=== PATIENT | female | born 1975 | race Caucasian/White ===

== ENCOUNTER → 2018-03-26 | Outpatient (REF) ==
[~2018-03-26] MED LIST: AMOX-358 PO; AMOX500C2 PO; DIVA-74; FAMO20TA5 PO; HYDR-4226 PO; HYDR-757 PO; KETO10TA PO; LEVO75TA6 PO; MELA1TAB9 PO; NAPR-1071 PO; NFPRILOC40 PO; NITR-65 PO; OMEP-10 PO; OMEP20TA33 PO; QUET200T57 PO; SCR1T PO; TRAM-42 PO
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
== END | disposition home or self-care (01) ==
LOC: OCC 13:52
PROVIDERS: ATTEND Nurse Practitioner Family
CPT/HCPCS: 72100

== ENCOUNTER 2018-09-10 09:36 | Outpatient (CLI) | payer MEDICARE, MEDICAID ==
[~2018-09-10] VITALS: Ht 157.5 cm; Wt 96.8 kg
[2018-09-10] MEDS ORDERED: LEVO100T7 PO (09:46)
[2018-09-10 09:49] VITALS: BP 128/87
[2018-09-10 10:40] LABS: BASOPHILS % (AUTO) 1 % (0-10); EOSINOPHILS # (AUTO) 0.1 10^3/uL (0.0-0.3); EOSINOPHILS % (AUTO) 3 % (0-10); HEMATOCRIT 30 % (35-52); HEMOGLOBIN 8.9 G/DL (11.5-16.0); LYMPHOCYTES # (AUTO) 0.8 X 10^3 (1.0-4.0); LYMPHOCYTES % (AUTO) 16 % (12-44); MEAN CORPUSCULAR HEMOGLOBIN 20 PG (25-34); MEAN CORPUSCULAR HGB CONC 30 G/DL (32-36); MEAN CORPUSCULAR VOLUME 65 FL (80-99); MEAN PLATELET VOLUME 10.1 FL (7.4-10.4); MONOCYTES # (AUTO) 0.4 X 10^3 (0.0-1.0); MONOCYTES % (AUTO) 8 % (0-12); NEUTROPHILS # (AUTO) 3.5 X 10^3 (1.8-7.8); NEUTROPHILS % (AUTO) 72 % (42-75); PLATELET COUNT 373 10^3/uL (130-400); RED CELL DISTRIBUTION WIDTH 19.8 % (10.0-14.5); WHITE BLOOD COUNT 4.8 10^3/uL (4.3-11.0)
== END 2018-09-10 13:26 | disposition home or self-care (01) ==
LOC: PREOP 09:36
PROVIDERS: ATTEND Obstetrics & Gynecology
DX: Z01.812 Encounter for preprocedural laboratory examination (principal); Z11.2 Encounter for screening for other bacterial diseases; R10.2 Pelvic and perineal pain; N92.0 Excessive and frequent menstruation with regular cycle; N94.6 Dysmenorrhea, unspecified; N80.0 Endometriosis of uterus
CPT/HCPCS: 36415; 85025; 86850; 86900; 86901; 87081

== ENCOUNTER 2018-09-13 06:00 | Day surgery (SDC) | payer MEDICARE, MEDICAID ==
[~2018-09-13] VITALS: Ht 157.5 cm; Wt 96.8 kg
[~2018-09-13 06:00] MED LIST changes: +LEVO100T7 PO
--- OUTSIDE RECORDS SUMMARY | 2018-09-13 06:22 | XMS REPORT ---
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 Active 77737455 Problem Dental examination Z01.20 Active 093526510 Problem Adjustment disorder with mixed disturbance of emotions and conduct F43.25 Active 93534886 Problem Dyspareunia in female N94.10 Active 12285877 Problem Depression with anxiety F41.8 Active 908966110 Problem Anxiety disorder, unspecified type F41.9 Active 944119673 Problem Hiatal hernia K44.9 Active 97961073 Problem Bipolar disorder, unspecified F31.9 Active 60551638 Problem Caries K02.9 Active 32560951 Problem Iron deficiency anemia due to chronic blood loss D50.0 Active 88357987 Problem Menorrhagia with regular cycle N92.0 Active 916260769 Problem Dysthymic disorder F34.1 Active 30894251 Problem Restless leg G25.81 Active 33084859 Problem Gastro-esophageal reflux disease with esophagitis K21.0 Active 257664058 Problem Primary insomnia F51.01 Active 634111429 Problem Gastroesophageal reflux disease with esophagitis K21.0 Active 644898296 Problem Hypothyroidism E03.9 Active 14114387 Problem Anger R45.4 Active 13931098 Problem Post traumatic stress disorder (PTSD) F43.10 Active 37389477 Problem 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 Active 370433899 Problem Insomnia, unspecified G47.00 Active 295310105 ALLERGIES No Information ENCOUNTERS Encounter Location Date Diagnosis [facility] [address] [facility] [id number] [address] Jun, [facility] [address], [place] [address] Jun, [facility] [address] [place] [id number] [place] [address]25- [address] May, Menorrhagia with regular cycle N92.0 [facility] [address] [place] [id number] [place] [address] 17129- 7707 May, Iron deficiency anemia due to chronic blood loss D50.0 and Hypothyroidism E03.9 [place] [address] [place] [id number] [place] [address] 28541- 7242 May, Menorrhagia with regular cycle N92.0 [place] [address] [place] [id number] [place] [address] 71932- 3253 May, [place] [address] [place] [id number] [place] [address] 44772- 1425 May, Bipolar disorder, unspecified F31.9 ; Hypothyroidism E03.9 ; Menorrhagia with regular cycle N92.0 and Dyspareunia in female N94.10 [place] [address] [place] [id number] [place] [address]22- 3574 Jan, Hypothyroidism E03.9 ; Restless leg G25.81 ; Depression with anxiety F41.8 and Overweight E66.3 [place] [address], [place] [address] November, [place] [address] [place] [id number] [place] [address] 42403- 3864 Oct, [place] [address] [place] [address] 85728- 8041 Sep, [place] [address] [place] [id number] [place] [address] 47895- 3641 Sep, Aspiration pneumonia, unspecified aspiration pneumonia type , unspecified laterality, unspecified part of lung J69.0 [place] [address], [place] [address] Sep, Pneumonia of left lower lobe due to infectious organism J18.1 [place] [address] [place] [id number] [place] [address] 42625- 4744 Jul, Anxiety disorder, unspecified type F41.9 [facility] [place] [address] [place] [id number] [place] [address]30 -0421 Jul, Body aches R52 and Viral illness B34.9 [facility] WALK IN [place] [address] [address] Jun, Bronchitis J40 [place] [address] [address]- [address] May, Hypothyroidism E03.9 [place] [address] 8[address]23- 8[address] May, Menorrhagia with regular cycle N92.0 ; Hypothyroidism E03.9 ; Iron deficiency anemia due to chronic blood loss D50.0 ; Primary insomnia F51.01 and Restless leg G25.81 [place] [address] [address]- [address] May, [facility] IN [place] [address] [address] May, Acute cystitis with hematuria N30.01 and Dysuria R30.0 [place] [address] 35[address]- [address] Apr, [place] [address] [address]- [address]407 Feb, [facility] [place] [address] [place] [id number] [place] [address] 85223 -8262 Feb, Ganglion cyst of wrist, left M67.432 [place] [address] [place] [id number] [place] [address] 86360- 1679 Jan, Insomnia, unspecified G47.00 [place] [address] 48640- 4188 Jan, Insomnia, unspecified G47.00 [place] [address] [place] [id number] [place] [address] 11036- 4203 05 Jan, 2017 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 ; Bipolar disorder, unspecified F31.9 and Hypothyroidism E03.9 [place] [address] [place] [id number] [place] [address]60- 1961 29 Dec, 2016 Dental examination Z01.20 [place] [address] [address]31- [address] 14 Dec, 2016 Depression with anxiety F41.8 ; Post traumatic stress disorder (PTSD) F43.10 ; 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 and Adjustment disorder with mixed disturbance of emotions and conduct F43.25 [place] [address] [address]- [address] November, 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 ; Adjustment disorder with mixed disturbance of emotions and conduct F43.25 and Depression with anxiety F41.8 [place] [address] 95581- 3285 November, Insomnia, unspecified G47.00 [place] [address] 86540- 71[address] November, 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 ; Adjustment disorder with mixed disturbance of emotions and conduct F43.25 and Depression with anxiety F41.8 [place] [address] [place] [id number] [place] [address] 46140- 4292 Oct, Insomnia, unspecified G47.00 [facility] WALK IN [address] [address] Oct, Visit for TB skin test Z11.1 [facility] [place] [id number] [place] [address] 24451 -5582 Sep, Wheezing R06.2 and Bronchitis J40 [facility] [address] [id number] Sep, Dental examination Z01.20 [place] [address] [address] 10 Sep, 2016 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 [place] [address], [place] [address] 08 Sep, 2016 Bipolar disorder, unspecified F31.9 ; Insomnia, unspecified G47.00 ; 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 ; Hypothyroidism E03.9 and Acquired hypothyroidism E03.9 [place] [address] [place] [id number] [place] [address] 96031- 0158 Jul, Hypothyroidism E03.9 [place] [address] [place] [id number] [place] [address] 91404- 5031 Jul, Hypothyroidism E03.9 [place] [address] [place] [id number] [place] [address] 27952- 0393 May, Generalized anxiety disorder F41.1 ; Depression with anxiety F41.8 and Bipolar disorder, unspecified F31.9 [place] [address] [place] [address] 19716- 1654 Apr, Hypothyroidism E03.9 [place] [address] [place] [address] 16277- 3755 Apr, Depression with anxiety F41.8 ; Bipolar disorder, unspecified F31.9 ; Generalized anxiety disorder F41.1 and Post traumatic stress disorder (PTSD) F43.10 [place] [address], [place] [address] Apr, Encounter to establish care Z76.89 ; Gastroesophageal reflux disease with esophagitis K21.0 ; Hypothyroidism E03.9 ; Bipolar disorder , unspecified F31.9 ; 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 ; Weight gain R63.5 and Insomnia, unspecified type G47.00 [place] [address] [place] [address] 64930- 5222 Apr, Primary insomnia F51.01 ; Depression with anxiety F41.8 and Generalized anxiety disorder F41.[address] [address]- [address] 18 Apr, 2016 [facility] [address] [address] 15 Apr, 2016 Overdose of anticonvulsant, undetermined intent, initial encounter T42.74XA [address] [address]- [address]279 Feb, [address] [address]- [address] Jan, Bipolar disorder, unspecified F31.9 and Anger R45.4 [facility] WALK IN [facility] [address] [place] [address]47 [address]93 15 Oct, 2015 Right forearm pain M79.631 [facility] [address] [id number] 04 Aug, 2015 Encounter for dental examination Z01.20 [facility] WALK IN [address] 229[address] 14 Jul, 2015 Acute vomiting R11.[address] [address]28- 2649 07 Jul, 2015 Screening for tuberculosis Z11.[address] 7[address]13- [address]17 Jun, Gastro-esophageal reflux disease with esophagitis K21.0 and Generalized anxiety disorder F41.[address] 02947- 0553 Jun, Generalized anxiety disorder F41.1 and Insomnia, unspecified G47.[address] 17563- 6791 Jun, [address] 56555- 6150 May, Generalized anxiety disorder F41.1 and Bipolar disorder, unspecified F31.9 [facility] [address] [place] [id number] [place] [address] 48074- 1984 May, Dysthymic disorder F34.1 ; Generalized anxiety disorder F41.1 and Bipolar 1 disorder with moderate felipe F31.12 [facility] [address] [place] [id number] [place] [address] 37794- 5768 May, Bipolar 1 disorder with moderate felipe F31.12 ; Generalized anxiety disorder F41.1 and Insomnia, unspecified G47.00 [facility] [address] [place] [id number] [place] [address] 68081- 8897 May, Bipolar 1 disorder with moderate felipe F31.12 [facility] WALK IN [facility] [address] [place] [id number] [place] [address]31 [address] May, Bronchitis J40 [facility] [address] 35822- 4427 Apr, Dysthymic disorder F34.1 and Generalized anxiety disorder F41.1 [place] [address] 30147- 7003 Apr, Generalized anxiety disorder F41.1 and Dysthymic disorder F34.1 [place] [address] 87961- 3278 Apr, Primary insomnia F51.01 ; Depression with anxiety F41.8 and Restless leg G25.81 [facility] [address] [place] [id number] [place] [address] 28382- 9161 Apr, Generalized anxiety disorder F41.1 ; Dysthymic disorder F34.1 ; Hypothyroidism E03.9 ; Anemia D64.9 and Acid reflux K21.9 [facility] [address] [place] [id number] 16 Mar, 2015 Dental examination V72.2 [facility] [address] 4[address]- 3762 Mar, Routine adult health maintenance V70.0 [facility] [address], [place] [address]- [address] Mar, [facility] [address] [place] [id number] [place] [address] 497513- 5053 Mar, Insomnia 780.52 ; Routine adult health maintenance V70.0 ; GERD (gastroesophageal reflux disease) 530.81 and Depression with anxiety 300.4 [facility] [address] [place] [address] [id number] Feb, Dental examination V72.2 [facility] [address] [place] [id number] [place] [address] 98551- 4795 Sep, [facility] [address] [place] [id number] [place] [address] 52385- 4370 Sep, [facility] [address] [place] [id number] [place] [address] 45420- 5415 Sep, [facility] [address] [place] [id number] [place] [address] 59698- 8525 Sep, [facility] [address] [place] [id number] [place] [address] 08587- 8814 Sep, [facility] [address] [place] [id number] [place] [address] 49634- 6688 Sep, IMMUNIZATIONS No Known Immunizations SOCIAL HISTORY Never Assessed REASON FOR VISIT Ultrasound walk-in. A[facility] [facility] RVT PLAN OF CARE Activity Details Pending Test Ultrasound : PELVIC COMPLETE (IN-HOUSE) VITAL SIGNS MEDICATIONS Unknown Medications RESULTS No Results PROCEDURES Procedure Date Ordered Result Body Site US EXAM, PELVIC, COMPLETE Jun 04, 2018 INSTRUCTIONS MEDICATIONS ADMINISTERED No Known Medications MEDICAL (GENERAL) HISTORY Type Description Date Medical History anemia Medical History Hypothyroidism Medical History esophageal reflux (possible deterioration of esophageal tissue ) Medical History insomnia Medical History restless leg syndrome Medical History hx of drug abuse-meth (last used 08/2014--No IDVU) Medical History hx of PTSD Medical History hx of major depression Surgical History loop electrosurgical excision procedure (LEEP) x3 late in 2009 Surgical History dilatation and curettage s/p miscarriage 2009 Surgical History section x2 1996 & 2004 Surgical History cholecystectomy 1996 Surgical History wisdom teeth extraction 1994 Surgical History EGD some esophagitis 05/2016 Surgical History EGD 09/2017 Hospitalization History rehab x30 days each 4 different times Hospitalization History 18 day stay at psych facility 1992 Hospitalization History was admitted to a penitentiary/psych facility [id number]
--- OUTSIDE RECORDS SUMMARY | 2018-09-13 06:22 | XMS REPORT ---
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 Active 68921372 Problem Dental examination Z01.20 Active 696243801 Problem Adjustment disorder with mixed disturbance of emotions and conduct F43.25 Active 03013273 Problem Dyspareunia in female N94.10 Active 84824165 Problem Depression with anxiety F41.8 Active 329737759 Problem Anxiety disorder, unspecified type F41.9 Active 422627442 Problem Hiatal hernia K44.9 Active 72090912 Problem Bipolar disorder, unspecified F31.9 Active 29034855 Problem Caries K02.9 Active 38663522 Problem Iron deficiency anemia due to chronic blood loss D50.0 Active 97700586 Problem Menorrhagia with regular cycle N92.0 Active 852744531 Problem Dysthymic disorder F34.1 Active 10929161 Problem Restless leg G25.81 Active 55797172 Problem Gastro-esophageal reflux disease with esophagitis K21.0 Active 939372367 Problem Primary insomnia F51.01 Active 374545713 Problem Gastroesophageal reflux disease with esophagitis K21.0 Active 303870716 Problem Hypothyroidism E03.9 Active 44165698 Problem Anger R45.4 Active 13980089 Problem Post traumatic stress disorder (PTSD) F43.10 Active 11916836 Problem 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 Active 949990772 Problem Insomnia, unspecified G47.00 Active 193849939 ALLERGIES No Information ENCOUNTERS Encounter Location Date Diagnosis [facility] [address] [facility] [id number] [place] [address] Jun, [facility] [address] [place] [address] Jun, [facility] [address] [place] [id number] [place] [address] 88924- 8500 May, Menorrhagia with regular cycle N92.0 [facility] [address] [place] [id number] [place] [address] 12424- 5897 May, Iron deficiency anemia due to chronic blood loss D50.0 and Hypothyroidism E03.9 [place] [address] [place] [id number] [place] [address] 11605- 2446 May, Menorrhagia with regular cycle N92.0 [place] [address] [place] [id number] [place] [address] 39771- 9721 May, [place] [address] [place] [id number] [place] [address] 58300- 4841 May, Bipolar disorder, unspecified F31.9 ; Hypothyroidism E03.9 ; Menorrhagia with regular cycle N92.0 and Dyspareunia in female N94.10 [place] [address] [place] [id number] [place] [address] 04892- 2953 Jan, Hypothyroidism E03.9 ; Restless leg G25.81 ; Depression with anxiety F41.8 and Overweight E66.3 [place] [address] [address] November, [place] [address] [place] [id number] [place] [address] 67933- 1548 Oct, [place] [address] [place] [address] 70374- 6187 Sep, [place] [address] [place] [id number] [place] [address] 69022- 1002 Sep, Aspiration pneumonia, unspecified aspiration pneumonia type , unspecified laterality, unspecified part of lung J69.0 [place] [address] [address] Sep, Pneumonia of left lower lobe due to infectious organism J18.1 [place] [address] [place] [id number] [place] [address] 02266- 3748 Jul, Anxiety disorder, unspecified type F41.9 [facility] [place] [address] [place] [id number] [place] [address] 14666 -5056 Jul, Body aches R52 and Viral illness B34.9 [facility] [place] [address] [address] Jun, Bronchitis J40 [place] [address] 10233- 1374 May, Hypothyroidism E03.9 [place] [address] 03384- 8876 May, Menorrhagia with regular cycle N92.0 ; Hypothyroidism E03.9 ; Iron deficiency anemia due to chronic blood loss D50.0 ; Primary insomnia F51.01 and Restless leg G25.81 [place] [address] 8[address]64- 4668 May, [facility] [place] [address] [address] May, Acute cystitis with hematuria N30.01 and Dysuria R30.0 [place] [address] 59960- 2578 Apr, [place] [address] 30143- 69[address] Feb, [facility] [place] [address] [id number] [place] [address] 72812 -0548 Feb, Ganglion cyst of wrist, left M67.432 [place] [address] [place] [id number] [place] [address] 23295- 5846 Jan, Insomnia, unspecified G47.00 [place] [address] 01795- 5128 Jan, Insomnia, unspecified G47.00 [place] [address] [place] [id number] [place] [address] 48636- 6361 05 Jan, 2017 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 ; Bipolar disorder, unspecified F31.9 and Hypothyroidism E03.9 [place] [address] [place] [id number] [place] [address] 72407- 7875 29 Dec, 2016 Dental examination Z01.20 [place] [address] 33[address]- 4846 14 Dec, 2016 Depression with anxiety F41.8 ; Post traumatic stress disorder (PTSD) F43.10 ; 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 and Adjustment disorder with mixed disturbance of emotions and conduct F43.25 [place] [address] [address]- 9592 November, 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 ; Adjustment disorder with mixed disturbance of emotions and conduct F43.25 and Depression with anxiety F41.8 [place] [address] 75717- 3962 November, Insomnia, unspecified G47.00 [place] [address] 81336- 9268 November, 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 ; Adjustment disorder with mixed disturbance of emotions and conduct F43.25 and Depression with anxiety F41.8 [place] [address] [place] [id number] [place] [address] 24528- 3551 Oct, Insomnia, unspecified G47.00 [facility] IN [address] [address] Oct, Visit for TB skin test Z11.1 [facility] [place] [id number] [place] [address] 18405 [address]3886 Sep, Wheezing R06.2 and Bronchitis J40 [facility] [address] [id number] Sep, Dental examination Z01.20 [place] [address] [address] 10 Sep, 2016 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 [place] [address] [address] 08 Sep, 2016 Bipolar disorder, unspecified F31.9 ; Insomnia, unspecified G47.00 ; 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 ; Hypothyroidism E03.9 and Acquired hypothyroidism E03.9 [place] [address] [place] [id number] [place] [address] 79903- 4626 Jul, Hypothyroidism E03.9 [place] [address] [place] [id number] [place] [address] 86818- 2735 Jul, Hypothyroidism E03.9 [place] [address] [place] [id number] [place] [address] 88220- 0158 May, Generalized anxiety disorder F41.1 ; Depression with anxiety F41.8 and Bipolar disorder, unspecified F31.9 [place] [address] [place] [address] 36435- 9759 Apr, Hypothyroidism E03.9 [place] [address] [place] [address] 31536- 7205 Apr, Depression with anxiety F41.8 ; Bipolar disorder, unspecified F31.9 ; Generalized anxiety disorder F41.1 and Post traumatic stress disorder (PTSD) F43.10 [place] [address] [address] Apr, Encounter to establish care Z76.89 ; Gastroesophageal reflux disease with esophagitis K21.0 ; Hypothyroidism E03.9 ; Bipolar disorder , unspecified F31.9 ; 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 ; Weight gain R63.5 and Insomnia, unspecified type G47.00 [place] [address] [place] [address] 17265- 0972 Apr, Primary insomnia F51.01 ; Depression with anxiety F41.8 and Generalized anxiety disorder F41.[address] [address]- [address] 18 Apr, 2016 [facility] [address] [address] 15 Apr, 2016 Overdose of anticonvulsant, undetermined intent, initial encounter T42.74XA [address] [address]- [address]34 Feb, [address] 8[address]32- 4335 Jan, Bipolar disorder, unspecified F31.9 and Anger R45.4 [facility] [address] [place] [address]34 -8314 15 Oct, 2015 Right forearm pain M79.631 [facility] [address] [id number] 04 Aug, 2015 Encounter for dental examination Z01.20 [facility] IN [address] [address] 14 Jul, 2015 Acute vomiting R11.[address] 28999- 8885 07 Jul, 2015 Screening for tuberculosis Z11.[address] 99869- 7649 Jun, Gastro-esophageal reflux disease with esophagitis K21.0 and Generalized anxiety disorder F41.[address] 9[address]40- 4882 Jun, Generalized anxiety disorder F41.1 and Insomnia, unspecified G47.[address] 86782- 4948 Jun, [address] 81161- 7381 May, Generalized anxiety disorder F41.1 and Bipolar disorder, unspecified F31.9 [facility] [address] [id number] [place] [address] 80076- 8614 May, Dysthymic disorder F34.1 ; Generalized anxiety disorder F41.1 and Bipolar 1 disorder with moderate felipe F31.12 [facility] [address] [id number] [place] [address] 73381- 4732 May, Bipolar 1 disorder with moderate felipe F31.12 ; Generalized anxiety disorder F41.1 and Insomnia, unspecified G47.00 [facility] [address] [id number] [place] [address] 22732- 3682 May, Bipolar 1 disorder with moderate felipe F31.12 [facility] [address] [id number] [place] [address] 51109 -2469 May, Bronchitis J40 [facility] [address] [address]- 1481 Apr, Dysthymic disorder F34.1 and Generalized anxiety disorder F41.1 [place] [address] 02083- 8375 Apr, Generalized anxiety disorder F41.1 and Dysthymic disorder F34.1 [place] [address] 90653- 0818 Apr, Primary insomnia F51.01 ; Depression with anxiety F41.8 and Restless leg G25.81 [facility] [address] [place] [id number] [place] [address] 44591- 3288 Apr, Generalized anxiety disorder F41.1 ; Dysthymic disorder F34.1 ; Hypothyroidism E03.9 ; Anemia D64.9 and Acid reflux K21.9 [facility] [address] [place] [address] [id number] 16 Mar, 2015 Dental examination V72.2 [facility] [address] 077[address]- 7701 Mar, Routine adult health maintenance V70.0 [facility] [address] [place] [id number] [place] [address] 22393- 8646 Mar, [facility] [address] [place] [id number] [place] [address] 242416- 9625 Mar, Insomnia 780.52 ; Routine adult health maintenance V70.0 ; GERD (gastroesophageal reflux disease) 530.81 and Depression with anxiety 300.4 [facility] [address] [place] [id number] [place] [address] [id number] Feb, Dental examination V72.2 [facility] [address] 056[address]- 8716 Sep, [facility] [address] 22336- 4788 Sep, [facility] [address] 18842- 9699 Sep, [facility] [address] [place] [id number] [place] [address] 55482- 5829 Sep, [facility] [address] [place] [id number] [place] [address] 63226- 6195 Sep, [facility] [address] [place] [id number] [place] [address] 99105- 9943 Sep, IMMUNIZATIONS No Known Immunizations SOCIAL HISTORY Never Assessed REASON FOR VISIT Ultrasound Order f/u PLAN OF CARE VITAL SIGNS MEDICATIONS Unknown Medications RESULTS No Results PROCEDURES No Known procedures INSTRUCTIONS MEDICATIONS ADMINISTERED No Known Medications MEDICAL [...] Surgical History dilatation and curettage s/p miscarriage 2008 Surgical History section x2 1996 & 2004 Surgical History cholecystectomy 1996 Surgical History wisdom teeth extraction 1994 Surgical History EGD some esophagitis 05/2016 Surgical History EGD 09/2017 Hospitalization History rehab x30 days each 4 different times Hospitalization History 18 day stay at psych facility 1992 Hospitalization History was admitted to a retirement/psych facility [id number]
--- OUTSIDE RECORDS SUMMARY | 2018-09-13 06:22 | XMS REPORT ---
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 Active 52186513 Problem Dental examination Z01.20 Active 650524732 Problem Adjustment disorder with mixed disturbance of emotions and conduct F43.25 Active 40971748 Problem Dyspareunia in female N94.10 Active 93013382 Problem Depression with anxiety F41.8 Active 208744162 Problem Anxiety disorder, unspecified type F41.9 Active 265982404 Problem Hiatal hernia K44.9 Active 10062711 Problem Bipolar disorder, unspecified F31.9 Active 05536286 Problem Caries K02.9 Active 76966907 Problem Iron deficiency anemia due to chronic blood loss D50.0 Active 76574621 Problem Menorrhagia with regular cycle N92.0 Active 563028532 Problem Dysthymic disorder F34.1 Active 75636050 Problem Restless leg G25.81 Active 45750114 Problem Gastro-esophageal reflux disease with esophagitis K21.0 Active 344981202 Problem Primary insomnia F51.01 Active 270303773 Problem Gastroesophageal reflux disease with esophagitis K21.0 Active 487802182 Problem Hypothyroidism E03.9 Active 75661687 Problem Anger R45.4 Active 28503866 Problem Post traumatic stress disorder (PTSD) F43.10 Active 51976152 Problem 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 Active 444174970 Problem Insomnia, unspecified G47.00 Active 421982397 ALLERGIES No Known Allergies ENCOUNTERS Encounter Location Date Diagnosis [facility] [address] [facility] [id number] [address] Jun, [facility] [address] [address] Jun, Hypothyroidism E03.9 ; Bipolar disorder, unspecified F31.9 and Menorrhagia with regular cycle N92.0 [place] [address] [place] [id number] [place] [address]34- 2464 May, Menorrhagia with regular cycle N92.0 [place] [address] [place] [id number] [place] [address] 50069- 0716 May, Iron deficiency anemia due to chronic blood loss D50.0 and Hypothyroidism E03.9 [place] [address] [place] [id number] [place] [address] 12504- 6789 May, Menorrhagia with regular cycle N92.0 [place] [address] [place] [id number] [place] [address] 55098- 5301 May, [place] [address] [place] [id number] [place] [address] 14054- 3132 May, Bipolar disorder, unspecified F31.9 ; Hypothyroidism E03.9 ; Menorrhagia with regular cycle N92.0 and Dyspareunia in female N94.10 [place] [address] [place] [id number] [place] [address]- [address] Jan, Hypothyroidism E03.9 ; Restless leg G25.81 ; Depression with anxiety F41.8 and Overweight E66.3 [place] [address] [place] [id number] [place] [address] 08725- 6030 November, [place] [address] [place] [id number] [place] [address] 75128- 8476 Oct, [place] [address] [place] [id number] [place] [address] 82674- 8166 Sep, [place] [address] [place] [id number] [place] [address] 68207- 9618 Sep, Aspiration pneumonia, unspecified aspiration pneumonia type , unspecified laterality, unspecified part of lung J69.0 [place] [address] [address]- 59[address] Sep, Pneumonia of left lower lobe due to infectious organism J18.1 [place] [address] [address]- [address]13 Jul, Anxiety disorder, unspecified type F41.9 [facility] [place] [address] [address] Jul, Body aches R52 and Viral illness B34.9 [facility] [place] [address] [address]65 [address] Jun, Bronchitis J40 [place] [address] 55299- 1199 May, Hypothyroidism E03.9 [place] [address] [address]- 2778 May, Menorrhagia with regular cycle N92.0 ; Hypothyroidism E03.9 ; Iron deficiency anemia due to chronic blood loss D50.0 ; Primary insomnia F51.01 and Restless leg G25.81 [place] [address] 62[address]- [address]761 May, [facility] [place] [address] [place] [id number] [place] [address] 82441 -1098 May, Acute cystitis with hematuria N30.01 and Dysuria R30.0 [place] [address] 59116- 8895 Apr, [place] [address] 57[address]- 9685 Feb, [facility] [place] [address] [address]87 Feb, Ganglion cyst of wrist, left M67.432 [place] [address] 51696- 5[address] Jan, Insomnia, unspecified G47.00 [place] [address] [place] [id number] [place] [address] 70319- 9817 Jan, Insomnia, unspecified G47.00 [place] [address] 12699- 5995 05 Jan, 2017 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 ; Bipolar disorder, unspecified F31.9 and Hypothyroidism E03.9 [place] [address] 09616- 8708 29 Dec, 2016 Dental examination Z01.20 [place] [address] 92075- 2962 14 Dec, 2016 Depression with anxiety F41.8 ; Post traumatic stress disorder (PTSD) F43.10 ; 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 and Adjustment disorder with mixed disturbance of emotions and conduct F43.25 [place] [address] 61413- [address]69 November, 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 ; Adjustment disorder with mixed disturbance of emotions and conduct F43.25 and Depression with anxiety F41.8 [place] [address] 74242- 5365 November, Insomnia, unspecified G47.00 [place] [address] [place] [id number] [place] [address] 37958- 3783 November, 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 ; Adjustment disorder with mixed disturbance of emotions and conduct F43.25 and Depression with anxiety F41.8 [place] [address] [place] [id number] [place] [address] 42506- 6259 Oct, Insomnia, unspecified G47.00 [facility] [address] [address] Oct, Visit for TB skin test Z11.1 [facility] [place] [id number] [place] [address] 45863 -0222 28 Mar, 2017 Wheezing R06.2 and Bronchitis J40 [facility] [address] [place] [address] [id number] [id number] Sep, Dental examination Z01.20 [place] [address] [place] [id number] [place] [address] 92225- 7069 10 Sep, 2016 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 [place] [address] [place] [id number] [place] [address] 96206- 9782 08 Sep, 2016 Bipolar disorder, unspecified F31.9 ; Insomnia, unspecified G47.00 ; 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 ; Hypothyroidism E03.9 and Acquired hypothyroidism E03.9 [place] [address] [place] [id number] [place] [address] 48617- 9328 Jul, Hypothyroidism E03.9 [place] [address] [place] [id number] [place] [address] 64851- 9318 Jul, Hypothyroidism E03.9 [place] [address] [place] [id number] [place] [address] 06674- 1366 May, Generalized anxiety disorder F41.1 ; Depression with anxiety F41.8 and Bipolar disorder, unspecified F31.9 [place] [id number] [place] [address] 89495- 9306 Apr, Hypothyroidism E03.9 [place] [address] [place] [id number] [place] [address] 22613- 5884 Apr, Depression with anxiety F41.8 ; Bipolar disorder, unspecified F31.9 ; Generalized anxiety disorder F41.1 and Post traumatic stress disorder (PTSD) F43.10 [place] [address] [place] [id number] [place] [address] 94466- 6269 Apr, Encounter to [facility] care Z76.89 ; Gastroesophageal reflux disease with esophagitis K21.0 ; Hypothyroidism E03.9 ; Bipolar disorder , unspecified F31.9 ; 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 ; Weight gain R63.5 and Insomnia, unspecified type G47.00 [place] [address] [place] [id number] [place] [address] 64314- 7017 Apr, Primary insomnia F51.01 ; Depression with anxiety F41.8 and Generalized anxiety disorder F41.1 [place] [address] 05912- 7856 18 Apr, 2016 [facility] IN [address] [address] Apr, Overdose of anticonvulsant, undetermined intent, initial encounter T42.74XA [address] [address]21- [address]957 Feb, [address] [address]14- 8[address] Jan, Bipolar disorder, unspecified F31.9 and Anger R45.4 [facility] [place] [address] [address] Oct, Right forearm pain M79.631 [facility] [address] [id number] Aug, 2015 Encounter for dental examination Z01.20 [facility] [place] [address] [address] Jul, Acute vomiting R11.[address] [address]63- 7980 Jul, Screening for tuberculosis Z11.[address] 28343- 8557 Jun, Gastro-esophageal reflux disease with esophagitis K21.0 and Generalized anxiety disorder F41.[address] 47[address]- 6396 Jun, Generalized anxiety disorder F41.1 and Insomnia, unspecified G47.[address] 61011- 9343 Jun, [facility] [address] [place] [id number] [place] [address] 31044- 4698 May, Generalized anxiety disorder F41.1 and Bipolar disorder, unspecified F31.9 [facility] [address] 31796- 3590 May, Dysthymic disorder F34.1 ; Generalized anxiety disorder F41.1 and Bipolar 1 disorder with moderate felipe F31.12 [facility] [address] [address]- 0485 May, Bipolar 1 disorder with moderate felipe F31.12 ; Generalized anxiety disorder F41.1 and Insomnia, unspecified G47.00 [place] [address] 84981- 9979 May, Bipolar 1 disorder with moderate felipe F31.12 [facility] IN [facility] [address] 377[address] May, Bronchitis J40 [facility] [address] 77631- 5114 Apr, Dysthymic disorder F34.1 and Generalized anxiety disorder F41.1 [facility] [address] 71024- 4118 Apr, Generalized anxiety disorder F41.1 and Dysthymic disorder F34.1 [place] [address] 44912- 7415 Apr, Primary insomnia F51.01 ; Depression with anxiety F41.8 and Restless leg G25.81 [place] [address] 20657- 3233 Apr, Generalized anxiety disorder F41.1 ; Dysthymic disorder F34.1 ; Hypothyroidism E03.9 ; Anemia D64.9 and Acid reflux K21.9 [facility] [id number] [place] [id number] 16 Mar, 2015 Dental examination V72.2 [facility] [address] [address] 04 Mar, 2015 Routine adult health maintenance V70.0 [facility] [address] [place] [id number] [place] [address] 16595- 5336 Mar, [facility] [address] [place] [address] [id number] [place] [address] 58037- 4019 Mar, Insomnia 780.52 ; Routine adult health maintenance V70.0 ; GERD (gastroesophageal reflux disease) 530.81 and Depression with anxiety 300.4 [facility] [id number] [place] [id number] Feb, Dental examination V72.2 [facility] [address] [place] [id number] [place] [address] 51385- 6591 Sep, [facility] [address] [place] [id number] [place] [address] 64482- 0756 Sep, [facility] [address] [place] [address] [id number] [place] [address] 17223- 5255 Sep, [facility] [address] [place] [id number] [place] [address] 71309- 5116 Sep, [facility] [address] [place] [id number] [place] [address] 96436- 6735 Sep, [facility] [id number] [place] [address] 31131- 3086 Sep, IMMUNIZATIONS No Known Immunizations SOCIAL HISTORY Never Assessed REASON FOR VISIT hypothyroid f/u Pt in for follow up on hypothyroidism --CELE Deng PLAN OF CARE Activity Details Follow Up 3 Months Reason:hypothyroid VITAL SIGNS Height 62 in 2018-06-20 Weight 213.6 lbs 2018-06-20 Temperature 98.2 degrees Fahrenheit 2018-06-20 Heart Rate 76 bpm 2018-06-20 Respiratory Rate 18 2018-06-20 BMI 39.06 kg/m2 2018-06-20 Blood pressure systolic 136 mmHg 2018-06-20 Blood pressure diastolic 82 mmHg 2018-06-20 MEDICATIONS Medication Instructions Dosage Frequency Start Date End Date Duration Status Levothyroxine Sodium 100 MCG Orally Once a day 1 tablet 24h 90 days Active Ferrous Sulfate 325 (65 Fe) MG Orally Once a day 1 tablet 24h May, 30 days Active Gabapentin 300 MG Orally Once a day 1 capsule before bedtime 24h 15 May, 2017 90 Active Omeprazole 40 mg Orally Once a day 1 capsule 24h Sep, Active Seroquel 100 MG by oral route at bedtime 1 tablet 90 days Active RESULTS No Results PROCEDURES Procedure Date Ordered Result Body Site [facility] VISIT ESTABLISHED PATIENT Jun 20, 2018 INSTRUCTIONS MEDICATIONS ADMINISTERED No Known Medications [...] 1992 Hospitalization History was admitted to a correction/psych facility [id number]
--- OUTSIDE RECORDS SUMMARY | 2018-09-13 06:23 | XMS REPORT ---
Author Author NADYA IVY 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 Active 87391192 Problem Anxiety disorder, unspecified type F41.9 Active 316309958 Problem Hiatal hernia K44.9 Active 86269520 Problem Iron deficiency anemia due to chronic blood loss D50.0 Active 82492487 Problem Caries K02.9 Active 86264545 Problem Dental examination Z01.20 Active 765792380 Problem Menorrhagia with regular cycle N92.0 Active 568228146 Problem Bipolar disorder, unspecified F31.9 Active 04506348 Problem Primary insomnia F51.01 Active 343868786 Problem Dysthymic disorder F34.1 Active 63051672 Problem Depression with anxiety F41.8 Active 767804602 Problem Gastro-esophageal reflux disease with esophagitis K21.0 Active 427043946 Problem 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 Active 946923792 Problem Gastroesophageal reflux disease with esophagitis K21.0 Active 580182107 Problem Restless leg G25.81 Active 28665321 Problem Hypothyroidism E03.9 Active 36239900 Problem Anger R45.4 Active 38874279 Problem Post traumatic stress disorder (PTSD) F43.10 Active 58858080 ALLERGIES No Information ENCOUNTERS Encounter Location Date Diagnosis [facility] [address] [facility] [id number] [address] Jan, Hypothyroidism E03.9 ; Restless leg G25.81 ; Depression with anxiety F41.8 and Overweight E66.3 [place] [address] [place] [id number] [place] [address]10[address] November, [place] [address] [address] Oct, [place] [address] [place] [id number] [place] [address] 08155- 8510 Sep, [place] [address] [address]- [address]84 Sep, Aspiration pneumonia, unspecified aspiration pneumonia type , unspecified laterality, unspecified part of lung J69.0 [place] [address] [address] Sep, Pneumonia of left lower lobe due to infectious organism J18.1 [place] [address] 54[address]- [address] Jul, Anxiety disorder, unspecified type F41.9 [facility] [place] [address] [address] Jul, Body aches R52 and Viral illness B34.9 [facility] [address] [address] Jun, Bronchitis J40 [place] [address] 040[address]- 9259 May, Hypothyroidism E03.9 [place] [address] 15231- 3518 15 May, 2017 Menorrhagia with regular cycle N92.0 ; Hypothyroidism E03.9 ; Iron deficiency anemia due to chronic blood loss D50.0 ; Primary insomnia F51.01 and Restless leg G25.81 [place] [address] [place] [id number] [place] [address] 35815- 8767 06 May, 2017 [facility] [place] [address] [address] 06 Nov, 2017 Acute cystitis with hematuria N30.01 and Dysuria R30.0 [place] [address] [place] [id number] [place] [address] 27202- 4684 Apr, [place] [address] [place] [id number] [place] [address] 11989- 4289 Feb, [facility] [address] [place] [id number] [place] [address]43 [address]2942 Feb, Ganglion cyst of wrist, left M67.432 [place] [address] [place] [id number] [place] [address] 62876- 2608 Jan, Insomnia, unspecified G47.00 [place] [address] [place] [id number] [place] [address] 74011- 9067 Jan, Insomnia, unspecified G47.00 [place] [address] [place] [id number] [place] [address] 41333- 6913 Jan, 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 ; Bipolar disorder, unspecified F31.9 and Hypothyroidism E03.9 [place] [address] [place] [id number] [place] [address] 13552- 8662 29 Dec, 2016 Dental examination Z01.20 [place] [address] [place] [id number] [place] [address] 46085- 4473 14 Dec, 2016 Depression with anxiety F41.8 ; Post traumatic stress disorder (PTSD) F43.10 ; 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 and Adjustment disorder with mixed disturbance of emotions and conduct F43.25 [place] [id number] [place] [address] 77095- 9833 November, 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 ; Adjustment disorder with mixed disturbance of emotions and conduct F43.25 and Depression with anxiety F41.8 [place] [address] [place] [id number] [place] [address] 43780- 1157 November, Insomnia, unspecified G47.00 [place] [address] [place] [id number] [place] [address] 68881- 4269 November, 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 ; Adjustment disorder with mixed disturbance of emotions and conduct F43.25 and Depression with anxiety F41.8 [place] [id number] [place] [address] 34048- 2104 Oct, Insomnia, unspecified G47.00 [facility] [place] [id number] [place] [address]272 [address]6697 Oct, Visit for TB skin test Z11.1 [facility] [place] [address] [place] [id number] [place] [address] 06848 -4927 Sep, Wheezing R06.2 and Bronchitis J40 [facility] [address] [id number] Sep, Dental examination Z01.20 [place] [id number] [place] [address] 16469- 7487 10 Sep, 2016 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 [place] [address] [place] [id number] [place] [address] 34906- 8502 08 Sep, 2016 Bipolar disorder, unspecified F31.9 ; Insomnia, unspecified G47.00 ; 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 ; Hypothyroidism E03.9 and Acquired hypothyroidism E03.9 [place] [address] [place] [id number] [place] [address] 63880- 5309 Jul, Hypothyroidism E03.9 [place] [address] [place] [id number] [place] [address] 00819- 8379 Jul, Hypothyroidism E03.9 [place] [id number] [place] [address] 92453- 5427 May, Generalized anxiety disorder F41.1 ; Depression with anxiety F41.8 and Bipolar disorder, unspecified F31.9 [place] [address] [place] [id number] [place] [address] 26087- 2215 Apr, Hypothyroidism E03.9 [place] [address] [place] [id number] [place] [address] 44967- 0964 Apr, Depression with anxiety F41.8 ; Bipolar disorder, unspecified F31.9 ; Generalized anxiety disorder F41.1 and Post traumatic stress disorder (PTSD) F43.[address] 6[address]- [address] Apr, Encounter to establish care Z76.89 ; Gastroesophageal reflux disease with esophagitis K21.0 ; Hypothyroidism E03.9 ; Bipolar disorder , unspecified F31.9 ; 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 ; Weight gain R63.5 and Insomnia, unspecified type G47.[address] 32695- 1557 Apr, Primary insomnia F51.01 ; Depression with anxiety F41.8 and Generalized anxiety disorder F41.[address] 31[address]- 5379 Apr, [facility] [address] [place] [address] 09458 [address]3687 Apr, Overdose of anticonvulsant, undetermined intent, initial encounter T42.74XA [address] 8[address]- 9258 Feb, [address] 68037- [address] Jan, Bipolar disorder, unspecified F31.9 and Anger R45.4 [facility] [address] [place] [address] 70909 -3324 15 Oct, 2015 Right forearm pain M79.631 [facility] [address] [id number] Aug, 2015 Encounter for dental examination Z01.20 [facility] [address] [place] [address] 80230 -5970 14 Jul, 2015 Acute vomiting R11.10 [place] [address] [address] Jul, Screening for tuberculosis Z11.1 [facility] [address] 86006- 2862 Jun, Gastro-esophageal reflux disease with esophagitis K21.0 and Generalized anxiety disorder F41.1 [facility] [address] 37251- 4955 Jun, Generalized anxiety disorder F41.1 and Insomnia, unspecified G47.00 [place] [address] 35926- 8219 Jun, [place] [address] 84676- 7270 May, Generalized anxiety disorder F41.1 and Bipolar disorder, unspecified F31.9 [place] [address] 85309- 1581 May, Dysthymic disorder F34.1 ; Generalized anxiety disorder F41.1 and Bipolar 1 disorder with moderate felipe F31.12 [place] [address] 38699- 1374 May, Bipolar 1 disorder with moderate felipe F31.12 ; Generalized anxiety disorder F41.1 and Insomnia, unspecified G47.00 [place] [address] [place] [id number] [place] [address] 74276- 7325 May, Bipolar 1 disorder with moderate felipe F31.12 [facility] [address] [place] [id number] [place] [address] 21559 -8869 May, Bronchitis J40 [facility] [address] 19164- 2966 Apr, Dysthymic disorder F34.1 and Generalized anxiety disorder F41.1 [facility] [address] [place] [id number] [place] [address] 69165- 7784 Apr, Generalized anxiety disorder F41.1 and Dysthymic disorder F34.1 [facility] [address] [place] [address] 74720- 6344 Apr, Primary insomnia F51.01 ; Depression with anxiety F41.8 and Restless leg G25.81 [facility] [address] [place] [id number] [place] [address] 68280- 7174 Apr, Generalized anxiety disorder F41.1 ; Dysthymic disorder F34.1 ; Hypothyroidism E03.9 ; Anemia D64.9 and Acid reflux K21.9 [facility] [address] [place] [id number] [place] [id number] Mar, Dental examination V72.2 [facility] [address] 47797- 6236 Mar, Routine adult health maintenance V70.0 [facility] [address] 06907- 2859 Mar, [facility] [address] 09715- 6339 Mar, Insomnia 780.52 ; Routine adult health maintenance V70.0 ; GERD (gastroesophageal reflux disease) 530.81 and Depression with anxiety 300.4 [facility] [address] [place] [id number] [place] [address] [id number] Feb, Dental examination V72.2 [facility] [address] [place] [id number] [place] [address] 23001- 1938 Sep, [facility] [address] [place] [id number] [place] [address] 22570- 2673 Sep, [facility] [address] [place] [id number] [place] [address] 44485- 6323 Sep, [facility] [address] 76360- 1894 Sep, [facility] [address] [place] [id number] [place] [address] 16466- 9509 Sep, [facility] [address] [place] [address] Sep, IMMUNIZATIONS No Known Immunizations SOCIAL HISTORY Never Assessed REASON FOR VISIT Refill request PLAN OF CARE VITAL SIGNS MEDICATIONS Medication Instructions Dosage Frequency Start Date End Date Duration Status Levothyroxine Sodium 125 MCG Orally Once a day 1 tablet 24h 30 days Active RESULTS No Results PROCEDURES No Known procedures [...] 1992 Hospitalization History was admitted to a long-term/psych facility [id number]
--- OUTSIDE RECORDS SUMMARY | 2018-09-13 06:23 | XMS REPORT ---
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 Active 80344920 Problem Dental examination Z01.20 Active 199030889 Problem Adjustment disorder with mixed disturbance of emotions and conduct F43.25 Active 22124677 Problem Dyspareunia in female N94.10 Active 24934569 Problem Depression with anxiety F41.8 Active 960746672 Problem Anxiety disorder, unspecified type F41.9 Active 799759748 Problem Hiatal hernia K44.9 Active 95062993 Problem Bipolar disorder, unspecified F31.9 Active 96216925 Problem Caries K02.9 Active 95880407 Problem Iron deficiency anemia due to chronic blood loss D50.0 Active 07571880 Problem Menorrhagia with regular cycle N92.0 Active 747281507 Problem Dysthymic disorder F34.1 Active 10696493 Problem Restless leg G25.81 Active 87435103 Problem Gastro-esophageal reflux disease with esophagitis K21.0 Active 205737884 Problem Primary insomnia F51.01 Active 467343759 Problem Gastroesophageal reflux disease with esophagitis K21.0 Active 211447397 Problem Hypothyroidism E03.9 Active 03196647 Problem Anger R45.4 Active 97254530 Problem Post traumatic stress disorder (PTSD) F43.10 Active 06007338 Problem 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 Active 176063610 Problem Insomnia, unspecified G47.00 Active [id number] ALLERGIES No Information ENCOUNTERS Encounter Location Date Diagnosis [facility] [address] [facility] [id number] [address] Jun, [facility] [address], [place] [address] Jun, [facility] [address] [place] [id number] [place] [address]- 77[address] May, Menorrhagia with regular cycle N92.0 [facility] [address] [place] [id number] [place] [address]2002- 1812 May, Iron deficiency anemia due to chronic blood loss D50.0 and Hypothyroidism E03.9 [place] [address] [place] [id number] [place] [address] 06833- 5175 May, Menorrhagia with regular cycle N92.0 [place] [address] [place] [id number] [place] [address] 90314- 5087 May, [place] [address] [place] [id number] [place] [address] 35233- 5697 May, Bipolar disorder, unspecified F31.9 ; Hypothyroidism E03.9 ; Menorrhagia with regular cycle N92.0 and Dyspareunia in female N94.10 [place] [address] [place] [id number] [place] [address] 69455- 0238 Jan, Hypothyroidism E03.9 ; Restless leg G25.81 ; Depression with anxiety F41.8 and Overweight E66.3 [place] [address], [place] [address] November, [place] [address] [place] [id number] [place] [address] 71473- 3284 Oct, [place] [address] [place] [address] 30109- 6278 Sep, [place] [address] [place] [id number] [place] [address] 09813- 7897 Sep, Aspiration pneumonia, unspecified aspiration pneumonia type , unspecified laterality, unspecified part of lung J69.0 [place] [address], [place] [address] Sep, Pneumonia of left lower lobe due to infectious organism J18.1 [place] [address] [place] [id number] [place] [address] 71746- 5255 Jul, Anxiety disorder, unspecified type F41.9 [facility] [place] [address] [place] [id number] [place] [address] 36886 -9645 Jul, Body aches R52 and Viral illness B34.9 [facility] [place] [address] [address] Jun, Bronchitis J40 [place] [address] 88028- 7925 May, Hypothyroidism E03.9 [place] [address] 30415- 1386 May, Menorrhagia with regular cycle N92.0 ; Hypothyroidism E03.9 ; Iron deficiency anemia due to chronic blood loss D50.0 ; Primary insomnia F51.01 and Restless leg G25.81 [place] [address] 02407- 8841 May, [facility] [place] [address] [address] May, Acute cystitis with hematuria N30.01 and Dysuria R30.0 [place] [address] 61585- 9989 Apr, [place] [address] 23184- 3418 Feb, [facility] [place] [address] [place] [id number] [place] [address] 43632 -7592 Feb, Ganglion cyst of wrist, left M67.432 [place] [address] [place] [id number] [place] [address] 78350- 7089 Jan, Insomnia, unspecified G47.00 [place] [address] 73666- 1678 Jan, Insomnia, unspecified G47.00 [place] [address] [place] [id number] [place] [address] 46634- 1326 05 Jan, 2017 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 ; Bipolar disorder, unspecified F31.9 and Hypothyroidism E03.9 [place] [address] [place] [id number] [place] [address] 20830- 4172 29 Dec, 2016 Dental examination Z01.20 [place] [address] 04216- 2986 14 Dec, 2016 Depression with anxiety F41.8 ; Post traumatic stress disorder (PTSD) F43.10 ; 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 and Adjustment disorder with mixed disturbance of emotions and conduct F43.25 [place] [address] 22692- 0880 November, 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 ; Adjustment disorder with mixed disturbance of emotions and conduct F43.25 and Depression with anxiety F41.8 [place] [address] 82707- 6201 November, Insomnia, unspecified G47.00 [place] [address] 65532- 3118 November, 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 ; Adjustment disorder with mixed disturbance of emotions and conduct F43.25 and Depression with anxiety F41.8 [place] [address] [place] [id number] [place] [address] 22140- 7039 Oct, Insomnia, unspecified G47.00 [facility] [address] [address] Oct, Visit for TB skin test Z11.1 [facility] [place] [id number] [place] [address] 23592 -9772 Sep, Wheezing R06.2 and Bronchitis J40 [facility] [address] [id number] Sep, Dental examination Z01.20 [place] [address], [place] [address] 10 Sep, 2016 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 [place] [address], [place] [address] 08 Sep, 2016 Bipolar disorder, unspecified F31.9 ; Insomnia, unspecified G47.00 ; 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 ; Hypothyroidism E03.9 and Acquired hypothyroidism E03.9 [place] [address] [place] [id number] [place] [address] 09775- 6747 Jul, Hypothyroidism E03.9 [place] [address] [place] [id number] [place] [address] 45173- 7410 Jul, Hypothyroidism E03.9 [place] [address] [place] [id number] [place] [address] 09121- 8171 May, Generalized anxiety disorder F41.1 ; Depression with anxiety F41.8 and Bipolar disorder, unspecified F31.9 [place] [address] [place] [address] 61787- 6372 Apr, Hypothyroidism E03.9 [place] [address] [place] [address] 61371- 5654 Apr, Depression with anxiety F41.8 ; Bipolar disorder, unspecified F31.9 ; Generalized anxiety disorder F41.1 and Post traumatic stress disorder (PTSD) F43.10 [place] [address], [place] [address] Apr, Encounter to establish care Z76.89 ; Gastroesophageal reflux disease with esophagitis K21.0 ; Hypothyroidism E03.9 ; Bipolar disorder , unspecified F31.9 ; 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 ; Weight gain R63.5 and Insomnia, unspecified type G47.00 [place] [address] [place] [address] 25863- 5336 Apr, Primary insomnia F51.01 ; Depression with anxiety F41.8 and Generalized anxiety disorder F41.[address] [address]- [address]47 18 Apr, 2016 [facility] [address] [address] 15 Apr, 2016 Overdose of anticonvulsant, undetermined intent, initial encounter T42.74XA [address] [address]- 1745 Feb, [address] [address]- 2635 Jan, Bipolar disorder, unspecified F31.9 and Anger R45.4 [facility] [address] [place] [address] 82093 -8198 15 Oct, 2015 Right forearm pain M79.631 [facility] [address] [id number] 04 Aug, 2015 Encounter for dental examination Z01.20 [facility] [address] 313[address] -4023 14 Jul, 2015 Acute vomiting R11.[address] 80155- 1264 07 Jul, 2015 Screening for tuberculosis Z11.[address] 03963- 1819 Jun, Gastro-esophageal reflux disease with esophagitis K21.0 and Generalized anxiety disorder F41.[address] 31606- 9757 Jun, Generalized anxiety disorder F41.1 and Insomnia, unspecified G47.[address] 28618- 6593 Jun, [address] 66357- 2972 May, Generalized anxiety disorder F41.1 and Bipolar disorder, unspecified F31.9 [facility] [address] [place] [id number] [place] [address] 26558- 9178 May, Dysthymic disorder F34.1 ; Generalized anxiety disorder F41.1 and Bipolar 1 disorder with moderate felipe F31.12 [facility] [address] [place] [id number] [place] [address] 01391- 4465 May, Bipolar 1 disorder with moderate felipe F31.12 ; Generalized anxiety disorder F41.1 and Insomnia, unspecified G47.00 [facility] [address] [place] [id number] [place] [address] 70151- 3024 May, Bipolar 1 disorder with moderate felipe F31.12 [facility] [address] [address] [id number] [place] [address] 28282 -9555 May, Bronchitis J40 [facility] [address] 27212- 2794 Apr, Dysthymic disorder F34.1 and Generalized anxiety disorder F41.1 [place] [address] 73010- 2066 Apr, Generalized anxiety disorder F41.1 and Dysthymic disorder F34.1 [place] [address] 74223- 4045 Apr, Primary insomnia F51.01 ; Depression with anxiety F41.8 and Restless leg G25.81 [facility] [address] [place] [id number] [place] [address] 23155- 8126 Apr, Generalized anxiety disorder F41.1 ; Dysthymic disorder F34.1 ; Hypothyroidism E03.9 ; Anemia D64.9 and Acid reflux K21.9 [facility] [address] [place] [id number] 16 Mar, 2015 Dental examination V72.2 [facility] [address] 46090- 3081 Mar, Routine adult health maintenance V70.0 [facility] [address] [place] [id number] [place] [address] 34912- 4241 Mar, [facility] [address] [place] [id number] [place] [address] 891889- 9672 Mar, Insomnia 780.52 ; Routine adult health maintenance V70.0 ; GERD (gastroesophageal reflux disease) 530.81 and Depression with anxiety 300.4 [facility] [address] [place] [id number] [place] [address] [id number] Feb, Dental examination V72.2 [facility] [address] 77646- 7945 Sep, [facility] [address] 19092- 6700 Sep, [facility] [address] 95971- 9216 Sep, [facility] [address] [place] [id number] [place] [address] 89215- 8077 Sep, [facility] [address] [place] [id number] [place] [address] 00063- 9782 Sep, [facility] [address] [place] [id number] [place] [address] 66797- 5405 Sep, IMMUNIZATIONS No Known Immunizations SOCIAL HISTORY Never Assessed REASON FOR VISIT PLAN OF CARE VITAL SIGNS MEDICATIONS Unknown [...] 1992 Hospitalization History was admitted to a shelter/psych facility [id number]
--- OUTSIDE RECORDS SUMMARY | 2018-09-13 06:23 | XMS REPORT ---
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 Active 67608118 Problem Anxiety disorder, unspecified type F41.9 Active 275613529 Problem Hiatal hernia K44.9 Active 13830380 Problem Iron deficiency anemia due to chronic blood loss D50.0 Active 82035760 Problem Caries K02.9 Active 15844749 Problem Dental examination Z01.20 Active 443418516 Problem Menorrhagia with regular cycle N92.0 Active 732807114 Problem Bipolar disorder, unspecified F31.9 Active 15536620 Problem Primary insomnia F51.01 Active 068327875 Problem Dysthymic disorder F34.1 Active 59988700 Problem Depression with anxiety F41.8 Active 028699667 Problem Gastro-esophageal reflux disease with esophagitis K21.0 Active 236937838 Problem 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 Active 121980182 Problem Gastroesophageal reflux disease with esophagitis K21.0 Active 061354443 Problem Restless leg G25.81 Active 39111938 Problem Hypothyroidism E03.9 Active 23517109 Problem Anger R45.4 Active 23745136 Problem Post traumatic stress disorder (PTSD) F43.10 Active 15470273 ALLERGIES No Known Allergies ENCOUNTERS Encounter Location Date Diagnosis [facility] [address] [facility] [id number] [place] [address] Jan, Hypothyroidism E03.9 ; Restless leg G25.81 ; Depression with anxiety F41.8 and Overweight E66.3 [place] [address] [place] [id number] [place] [address] November, [place] [address] [address] Oct, [place] [address] [place] [id number] [place] [address]80[address] 9027 Sep, [place] [address] [address] Sep, Aspiration pneumonia, unspecified aspiration pneumonia type , unspecified laterality, unspecified part of lung J69.0 [place] [address] [address] Sep, Pneumonia of left lower lobe due to infectious organism J18.1 [place] [address] [address] Jul, Anxiety disorder, unspecified type F41.9 [facility] [place] [address] [place] [id number] [place] [address] Jul, Body aches R52 and Viral illness B34.9 [facility] [address] [address] Jun, Bronchitis J40 [place] [address] [address] May, Hypothyroidism E03.9 [place] [address] [place] [id number] [place] [address] 87561- 1186 15 May, 2017 Menorrhagia with regular cycle N92.0 ; Hypothyroidism E03.9 ; Iron deficiency anemia due to chronic blood loss D50.0 ; Primary insomnia F51.01 and Restless leg G25.81 [place] [address] [place] [id number] [place] [address] 69359- 4606 06 May, 2017 [facility] [place] [address] [place] [id number] [place] [address]5554 06 May, 2017 Acute cystitis with hematuria N30.01 and Dysuria R30.0 [place] [address] [place] [id number] [place] [address] 48307- 5051 Apr, [place] [address] [place] [id number] [place] [address] 01548- 3375 Feb, [facility] [address] [place] [id number] [place] [address]878 [address]8060 Feb, Ganglion cyst of wrist, left M67.432 [place] [address] [place] [id number] [place] [address]3690- 3900 Jan, Insomnia, unspecified G47.00 [place] [address] [place] [id number] [place] [address] 61543- 5480 Jan, Insomnia, unspecified G47.00 [place] [address] [place] [id number] [place] [address] 10613- 7284 Jan, 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 ; Bipolar disorder, unspecified F31.9 and Hypothyroidism E03.9 [place] [address] [place] [id number] [place] [address] 45712- 8431 29 Dec, 2016 Dental examination Z01.20 [place] [address] [place] [id number] [place] [address] 19408- 1556 14 Dec, 2016 Depression with anxiety F41.8 ; Post traumatic stress disorder (PTSD) F43.10 ; 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 and Adjustment disorder with mixed disturbance of emotions and conduct F43.25 [place] [id number] [place] [address] 28935- 6194 November, 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 ; Adjustment disorder with mixed disturbance of emotions and conduct F43.25 and Depression with anxiety F41.8 [place] [address] [place] [id number] [place] [address] 77679- 0255 November, Insomnia, unspecified G47.00 [place] [address] [place] [id number] [place] [address] 63857- 5877 November, 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 ; Adjustment disorder with mixed disturbance of emotions and conduct F43.25 and Depression with anxiety F41.8 [place] [address] [place] [id number] [place] [address] 86963- 0368 Oct, Insomnia, unspecified G47.00 [facility] [place] [id number] [place] [address] 17258 -4500 Oct, Visit for TB skin test Z11.1 [facility] [place] [address] [place] [id number] [place] [address]15 Sep, Wheezing R06.2 and Bronchitis J40 [facility] [address] [id number] Sep, Dental examination Z01.20 [place] [id number] [place] [address] 47528- 5081 10 Sep, 2016 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 [place] [address] 62474- 4809 08 Sep, 2016 Bipolar disorder, unspecified F31.9 ; Insomnia, unspecified G47.00 ; 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 ; Hypothyroidism E03.9 and Acquired hypothyroidism E03.9 [place] [id number] [place] [address] 76278- 2489 Jul, Hypothyroidism E03.9 [place] [address] [place] [id number] [place] [address] 49842- 3166 Jul, Hypothyroidism E03.9 [place] [id number] [place] [address] 61513- 1891 May, Generalized anxiety disorder F41.1 ; Depression with anxiety F41.8 and Bipolar disorder, unspecified F31.9 [place] [address] [place] [id number] [place] [address] 53137- 6352 Apr, Hypothyroidism E03.9 [facility] [place] [id number] [place] [address] 49913- 0630 Apr, Depression with anxiety F41.8 ; Bipolar disorder, unspecified F31.9 ; Generalized anxiety disorder F41.1 and Post traumatic stress disorder (PTSD) F43.[address] [address] Apr, Encounter to establish care Z76.89 ; Gastroesophageal reflux disease with esophagitis K21.0 ; Hypothyroidism E03.9 ; Bipolar disorder , unspecified F31.9 ; 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 ; Weight gain R63.5 and Insomnia, unspecified type G47.[address] [address]- [address] Apr, Primary insomnia F51.01 ; Depression with anxiety F41.8 and Generalized anxiety disorder F41.[address] [address]- [address] Apr, [facility] [address] [place] [address]229 [address]39 Apr, Overdose of anticonvulsant, undetermined intent, initial encounter T42.74XA [address] [address]- [address]471 Feb, [place] [id number] [place] [address] 83561- 9110 Jan, Bipolar disorder, unspecified F31.9 and Anger R45.4 [facility] [address] [place] [address] 75696 -8265 15 Oct, 2015 Right forearm pain M79.631 [facility] [address] [id number] Aug, 2015 Encounter for dental examination Z01.20 [facility] [address] [place] [address] 05345 [address]9140 14 Jul, 2015 Acute vomiting R11.10 [place] [id number] [place] [address] 65737- 2539 Jul, Screening for tuberculosis Z11.1 [facility] [address] [address] Jun, Gastro-esophageal reflux disease with esophagitis K21.0 and Generalized anxiety disorder F41.1 [facility] [address] 25322- 8992 Jun, Generalized anxiety disorder F41.1 and Insomnia, unspecified G47.00 [place] [address] [address]- 8498 Jun, [place] [address] 46968- 8678 May, Generalized anxiety disorder F41.1 and Bipolar disorder, unspecified F31.9 [place] [address] 16281- 9706 May, Dysthymic disorder F34.1 ; Generalized anxiety disorder F41.1 and Bipolar 1 disorder with moderate felipe F31.12 [place] [address] 8[address]- 2470 May, Bipolar 1 disorder with moderate felipe F31.12 ; Generalized anxiety disorder F41.1 and Insomnia, unspecified G47.00 [place] [address] [place] [id number] [place] [address] 78502- 7989 May, Bipolar 1 disorder with moderate felipe F31.12 [facility] [address] [place] [id number] [place] [address] 18740 [address]6634 May, Bronchitis J40 [place] [address] 79052- 8445 Apr, Dysthymic disorder F34.1 and Generalized anxiety disorder F41.1 [facility] [address] [address]- 0349 Apr, Generalized anxiety disorder F41.1 and Dysthymic disorder F34.1 [facility] [id number] [place] [address] 19241- 9668 Apr, Primary insomnia F51.01 ; Depression with anxiety F41.8 and [address] leg G25.81 [facility] [address] [place] [id number] [place] [address] 07306- 9175 Apr, Generalized anxiety disorder F41.1 ; Dysthymic disorder F34.1 ; Hypothyroidism E03.9 ; Anemia D64.9 and Acid reflux K21.9 [facility] [address] [place] [id number] [place] [address] [id number] Mar, Dental examination V72.2 [facility] [address] [address]- 6913 Mar, Routine adult health maintenance V70.0 [facility] [address] [place] [id number] [place] [address] 50657- 8375 Mar, [facility] [address] [address] Mar, Insomnia 780.52 ; Routine adult health maintenance V70.0 ; GERD (gastroesophageal reflux disease) 530.81 and Depression with anxiety 300.4 [facility] [address] [place] [id number] [place] [address] [id number] Feb, Dental examination V72.2 [facility] [address] [place] [id number] [place] [address] 94654- 1378 Sep, [facility] [address] [id number] [place] [address] 84922- 9514 Sep, [facility] [address] [place] [id number] [place] [address] 66678- 5241 Sep, [facility] [address] [place] [id number] [place] [address] 88691- 9686 Sep, [facility] [address] [place] [id number] [place] [address] 11957- 1783 Sep, [facility] [address] [place] [address] [place] [address] Sep, IMMUNIZATIONS No Known Immunizations SOCIAL HISTORY Never Assessed REASON FOR VISIT Thyroid WB-MA, No major concerns PLAN OF CARE Activity Details Follow Up 3 Months Reason:hypothyroid VITAL SIGNS Height 62 in 2018-01-17 Weight 203 lbs 2018-01-17 Temperature 98 degrees Fahrenheit 2018-01-17 Heart Rate 84 bpm 2018-01-17 Respiratory Rate 20 2018-01-17 BMI 37.13 kg/m2 2018-01-17 Blood pressure systolic 120 mmHg 2018-01-17 Blood pressure diastolic 82 mmHg 2018-01-17 MEDICATIONS Medication Instructions Dosage Frequency Start Date End Date Duration Status Ventolin HFA 108 (90 Base) MCG/ACT Inhalation every 6 hrs 2 puffs as needed 6h Sep, Not-Taking Sprintec 28 0.25-35 MG-MCG Orally Once a day Skp the placebo 1 tablet May, 90 days Not-Taking Levothyroxine Sodium 125 mcg Orally Once a day 1 tablet 24h 90 days Active Seroquel 50 mg TAKE TWO TABLETS BY MOUTH ONCE DAILY AT BEDTIME 30 Active Omeprazole 40 mg Orally Once a day 1 capsule 24h Sep, Active Gabapentin 300 MG Orally Once a day 1 capsule before bedtime 24h May, 90 Active RESULTS No Results PROCEDURES Procedure Date Ordered Result Body Site [facility] VISIT ESTABLISHED PATIENT January 17, 2018 INSTRUCTIONS MEDICATIONS ADMINISTERED No Known Medications [...] 1992 Hospitalization History was admitted to a fdc/psych facility [id number]
--- OUTSIDE RECORDS SUMMARY | 2018-09-13 06:23 | XMS REPORT ---
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 Active 02170054 Problem Dental examination Z01.20 Active 191762504 Problem Adjustment disorder with mixed disturbance of emotions and conduct F43.25 Active 59939195 Problem Dyspareunia in female N94.10 Active 34507955 Problem Depression with anxiety F41.8 Active 447283934 Problem Anxiety disorder, unspecified type F41.9 Active 794328486 Problem Hiatal hernia K44.9 Active 27494540 Problem Bipolar disorder, unspecified F31.9 Active 12745360 Problem Caries K02.9 Active 66480302 Problem Iron deficiency anemia due to chronic blood loss D50.0 Active 07980749 Problem Menorrhagia with regular cycle N92.0 Active 364704156 Problem Dysthymic disorder F34.1 Active 17557302 Problem Restless leg G25.81 Active 24507895 Problem Gastro-esophageal reflux disease with esophagitis K21.0 Active 941527770 Problem Primary insomnia F51.01 Active 504656883 Problem Gastroesophageal reflux disease with esophagitis K21.0 Active 087734990 Problem Hypothyroidism E03.9 Active 84308363 Problem Anger R45.4 Active 33765655 Problem Post traumatic stress disorder (PTSD) F43.10 Active 96658696 Problem 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 Active 888724226 Problem Insomnia, unspecified G47.00 Active 708055255 ALLERGIES No Information ENCOUNTERS Encounter Location Date Diagnosis [facility] [address] [facility] [id number] [place] [address] Jun, [facility] [address] [place] [address] Jun, [facility] [address] [place] [id number] [place] [address]68- [address]697 May, Menorrhagia with regular cycle N92.0 [facility] [address] [place] [id number] [place] [address] 41173- 1596 May, Iron deficiency anemia due to chronic blood loss D50.0 and Hypothyroidism E03.9 [place] [address] [place] [id number] [place] [address]145- 1450 May, Menorrhagia with regular cycle N92.0 [place] [address] [place] [id number] [place] [address]203- 8410 May, [place] [address] [place] [id number] [place] [address] 44410- 2052 May, Bipolar disorder, unspecified F31.9 ; Hypothyroidism E03.9 ; Menorrhagia with regular cycle N92.0 and Dyspareunia in female N94.10 [place] [address] [place] [id number] [place] [address] 76185- 7682 Jan, Hypothyroidism E03.9 ; Restless leg G25.81 ; Depression with anxiety F41.8 and Overweight E66.3 [place] [address] [place] [address] November, [place] [address] [place] [id number] [place] [address] 42542- 7990 Oct, [place] [id number] [place] [address] 96524- 9594 Sep, [place] [address] [place] [id number] [place] [address] 99958- 9293 Sep, Aspiration pneumonia, unspecified aspiration pneumonia type , unspecified laterality, unspecified part of lung J69.0 [place] [address] [place] [address] Sep, Pneumonia of left lower lobe due to infectious organism J18.1 [place] [address] [place] [id number] [place] [address] 82525- 8784 Jul, Anxiety disorder, unspecified type F41.9 [facility] [place] [address] [place] [id number] [place] [address]2219 -4933 Jul, Body aches R52 and Viral illness B34.9 [facility] [place] [address] [address] Jun, Bronchitis J40 [place] [address] 72595- 8166 May, Hypothyroidism E03.9 [place] [address] 84175- 5653 May, Menorrhagia with regular cycle N92.0 ; Hypothyroidism E03.9 ; Iron deficiency anemia due to chronic blood loss D50.0 ; Primary insomnia F51.01 and Restless leg G25.81 [place] [address] [address]- 3602 May, [facility] [place] [address] [address]5 May, Acute cystitis with hematuria N30.01 and Dysuria R30.0 [place] [address] 47076- 3316 Apr, [place] [address] 49384- 8611 Feb, [facility] [place] [address] [place] [id number] [place] [address]494 -5926 Feb, Ganglion cyst of wrist, left M67.432 [place] [address] [place] [id number] [place] [address] 44369- 1852 Jan, Insomnia, unspecified G47.00 [place] [address] 64379- 3658 Jan, Insomnia, unspecified G47.00 [place] [address] [place] [id number] [place] [address] 00157- 6462 05 Jan, 2017 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 ; Bipolar disorder, unspecified F31.9 and Hypothyroidism E03.9 [place] [address] [place] [id number] [place] [address] 37121- 3608 29 Dec, 2016 Dental examination Z01.20 [place] [address] [address]49- 3136 14 Dec, 2016 Depression with anxiety F41.8 ; Post traumatic stress disorder (PTSD) F43.10 ; 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 and Adjustment disorder with mixed disturbance of emotions and conduct F43.25 [place] [address] [address] November, 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 ; Adjustment disorder with mixed disturbance of emotions and conduct F43.25 and Depression with anxiety F41.8 [place] [address] 12265- 8955 November, Insomnia, unspecified G47.00 [place] [address] 96694- 6595 November, 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 ; Adjustment disorder with mixed disturbance of emotions and conduct F43.25 and Depression with anxiety F41.8 [place] [address] [place] [id number] [place] [address] 84183- 9033 Oct, Insomnia, unspecified G47.00 [facility] [address] [address] Oct, Visit for TB skin test Z11.1 [facility] [place] [id number] [place] [address]8021 [address]1804 Sep, Wheezing R06.2 and Bronchitis J40 [facility] [address] [id number] Sep, Dental examination Z01.20 [place] [address] [address] 10 Sep, 2016 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 [place] [address] [address] 08 Sep, 2016 Bipolar disorder, unspecified F31.9 ; Insomnia, unspecified G47.00 ; 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 ; Hypothyroidism E03.9 and Acquired hypothyroidism E03.9 [place] [address] [place] [id number] [place] [address] 24567- 8360 Jul, Hypothyroidism E03.9 [place] [address] [place] [id number] [place] [address] 30743- 7631 Jul, Hypothyroidism E03.9 [place] [address] [place] [id number] [place] [address] 48332- 6154 May, Generalized anxiety disorder F41.1 ; Depression with anxiety F41.8 and Bipolar disorder, unspecified F31.9 [place] [address] [place] [address] 82841- 1333 Apr, Hypothyroidism E03.9 [place] [address] [place] [address] 07795- 9600 Apr, Depression with anxiety F41.8 ; Bipolar disorder, unspecified F31.9 ; Generalized anxiety disorder F41.1 and Post traumatic stress disorder (PTSD) F43.10 [place] [address] [address] Apr, Encounter to establish care Z76.89 ; Gastroesophageal reflux disease with esophagitis K21.0 ; Hypothyroidism E03.9 ; Bipolar disorder , unspecified F31.9 ; 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 ; Weight gain R63.5 and Insomnia, unspecified type G47.00 [place] [address] [place] [address] 44337- 0389 Apr, Primary insomnia F51.01 ; Depression with anxiety F41.8 and Generalized anxiety disorder F41.[address] [address]- [address] 18 Apr, 2016 [facility] [address] [address] 15 Apr, 2016 Overdose of anticonvulsant, undetermined intent, initial encounter T42.74XA [address] [address]- 4187 Feb, [address] [address]- [address]72 Jan, Bipolar disorder, unspecified F31.9 and Anger R45.4 [facility] [address] [place] [address] 24173 -3617 15 Oct, 2015 Right forearm pain M79.631 [facility] [address] [id number] 04 Aug, 2015 Encounter for dental examination Z01.20 [facility] [address] 8[address] 14 Jul, 2015 Acute vomiting R11.[address] [address]2876- [address]80 07 Jul, 2015 Screening for tuberculosis Z11.[address] [address]37- 9918 Jun, Gastro-esophageal reflux disease with esophagitis K21.0 and Generalized anxiety disorder F41.[address] 29531- 5636 Jun, Generalized anxiety disorder F41.1 and Insomnia, unspecified G47.[address] 31079- 0734 Jun, [address] 33937- 5876 May, Generalized anxiety disorder F41.1 and Bipolar disorder, unspecified F31.9 [facility] [address] [place] [id number] [place] [address] 28538- 6677 May, Dysthymic disorder F34.1 ; Generalized anxiety disorder F41.1 and Bipolar 1 disorder with moderate felipe F31.12 [facility] [address] [place] [id number] [place] [address] 14108- 2580 May, Bipolar 1 disorder with moderate felipe F31.12 ; Generalized anxiety disorder F41.1 and Insomnia, unspecified G47.00 [facility] [address] [place] [id number] [place] [address] 55612- 0135 May, Bipolar 1 disorder with moderate felipe F31.12 [facility] [address] [place] [id number] [place] [address] 52104 -[address]23 May, Bron[address]itis J40 [facility] [address] 02704- 3601 Apr, Dysthymic disorder F34.1 and Generalized anxiety disorder F41.1 [place] [address] 19013- 5779 Apr, Generalized anxiety disorder F41.1 and Dysthymic disorder F34.1 [place] [address] 44213- 3354 Apr, Primary insomnia F51.01 ; Depression with anxiety F41.8 and [address] leg G25.81 [facility] [address] [place] [id number] [place] [address] 82060- 5653 Apr, Generalized anxiety disorder F41.1 ; Dysthymic disorder F34.1 ; Hypothyroidism E03.9 ; Anemia D64.9 and Acid reflux K21.9 [facility] [address] [place] [id number] 16 Mar, [address] [facility] [address] 48427- 6374 Mar, Routine adult health maintenance V70.0 [facility] [address] [address] Mar, [facility] [address] [place] [id number] [place] [address]27- 1976 Mar, Insomnia 780.52 ; Routine adult health maintenance V70.0 ; GERD (gastroesophageal reflux disease) 530.81 and Depression with anxiety 300.4 [facility] [address] [place] [id number] Feb, Dental examination V72.2 [facility] [address] [place] [id number] [place] [address] 60049- 5838 Sep, [facility] [address] [place] [id number] [place] [address] 23436- 5362 Sep, [facility] [address] [place] [id number] [place] [address]75- 3223 Sep, [facility] [address] [place] [id number] [place] [address] 81801- 6680 Sep, [facility] [address] [place] [id number] [place] [address] 08512- 5319 Sep, [facility] [address] [place] [id number] [place] [address] 38441- 9521 Sep, IMMUNIZATIONS No Known Immunizations SOCIAL HISTORY Never Assessed REASON FOR VISIT Orders from Results PLAN OF CARE VITAL SIGNS MEDICATIONS Medication Instructions Dosage Frequency Start Date End Date Duration Status Gabapentin 300 MG Orally Once a day 1 capsule before bedtime 24h May, 90 Active Omeprazole 40 mg Orally Once a day 1 capsule 24h 17 Sep, 2017 Active Ferrous Sulfate 325 (65 Fe) MG Orally Once a day 1 tablet 24h May, 30 days Active Sprintec 28 0.25-35 MG-MCG Orally Once a day Skp the placebo 1 tablet May, 90 days Not-Taking Ventolin HFA 108 (90 Base) MCG/ACT Inhalation every 6 hrs 2 puffs as needed 6h Sep, Not-Taking Levothyroxine Sodium 100 MCG Orally Once a day 1 tablet 24h 60 days Active Seroquel 50 mg TAKE TWO TABLETS BY MOUTH ONCE DAILY AT BEDTIME 30 Active RESULTS No Results PROCEDURES No Known [...] 1992 Hospitalization History was admitted to a alf/psych facility [id number]
--- OUTSIDE RECORDS SUMMARY | 2018-09-13 06:24 | XMS REPORT ---
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 Active 21253278 Problem Anxiety disorder, unspecified type F41.9 Active 290258545 Problem Hiatal hernia K44.9 Active 09300436 Problem Iron deficiency anemia due to chronic blood loss D50.0 Active 62556652 Problem Caries K02.9 Active 14057024 Problem Dental examination Z01.20 Active 555132239 Problem Menorrhagia with regular cycle N92.0 Active 073209357 Problem Bipolar disorder, unspecified F31.9 Active 26400906 Problem Primary insomnia F51.01 Active 497214008 Problem Dysthymic disorder F34.1 Active 96630902 Problem Depression with anxiety F41.8 Active 854821506 Problem Gastro-esophageal reflux disease with esophagitis K21.0 Active 340207619 Problem 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 Active 185756290 Problem Gastroesophageal reflux disease with esophagitis K21.0 Active 977143780 Problem Restless leg G25.81 Active 80383187 Problem Hypothyroidism E03.9 Active 34584718 Problem Anger R45.4 Active 55353876 Problem Post traumatic stress disorder (PTSD) F43.10 Active 93081968 ALLERGIES No Known Allergies ENCOUNTERS Encounter Location Date Diagnosis [facility] [address] [facility] [id number] [place] [address] Jan, Hypothyroidism E03.9 ; Restless leg G25.81 ; Depression with anxiety F41.8 and Overweight E66.3 [place] [address] [place] [id number] [place] [address] November, [place] [address] [address] Oct, [place] [address] [place] [id number] [place] [address] Sep, [place] [address] [address] Sep, Aspiration pneumonia, unspecified aspiration pneumonia type , unspecified laterality, unspecified part of lung J69.0 [place] [address] [address] Sep, Pneumonia of left lower lobe due to infectious organism J18.1 [place] [address] [address] Jul, Anxiety disorder, unspecified type F41.9 [facility] [place] [address] [place] [id number] [place] [address] Jul, Body aches R52 and Viral illness B34.9 [facility] [place] [address] [address] Jun, Bronchitis J40 [place] [address] [address] May, Hypothyroidism E03.9 [place] [address] [place] [id number] [place] [address]43[address] 97[address] 15 May, 2017 Menorrhagia with regular cycle N92.0 ; Hypothyroidism E03.9 ; Iron deficiency anemia due to chronic blood loss D50.0 ; Primary insomnia F51.01 and Restless leg G25.81 [place] [address] [place] [id number] [place] [address]39- [address] 06 May, 2017 [facility] [place] [address] [place] [id number] [place] [address] 06 May, 2017 Acute cystitis with hematuria N30.01 and Dysuria R30.0 [place] [address] [place] [id number] [place] [address] 14180- 6521 Apr, [place] [address] [place] [id number] [place] [address] Feb[facility] [address] [place] [id number] [place] [address] Feb, Ganglion cyst of wrist, left M67.432 [place] [address] [place] [id number] [place] [address]33- 5502 Jan, Insomnia, unspecified G47.00 [place] [address] [place] [id number] [place] [address] 6[address]- [address] Jan, Insomnia, unspecified G47.00 [place] [address] [place] [id number] [place] [address]- 4[address] Jan, 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 ; Bipolar disorder, unspecified F31.9 and Hypothyroidism E03.9 [place] [address] [place] [id number] [place] [address] 29 Dec, 2016 Dental examination Z01.20 [place] [address] [place] [id number] [place] [address] 14 Dec, 2016 Depression with anxiety F41.8 ; Post traumatic stress disorder (PTSD) F43.10 ; 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 and Adjustment disorder with mixed disturbance of emotions and conduct F43.25 [place] [address] [place] [address]72- [address]85 November, 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 ; Adjustment disorder with mixed disturbance of emotions and conduct F43.25 and Depression with anxiety F41.8 [place] [address] [place] [id number] [place] [address]67- 9[address] November, Insomnia, unspecified G47.00 [place] [address] [place] [id number] [place] [address] 7[address]37- 24[address] November, 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 ; Adjustment disorder with mixed disturbance of emotions and conduct F43.25 and Depression with anxiety F41.8 [place] [address] [place] [id number] [place] [address]857- 8789 Oct, Insomnia, unspecified G47.00 [facility] [place] [id number] [place] [address]666 [address]46 Oct, Visit for TB skin test Z11.1 [facility] [place] [address] [place] [id number] [place] [address] Sep, Wheezing R06.2 and Bronchitis J40 [facility] [address] [id number] Sep, Dental examination Z01.20 [place] [id number] [place] [address] 66228- 8[address] 10 Sep, 2016 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 [place] [address] 13944- [address] 08 Sep, 2016 Bipolar disorder, unspecified F31.9 ; Insomnia, unspecified G47.00 ; 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 ; Hypothyroidism E03.9 and Acquired hypothyroidism E03.9 [place] [address] [place] [address] 59873- 8331 Jul, Hypothyroidism E03.9 [place] [address] [place] [id number] [place] [address] 74708[address] Jul, Hypothyroidism E03.9 [place] [id number] [place] [address]51- 60[address] May, Generalized anxiety disorder F41.1 ; Depression with anxiety F41.8 and Bipolar disorder, unspecified F31.9 [place] [address] [place] [id number] [place] [address]781[address] 2[address] Apr, Hypothyroidism E03.9 [facility] [place] [id number] [place] [address] 6[address]14- [address] Apr, Depression with anxiety F41.8 ; Bipolar disorder, unspecified F31.9 ; Generalized anxiety disorder F41.1 and Post traumatic stress disorder (PTSD) F43.[address] [address] Apr, Encounter to establish care Z76.89 ; Gastroesophageal reflux disease with esophagitis K21.0 ; Hypothyroidism E03.9 ; Bipolar disorder , unspecified F31.9 ; 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 ; Weight gain R63.5 and Insomnia, unspecified type G47.[address] [address]- [address] Apr, Primary insomnia F51.01 ; Depression with anxiety F41.8 and Generalized anxiety disorder F41.[address] [address]- [address] Apr, [facility] [address] [place] [address]99 [address] Apr, Overdose of anticonvulsant, undetermined intent, initial encounter T42.74XA [address] [address] Feb, [place] [id number] [place] [address] 70980- 5163 Jan, Bipolar disorder, unspecified F31.9 and Anger R45.4 [facility] [address] [place] [address] 57496 [address]70 15 Oct, 2015 Right forearm pain M79.631 [facility] [address] [id number] Aug, 2015 Encounter for dental examination Z01.20 [facility] [address] [place] [address]673 [address] 14 Jul, 2015 Acute vomiting R11.10 [place] [address] [place] [address]22[address] 29[address] Jul, Screening for tuberculosis Z11.1 [facility] [address] 97880- [address] Jun, Gastro-esophageal reflux disease with esophagitis K21.0 and Generalized anxiety disorder F41.1 [facility] [address] [address]- [address] Jun, Generalized anxiety disorder F41.1 and Insomnia, unspecified G47.00 [place] [address] 68056- [address] Jun, [place] [address] [address]206- 20[address] May, Generalized anxiety disorder F41.1 and Bipolar disorder, unspecified F31.9 [place] [address] [address]259[address] May, Dysthymic disorder F34.1 ; Generalized anxiety disorder F41.1 and Bipolar 1 disorder with moderate felipe F31.12 [place] [address] 05893- [address] May, Bipolar 1 disorder with moderate felipe F31.12 ; Generalized anxiety disorder F41.1 and Insomnia, unspecified G47.00 [place] [address] [place] [id number] [place] [address] 56297- 0363 May, Bipolar 1 disorder with moderate felipe F31.12 [facility] [address] [place] [id number] [place] [address]37 [address] May, Bronchitis J40 [place] [address] [address]53- [address] Apr, Dysthymic disorder F34.1 and Generalized anxiety disorder F41.1 [facility] [address] 07446- 4494 Apr, Generalized anxiety disorder F41.1 and Dysthymic disorder F34.1 [facility] [address] [place] [address] 00651- 9614 Apr, Primary insomnia F51.01 ; Depression with anxiety F41.8 and Restless leg G25.81 [facility] [address] [place] [id number] [place] [address] 77075- 7150 Apr, Generalized anxiety disorder F41.1 ; Dysthymic disorder F34.1 ; Hypothyroidism E03.9 ; Anemia D64.9 and Acid reflux K21.9 [facility] [address] [place] [id number] [place] [id number] Mar, Dental examination V72.2 [facility] [address] 53783- [address] Mar, Routine adult health maintenance V70.0 [facility] [address] [place] [id number] [place] [address] 10824- 6728 Mar, [facility] [address] 65258- 7855 Mar, Insomnia 780.52 ; Routine adult health maintenance V70.0 ; GERD (gastroesophageal reflux disease) 530.81 and Depression with anxiety 300.4 [facility] [address] [place] [id number] [place] [id number] Feb, Dental examination V72.2 [facility] [address] [place] [id number] [place] [address] 00770- 2205 Sep, [facility] [address] [place] [id number] [place] [address] 92793- 5490 Sep, [facility] [address] [place] [id number] [place] [address] 56430- 8081 Sep, [facility] [address] [place] [id number] [place] [address] 25876- 1639 Sep, [facility] [address] [place] [id number] [place] [address] 14550- 2118 Sep, [facility] [address] [place] [id number] [place] [address] Sep, IMMUNIZATIONS No Known Immunizations SOCIAL HISTORY Never Assessed REASON FOR VISIT pneumonia f/u- Rayo [facility] PLAN OF CARE Activity Details Follow Up prn Reason: VITAL SIGNS Height 62 in 2017-09-14 Weight 202 lbs 2017-09-14 Temperature 98.9 degrees Fahrenheit 2017-09-14 Heart Rate 75 bpm 2017-09-14 Respiratory Rate 20 2017-09-14 Oximetry on room air:99 % 2017-09-14 BMI 36.94 kg/m2 2017-09-14 Blood pressure systolic 130 mmHg 2017-09-14 Blood pressure diastolic 65 mmHg 2017-09-14 MEDICATIONS Medication Instructions Dosage Frequency Start Date End Date Duration Status Levothyroxine Sodium 125 MCG TAKE ONE TABLET BY MOUTH ONCE DAILY 60 Active Sprintec 28 0.25-35 MG-MCG Orally Once a day Skp the placebo 1 tablet May, 90 days Active Ventolin HFA 108 (90 Base) MCG/ACT Inhalation every 6 hrs 2 puffs as needed 6h Sep, Active Gabapentin 300 MG Orally Once a day 1 capsule before bedtime 24h May, 90 Active Seroquel 50 MG TAKE TWO TABLETS BY MOUTH ONCE DAILY AT BEDTIME 30 Active RESULTS No Results PROCEDURES Procedure Date Ordered Result Body Site [facility] VISIT ESTABLISHED PATIENT September 14, 2017 INSTRUCTIONS MEDICATIONS ADMINISTERED No Known Medications MEDICAL [...] 1992 Hospitalization History was admitted to a longterm/psych facility [id number]
--- OUTSIDE RECORDS SUMMARY | 2018-09-13 06:24 | XMS REPORT ---
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 Active 11090997 Problem Anxiety disorder, unspecified type F41.9 Active 086091687 Problem Hiatal hernia K44.9 Active 47120956 Problem Iron deficiency anemia due to chronic blood loss D50.0 Active 23065122 Problem Caries K02.9 Active 55691788 Problem Dental examination Z01.20 Active 957569788 Problem Menorrhagia with regular cycle N92.0 Active 467177429 Problem Bipolar disorder, unspecified F31.9 Active 89929083 Problem Primary insomnia F51.01 Active 941849807 Problem Dysthymic disorder F34.1 Active 47972804 Problem Depression with anxiety F41.8 Active 494966920 Problem Gastro-esophageal reflux disease with esophagitis K21.0 Active 655265906 Problem 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 Active 628041237 Problem Gastroesophageal reflux disease with esophagitis K21.0 Active 122995356 Problem Restless leg G25.81 Active 39826251 Problem Hypothyroidism E03.9 Active 04085310 Problem Anger R45.4 Active 57510388 Problem Post traumatic stress disorder (PTSD) F43.10 Active 85409633 ALLERGIES No Known Allergies ENCOUNTERS Encounter Location Date Diagnosis [facility] [address] [facility] [id number] [address] Jan, Hypothyroidism E03.9 ; Restless leg G25.81 ; Depression with anxiety F41.8 and Overweight E66.3 [place] [address] [place] [id number] [place] [address] November, [place] [address] [address]9 Oct, [place] [address] [place] [id number] [place] [address] 77835- 3046 Sep, [place] [address] [address] Sep, Aspiration pneumonia, unspecified aspiration pneumonia type , unspecified laterality, unspecified part of lung J69.0 [place] [address] [address] Sep, Pneumonia of left lower lobe due to infectious organism J18.1 [place] [address] [address] Jul, Anxiety disorder, unspecified type F41.9 [facility] [place] [address] [place] [id number] [place] [address]40 [address]157 Jul, Body aches R52 and Viral illness B34.9 [facility] [place] [address] [address] Jun, Bronchitis J40 [place] [address] 36719- 1398 May, Hypothyroidism E03.9 [place] [address] [place] [id number] [place] [address] 57257- 1402 15 May, 2017 Menorrhagia with regular cycle N92.0 ; Hypothyroidism E03.9 ; Iron deficiency anemia due to chronic blood loss D50.0 ; Primary insomnia F51.01 and Restless leg G25.81 [place] [address] [id number] [place] [address] 22329- 7145 06 May, 2017 [facility] [place] [address] [place] [id number] [place] [address] 37130 -8734 06 May, 2017 Acute cystitis with hematuria N30.01 and Dysuria R30.0 [place] [address] [id number] [place] [address] 80896- 5524 Apr, [place] [address] [id number] [place] [address] 39392- 4351 Feb, [facility] [address] [place] [id number] [place] [address]3035 [address]8843 Feb, Ganglion cyst of wrist, left M67.432 [place] [address] [place] [id number] [place] [address] 17745- 5466 Jan, Insomnia, unspecified G47.00 [place] [address] [id number] [place] [address] 45092- 8095 Jan, Insomnia, unspecified G47.00 [place] [address] [id number] [place] [address] 94388- 3520 Jan, 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 ; Bipolar disorder, unspecified F31.9 and Hypothyroidism E03.9 [place] [address] [id number] [place] [address] 60053- 3200 29 Dec, 2016 Dental examination Z01.20 [place] [address] [id number] [place] [address] 22565- 5406 14 Dec, 2016 Depression with anxiety F41.8 ; Post traumatic stress disorder (PTSD) F43.10 ; 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 and Adjustment disorder with mixed disturbance of emotions and conduct F43.25 [place] [address] [place] [address] 21903- 7404 November, 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 ; Adjustment disorder with mixed disturbance of emotions and conduct F43.25 and Depression with anxiety F41.8 [place] [address] [place] [id number] [place] [address] 51249- 1020 November, Insomnia, unspecified G47.00 [place] [address] [id number] [place] [address] 73220- 3227 November, 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 ; Adjustment disorder with mixed disturbance of emotions and conduct F43.25 and Depression with anxiety F41.8 [place] [address] [place] [id number] [place] [address] 06556- 4593 Oct, Insomnia, unspecified G47.00 [facility] [place] [id number] [place] [address] 87655 -9917 Oct, Visit for TB skin test Z11.1 [facility] [place] [address] [id number] [place] [address] 60929 -0557 Sep, Wheezing R06.2 and Bronchitis J40 [facility] [address] [id number] Sep, Dental examination Z01.20 [place] [id number] [place] [address] 91827- 0696 10 Sep, 2016 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 [place] [address] 81285- 4353 08 Sep, 2016 Bipolar disorder, unspecified F31.9 ; Insomnia, unspecified G47.00 ; 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 ; Hypothyroidism E03.9 and Acquired hypothyroidism E03.9 [place] [address] [place] [address] 33026- 0454 Jul, Hypothyroidism E03.9 [place] [address] [place] [id number] [place] [address] 30449- 3107 Jul, Hypothyroidism E03.9 [place] [id number] [place] [address] 54800- 0870 May, Generalized anxiety disorder F41.1 ; Depression with anxiety F41.8 and Bipolar disorder, unspecified F31.9 [place] [address] [id number] [place] [address] 59602- 3959 Apr, Hypothyroidism E03.9 [facility] [place] [id number] [place] [address] 06901- 0674 Apr, Depression with anxiety F41.8 ; Bipolar disorder, unspecified F31.9 ; Generalized anxiety disorder F41.1 and Post traumatic stress disorder (PTSD) F43.[address] 39172- [address]88 Apr, Encounter to establish care Z76.89 ; Gastroesophageal reflux disease with esophagitis K21.0 ; Hypothyroidism E03.9 ; Bipolar disorder , unspecified F31.9 ; 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 ; Weight gain R63.5 and Insomnia, unspecified type G47.[address] 63510- 5583 Apr, Primary insomnia F51.01 ; Depression with anxiety F41.8 and Generalized anxiety disorder F41.[address] 7[address]40- 6957 Apr, [facility] [address] [place] [address] 00837 -6879 Apr, Overdose of anticonvulsant, undetermined intent, initial encounter T42.74XA [address] 32592- [address] Feb, [place] [id number] [place] [address] 43317- 2585 Jan, Bipolar disorder, unspecified F31.9 and Anger R45.4 [facility] [address] [place] [address] 28696 -3957 15 Oct, 2015 Right forearm pain M79.631 [facility] [address] [id number] 04 Aug, 2015 Encounter for dental examination Z01.20 [facility] [address] [place] [address] 54381 -6409 14 Jul, 2015 Acute vomiting R11.10 [place] [address] [place] [address] 30034- 6942 Jul, Screening for tuberculosis Z11.1 [facility] [address] 59039- 7987 Jun, Gastro-esophageal reflux disease with esophagitis K21.0 and Generalized anxiety disorder F41.1 [facility] [address] 83041- 9364 Jun, Generalized anxiety disorder F41.1 and Insomnia, unspecified G47.00 [place] [address] 32672- 3363 Jun, [place] [address] 94645- 2597 May, Generalized anxiety disorder F41.1 and Bipolar disorder, unspecified F31.9 [place] [address] 46876- 7872 May, Dysthymic disorder F34.1 ; Generalized anxiety disorder F41.1 and Bipolar 1 disorder with moderate felipe F31.12 [place] [address] 03913- 8635 May, Bipolar 1 disorder with moderate felipe F31.12 ; Generalized anxiety disorder F41.1 and Insomnia, unspecified G47.00 [place] [address] [place] [id number] [place] [address] 79507- 8952 May, Bipolar 1 disorder with moderate felipe F31.12 [facility] [address] [id number] [place] [address] 95523 -4144 May, Bronchitis J40 [place] [address] 64259- 1180 Apr, Dysthymic disorder F34.1 and Generalized anxiety disorder F41.1 [facility] [address] 83990- 3410 Apr, Generalized anxiety disorder F41.1 and Dysthymic disorder F34.1 [facility] [address] [place] [address] 64036- 2706 Apr, Primary insomnia F51.01 ; Depression with anxiety F41.8 and Restless leg G25.81 [facility] [address] [place] [id number] [place] [address] 30777- 5103 Apr, Generalized anxiety disorder F41.1 ; Dysthymic disorder F34.1 ; Hypothyroidism E03.9 ; Anemia D64.9 and Acid reflux K21.9 [facility] [address] [place] [id number] [place] [id number] Mar, Dental examination V72.2 [facility] [address] 20218- 5740 Mar, Routine adult health maintenance V70.0 [facility] [address] [place] [id number] [place] [address] 83654- 8164 Mar, [facility] [address] 71641- 3063 Mar, Insomnia 780.52 ; Routine adult health maintenance V70.0 ; GERD (gastroesophageal reflux disease) 530.81 and Depression with anxiety 300.4 [facility] [address] [place] [id number] [place] [address] [id number] Feb, Dental examination V72.2 [facility] [address] [place] [id number] [place] [address] 65054- 7607 Sep, [facility] [address] [place] [id number] [place] [address] 18485- 5036 Sep, [facility] [address] [id number] [place] [address] 72366- 8193 Sep, [facility] [address] [place] [id number] [place] [address] 96500- 6999 Sep, [facility] [address] [place] [id number] [place] [address] 85397- 3416 Sep, [facility] [address] [place] [id number] [place] [address] Sep, IMMUNIZATIONS No Known Immunizations SOCIAL HISTORY Never Assessed REASON FOR VISIT ER f/u -Rayo OAKLEY PLAN OF CARE Activity Details Follow Up 2 - 3 Days Reason:pneumonia VITAL SIGNS Height 62 in 2017-09-11 Weight 200 lbs 2017-09-11 Temperature 98.5 degrees Fahrenheit 2017-09-11 Heart Rate 80 bpm 2017-09-11 Respiratory Rate 20 2017-09-11 BMI 36.58 kg/m2 2017-09-11 Blood pressure systolic 130 mmHg 2017-09-11 Blood pressure diastolic 70 mmHg 2017-09-11 MEDICATIONS Medication Instructions Dosage Frequency Start Date End Date Duration Status Seroquel 50 MG TAKE TWO TABLETS BY MOUTH ONCE DAILY AT BEDTIME 30 Active Ventolin HFA 108 (90 Base) MCG/ACT Inhalation every 6 hrs 2 puffs as needed 6h Sep, Active Sprintec 28 0.25-35 MG-MCG Orally Once a day Skp the placebo 1 tablet May, 90 days Active Levothyroxine Sodium 125 MCG TAKE ONE TABLET BY MOUTH ONCE DAILY 60 Active Gabapentin 300 MG Orally Once a day 1 capsule before bedtime 24h May, 90 Active RESULTS Name Result Date Reference Range Xray : Chest 2 View (IN HOUSE) 2017-09-11 PROCEDURES Procedure Date Ordered Result Body Site X-RAY EXAM CHEST 2 VIEWS September 11, 2017 [facility] VISIT ESTABLISHED PATIENT September 11, 2017 INSTRUCTIONS MEDICATIONS ADMINISTERED No Known Medications [...] 1992 Hospitalization History was admitted to a custodial/psych facility [id number]
--- OUTSIDE RECORDS SUMMARY | 2018-09-13 06:24 | XMS REPORT ---
Author Author NADYA IVY 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 Active 42731361 Problem Anxiety disorder, unspecified type F41.9 Active 055675691 Problem Hiatal hernia K44.9 Active 60941940 Problem Iron deficiency anemia due to chronic blood loss D50.0 Active 93863985 Problem Caries K02.9 Active 32403336 Problem Dental examination Z01.20 Active 338183699 Problem Menorrhagia with regular cycle N92.0 Active 538001839 Problem Bipolar disorder, unspecified F31.9 Active 92284342 Problem Primary insomnia F51.01 Active 753837884 Problem Dysthymic disorder F34.1 Active 89759202 Problem Depression with anxiety F41.8 Active 352869657 Problem Gastro-esophageal reflux disease with esophagitis K21.0 Active 007146222 Problem 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 Active 017516609 Problem Gastroesophageal reflux disease with esophagitis K21.0 Active 183563289 Problem Restless leg G25.81 Active 10869872 Problem Hypothyroidism E03.9 Active 48819933 Problem Anger R45.4 Active 67375876 Problem Post traumatic stress disorder (PTSD) F43.10 Active 16624005 ALLERGIES No Information ENCOUNTERS Encounter Location Date Diagnosis [facility] [address] [facility] [id number] [address] Jan, Hypothyroidism E03.9 ; Restless leg G25.81 ; Depression with anxiety F41.8 and Overweight E66.3 [place] [address] [place] [id number] [place] [address] 37741- 3760 November, [place] [address] 97028- 7178 Oct, [place] [address] [place] [id number] [place] [address] 76666- 8815 Sep, [place] [address] 54831- 3061 Sep, Aspiration pneumonia, unspecified aspiration pneumonia type , unspecified laterality, unspecified part of lung J69.0 [place] [address] 81664- 6937 Sep, Pneumonia of left lower lobe due to infectious organism J18.1 [place] [address] 10152- 2895 Jul, Anxiety disorder, unspecified type F41.9 [facility] [place] [address] 11843 -5064 Jul, Body aches R52 and Viral illness B34.9 [facility] [place] [address] [address]273 Jun, Bronchitis J40 [place] [address] 47360- 9611 May, Hypothyroidism E03.9 [place] [address] 14474- 3919 15 May, 2017 Menorrhagia with regular cycle N92.0 ; Hypothyroidism E03.9 ; Iron deficiency anemia due to chronic blood loss D50.0 ; Primary insomnia F51.01 and Restless leg G25.81 [place] [address] [place] [id number] [place] [address] 08548- 4174 06 May, 2017 [facility] [place] [address] 93917 -5832 06 Nov, 2017 Acute cystitis with hematuria N30.01 and Dysuria R30.0 [place] [address] [place] [id number] [place] [address] 68645- 3587 Apr, [place] [address] [place] [id number] [place] [address] 27301- 0379 Feb, [facility] [address] [place] [id number] [place] [address] 74356 -1161 Feb, Ganglion cyst of wrist, left M67.432 [place] [address] [place] [id number] [place] [address] 44933- 7364 Jan, Insomnia, unspecified G47.00 [place] [address] [place] [id number] [place] [address] 74094- 9697 Jan, Insomnia, unspecified G47.00 [place] [address] [place] [id number] [place] [address] 84137- 0964 Jan, 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 ; Bipolar disorder, unspecified F31.9 and Hypothyroidism E03.9 [place] [address] [place] [id number] [place] [address] 57953- 6681 29 Dec, 2016 Dental examination Z01.20 [place] [address] [place] [id number] [place] [address] 21464- 1246 14 Dec, 2016 Depression with anxiety F41.8 ; Post traumatic stress disorder (PTSD) F43.10 ; 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 and Adjustment disorder with mixed disturbance of emotions and conduct F43.25 [place] [address] [place] [address] 04956- 0559 November, 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 ; Adjustment disorder with mixed disturbance of emotions and conduct F43.25 and Depression with anxiety F41.8 [place] [address] [place] [id number] [place] [address] 05849- 7282 November, Insomnia, unspecified G47.00 [place] [address] [place] [id number] [place] [address] 41909- 4043 November, 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 ; Adjustment disorder with mixed disturbance of emotions and conduct F43.25 and Depression with anxiety F41.8 [place] [id number] [place] [address] 13630- 8502 Oct, Insomnia, unspecified G47.00 [facility]ALK IN [place] [id number] [place] [address] 61437 -8629 Oct, Visit for TB skin test Z11.1 [facility] [place] [address] [id number] [place] [address] 10672 -9663 Sep, Wheezing R06.2 and Bronchitis J40 [facility] [address] [id number] Sep, Dental examination Z01.20 [place] [id number] [place] [address] 26737- 3466 10 Sep, 2016 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 [place] [address] [place] [id number] [place] [address] 03653- 7192 08 Sep, 2016 Bipolar disorder, unspecified F31.9 ; Insomnia, unspecified G47.00 ; 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 ; Hypothyroidism E03.9 and Acquired hypothyroidism E03.9 [place] [address] [place] [id number] [place] [address] 39365- 5275 Jul, Hypothyroidism E03.9 [place] [address] [place] [id number] [place] [address] 04777- 2055 Jul, Hypothyroidism E03.9 [place] [id number] [place] [address] 86638- 2055 May, Generalized anxiety disorder F41.1 ; Depression with anxiety F41.8 and Bipolar disorder, unspecified F31.9 [place] [address] [place] [id number] [place] [address] 93649- 3503 Apr, Hypothyroidism E03.9 [place] [address] [place] [id number] [place] [address] 87933- 1595 Apr, Depression with anxiety F41.8 ; Bipolar disorder, unspecified F31.9 ; Generalized anxiety disorder F41.1 and Post traumatic stress disorder (PTSD) F43.[address] 51366- 2793 Apr, Encounter to establish care Z76.89 ; Gastroesophageal reflux disease with esophagitis K21.0 ; Hypothyroidism E03.9 ; Bipolar disorder , unspecified F31.9 ; 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 ; Weight gain R63.5 and Insomnia, unspecified type G47.[address] 8[address]68- 1983 Apr, Primary insomnia F51.01 ; Depression with anxiety F41.8 and Generalized anxiety disorder F41.[address] 12436- 0672 Apr, [facility] [address] [place] [address] 26956 -6937 Apr, Overdose of anticonvulsant, undetermined intent, initial encounter T42.74XA [address] 59844- 8763 Feb, [address] 83309- 8485 Jan, Bipolar disorder, unspecified F31.9 and Anger R45.4 [facility] [address] [place] [address] 35673 -0665 15 Oct, 2015 Right forearm pain M79.631 [facility] [address] [id number] 04 Aug, 2015 Encounter for dental examination Z01.20 [facility] [address] [place] [address] 26340 -5756 14 Jul, 2015 Acute vomiting R11.10 [place] [address] [address] Jul, Screening for tuberculosis Z11.1 [facility] [address] 53355- 0135 Jun, Gastro-esophageal reflux disease with esophagitis K21.0 and Generalized anxiety disorder F41.1 [facility] [address] 90150- 1560 Jun, Generalized anxiety disorder F41.1 and Insomnia, unspecified G47.00 [place] [address] 72867- 2596 Jun, [place] [address] 28959- 8515 May, Generalized anxiety disorder F41.1 and Bipolar disorder, unspecified F31.9 [place] [address] 23889- 9405 May, Dysthymic disorder F34.1 ; Generalized anxiety disorder F41.1 and Bipolar 1 disorder with moderate felipe F31.12 [place] [address] 56665- 2991 May, Bipolar 1 disorder with moderate felipe F31.12 ; Generalized anxiety disorder F41.1 and Insomnia, unspecified G47.00 [place] [address] [place] [id number] [place] [address] 32067- 1475 May, Bipolar 1 disorder with moderate felipe F31.12 [facility] [address] [place] [id number] [place] [address] 88802 -6579 May, Bronchitis J40 [facility] [address] 56899- 8859 Apr, Dysthymic disorder F34.1 and Generalized anxiety disorder F41.1 [facility] [address] [place] [id number] [place] [address] 61509- 9731 Apr, Generalized anxiety disorder F41.1 and Dysthymic disorder F34.1 [facility] [address] [place] [address] 66902- 9781 Apr, Primary insomnia F51.01 ; Depression with anxiety F41.8 and Restless leg G25.81 [facility] [address] [place] [id number] [place] [address] 55469- 8339 Apr, Generalized anxiety disorder F41.1 ; Dysthymic disorder F34.1 ; Hypothyroidism E03.9 ; Anemia D64.9 and Acid reflux K21.9 [facility] [address] [place] [id number] [place] [address] [id number] Mar, Dental examination V72.2 [facility] [address] 93012- 6356 Mar, Routine adult health maintenance V70.0 [facility] [address] 84399- 5148 Mar, [facility] [address] 41283- 4254 Mar, Insomnia 780.52 ; Routine adult health maintenance V70.0 ; GERD (gastroesophageal reflux disease) 530.81 and Depression with anxiety 300.4 [facility] [address] [place] [id number] [place] [address] [id number] Feb, Dental examination V72.2 [facility] [address] [place] [id number] [place] [address] 56565- 6543 Sep, [facility] [address] [place] [id number] [place] [address] 54703- 2220 Sep, [facility] [address] [place] [id number] [place] [address] 22777- 5965 Sep, [facility] [address] 92660- 8697 Sep, [facility] [address] [place] [id number] [place] [address] 18642- 3977 Sep, [facility] [address] [place] [address]- 6875 Sep, IMMUNIZATIONS No Known Immunizations SOCIAL HISTORY Never Assessed REASON FOR VISIT start Omeprazole 40mg PLAN OF CARE VITAL SIGNS MEDICATIONS Medication Instructions Dosage Frequency Start Date End Date Duration Status Omeprazole 40 mg Orally Once a day 1 capsule 24h Sep, Active RESULTS No Results PROCEDURES No Known [...] 1992 Hospitalization History was admitted to a senior living/psych facility [id number]
--- OUTSIDE RECORDS SUMMARY | 2018-09-13 06:24 | XMS REPORT ---
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 Active 25031442 Problem Anxiety disorder, unspecified type F41.9 Active 066468690 Problem Hiatal hernia K44.9 Active 89543320 Problem Iron deficiency anemia due to chronic blood loss D50.0 Active 46923278 Problem Caries K02.9 Active 57426992 Problem Dental examination Z01.20 Active 203563189 Problem Menorrhagia with regular cycle N92.0 Active 390805603 Problem Bipolar disorder, unspecified F31.9 Active 73543796 Problem Primary insomnia F51.01 Active 560309841 Problem Dysthymic disorder F34.1 Active 99703977 Problem Depression with anxiety F41.8 Active 471052194 Problem Gastro-esophageal reflux disease with esophagitis K21.0 Active 480945989 Problem 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 Active 324223151 Problem Gastroesophageal reflux disease with esophagitis K21.0 Active 995326232 Problem Restless leg G25.81 Active 31698876 Problem Hypothyroidism E03.9 Active 57233816 Problem Anger R45.4 Active 71466706 Problem Post traumatic stress disorder (PTSD) F43.10 Active 61143474 ALLERGIES No Information ENCOUNTERS Encounter Location Date Diagnosis [facility] [address] [facility] [id number] [address] Jan, Hypothyroidism E03.9 ; Restless leg G25.81 ; Depression with anxiety F41.8 and Overweight E66.3 [place] [address] [place] [id number] [place] [address] 98811- 5378 November, [place] [address] 37219- 3415 Oct, [place] [address] [place] [id number] [place] [address] 68876- 4360 Sep, [place] [address] 90690- 6377 Sep, Aspiration pneumonia, unspecified aspiration pneumonia type , unspecified laterality, unspecified part of lung J69.0 [place] [address] 27462- 2453 Sep, Pneumonia of left lower lobe due to infectious organism J18.1 [place] [address] 65845- 8053 Jul, Anxiety disorder, unspecified type F41.9 [facility] [place] [address] 68140 -6537 Jul, Body aches R52 and Viral illness B34.9 [facility] IN [address] 86261 -4779 Jun, Bronchitis J40 [place] [address] 94840- 5194 May, Hypothyroidism E03.9 [place] [address] 59012- 7051 15 May, 2017 Menorrhagia with regular cycle N92.0 ; Hypothyroidism E03.9 ; Iron deficiency anemia due to chronic blood loss D50.0 ; Primary insomnia F51.01 and Restless leg G25.81 [place] [address] [place] [id number] [place] [address] 80914- 9049 06 May, 2017 [facility] [place] [address] 59633 -8887 06 Nov, 2017 Acute cystitis with hematuria N30.01 and Dysuria R30.0 [place] [address] [place] [id number] [place] [address] 15678- 8526 Apr, [place] [address] [place] [id number] [place] [address] 64881- 6939 Feb, [facility] [address] [place] [id number] [place] [address] 27299 -6949 Feb, Ganglion cyst of wrist, left M67.432 [place] [address] [place] [id number] [place] [address] 04223- 1917 Jan, Insomnia, unspecified G47.00 [place] [address] [place] [id number] [place] [address] 30063- 7694 Jan, Insomnia, unspecified G47.00 [place] [address] [place] [id number] [place] [address] 42673- 4040 Jan, 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 ; Bipolar disorder, unspecified F31.9 and Hypothyroidism E03.9 [place] [address] [place] [id number] [place] [address] 28702- 6539 29 Dec, 2016 Dental examination Z01.20 [place] [address] [place] [id number] [place] [address] 80675- 1317 14 Dec, 2016 Depression with anxiety F41.8 ; Post traumatic stress disorder (PTSD) F43.10 ; 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 and Adjustment disorder with mixed disturbance of emotions and conduct F43.25 [place] [address] [place] [address] 46193- 4094 November, 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 ; Adjustment disorder with mixed disturbance of emotions and conduct F43.25 and Depression with anxiety F41.8 [place] [address] [place] [id number] [place] [address] 17134- 3570 November, Insomnia, unspecified G47.00 [place] [address] [place] [id number] [place] [address] 25830- 0608 November, 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 ; Adjustment disorder with mixed disturbance of emotions and conduct F43.25 and Depression with anxiety F41.8 [place] [id number] [place] [address] 60450- 9662 Oct, Insomnia, unspecified G47.00 [facility] [place] [id number] [place] [address] 49570 -6277 Oct, Visit for TB skin test Z11.1 [facility] [place] [address] [place] [id number] [place] [address] 51750 -9412 Sep, Wheezing R06.2 and Bronchitis J40 [facility] [address] [id number] Sep, Dental examination Z01.20 [place] [id number] [place] [address] 10412- 1061 10 Sep, 2016 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 [place] [address] [place] [id number] [place] [address] 29741- 5745 08 Sep, 2016 Bipolar disorder, unspecified F31.9 ; Insomnia, unspecified G47.00 ; 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 ; Hypothyroidism E03.9 and Acquired hypothyroidism E03.9 [place] [address] [place] [id number] [place] [address] 50468- 9481 Jul, Hypothyroidism E03.9 [place] [address] [place] [id number] [place] [address] 55088- 3521 Jul, Hypothyroidism E03.9 [place] [id number] [place] [address] 15307- 1529 May, Generalized anxiety disorder F41.1 ; Depression with anxiety F41.8 and Bipolar disorder, unspecified F31.9 [place] [address] [place] [id number] [place] [address] 21262- 2229 Apr, Hypothyroidism E03.9 [place] [address] [place] [id number] [place] [address] 19612- 9269 Apr, Depression with anxiety F41.8 ; Bipolar disorder, unspecified F31.9 ; Generalized anxiety disorder F41.1 and Post traumatic stress disorder (PTSD) F43.[address] 60672- 0614 Apr, Encounter to establish care Z76.89 ; Gastroesophageal reflux disease with esophagitis K21.0 ; Hypothyroidism E03.9 ; Bipolar disorder , unspecified F31.9 ; 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 ; Weight gain R63.5 and Insomnia, unspecified type G47.[address] 56819- 7252 Apr, Primary insomnia F51.01 ; Depression with anxiety F41.8 and Generalized anxiety disorder F41.[address] 39188- 4466 Apr, [facility] [address] [place] [address] 40418 -1950 Apr, Overdose of anticonvulsant, undetermined intent, initial encounter T42.74XA [address] 18411- 5540 Feb, [address] 74478- 3661 Jan, Bipolar disorder, unspecified F31.9 and Anger R45.4 [facility] [address] [place] [address] 40981 -0309 15 Oct, 2015 Right forearm pain M79.631 [facility] [address] [id number] 04 Aug, 2015 Encounter for dental examination Z01.20 [facility] [address] [place] [address] 28033 -7953 14 Jul, 2015 Acute vomiting R11.10 [place] [address] [address]- 6810 Jul, Screening for tuberculosis Z11.1 [facility] [address] 60617- 5805 Jun, Gastro-esophageal reflux disease with esophagitis K21.0 and Generalized anxiety disorder F41.1 [facility] [address] 27580- 2931 Jun, Generalized anxiety disorder F41.1 and Insomnia, unspecified G47.00 [place] [address] 07894- 6219 Jun, [place] [address] 80531- 7261 May, Generalized anxiety disorder F41.1 and Bipolar disorder, unspecified F31.9 [place] [address] 13670- 0668 May, Dysthymic disorder F34.1 ; Generalized anxiety disorder F41.1 and Bipolar 1 disorder with moderate felipe F31.12 [place] [address] 04625- 6807 May, Bipolar 1 disorder with moderate felipe F31.12 ; Generalized anxiety disorder F41.1 and Insomnia, unspecified G47.00 [place] [address] [place] [id number] [place] [address] 34794- 5478 May, Bipolar 1 disorder with moderate felipe F31.12 [facility] [address] [place] [id number] [place] [address] 81559 -8618 May, Bronchitis J40 [facility] [address] 69086- 3705 Apr, Dysthymic disorder F34.1 and Generalized anxiety disorder F41.1 [facility] [address] [place] [id number] [place] [address] 99397- 3176 Apr, Generalized anxiety disorder F41.1 and Dysthymic disorder F34.1 [facility] [address] [place] [address] 74963- 2981 Apr, Primary insomnia F51.01 ; Depression with anxiety F41.8 and Restless leg G25.81 [facility] [address] [place] [id number] [place] [address] 44572- 9467 Apr, Generalized anxiety disorder F41.1 ; Dysthymic disorder F34.1 ; Hypothyroidism E03.9 ; Anemia D64.9 and Acid reflux K21.9 [facility] [address] [place] [id number] [place] [address] [id number] Mar, Dental examination V72.2 [facility] [address] 43769- 0417 Mar, Routine adult health maintenance V70.0 [facility] [address] 37301- 8968 Mar, [facility] [address] 37131- 6282 Mar, Insomnia 780.52 ; Routine adult health maintenance V70.0 ; GERD (gastroesophageal reflux disease) 530.81 and Depression with anxiety 300.4 [facility] [address] [place] [id number] [place] [address] [id number] Feb, Dental examination V72.2 [facility] [address] [place] [id number] [place] [address] 98466- 0991 Sep, [facility] [address] [place] [id number] [place] [address] 31580- 8670 Sep, [facility] [address] [place] [id number] [place] [address] 55457- 2849 Sep, [facility] [address] 96961- 7451 Sep, [facility] [address] [place] [id number] [place] [address] 97744- 7577 Sep, [facility] [address] [place] [address]- 4682 Sep, IMMUNIZATIONS No Known Immunizations SOCIAL HISTORY Never Assessed REASON FOR VISIT Refill request PLAN OF CARE VITAL SIGNS MEDICATIONS Unknown [...] 1992 Hospitalization History was admitted to a prison/psych facility [id number]
--- OUTSIDE RECORDS SUMMARY | 2018-09-13 06:25 | XMS REPORT ---
Author JEANA Yancey [facility] eClinicalWorks Address Unknown Phone Unavailable Care Team Providers Care Slubber Tender Name Role Phone JEANA CULLEN CP Unavailable Allergies, Adverse Reactions, Alerts Substance Reaction Event Type N.K.D.A. Info Not Available Non Drug Allergy Problems Problem Type Condition Code Onset Dates Condition Status Problem Depression with anxiety 300.4 Active Problem GERD (gastroesophageal reflux disease) 530.81 Active Problem Insomnia 780.52 Active Problem Routine adult health maintenance V70.0 Active Assessment Dental examination V72.2 Active Medications Medication Code System Code Instructions Start Date End Date Status Dosage Ferrous Sulfate [facility] [address]-02 325 (65 Fe) MG Orally Once a day Mar 1 tablet [place] [facility] [address]-03 5-325 MG Orally every 6 hrs Mar 25, 2015Mar 1 tablet as needed Pepcid AC [facility] 33655-77583 10 MG Orally Once a day 2 tablet Levothyroxine Sodium [facility] [address]-78 75 MCG Orally Once a day Mar 13, 2015 1 tablet Melatonin [facility] 88340-36866 10 MG Orally Once a day at hs 10-20 tablets Amitriptyline HCl [facility] [address]-03 25 MG Orally Once a day at bedtime Mar 12, 2015 1 tablet Nexium [facility] [address]-96 20 MG Orally Once a day Mar 12, 2015 1 capsule Procedures Procedure Coding System Code Date Billing Notes on claim CPT-4 EC109 Mar 25, 2015 EXTRAC ERUPTED TOOTH/EXPOSED ROOT CPT-4 D7140 Mar 25, 2015 Vital Signs Date/Time: Mar 25, 2015 Blood Pressure Diastolic 74 mmHg Blood Pressure Systolic 118 mmHg Results No Known Results Summary Purpose eClinicalWorks Submission
--- OUTSIDE RECORDS SUMMARY | 2018-09-13 06:25 | XMS REPORT ---
Author FABIAN Taveras Organization eClinicalWorks Address Unknown Phone Unavailable Care Team Providers Care Rn Endoscopy Name Role Phone FABIAN SELF CP Unavailable Allergies, Adverse Reactions, Alerts Substance Reaction Event Type N.K.D.A. Info Not Available Non Drug Allergy Problems Problem Type Condition Code Onset Dates Condition Status Problem Depression with anxiety F41.8 Active Assessment Overdose of anticonvulsant, undetermined intent, initial encounter T42.74XA Active Problem Bipolar disorder, unspecified F31.9 Active Problem Restless leg G25.81 Active Problem Anger R45.4 Active Problem Primary insomnia F51.01 Active Problem Gastro-esophageal reflux disease with esophagitis K21.0 Active Problem Generalized anxiety disorder F41.1 Active Problem Dysthymic disorder F34.1 Active Medications Medication Code System Code Instructions Start Date End Date Status Dosage Depakote [facility] [address]-94 250 MG Orally twice a day January 21, 2016 1 tablet Ferrous Sulfate [facility] [address]-41 325 (65 Fe) MG Orally Once a day Mar 1 tablet Levothyroxine Sodium [facility] 87556643162 75 MCG Orally Once a day 1 tablet Seroquel [facility] [address]-96 200 mg Orally Once a day May 14, 2015 2 tablet at bedtime Procedures Procedure Coding System Code Date Office Visit, Est Pt., Level 3 CPT-4 49644 Apr 23, 2016 ELECTROCARDIOGRAM, TRACING CPT-4 25106 Apr 23, 2016 [facility] VISIT ESTABLISHED PATIENT CPT-4 G0467 Apr 23, 2016 Vital Signs Date/Time: Apr 23, 2016 Cardiac Monitoring Heart Rate 86 bpm Weight 200.4 lbs Height 62 in BMI 36.65 Index Blood Pressure Diastolic 88 mmHg Blood Pressure Systolic 132 mmHg Results Name Result Date Reference Range Unit Abnormality Flag EKG, TRACING (IN-HOUSE) Summary Purpose eClinicalWorks Submission
--- OUTSIDE RECORDS SUMMARY | 2018-09-13 06:25 | XMS REPORT ---
Author Author CRISTY MARAVILLA [facility] eClinicalWorks Address Unknown Phone Unavailable Care Team Providers Care Control Integration Engineer Name Role Phone CRISTY MARAVILLA CP Unavailable Allergies No Known Allergies Problems Problem Type Condition Code Onset Dates Condition Status Problem Dysthymic disorder F34.1 Active Problem Restless leg G25.81 Active Problem Generalized anxiety disorder F41.1 Active Problem Gastroesophageal reflux disease with esophagitis K21.0 Active Problem Hypothyroidism E03.9 Active Problem Post traumatic stress disorder (PTSD) F43.10 Active Problem Anger R45.4 Active Problem Bipolar disorder, unspecified F31.9 Active Problem 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 Active Problem Insomnia, unspecified type G47.00 Active Assessment Post traumatic stress disorder (PTSD) F43.10 Active Assessment Depression with anxiety F41.8 Active Problem Depression with anxiety F41.8 Active Assessment Generalized anxiety disorder F41.1 Active Problem Gastro-esophageal reflux disease with esophagitis K21.0 Active Assessment Bipolar disorder, unspecified F31.9 Active Problem Primary insomnia F51.01 Active Medications No Known Medications Procedures Procedure Coding System Code Date Psych diagnostic evaluation, new patient CPT-4 30576 May 06, 2016 Results No Known Results Summary Purpose eClinicalWorks Submission
--- OUTSIDE RECORDS SUMMARY | 2018-09-13 06:25 | XMS REPORT ---
Author BLAIR Villareal [facility] eClinicalWorks Address Unknown Phone Unavailable Care Team Providers Care Supervisor Picking Crew Name Role Phone BLAIR AGUIRRE Unavailable Allergies, Adverse Reactions, Alerts Substance Reaction Event Type N.K.D.A. Info Not Available Non Drug Allergy Problems Problem Type Condition Code Onset Dates Condition Status Problem Generalized anxiety disorder F41.1 Active Problem Dysthymic disorder F34.1 Active Problem Restless leg G25.81 Active Problem Depression with anxiety F41.8 Active Assessment Bipolar 1 disorder with moderate felipe F31.12 Active Problem Primary insomnia F51.01 Active Problem Gastro-esophageal reflux disease with esophagitis K21.0 Active Medications Medication Code System Code Instructions Start Date End Date Status Dosage Ferrous Sulfate [facility] [address]-73 325 (65 Fe) MG Orally Once a day Mar 1 tablet Nexium [facility] [address]-30 20 MG Orally Once a day Mar 12, 2015 1 capsule ProAir HFA [facility] [address]-67 108 (90 Base) MCG/ACT Inhalation every 4 hrs May 12, 2015 2 puffs as needed Doxycycline Monohydrate [facility] [address]-91 100 MG Orally every 12 hrs MayMay 22, 2015 1 tablet Neurontin [facility] [address]-46 100 MG Orally Once a day at hs Apr 29, 2015 as directed Levothyroxine Sodium [facility] [address]-49 75 MCG Orally Once a day Mar 13, 2015 1 tablet [place] Carbonate [facility] [address]-62 150 MG Orally 2 times a day May 14, 2015 1 capsule Clonidine HCl [facility] [address]-23 0.1 MG Orally 3 times a day May 07, 2015 1 tablet Seroquel [facility] [address]-49 200 MG Orally Once a day May 14, 2015 2 tablet at bedtime Restoril [facility] [address]-45 15 MG Orally daily at hs for sleep Apr 29, 2015 1 capsule at bedtime as needed Lexapro NDC [address]-37 10 MG Orally Once a day Apr 29, 2015 1 tablet Pepcid AC [facility] 63721-91419 10 MG Orally Once a day 2 tablet Procedures Procedure Coding System Code Date MH Office Visit, Est Pt., Level 5 CPT-4 86496 May 14, 2015 Vital Signs Date/Time: May 14, 2015 Cardiac Monitoring Heart Rate 88 bpm Weight 202.1 lbs Height 62 in BMI 36.96 Index Blood Pressure Diastolic 90 mmHg Blood Pressure Systolic 144 mmHg Results No Known Results Summary Purpose eClinicalWorks Submission
--- OUTSIDE RECORDS SUMMARY | 2018-09-13 06:25 | XMS REPORT ---
Author NADYA Gerber [facility] eClinicalWorks Address Unknown Phone Unavailable Care Team Providers Care Life Enrichment Manager Name Role Phone NADYA IVY CP Unavailable Allergies, Adverse Reactions, Alerts Substance Reaction Event Type N.K.D.A. Info Not Available Non Drug Allergy Problems Problem Type Condition Code Onset Dates Condition Status Problem Depression with anxiety F41.8 Active Problem Bipolar disorder, unspecified F31.9 Active Problem Restless leg G25.81 Active Problem Anger R45.4 Active Problem Primary insomnia F51.01 Active Problem Gastro-esophageal reflux disease with esophagitis K21.0 Active Problem Generalized anxiety disorder F41.1 Active Problem Dysthymic disorder F34.1 Active Medications Medication Code System Code Instructions Start Date End Date Status Dosage Levothyroxine Sodium [facility] 79584595645 75 MCG Orally Once a day 1 tablet Ferrous Sulfate [facility] [address]-49 325 (65 Fe) MG Orally Once a day Mar 1 tablet Seroquel [facility] [address]-80 200 mg Orally Once a day May 14, 2015 2 tablet at bedtime Results No Known Results Summary Purpose eClinicalWorks Submission
--- OUTSIDE RECORDS SUMMARY | 2018-09-13 06:25 | XMS REPORT ---
Author BLAIR Villareal Organization eClinicalWorks Address Unknown Phone Unavailable Care Team Providers Care Voice Professor Name Role Phone BLAIR AGUIRRE CP Unavailable Allergies No Known Allergies Problems Problem Type Condition Code Onset Dates Condition Status Assessment Generalized anxiety disorder F41.1 Active Problem Generalized anxiety disorder F41.1 Active Problem Dysthymic disorder F34.1 Active Problem Restless leg G25.81 Active Problem Depression with anxiety F41.8 Active Assessment Dysthymic disorder F34.1 Active Problem Primary insomnia F51.01 Active Problem Gastro-esophageal reflux disease with esophagitis K21.0 Active Medications Medication Code System Code Instructions Start Date End Date Status Dosage Neurontin [facility] [address]-97 100 MG Orally Once a day at hs Apr 29, 2015 as directed Lexapro [facility] [address]-38 10 MG Orally Once a day Apr 29, 2015 1 tablet Levothyroxine Sodium [facility] [address]-29 75 MCG Orally Once a day Mar 13, 2015 1 tablet Nexium [facility] [address]-26 20 MG Orally Once a day Mar 12, 2015 1 capsule Pepcid AC [facility] 18769-38907 10 MG Orally Once a day 2 tablet Clonidine HCl [facility] [address]-26 0.1 MG Orally 3 times a day May 07, 2015 1 tablet Restoril [facility] [address]-61 15 MG Orally daily at hs for sleep Apr 29, 2015 1 capsule at bedtime as needed Ferrous Sulfate [facility] [address]-24 325 (65 Fe) MG Orally Once a day Mar 1 tablet Procedures Procedure Coding System Code Date Psych diagnostic evaluation w/medical services, established patient CPT-4 85410 May 07, 2015 Vital Signs Date/Time: May 07, 2015 Cardiac Monitoring Heart Rate 74 bpm Weight 203.6 lbs Height 62 in BMI 37.23 Index Blood Pressure Diastolic 74 mmHg Blood Pressure Systolic 132 mmHg Results No Known Results Summary Purpose eClinicalWorks Submission
--- OUTSIDE RECORDS SUMMARY | 2018-09-13 06:25 | XMS REPORT ---
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 Active 19018336 Problem Anxiety disorder, unspecified type F41.9 Active 111907132 Problem Hiatal hernia K44.9 Active 05837797 Problem Iron deficiency anemia due to chronic blood loss D50.0 Active 64956016 Problem Caries K02.9 Active 56390497 Problem Dental examination Z01.20 Active 584226647 Problem Menorrhagia with regular cycle N92.0 Active 151505507 Problem Bipolar disorder, unspecified F31.9 Active 61653810 Problem Primary insomnia F51.01 Active 513270944 Problem Dysthymic disorder F34.1 Active 44527416 Problem Depression with anxiety F41.8 Active 790452213 Problem Gastro-esophageal reflux disease with esophagitis K21.0 Active 944837523 Problem 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 Active 219663599 Problem Gastroesophageal reflux disease with esophagitis K21.0 Active 113206268 Problem Restless leg G25.81 Active 91264004 Problem Hypothyroidism E03.9 Active 56476746 Problem Anger R45.4 Active 27104664 Problem Post traumatic stress disorder (PTSD) F43.10 Active 05841822 ALLERGIES No Information ENCOUNTERS Encounter Location Date Diagnosis [facility] [address] [facility] [id number] [address] Sep, [facility] [address] [facility] [id number] [address] Sep, Aspiration pneumonia, unspecified aspiration pneumonia type , unspecified laterality, unspecified part of lung J69.0 [place] [address] [address] Sep, Pneumonia of left lower lobe due to infectious organism J18.1 [place] [address] [address] Jul, Anxiety disorder, unspecified type F41.9 [facility] [place] [address] [address] Jul, Body aches R52 and Viral illness B34.9 [facility] [address] [address] Jun, Bronchitis J40 [place] [address] [address] May, Hypothyroidism E03.9 [place] [address] [address] May, Menorrhagia with regular cycle N92.0 ; Hypothyroidism E03.9 ; Iron deficiency anemia due to chronic blood loss D50.0 ; Primary insomnia F51.01 and Restless leg G25.81 [place] [address] [address] May, [facility] [place] [address] [address] May, Acute cystitis with hematuria N30.01 and Dysuria R30.0 [place] [address] [address] Apr, [place] [address] [address] Feb, [facility] [place] [address] [address] Feb, Ganglion cyst of wrist, left M67.432 [place] [address], [place] [address] Jan, Insomnia, unspecified G47.00 [place] [address] [place] [id number] [place] [address] Jan, Insomnia, unspecified G47.00 [place] [address] [place] [id number] [place] [address] Jan, 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 ; Bipolar disorder, unspecified F31.9 and Hypothyroidism E03.9 [place] [address] [place] [id number] [place] [address] Dec, Dental examination Z01.20 [place] [address] [place] [id number] [place] [address] 14 Dec, 2016 Depression with anxiety F41.8 ; Post traumatic stress disorder (PTSD) F43.10 ; 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 and Adjustment disorder with mixed disturbance of emotions and conduct F43.25 [place] [address] [place] [id number] [place] [address] November, 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 ; Adjustment disorder with mixed disturbance of emotions and conduct F43.25 and Depression with anxiety F41.8 [place] [address] [place] [address] November, Insomnia, unspecified G47.00 [place] [address] [place] [id number] [place] [address] November, 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 ; Adjustment disorder with mixed disturbance of emotions and conduct F43.25 and Depression with anxiety F41.8 [place] [address] [place] [id number] [place] [address] Oct, Insomnia, unspecified G47.00 [facility] [address] [place] [address] Oct, Visit for TB skin test Z11.1 [facility] [address], [place] [address] 28 Sep, 2016 Wheezing R06.2 and Bronchitis J40 [facility] [address] [id number] 20 Sep, 2016 Dental examination Z01.20 [facility] [address] [place] [address] 10 Sep, 2016 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 [facility] [address] [place] [id number] [place] [address] 08 Sep, 2016 Bipolar disorder, unspecified F31.9 ; Insomnia, unspecified G47.00 ; 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 ; Hypothyroidism E03.9 and Acquired hypothyroidism E03.9 [facility] [address] [place] [address] Jul, Hypothyroidism E03.9 [place] [address] [place] [id number] [place] [address] Jul, Hypothyroidism E03.9 [place] [address] [place] [id number] [place] [address] May, Generalized anxiety disorder F41.1 ; Depression with anxiety F41.8 and Bipolar disorder, unspecified F31.9 [facility] [address] [place] [address] Apr, Hypothyroidism E03.9 [facility] [address] [place] [address] Apr, Depression with anxiety F41.8 ; Bipolar disorder, unspecified F31.9 ; Generalized anxiety disorder F41.1 and Post traumatic stress disorder (PTSD) F43.10 [facility] [address], [place] [address] Apr, Encounter to establish care Z76.89 ; Gastroesophageal reflux disease with esophagitis K21.0 ; Hypothyroidism E03.9 ; Bipolar disorder , unspecified F31.9 ; 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 ; Weight gain R63.5 and Insomnia, unspecified type G47.[address] [address] Apr, Primary insomnia F51.01 ; Depression with anxiety F41.8 and Generalized anxiety disorder F41.[address] [address] Apr, [facility] [address] [address] Apr, Overdose of anticonvulsant, undetermined intent, initial encounter T42.74XA [address] [address] Feb, [address] [address] Jan, Bipolar disorder, unspecified F31.9 and Anger R45.4 [facility] [address] [address] Oct, Right forearm pain M79.631 [facility] [address] [id number] 04 Aug, 2015 Encounter for dental examination Z01.20 [facility] [address] [address] Jul, Acute vomiting R11.[address] [address] Jul, Screening for tuberculosis Z11.[address] [address] Jun, Gastro-esophageal reflux disease with esophagitis K21.0 and Generalized anxiety disorder F41.[address] [address] Jun, Generalized anxiety disorder F41.1 and Insomnia, unspecified G47.00 [facility] [address] [place] [id number] [place] [address] Jun, [facility] [address] [address] May, Generalized anxiety disorder F41.1 and Bipolar disorder, unspecified F31.9 [facility] [address] [address] May, Dysthymic disorder F34.1 ; Generalized anxiety disorder F41.1 and Bipolar 1 disorder with moderate felipe F31.12 [place] [address] [address] May, Bipolar 1 disorder with moderate felipe F31.12 ; Generalized anxiety disorder F41.1 and Insomnia, unspecified G47.00 [place] [address] [address] May, Bipolar 1 disorder with moderate felipe F31.12 [facility] [address] [address] May, Bronchitis J40 [facility] [address] [address] Apr, Dysthymic disorder F34.1 and Generalized anxiety disorder F41.1 [place] [address] [place] [id number] [place] [address] Apr, Generalized anxiety disorder F41.1 and Dysthymic disorder F34.1 [place] [address] [place] [id number] [place] [address] Apr, Primary insomnia F51.01 ; Depression with anxiety F41.8 and Restless leg G25.81 [facility] [address] [place] [id number] [place] [address] Apr, Generalized anxiety disorder F41.1 ; Dysthymic disorder F34.1 ; Hypothyroidism E03.9 ; Anemia D64.9 and Acid reflux K21.9 [facility] [address] [place] [id number] [id number] Mar, Dental examination V72.2 [facility] [address] [place] [id number] [place] [address] Mar, Routine adult health maintenance V70.0 [facility] [address] [place] [id number] Mar, [facility] [address] [place] [id number] [place] [address] 8368[address] Mar, Insomnia 780.52 ; Routine adult health maintenance V70.0 ; GERD (gastroesophageal reflux disease) 530.81 and Depression with anxiety 300.4 [facility] [address] [place] [id number] Feb, Dental examination V72.2 [facility] [address] [place] [address] Sep, [facility] [address] [place] [id number] [place] [address] Sep, [facility] [address] [place] [id number] [place] [address] Sep, [facility] [address] [place] [id number] [place] [address] Sep, [facility] [address], [place] [address] Sep, [facility] [address] [place] [id number] [place] [phone] Sep, IMMUNIZATIONS No Known Immunizations SOCIAL HISTORY Never Assessed REASON FOR VISIT Controlled Med Refill PLAN OF CARE VITAL SIGNS MEDICATIONS Medication Instructions Dosage Frequency Start Date End Date Duration Status Ambien 5 mg Orally Once a day 1 tablet at bedtime 24h Jan, 28 days Active RESULTS No Results PROCEDURES No [...] 1992 Hospitalization History was admitted to a halfway/psych facility [id number]
--- OUTSIDE RECORDS SUMMARY | 2018-09-13 06:25 | XMS REPORT ---
Author Author NADYA IVY Organization eClinicalWorks Address Unknown Phone Unavailable Care Team Providers Care Freight Rate Specialist Name Role Phone NADYA IVY CP Unavailable Allergies No Known Allergies Problems [...] Problem Insomnia, unspecified type G47.00 Active Assessment Hypothyroidism E03.9 Active Problem Depression with anxiety F41.8 Active Problem Gastro-esophageal reflux disease with esophagitis K21.0 Active Problem Primary insomnia F51.01 Active Medications Medication Code System Code Instructions Start Date End Date Status Dosage Levothyroxine Sodium [facility] [address]-26 25 MCG Orally Once a day May 06, 2016 1 tablet on an empty stomach in the morning Results No Known Results Summary Purpose eClinicalWorks Submission
--- OUTSIDE RECORDS SUMMARY | 2018-09-13 06:26 | XMS REPORT ---
Author JOANNA Dobson [facility] eClinicalWorks Address Unknown Phone Unavailable Care Team Providers Care Budget Accountant Name Role Phone JOANNA AMAYA CP Unavailable Allergies, Adverse Reactions, Alerts Substance Reaction Event Type N.K.D.A. Info Not Available Non Drug Allergy Problems Problem Type Condition ICD-9 Code Onset Dates Condition Status Assessment Depression with anxiety 300.4 Active Problem Depression with anxiety 300.4 Active Problem GERD (gastroesophageal reflux disease) 530.81 Active Problem Insomnia 780.52 Active Assessment Routine adult health maintenance V70.0 Active Assessment GERD (gastroesophageal reflux disease) 530.81 Active Problem Routine adult health maintenance V70.0 Active Assessment Insomnia 780.52 Active Medications Medication Code System Code Instructions Start Date End Date Status Dosage Nexium [facility] [address]-71 20 MG Orally Once a day Mar 12, 2015 1 capsule Hydrocodone-Acetaminophen [facility] [address]-04 5-325 MG Orally every 6 hrs 1 tablet as needed Melatonin [facility] [address]45 10 MG Orally Once a day at hs 10-20 tablets Amitriptyline HCl [facility] [address]-83 25 MG Orally Once a day at bedtime Mar 12, 2015 1 tablet Pepcid AC [facility] [address]709-[address]00 10 MG Orally Once a day 2 tablet Procedures Procedure Coding System Code Date Office Visit, Est Pt., Level 4 CPT-4 58085 Mar 12, 2015 VENIPUNCT, ROUTINE* CPT-4 31685 Mar 12, 2015 [facility] NOB[facility] Mar 12, 2015 Vital Signs Date/Time: Mar 12, 2015 Temperature 97.0 F Weight 191.4 lbs Height 62 in BMI 35.00 Index Blood Pressure Diastolic 80 mmHg Blood Pressure Systolic 128 mmHg Cardiac Monitoring Heart Rate 84 bpm Results Name Result Date Reference Range Unit Abnormality Flag ROUTINE VENIPUNCTURE Summary Purpose eClinicalWorks Submission
--- OUTSIDE RECORDS SUMMARY | 2018-09-13 06:26 | XMS REPORT ---
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 Active 31288859 Problem Anxiety disorder, unspecified type F41.9 Active 313645148 Problem Hiatal hernia K44.9 Active 35591297 Problem Iron deficiency anemia due to chronic blood loss D50.0 Active 40557620 Problem Caries K02.9 Active 62621086 Problem Dental examination Z01.20 Active 664927085 Problem Menorrhagia with regular cycle N92.0 Active 141967976 Problem Bipolar disorder, unspecified F31.9 Active 65064220 Problem Primary insomnia F51.01 Active 622496795 Problem Dysthymic disorder F34.1 Active 17048233 Problem Depression with anxiety F41.8 Active 511653127 Problem Gastro-esophageal reflux disease with esophagitis K21.0 Active 542009450 Problem 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 Active 497629782 Problem Gastroesophageal reflux disease with esophagitis K21.0 Active 290977419 Problem Restless leg G25.81 Active 53975999 Problem Hypothyroidism E03.9 Active 38731635 Problem Anger R45.4 Active 29587665 Problem Post traumatic stress disorder (PTSD) F43.10 Active 72356150 ALLERGIES No Known Allergies ENCOUNTERS Encounter Location Date Diagnosis [facility] [address] [facility] [id number] [address] Jan, [facility] [address] [id number] [address] November, [facility] [id number] [place] [address] Oct, [facility] [id number] [place] [address] Sep, [facility] [id number] [place] [address] 9800 Sep, Aspiration pneumonia, unspecified aspiration pneumonia type , unspecified laterality, unspecified part of lung J69.0 [place] [id number] [place] [address] Sep, Pneumonia of left lower lobe due to infectious organism J18.1 [place] [id number] [place] [address]06[address] 6981 Jul, Anxiety disorder, unspecified type F41.9 [facility] [place] [address] [address] Jul, Body aches R52 and Viral illness B34.9 [facility] [place] [id number] [place] [address] Jun, Bronchitis J40 [place] [id number] [place] [address]34- 68[address] May, Hypothyroidism E03.9 [place] [id number] [place] [address]805- 3166 15 May, 2017 Menorrhagia with regular cycle N92.0 ; Hypothyroidism E03.9 ; Iron deficiency anemia due to chronic blood loss D50.0 ; Primary insomnia F51.01 and Restless leg G25.81 [place] [address] [address] 06 May, 2017 [facility] [place] [id number] [place] [address] 06 May, 2017 Acute cystitis with hematuria N30.01 and Dysuria R30.0 [place] [address] [place] [address] Apr, [facility] [id number] [place] [address] 2[address] Feb, [facility] [id number] [place] [address]8316 Feb, Ganglion cyst of wrist, left M67.432 [place] [address] [address] Jan, Insomnia, unspecified G47.00 [place] [id number] [place] [address] 60667- 5022 Jan, Insomnia, unspecified G47.00 [place] [id number] [place] [address] 62968- 0389 Jan, 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 ; Bipolar disorder, unspecified F31.9 and Hypothyroidism E03.9 [place] [id number] [place] [address] 29427- 5685 Dec, Dental examination Z01.20 [place] [id number] [place] [address] 94139- 2757 14 Dec, 2016 Depression with anxiety F41.8 ; Post traumatic stress disorder (PTSD) F43.10 ; 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 and Adjustment disorder with mixed disturbance of emotions and conduct F43.25 [place] [id number] [place] [address]18[address] 7[address] November, 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 ; Adjustment disorder with mixed disturbance of emotions and conduct F43.25 and Depression with anxiety F41.8 [place] [id number] [place] [address] 36328- 5995 November, Insomnia, unspecified G47.00 [place] [id number] [place] [address] 47532- 7546 November, 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 ; Adjustment disorder with mixed disturbance of emotions and conduct F43.25 and Depression with anxiety F41.8 [place] [id number] [place] [address] 45163- 0944 Oct, Insomnia, unspecified G47.00 [facility] [id number] [place] [address] 76691 -6780 09 Oct, 2016 Visit for TB skin test Z11.1 [facility] [address] [address] 28 Sep, 2016 Wheezing R06.2 and Bronchitis J40 [facility] [address] [id number] Sep, Dental examination Z01.20 [place] [address] 7[address]16- [address] 10 Sep, 2016 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 [place] [id number] [place] [address] 83871- 0882 08 Sep, 2016 Bipolar disorder, unspecified F31.9 ; Insomnia, unspecified G47.00 ; 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 ; Hypothyroidism E03.9 and Acquired hypothyroidism E03.9 [place] [id number] [place] [address] 18132[address] 5511 Jul, Hypothyroidism E03.9 [place] [id number] [place] [address] 70605[address] 5160 Jul, Hypothyroidism E03.9 [place] [id number] [place] [address]11[address] 3640 May, Generalized anxiety disorder F41.1 ; Depression with anxiety F41.8 and Bipolar disorder, unspecified F31.9 [place] [id number] [place] [address] 11746- 9699 Apr, Hypothyroidism E03.9 [place] [id number] [place] [address] 03911- 8773 Apr, Depression with anxiety F41.8 ; Bipolar disorder, unspecified F31.9 ; Generalized anxiety disorder F41.1 and Post traumatic stress disorder (PTSD) F43.[address] [address] Apr, Encounter to establish care Z76.89 ; Gastroesophageal reflux disease with esophagitis K21.0 ; Hypothyroidism E03.9 ; Bipolar disorder , unspecified F31.9 ; 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 ; Weight gain R63.5 and Insomnia, unspecified type G47.[address] [address] Apr, Primary insomnia F51.01 ; Depression with anxiety F41.8 and Generalized anxiety disorder F41.[address] [address] 18 Apr, 2016 [facility] [address] [address] Apr, Overdose of anticonvulsant, undetermined intent, initial encounter T42.74XA [address] [address] Feb, [address] [address] Jan, Bipolar disorder, unspecified F31.9 and Anger R45.4 [facility] [address] [address] 15 Oct, 2015 Right forearm pain M79.631 [facility] [address] [id number] Aug, 2015 Encounter for dental examination Z01.20 [facility] [address] [place] [address] 14 Jul, 2015 Acute vomiting R11.[address] 92913- [address] 07 Jul, 2015 Screening for tuberculosis Z11.1 [facility] [id number] [place] [address] 33166- 1735 Jun, Gastro-esophageal reflux disease with esophagitis K21.0 and Generalized anxiety disorder F41.1 [facility] [id number] [place] [address] 52754- 8144 Jun, Generalized anxiety disorder F41.1 and Insomnia, unspecified G47.00 [place] [address] 9[address]80- [address]99 Jun, [place] [id number] [place] [address] 39616- 6188 May, Generalized anxiety disorder F41.1 and Bipolar disorder, unspecified F31.9 [place] [id number] [place] [address] 65428- 2703 May, Dysthymic disorder F34.1 ; Generalized anxiety disorder F41.1 and Bipolar 1 disorder with moderate felipe F31.12 [place] [id number] [place] [address] 21517- 1178 May, Bipolar 1 disorder with moderate felipe F31.12 ; Generalized anxiety disorder F41.1 and Insomnia, unspecified G47.00 [place] [id number] [place] [address] 20823- 0762 May, Bipolar 1 disorder with moderate felipe F31.12 [facility] [id number] [place] [address]1076 May, Bronchitis J40 [facility] [id number] [place] [address] 44096- 1644 Apr, Dysthymic disorder F34.1 and Generalized anxiety disorder F41.1 [facility] [id number] [place] [address] 25417- 4454 Apr, Generalized anxiety disorder F41.1 and Dysthymic disorder F34.1 [place] [id number] [place] [address] 71145- 1608 Apr, Primary insomnia F51.01 ; Depression with anxiety F41.8 and Restless leg G25.81 [facility] [address] [address] Apr, Generalized anxiety disorder F41.1 ; Dysthymic disorder F34.1 ; Hypothyroidism E03.9 ; Anemia D64.9 and Acid reflux K21.9 [facility] [address] [id number] Mar, Dental examination V72.2 [facility] [address] 35881- [address] Mar, Routine adult health maintenance V70.0 [facility] [address] 44724- [address] Mar, [facility] [address] [address] Mar, Insomnia 780.52 ; Routine adult health maintenance V70.0 ; GERD (gastroesophageal reflux disease) 530.81 and Depression with anxiety 300.4 [facility] [id number] [place] [id number] Feb, Dental examination V72.2 [facility] [id number] [place] [address] 30300- 0167 Sep, [facility] [id number] [place] [address] 07432- 9120 Sep, [facility] [address] [address]- [address] Sep, [facility] [id number] [place] [address] 19563- 6543 Sep, [facility] [address] 37725- [address] Sep, [facility] [id number] [place] [address] 92022- 0085 Sep, IMMUNIZATIONS No Known Immunizations SOCIAL HISTORY Never Assessed REASON FOR VISIT anemia f/u -, only taking Ambien on weekends but it makes her do ''weird things' ' , doesnt want take any meds for her anemia because she states she doesnt like pills--Melissa Cifuentes RN PLAN OF CARE Activity Details Follow Up 2 Months Reason:menorrhagia VITAL SIGNS Height 62 in 2017-05-24 Weight 202 lbs 2017-05-24 Temperature 98.0 degrees Fahrenheit 2017-05-24 Heart Rate 82 bpm 2017-05-24 Respiratory Rate 18 2017-05-24 BMI 36.94 kg/m2 2017-05-24 Blood pressure systolic 122 mmHg 2017-05-24 Blood pressure diastolic 70 mmHg 2017-05-24 MEDICATIONS Medication Instructions Dosage Frequency Start Date End Date Duration Status Seroquel 50 MG Orally Once a day 2 tablets at bedtime 24h May, 30 days Active Sprintec 28 0.25-35 MG-MCG Orally Once a day Skp the placebo 1 tablet May, 90 days Active Gabapentin 300 MG Orally Once a day 1 capsule before bedtime 24h May, 30 day(s) Active RESULTS No Results PROCEDURES Procedure Date Ordered Result Body Site LAB NOT BILLED BY [facility] May 24, 2017 [facility] VISIT ESTABLISHED PATIENT May 24, 2017 [place], ROUTINE* May 24, 2017 INSTRUCTIONS MEDICATIONS ADMINISTERED No Known Medications [...] 1992 Hospitalization History was admitted to a detention/psych facility [id number]
--- OUTSIDE RECORDS SUMMARY | 2018-09-13 06:26 | XMS REPORT ---
Author Author CRISTY MARAVILLA eClinicalWorks Address Unknown Phone Unavailable Care Team Providers Care [employer] Customs And Border Officer Name Role Phone CRISTY MARAVILLA CP Unavailable [...] Problem Insomnia, unspecified type G47.00 Active Assessment Generalized anxiety disorder F41.1 Active Problem Depression with anxiety F41.8 Active Assessment Bipolar disorder, unspecified F31.9 Active Problem Gastro-esophageal reflux disease with esophagitis K21.0 Active Assessment Depression with anxiety F41.8 Active Problem Primary insomnia F51.01 Active Medications No Known Medications Procedures Procedure Coding System Code Date Psychotherapy, patient &/family, 30 minutes, established patient CPT-4 04447 May 13, 2016 [facility] VISIT MENTAL HEALTH ESTAB PT CPT-4 G0470 May 13, 2016 Results No Known Results Summary Purpose eClinicalWorks Submission
--- OUTSIDE RECORDS SUMMARY | 2018-09-13 06:26 | XMS REPORT ---
Author JOANNA Dobson [facility] eClinicalWorks Address Unknown Phone Unavailable Care Team Providers Care College Coach Name Role Phone JOANNA AMAYA CP Unavailable Allergies No Known Allergies Problems Problem Type Condition ICD-9 Code Onset Dates Condition Status Problem Depression with anxiety 300.4 Active Problem GERD (gastroesophageal reflux disease) 530.81 Active Problem Insomnia 780.52 Active Problem Routine adult health maintenance V70.0 Active Medications Medication Code System Code Instructions Start Date End Date Status Dosage Ferrous Sulfate [facility] [address]-28 325 (65 Fe) MG Orally Once a day Mar 1 tablet Results No Known Results Summary Purpose eClinicalWorks Submission
--- OUTSIDE RECORDS SUMMARY | 2018-09-13 06:26 | XMS REPORT ---
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 Active 65651125 Problem Anxiety disorder, unspecified type F41.9 Active 432500394 Problem Hiatal hernia K44.9 Active 96316251 Problem Iron deficiency anemia due to chronic blood loss D50.0 Active 11945410 Problem Caries K02.9 Active 59673658 Problem Dental examination Z01.20 Active 654149263 Problem Menorrhagia with regular cycle N92.0 Active 362418818 Problem Bipolar disorder, unspecified F31.9 Active 21308563 Problem Primary insomnia F51.01 Active 088571540 Problem Dysthymic disorder F34.1 Active 71827663 Problem Depression with anxiety F41.8 Active 849023733 Problem Gastro-esophageal reflux disease with esophagitis K21.0 Active 904639622 Problem 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 Active 056443421 Problem Gastroesophageal reflux disease with esophagitis K21.0 Active 107131355 Problem Restless leg G25.81 Active 45707920 Problem Hypothyroidism E03.9 Active 00320195 Problem Anger R45.4 Active 49979333 Problem Post traumatic stress disorder (PTSD) F43.10 Active 74229124 ALLERGIES No Known Allergies ENCOUNTERS Encounter Location Date Diagnosis [facility] [address] [facility] [id number] [address] Oct, [facility] [address] [facility] [id number] [address] Sep, [facility] [address] [place] [address] Sep, Aspiration pneumonia, unspecified aspiration pneumonia type , unspecified laterality, unspecified part of lung J69.0 [place] [address] [place] [id number] [place] [address] Sep, Pneumonia of left lower lobe due to infectious organism J18.1 [place] [address] [place] [id number] [place] [address]21[address] Jul, Anxiety disorder, unspecified type F41.9 [facility] [place] [address] [address] Jul, Body aches R52 and Viral illness B34.9 [facility] [place] [address] [place] [id number] [place] [address] Jun, Bronchitis J40 [place] [address] [address] May, Hypothyroidism E03.9 [place] [address] [place] [id number] [place] [address]4065- 8589 15 May, 2017 Menorrhagia with regular cycle N92.0 ; Hypothyroidism E03.9 ; Iron deficiency anemia due to chronic blood loss D50.0 ; Primary insomnia F51.01 and Restless leg G25.81 [place] [address] [place] [id number] [place] [address]454[address]05 May, [facility] [address] [place] [id number] [place] [address] May, Acute cystitis with hematuria N30.01 and Dysuria R30.0 [place] [address] [place] [id number] [place] [address]1872- 8242 Apr, [place] [address] [place] [id number] [place] [address] 93067[address] 1235 Feb, [facility] [place] [address] [place] [address] Feb, Ganglion cyst of wrist, left M67.432 [place] [address] [address] Jan, Insomnia, unspecified G47.00 [place] [address] [place] [id number] [place] [address]21[address] 29[address] Jan, Insomnia, unspecified G47.00 [place] [address] [address] Jan, 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 ; Bipolar disorder, unspecified F31.9 and Hypothyroidism E03.9 [place] [address] [place] [id number] [place] [address]32[address] 86[address] Dec, Dental examination Z01.20 [place] [address] [address] 14 Dec, 2016 Depression with anxiety F41.8 ; Post traumatic stress disorder (PTSD) F43.10 ; 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 and Adjustment disorder with mixed disturbance of emotions and conduct F43.25 [place] [address] [place] [id number] [place] [address]15[address] 7142 November, 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 ; Adjustment disorder with mixed disturbance of emotions and conduct F43.25 and Depression with anxiety F41.8 [place] [address] [place] [id number] [place] [address]25- 7059 November, Insomnia, unspecified G47.00 [place] [address] [place] [id number] [place] [address] 25510- 7498 November, 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 ; Adjustment disorder with mixed disturbance of emotions and conduct F43.25 and Depression with anxiety F41.8 [place] [address] [place] [id number] [place] [address]4688- [address] Oct, Insomnia, unspecified G47.00 [facility] [address] [place] [address] 09 Oct, 2016 Visit for TB skin test Z11.1 [facility] [address] [place] [id number] [place] [address]79 [address] 28 Sep, 2016 Wheezing R06.2 and Bronchitis J40 [facility] [address] [place] [address] [phone] 20 Sep, 2016 Dental examination Z01.20 [facility] [address] [place] [id number] [place] [address] 81445- 0903 10 Sep, 2016 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 [place] [address] [place] [id number] [place] [address] 65432- 1488 08 Sep, 2016 Bipolar disorder, unspecified F31.9 ; Insomnia, unspecified G47.00 ; 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 ; Hypothyroidism E03.9 and Acquired hypothyroidism E03.9 [facility] [address] [place] [id number] [place] [address] 44914[address] 9478 Jul, Hypothyroidism E03.9 [place] [address] [place] [id number] [place] [address] 02583[address] 36[address] Jul, Hypothyroidism E03.9 [place] [address] [place] [id number] [place] [address] 14185- 0645 May, Generalized anxiety disorder F41.1 ; Depression with anxiety F41.8 and Bipolar disorder, unspecified F31.9 [facility] [address] [place] [id number] [place] [address] 85838- 5976 Apr, Hypothyroidism E03.9 [place] [address] [place] [id number] [place] [address] 41256- 9954 Apr, Depression with anxiety F41.8 ; Bipolar disorder, unspecified F31.9 ; Generalized anxiety disorder F41.1 and Post traumatic stress disorder (PTSD) F43.10 [facility] [address] [place] [id number] [place] [address] 66865- 7080 Apr, Encounter to establish care Z76.89 ; Gastroesophageal reflux disease with esophagitis K21.0 ; Hypothyroidism E03.9 ; Bipolar disorder , unspecified F31.9 ; 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 ; Weight gain R63.5 and Insomnia, unspecified type G47.[address] [address] 25 Apr, 2016 Primary insomnia F51.01 ; Depression with anxiety F41.8 and Generalized anxiety disorder F41.[address] [address]- [address] 18 Apr, 2016 [facility] [address] [address] Apr, Overdose of anticonvulsant, undetermined intent, initial encounter T42.74XA [address] [address] Feb, [address] [address] Jan, Bipolar disorder, unspecified F31.9 and Anger R45.4 [facility] [address] [address] 15 Oct, 2015 Right forearm pain M79.631 [facility] [address] [phone] 04 Aug, 2015 Encounter for dental examination Z01.20 [facility] [address] [place] [address] 14 Jul, 2015 Acute vomiting R11.[address] [address]56[address] 07 Jul, 2015 Screening for tuberculosis Z11.[address] 8[address]- [address] 23 Jun, 2015 Gastro-esophageal reflux disease with esophagitis K21.0 and Generalized anxiety disorder F41.[address] [place] [address] Jun, Generalized anxiety disorder F41.1 and Insomnia, unspecified G47.00 [facility] [address] [place] [phone] Jun, [facility] [address] [place] [id number] [place] [address] 95494[address] 8582 May, Generalized anxiety disorder F41.1 and Bipolar disorder, unspecified F31.9 [facility] [address] [place] [id number] [place] [address] 77911- 1281 May, Dysthymic disorder F34.1 ; Generalized anxiety disorder F41.1 and Bipolar 1 disorder with moderate felipe F31.12 [place] [address] [place] [id number] [place] [address] 00111[address] 2902 May, Bipolar 1 disorder with moderate felipe F31.12 ; Generalized anxiety disorder F41.1 and Insomnia, unspecified G47.00 [facility] [address] [place] [id number] [place] [address] 14667- 4486 May, Bipolar 1 disorder with moderate felipe F31.12 [facility] [address] [address] May, Bronchitis J40 [facility] [address] [address] Apr, Dysthymic disorder F34.1 and Generalized anxiety disorder F41.1 [facility] [address] [place] [id number] [place] [address] 39246- 8825 Apr, Generalized anxiety disorder F41.1 and Dysthymic disorder F34.1 [place] [address] [address]45 Apr, Primary insomnia F51.01 ; Depression with anxiety F41.8 and Restless leg G25.81 [facility] [address] [place] [id number] [place] [address] 70424- 4591 Apr, Generalized anxiety disorder F41.1 ; Dysthymic disorder F34.1 ; Hypothyroidism E03.9 ; Anemia D64.9 and Acid reflux K21.9 [facility] [address] [place] [address] [phone] 16 Mar, 2015 Dental examination V72.2 [facility] [address] [place] [address] 00013- 2506 04 Mar, 2015 Routine adult health maintenance V70.0 [facility] [address] [place] [id number] [place] [address] 86580- 9856 Mar, [facility] [address] [place] [id number] [place] [address] 08870- 8209 Mar, Insomnia 780.52 ; Routine adult health maintenance V70.0 ; GERD (gastroesophageal reflux disease) 530.81 and Depression with anxiety 300.4 [facility] [address] [place] [address] [phone] Feb, Dental examination V72.2 [facility] [address] [place] [id number] [place] [address] 29183- 1686 Sep, [facility] [address] [place] [id number] [place] [address] 526829- 9776 Sep, [facility] [address] [place] [id number] [place] [address] [phone]- [phone] Sep, [facility] [address] [address] Sep, [facility] [address] [place] [id number] [place] [address] 523219- 4545 Sep, [facility] [address] [place] [id number] [place] [address] 55494- 4801 Sep, IMMUNIZATIONS No Known Immunizations SOCIAL HISTORY Never Assessed REASON FOR VISIT dysuria, frequency with little results, nausea. been like this for a month. [email or web address] PLAN OF CARE Activity Details Follow Up prn Reason: VITAL SIGNS Height 62 in 2017-05-15 Weight 201.0 lbs 2017-05-15 Temperature 98.8 degrees Fahrenheit 2017-05-15 Heart Rate 84 bpm 2017-05-15 Respiratory Rate 20 2017-05-15 BMI 36.76 kg/m2 2017-05-15 Blood pressure systolic 126 mmHg 2017-05-15 Blood pressure diastolic 78 mmHg 2017-05-15 MEDICATIONS Medication Instructions Dosage Frequency Start Date End Date Duration Status Levothyroxine Sodium 125 MCG Orally Once a day 1 tablet 24h 60 days Active Seroquel 50 MG Orally Once a day 2 tablets at bedtime 24h May, 30 days Active Ambien 5 mg Orally Once a day 1 tablet at bedtime 24h Jan, 28 days Active Macrobid 100 MG Orally every 12 hrs 1 capsule with food 12h May, May, 7 day(s) Active RESULTS No Results PROCEDURES Procedure Date Ordered Result Body Site URINALYSIS, AUTO, W/O SCOPE May 15, 2017 LAB NOT BILLED BY [facility] May 15, 2017 [facility] VISIT ESTABLISHED PATIENT May 15, 2017 INSTRUCTIONS MEDICATIONS ADMINISTERED No Known Medications [...] 1992 Hospitalization History was admitted to a care home/psych facility [phone]
--- OUTSIDE RECORDS SUMMARY | 2018-09-13 06:26 | XMS REPORT ---
Author Author NADYA IVY [facility] Address [address] [place] [address] Care Team Providers Care Project Economist Name Role Phone NADYA IVY Unavailable PROBLEMS Type Condition ICD9-CM Code MTC50-WG Code Onset Dates Condition Status SNOMED Code Problem 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 Active 526025835 Problem Post traumatic stress disorder (PTSD) F43.10 Active 48283494 Problem Hypothyroidism E03.9 Active 90320083 Problem Bipolar disorder, unspecified F31.9 Active 14101276 Problem Dental examination Z01.20 Active 336842346 Problem Adjustment disorder with mixed disturbance of emotions and conduct F43.25 Active 87080950 Problem Insomnia, unspecified G47.00 Active 429377059 Problem Caries K02.9 Active 75340932 Problem 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 Active 83309812 Problem Depression with anxiety F41.8 Active 018120621 Problem Dysthymic disorder F34.1 Active 12218873 Problem Restless leg G25.81 Active 37630683 Problem Gastro-esophageal reflux disease with esophagitis K21.0 Active 670046889 Problem Anger R45.4 Active 54730755 Problem Primary insomnia F51.01 Active 583494874 Problem Gastroesophageal reflux disease with esophagitis K21.0 Active 328977945 ALLERGIES No Known Allergies SOCIAL HISTORY No smoking Hx information available PLAN OF CARE VITAL SIGNS MEDICATIONS Medication Instructions Dosage Frequency Start Date End Date Duration Status Clonidine HCl 0.1 MG Orally 3 times a day 1 tablet 8h Apr, Active Neurontin 100 MG Orally Once a day at bedtime. 1 Jun, Active Nexium 20 MG Orally Once a day 1 capsule 24h Jun, Active Seroquel 200 mg Orally Once a day 2 tablet at bedtime 24h May, Active Depakote 250 MG Orally twice a day 1 tablet 12h Jan, Active Nexium 40 mg Orally Once a day 1 tablet 24h Apr, Active Carafate 1 GM Orally 4 times a day before meals and bedtime 1 tablet on an empty stomach Apr, Active Levothyroxine Sodium 125 MCG Orally Once a day 1 tablet 24h 60 days Active Lexapro 10 MG Orally Once a day 1 tablet 24h Apr, Active Ferrous Sulfate 325 (65 Fe) MG Orally Once a day 1 tablet 24h Mar, Active RESULTS No Results PROCEDURES No Known procedures IMMUNIZATIONS No Known Immunizations
--- OUTSIDE RECORDS SUMMARY | 2018-09-13 06:26 | XMS REPORT ---
Author BLAIR Villareal [facility] eClinicalWorks Address Unknown Phone Unavailable Care Team Providers Care Radio Frequency Technician Name Role Phone BLAIR AGUIRRE Unavailable Allergies, Adverse Reactions, Alerts Substance Reaction Event Type N.K.D.A. Info Not Available Non Drug Allergy Problems Problem Type Condition Code Onset Dates Condition Status Assessment Generalized anxiety disorder F41.1 Active Assessment Insomnia, unspecified G47.00 Active Problem Restless leg G25.81 Active Problem Generalized anxiety disorder F41.1 Active Problem Bipolar disorder, unspecified F31.9 Active Problem Gastro-esophageal reflux disease with esophagitis K21.0 Active Problem Depression with anxiety F41.8 Active Problem Dysthymic disorder F34.1 Active Problem Primary insomnia F51.01 Active Medications Medication Code System Code Instructions Start Date End Date Status Dosage Nexium [facility] [address]-89 20 MG Orally Once a day Mar 12, 2015 1 capsule Seroquel [facility] [address]-99 200 MG Orally Once a day May 14, 2015 2 tablet at bedtime Neurontin [facility] [address]-65 100 MG Orally Once a day at hs Apr 29, 2015 as directed Levothyroxine Sodium [facility] [address]-26 75 MCG Orally Once a day Mar 13, 2015 1 tablet ProAir HFA [facility] [address]-23 108 (90 Base) MCG/ACT Inhalation every 4 hrs May 12, 2015 2 puffs as needed Clonidine HCl [facility] [address]-57 0.1 MG Orally 3 times a day May 07, 2015 1 tablet Pepcid AC [facility] [address]46[address]-73947 10 MG Orally Once a day 2 tablet Restoril [facility] [address]-67 15 MG Orally daily at hs for sleep Apr 29, 2015 1 capsule at bedtime as needed Ferrous Sulfate [facility] [address]-37 325 (65 Fe) MG Orally Once a day Mar 1 tablet Procedures Procedure Coding System Code Date Office Visit, Est Pt., Level 4 CPT-4 08942 Jul 01, 2015 [facility] VISIT ESTABLISHED PATIENT CPT-4 G0467 Jul 01, 2015 Vital Signs Date/Time: Jul 01, 2015 Cardiac Monitoring Heart Rate 88 bpm Weight 196 lbs Height 62 in BMI 35.84 Index Blood Pressure Diastolic 80 mmHg Blood Pressure Systolic 130 mmHg Results No Known Results Summary Purpose eClinicalWorks Submission
--- OUTSIDE RECORDS SUMMARY | 2018-09-13 06:26 | XMS REPORT ---
Author JOANNA Dobson [facility] eClinicalWorks Address Unknown Phone Unavailable Care Team Providers Care Product Safety Test Engineer Name Role Phone JOANNA AMAYA CP Unavailable Allergies, Adverse Reactions, Alerts Substance Reaction Event Type N.K.D.A. Info Not Available Non Drug Allergy Problems Problem Type Condition Code Onset Dates Condition Status Problem Primary insomnia F51.01 Active Problem Gastro-esophageal reflux disease with esophagitis K21.0 Active Problem Restless leg G25.81 Active Assessment Depression with anxiety F41.8 Active Assessment Restless leg G25.81 Active Problem Depression with anxiety F41.8 Active Assessment Primary insomnia F51.01 Active Medications Medication Code System Code Instructions Start Date End Date Status Dosage Neurontin [facility] [address]-44 100 MG Orally Once a day at hs Apr 29, 2015 as directed Ferrous Sulfate [facility] [address]-99 325 (65 Fe) MG Orally Once a day Mar 1 tablet Pepcid AC [facility] [address]17-26713 10 MG Orally Once a day 2 tablet Lexapro [facility] [address]-08 10 MG Orally Once a day Apr 29, 2015 1 tablet Levothyroxine Sodium [facility] [address]-43 75 MCG Orally Once a day Mar 13, 2015 1 tablet Nexium [facility] [address]-64 20 MG Orally Once a day Mar 12, 2015 1 capsule Restoril [facility] [address]-95 15 MG Orally daily at hs for sleep Apr 29, 2015 1 capsule at bedtime as needed Procedures Procedure Coding System Code Date Office Visit, Est Pt., Level 3 CPT-4 71903 Apr 29, 2015 No Charge CPT-4 91208 Apr 29, 2015 Vital Signs Date/Time: Apr 29, 2015 Temperature 97.5 F Weight 198.9 lbs Height 62 in BMI 36.38 Index Blood Pressure Diastolic 78 mmHg Blood Pressure Systolic 122 mmHg Cardiac Monitoring Heart Rate 68 bpm Results No Known Results Summary Purpose eClinicalWorks Submission
--- OUTSIDE RECORDS SUMMARY | 2018-09-13 06:26 | XMS REPORT ---
Author JOANNA Dobson [facility] eClinicalWorks Address Unknown Phone Unavailable Care Team Providers Care Casino Floor Supervisor Name Role Phone JOANNA AMAYA CP Unavailable Allergies No Known Allergies Problems Problem Type Condition Code Onset Dates Condition Status Assessment Gastro-esophageal reflux disease with esophagitis K21.0 Active Assessment Generalized anxiety disorder F41.1 Active Problem Restless leg G25.81 Active Problem Generalized anxiety disorder F41.1 Active Problem Bipolar disorder, unspecified F31.9 Active Problem Gastro-esophageal reflux disease with esophagitis K21.0 Active Problem Depression with anxiety F41.8 Active Problem Dysthymic disorder F34.1 Active Problem Primary insomnia F51.01 Active Medications Medication Code System Code Instructions Start Date End Date Status Dosage Nexium [facility] [address]-86 20 MG Orally Once a day Jul 01, 2015 1 capsule Neurontin [facility] [address]-93 100 MG Orally Once a day at bedtime. Jul 01, 2015 1 Results No Known Results Summary Purpose eClinicalWorks Submission
--- OUTSIDE RECORDS SUMMARY | 2018-09-13 06:27 | XMS REPORT ---
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 Active 26209089 Problem Anxiety disorder, unspecified type F41.9 Active 605995297 Problem Hiatal hernia K44.9 Active 41105418 Problem Iron deficiency anemia due to chronic blood loss D50.0 Active 27423849 Problem Caries K02.9 Active 48477684 Problem Dental examination Z01.20 Active 146344797 Problem Menorrhagia with regular cycle N92.0 Active 115939525 Problem Bipolar disorder, unspecified F31.9 Active 09129527 Problem Primary insomnia F51.01 Active 954177475 Problem Dysthymic disorder F34.1 Active 15152103 Problem Depression with anxiety F41.8 Active 683871033 Problem Gastro-esophageal reflux disease with esophagitis K21.0 Active 866073028 Problem 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 Active 782863453 Problem Gastroesophageal reflux disease with esophagitis K21.0 Active 638003636 Problem Restless leg G25.81 Active 46452775 Problem Hypothyroidism E03.9 Active 70660465 Problem Anger R45.4 Active 01033913 Problem Post traumatic stress disorder (PTSD) F43.10 Active 25589260 ALLERGIES No Information ENCOUNTERS Encounter Location Date Diagnosis [facility] [address] [facility] [id number] [address] Oct, [facility] [address] [facility] [id number], [place] [address] Sep, [facility] [address] [place] [address]69[address]772 Sep, Aspiration pneumonia, unspecified aspiration pneumonia type , unspecified laterality, unspecified part of lung J69.0 [place] [address] [place] [id number] [place] [address] 31930- 0324 Sep, Pneumonia of left lower lobe due to infectious organism J18.1 [place] [address] [place] [id number] [place] [address] 33904- 3059 Jul, Anxiety disorder, unspecified type F41.9 [facility] [place] [address] [address] Jul, Body aches R52 and Viral illness B34.9 [facility] [place] [address] [place] [id number] [place] [address] Jun, Bronchitis J40 [place] [address] [address] May, Hypothyroidism E03.9 [place] [address] [place] [id number] [place] [address] 06308- 8453 15 May, 2017 Menorrhagia with regular cycle N92.0 ; Hypothyroidism E03.9 ; Iron deficiency anemia due to chronic blood loss D50.0 ; Primary insomnia F51.01 and Restless leg G25.81 [place] [address] [place] [id number] [place] [address] 92205- 1662 May, [facility] [address] [place] [id number] [place] [address] May, Acute cystitis with hematuria N30.01 and Dysuria R30.0 [place] [address] [place] [id number] [place] [address] 79891- 4536 Apr, [place] [address] [place] [id number] [place] [address] 57360- 7381 Feb, [facility] [place] [address] [place] [address] Feb, Ganglion cyst of wrist, left M67.432 [place] [address] [place] [id number] [place] [address] 24874- 5902 Jan, Insomnia, unspecified G47.00 [place] [address] [place] [id number] [place] [address] 39779- 0857 Jan, Insomnia, unspecified G47.00 [place] [address] [address]62- [address]85 Jan, 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 ; Bipolar disorder, unspecified F31.9 and Hypothyroidism E03.9 [place] [address] [place] [id number] [place] [address] 83208- 8592 Dec, Dental examination Z01.20 [place] [address] [place] [id number] [place] [address] 91745- 6123 14 Dec, 2016 Depression with anxiety F41.8 ; Post traumatic stress disorder (PTSD) F43.10 ; 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 and Adjustment disorder with mixed disturbance of emotions and conduct F43.25 [place] [address] [place] [id number] [place] [address] 84750- 0917 November, 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 ; Adjustment disorder with mixed disturbance of emotions and conduct F43.25 and Depression with anxiety F41.8 [place] [address] [place] [id number] [place] [address] 72528- 9724 November, Insomnia, unspecified G47.00 [place] [address] [place] [id number] [place] [address] 38271- 9278 November, 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 ; Adjustment disorder with mixed disturbance of emotions and conduct F43.25 and Depression with anxiety F41.8 [place] [address] [place] [id number] [place] [address] 43832- 9922 Oct, Insomnia, unspecified G47.00 [facility] [address] [id number] [address] Oct, Visit for TB skin test Z11.1 [facility] [address] [place] [id number] [place] [address] 83615 -7976 28 Sep, 2016 Wheezing R06.2 and Bronchitis J40 [facility] [address] [place] [id number] [place] [address] [phone] 20 Sep, 2016 Dental examination Z01.20 [facility] [address] [place] [id number] [place] [address] 26756- 7395 10 Sep, 2016 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 [place] [address] [place] [id number] [place] [address] 56434- [address] 08 Sep, 2016 Bipolar disorder, unspecified F31.9 ; Insomnia, unspecified G47.00 ; 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 ; Hypothyroidism E03.9 and Acquired hypothyroidism E03.9 [place] [address] [place] [id number] [place] [address] 87372- 2926 Jul, Hypothyroidism E03.9 [place] [address] [place] [id number] [place] [address] 15861- 7355 Jul, Hypothyroidism E03.9 [place] [address] [place] [id number] [place] [address] 45099- 7595 May, Generalized anxiety disorder F41.1 ; Depression with anxiety F41.8 and Bipolar disorder, unspecified F31.9 [facility] [address] [place] [id number] [place] [address] 94392- 7729 Apr, Hypothyroidism E03.9 [place] [address] [place] [id number] [place] [address] 61052- 7004 Apr, Depression with anxiety F41.8 ; Bipolar disorder, unspecified F31.9 ; Generalized anxiety disorder F41.1 and Post traumatic stress disorder (PTSD) F43.10 [place] [address] [place] [id number] [place] [address] 59484- 8945 Apr, Encounter to establish care Z76.89 ; Gastroesophageal reflux disease with esophagitis K21.0 ; Hypothyroidism E03.9 ; Bipolar disorder , unspecified F31.9 ; 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 ; Weight gain R63.5 and Insomnia, unspecified type G47.[address] [address]- [address] Apr, Primary insomnia F51.01 ; Depression with anxiety F41.8 and Generalized anxiety disorder F41.[address] 81901- [address] Apr, [facility] [address] [address] Apr, Overdose of anticonvulsant, undetermined intent, initial encounter T42.74XA [address] 07[address]- 4649 Feb, [address] 60031- 239[address] Jan, Bipolar disorder, unspecified F31.9 and Anger R45.4 [facility] [address] [address] 15 Oct, 2015 Right forearm pain M79.631 [facility] [address] [id number] Aug, 2015 Encounter for dental examination Z01.20 [facility] [address] [address] 14 Jul, 2015 Acute vomiting R11.[address] 59915- 0725 07 Jul, 2015 Screening for tuberculosis Z11.[address] 62330- [address]36 23 Jun, 2015 Gastro-esophageal reflux disease with esophagitis K21.0 and Generalized anxiety disorder F41.1 [place] [address] [address] Jun, Generalized anxiety disorder F41.1 and Insomnia, unspecified G47.00 [facility] [address] [place] [id number] [place] [address] 00874- 4740 Jun, [facility] [address] [place] [id number] [place] [address] 18749- 5104 May, Generalized anxiety disorder F41.1 and Bipolar disorder, unspecified F31.9 [facility] [address] [place] [id number] [place] [address] 85502- 4319 May, Dysthymic disorder F34.1 ; Generalized anxiety disorder F41.1 and Bipolar 1 disorder with moderate felipe F31.12 [facility] [address] [place] [id number] [place] [address] 65010- 4721 May, Bipolar 1 disorder with moderate felipe F31.12 ; Generalized anxiety disorder F41.1 and Insomnia, unspecified G47.00 [facility] [address] [place] [id number] [place] [address] 05451- 7000 May, Bipolar 1 disorder with moderate felipe F31.12 [facility] [address] [place] [id number] [place] [address]201 -6211 May, Bronchitis J40 [facility] [address] [place] [id number] [place] [address] 73202- 8618 Apr, Dysthymic disorder F34.1 and Generalized anxiety disorder F41.1 [facility] [address] [place] [id number] [place] [address] 42831- 8590 Apr, Generalized anxiety disorder F41.1 and Dysthymic disorder F34.1 [place] [address] [place] [id number] [place] [address] 70204- 4083 Apr, Primary insomnia F51.01 ; Depression with anxiety F41.8 and Restless leg G25.81 [facility] [address] [place] [id number] [place] [address] 74700- 7783 Apr, Generalized anxiety disorder F41.1 ; Dysthymic disorder F34.1 ; Hypothyroidism E03.9 ; Anemia D64.9 and Acid reflux K21.9 [facility] [address] [place] [address] [phone] Mar, Dental examination V72.2 [facility] [address] [place] [address] 117629- 7566 04 Mar, 2015 Routine adult health maintenance V70.0 [facility] [address] [place] [id number] [place] [address] 27934- 0533 Mar, [facility] [address] [place] [id number] [place] [address] [phone]- [phone] Mar, Insomnia 780.52 ; Routine adult health maintenance V70.0 ; GERD (gastroesophageal reflux disease) 530.81 and Depression with anxiety 300.4 [facility] [address] [place] [address] [phone] Feb, Dental examination V72.2 [facility] [address] [place] [id number] [place] [address] [phone]- 3784 Sep, [facility] [address] [place] [id number] [place] [address] 13332- 3025 Sep, [facility] [address] [place] [id number] [place] [address] [phone] Sep, [facility] [address] [place] [address] 82292- 3457 Sep, [facility] [address] [place] [id number] [place] [address] 61402- 2454 Sep, [facility] [address] [place] [id number] [place] [address] [phone]- [phone] Sep, IMMUNIZATIONS No Known Immunizations SOCIAL HISTORY Never Assessed REASON FOR VISIT Controlled Med Refill PRN PLAN OF CARE VITAL SIGNS MEDICATIONS Medication [...] History was admitted to a retirement/psych facility [id number]
--- OUTSIDE RECORDS SUMMARY | 2018-09-13 06:27 | XMS REPORT ---
Author ANNA Mckeon [facility] eClinical[employer] Address Unknown Phone Unavailable Care Team Providers Care Curing Room Worker Name Role Phone ANNA ARIAS CP Unavailable Allergies, Adverse Reactions, Alerts Substance Reaction Event Type N.K.D.A. Info Not Available Non Drug Allergy Problems Problem Type Condition Code Onset Dates Condition Status Assessment Anger R45.4 Active Problem Depression with anxiety F41.8 Active Assessment Bipolar disorder, unspecified F31.9 Active Problem Bipolar disorder, unspecified F31.9 Active Problem Restless leg G25.81 Active Problem Anger R45.4 Active Problem Primary insomnia F51.01 Active Problem Gastro-esophageal reflux disease with esophagitis K21.0 Active Problem Generalized anxiety disorder F41.1 Active Problem Dysthymic disorder F34.1 Active Medications Medication Code System Code Instructions Start Date End Date Status Dosage Seroquel [facility] [address]-08 200 MG Orally Once a day May 14, 2015 2 tablet at bedtime Clonidine HCl [facility] [address]-29 0.1 MG Orally 3 times a day May 07, 2015 1 tablet Levothyroxine Sodium [facility] [address]-31 75 MCG Orally Once a day Mar 13, 2015 1 tablet Neurontin [facility] [address]-82 100 MG Orally Once a day at bedtime. Jul 01, 2015 1 Nexium [facility] [address]-62 20 MG Orally Once a day Jul 01, 2015 1 capsule Depakote [facility] [address]-44 250 MG Orally twice a day January 21, 2016 1 tablet Procedures Procedure Coding System Code Date Office Visit, Est Pt., Level 4 CPT-4 80627 January 21, 2016 [facility] VISIT ESTABLISHED PATIENT CPT-4 G0467 January 21, 2016 Vital Signs Date/Time: January 21, 2016 Cardiac Monitoring Heart Rate 80 bpm Weight 199 lbs Height 62 in Blood Pressure Diastolic 100 mmHg Blood Pressure Systolic 130 mmHg Results No Known Results Summary Purpose eClinicalWorks Submission
--- OUTSIDE RECORDS SUMMARY | 2018-09-13 06:27 | XMS REPORT ---
Author FLAQUITA Smith [facility] eClinicalWorks Address Unknown Phone Unavailable Care Team Providers Care Lifeguard Name Role Phone FLAQUITA PEARCE Unavailable Allergies No Known Allergies Problems Problem Type Condition Code Onset Dates Condition Status Assessment Generalized anxiety disorder F41.1 Active Assessment Bipolar disorder, unspecified F31.9 Active Problem Restless leg G25.81 Active Problem Generalized anxiety disorder F41.1 Active Problem Bipolar disorder, unspecified F31.9 Active Problem Gastro-esophageal reflux disease with esophagitis K21.0 Active Problem Depression with anxiety F41.8 Active Problem Dysthymic disorder F34.1 Active Problem Primary insomnia F51.01 Active Medications No Known Medications Procedures Procedure Coding System Code Date Psychotherapy, patient &/family, 45 minutes, established patient CPT-4 40042 Jun 01, 2015 Results No Known Results Summary Purpose [employer] Submission
--- OUTSIDE RECORDS SUMMARY | 2018-09-13 06:27 | XMS REPORT ---
Author Author NADYA IVY [facility] Address [address] [place] [address] Care Team Providers Care Shipfitter Name Role Phone NADYA IVY Unavailable PROBLEMS Type Condition ICD9-CM Code [id number] Code Onset Dates Condition Status SNOMED Code Problem 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 Active 182177213 Problem Post traumatic stress disorder (PTSD) F43.10 Active 89582439 Problem Hypothyroidism E03.9 Active 23485790 Problem Bipolar disorder, unspecified F31.9 Active 54105227 Problem Dental examination Z01.20 Active 746640666 Problem Adjustment disorder with mixed disturbance of emotions and conduct F43.25 Active 10786251 Problem Insomnia, unspecified G47.00 Active 781305428 Problem Caries K02.9 Active 28297954 Problem 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 Active 57528238 Problem Depression with anxiety F41.8 Active 731685208 Problem Dysthymic disorder F34.1 Active 91141847 Problem Restless leg G25.81 Active 14469574 Problem Gastro-esophageal reflux disease with esophagitis K21.0 Active 055444194 Problem Anger R45.4 Active 04527920 Problem Primary insomnia F51.01 Active 469912984 Problem Gastroesophageal reflux disease with esophagitis K21.0 Active 792373424 ALLERGIES No Information SOCIAL HISTORY Never Assessed PLAN OF CARE VITAL SIGNS MEDICATIONS Unknown Medications RESULTS No Results PROCEDURES No Known procedures IMMUNIZATIONS No Known Immunizations MEDICAL (GENERAL) HISTORY Type Description Date Medical [...] 1994 Surgical History EGD some esophagitis 05/2016 Hospitalization History rehab x30 days each 4 different times Hospitalization History 18 day stay at psych facility 1992 Hospitalization History was admitted to a shelter/psych facility [id number]
--- OUTSIDE RECORDS SUMMARY | 2018-09-13 06:27 | XMS REPORT ---
Author Author CRISTY MARAVILLA [employer] Address Unknown Phone Unavailable Care Team Providers Care Check Grader Name Role Phone CRISTY MARAVILLA CP Unavailable Allergies No Known Allergies Problems Problem Type Condition Code Onset Dates Condition Status Problem Primary insomnia F51.01 Active Problem Generalized anxiety disorder F41.1 Active Problem Dysthymic disorder F34.1 Active Problem Hypothyroidism E03.9 Active Problem 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 Active Problem Gastroesophageal reflux disease with esophagitis K21.0 Active Problem Bipolar disorder, unspecified F31.9 Active Problem Restless leg G25.81 Active Problem Insomnia, unspecified type G47.00 Active Problem Anger R45.4 Active Assessment Depression with anxiety F41.8 Active Assessment Primary insomnia F51.01 Active Problem Depression with anxiety F41.8 Active Assessment Generalized anxiety disorder F41.1 Active Problem Gastro-esophageal reflux disease with esophagitis K21.0 Active Medications No Known Medications Procedures Procedure Coding System Code Date Psych diagnostic evaluation, new patient CPT-4 29859 May 03, 2016 Results No Known Results Summary Purpose eClinicalWorks Submission
--- OUTSIDE RECORDS SUMMARY | 2018-09-13 06:27 | XMS REPORT ---
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 Active 38893469 Problem Anxiety disorder, unspecified type F41.9 Active 714016219 Problem Hiatal hernia K44.9 Active 13035857 Problem Iron deficiency anemia due to chronic blood loss D50.0 Active 05874889 Problem Caries K02.9 Active 56115685 Problem Dental examination Z01.20 Active 255807679 Problem Menorrhagia with regular cycle N92.0 Active 622358264 Problem Bipolar disorder, unspecified F31.9 Active 84152386 Problem Primary insomnia F51.01 Active 849657937 Problem Dysthymic disorder F34.1 Active 15105366 Problem Depression with anxiety F41.8 Active 627471922 Problem Gastro-esophageal reflux disease with esophagitis K21.0 Active 953335095 Problem 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 Active 860761110 Problem Gastroesophageal reflux disease with esophagitis K21.0 Active 057685124 Problem Restless leg G25.81 Active 45969688 Problem Hypothyroidism E03.9 Active 98745466 Problem Anger R45.4 Active 40798285 Problem Post traumatic stress disorder (PTSD) F43.10 Active 75503329 ALLERGIES No Known Allergies ENCOUNTERS Encounter Location Date Diagnosis [facility] [address] [facility] [id number] [address] Jan, [facility] [address] [facility] [id number] [address] November, [place] [id number] [place] [address]22- [address] Oct, [place] [address] [place] [id number] [place] [address] 77606- 1269 Sep, [place] [address] [place] [id number] [place] [address] 86629- 5420 Sep, Aspiration pneumonia, unspecified aspiration pneumonia type , unspecified laterality, unspecified part of lung J69.0 [place] [address] [place] [id number] [place] [address] 94485- 5369 Sep, Pneumonia of left lower lobe due to infectious organism J18.1 [place] [address] [place] [id number] [place] [address] 41640- 0685 Jul, Anxiety disorder, unspecified type F41.9 [facility] [place] [address] [address] Jul, Body aches R52 and Viral illness B34.9 [facility] [place] [address] [place] [id number] [place] [address] Jun, Bronchitis J40 [place] [address] [place] [id number] [place] [address] 71388- 1695 May, Hypothyroidism E03.9 [place] [address] [place] [id number] [place] [address] 11272- 3532 15 May, 2017 Menorrhagia with regular cycle N92.0 ; Hypothyroidism E03.9 ; Iron deficiency anemia due to chronic blood loss D50.0 ; Primary insomnia F51.01 and Restless leg G25.81 [place] [address] [place] [id number] [place] [address] 68803- 5001 May, [facility] [place] [address] [place] [id number] [place] [address] 10610 -6018 06 May, 2017 Acute cystitis with hematuria N30.01 and Dysuria R30.0 [place] [address] [address]797 Apr, [facility] [address] [place] [address] 08642- 4348 Feb, [facility] [address] [place] [id number] [place] [address]5864 -5615 Feb, Ganglion cyst of wrist, left M67.432 [place] [address] [place] [id number] [place] [address] 89192- 8813 Jan, Insomnia, unspecified G47.00 [place] [address] [place] [id number] [place] [address] 20373- 9556 Jan, Insomnia, unspecified G47.00 [place] [address] [place] [id number] [place] [address] 87740- 2078 Jan, 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 ; Bipolar disorder, unspecified F31.9 and Hypothyroidism E03.9 [place] [address] [place] [id number] [place] [address] 85977- 9613 Dec, Dental examination Z01.20 [place] [address] [place] [id number] [place] [address] 03239- 1344 14 Dec, 2016 Depression with anxiety F41.8 ; Post traumatic stress disorder (PTSD) F43.10 ; 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 and Adjustment disorder with mixed disturbance of emotions and conduct F43.25 [place] [address] [place] [id number] [place] [address] 28282- 6863 November, 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 ; Adjustment disorder with mixed disturbance of emotions and conduct F43.25 and Depression with anxiety F41.8 [place] [address] [place] [id number] [place] [address] 60370- 5640 November, Insomnia, unspecified G47.00 [place] [address] [place] [id number] [place] [address] 62551- 4605 November, 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 ; Adjustment disorder with mixed disturbance of emotions and conduct F43.25 and Depression with anxiety F41.8 [place] [address] [place] [id number] [place] [address] 47657- 8961 Oct, Insomnia, unspecified G47.00 [facility] IN [facility] [address] [place] [id number] [place] [address] 19750 -3623 09 Oct, 2016 Visit for TB skin test Z11.1 [facility] IN [facility] [address] [place] [id number] [place] [address] 89189 -5364 28 Sep, 2016 Wheezing R06.2 and Bronchitis J40 [facility] [address] [place] [id number] [place] [address] [id number] 20 Sep, 2016 Dental examination Z01.20 [place] [address] [place] [id number] [place] [address] 52581- 9020 10 Sep, 2016 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 [place] [address] 49820- 379[address] 08 Sep, 2016 Bipolar disorder, unspecified F31.9 ; Insomnia, unspecified G47.00 ; 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 ; Hypothyroidism E03.9 and Acquired hypothyroidism E03.9 [place] [address] [place] [id number] [place] [address] 43572- 6657 Jul, Hypothyroidism E03.9 [place] [address] [place] [id number] [place] [address] 86372- 9606 Jul, Hypothyroidism E03.9 [place] [address] [place] [id number] [place] [address] 58323- 6871 May, Generalized anxiety disorder F41.1 ; Depression with anxiety F41.8 and Bipolar disorder, unspecified F31.9 [place] [address] [place] [id number] [place] [address] 49975- 1806 Apr, Hypothyroidism E03.9 [place] [address] [place] [id number] [place] [address] 83877- 3013 Apr, Depression with anxiety F41.8 ; Bipolar disorder, unspecified F31.9 ; Generalized anxiety disorder F41.1 and Post traumatic stress disorder (PTSD) F43.[address] [address] Apr, Encounter to establish care Z76.89 ; Gastroesophageal reflux disease with esophagitis K21.0 ; Hypothyroidism E03.9 ; Bipolar disorder , unspecified F31.9 ; 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 ; Weight gain R63.5 and Insomnia, unspecified type G47.[address] 08957- 0175 Apr, Primary insomnia F51.01 ; Depression with anxiety F41.8 and Generalized anxiety disorder F41.[address] 29017- [address]47 18 Apr, 2016 [facility] [address] [address] Apr, Overdose of anticonvulsant, undetermined intent, initial encounter T42.74XA [address] 35[address]- [address]10 Feb, [address] 55190- 5133 Jan, Bipolar disorder, unspecified F31.9 and Anger R45.4 [facility] [address] [address]656 15 Oct, 2015 Right forearm pain M79.631 [facility] [address] [id number] 04 Aug, 2015 Encounter for dental examination Z01.20 [facility] [address] [place] [address] 66725 -4784 14 Jul, 2015 Acute vomiting R11.[address] 78928- 7067 07 Jul, 2015 Screening for tuberculosis Z11.[id number] [place] [address] 99973- 5886 Jun, Gastro-esophageal reflux disease with esophagitis K21.0 and Generalized anxiety disorder F41.1 [place] [address] [place] [id number] [place] [address] 80048- 9751 Jun, Generalized anxiety disorder F41.1 and Insomnia, unspecified G47.00 [place] [address] 60355- 1748 Jun, [place] [address] 75675- 2633 May, Generalized anxiety disorder F41.1 and Bipolar disorder, unspecified F31.9 [place] [address] [place] [id number] [place] [address] 02635- 0480 May, Dysthymic disorder F34.1 ; Generalized anxiety disorder F41.1 and Bipolar 1 disorder with moderate felipe F31.12 [place] [address] [place] [id number] [place] [address] 54686- 9793 May, Bipolar 1 disorder with moderate felipe F31.12 ; Generalized anxiety disorder F41.1 and Insomnia, unspecified G47.00 [place] [address] [place] [id number] [place] [address] 79001- 1861 May, Bipolar 1 disorder with moderate felipe F31.12 [facility] IN [facility] [address] [place] [id number] [place] [address] 68045 -1095 May, Bronchitis J40 [place] [address] [place] [id number] [place] [address] 83963- 0534 Apr, Dysthymic disorder F34.1 and Generalized anxiety disorder F41.1 [place] [address] 23964- 5846 Apr, Generalized anxiety disorder F41.1 and Dysthymic disorder F34.1 [place] [address] [place] [id number] [place] [address] 22576- 6819 Apr, Primary insomnia F51.01 ; Depression with anxiety F41.8 and Restless leg G25.81 [facility] [address] [place] [id number] [place] [address] 88048- 7799 Apr, Generalized anxiety disorder F41.1 ; Dysthymic disorder F34.1 ; Hypothyroidism E03.9 ; Anemia D64.9 and Acid reflux K21.9 [facility] [address] [place] [id number] [place] [address] [id number] Mar, Dental examination V72.2 [facility] [address] [place] [id number] [place] [address] 92122- 9939 Mar, Routine adult health maintenance V70.0 [facility] [address] 65413- 4049 Mar, [facility] [address] 82443- 3753 Mar, Insomnia 780.52 ; Routine adult health maintenance V70.0 ; GERD (gastroesophageal reflux disease) 530.81 and Depression with anxiety 300.4 [facility] [address] [place] [id number] [place] [address] [id number] Feb, Dental examination V72.2 [facility] [address] [place] [id number] [place] [address] 48463- 8963 Sep, [facility] [address] [place] [id number] [place] [address] 38065- 6099 Sep, [facility] [address] [place] [id number] [place] [address] 19429- 1206 Sep, [facility] [address] [place] [id number] [place] [address] 86381- 3756 Sep, [facility] [address] 19246- 6872 Sep, [facility] [address] [place] [id number] [place] [address] 67804- 4763 Sep, IMMUNIZATIONS No Known Immunizations SOCIAL HISTORY Never Assessed REASON FOR VISIT congestion, [facility] V[facility] SIGNS Height 62 in 2017-06-21 Weight 205 lbs 2017-06-21 Temperature 98.4 degrees Fahrenheit 2017-06-21 Heart Rate 90 bpm 2017-06-21 Respiratory Rate 22 2017-06-21 BMI 37.49 kg/m2 2017-06-21 Blood pressure systolic 130 mmHg 2017-06-21 Blood pressure diastolic 90 mmHg 2017-06-21 MEDICATIONS Medication Instructions Dosage Frequency Start Date End Date Duration Status Doxycycline Hyclate 100 mg Orally every 12 hrs 1 capsule 12h Jun, Jun, 10 days Active Gabapentin 300 MG Orally Once a day 1 capsule before bedtime 24h May, 30 day(s) Active Sprintec 28 0.25-35 MG-MCG Orally Once a day Skp the placebo 1 tablet May, 90 days Active Seroquel 50 MG Orally Once a day 2 tablets at bedtime 24h May, 30 days Active PredniSONE 20 mg Orally Once a day 2 tablets 24h Jun, Jun, 05 days Active Levothyroxine Sodium 125 MCG TAKE ONE TABLET BY MOUTH ONCE DAILY 60 Active RESULTS No Results PROCEDURES Procedure Date Ordered Result Body Site [facility] VISIT ESTABLISHED PATIENT Jun 21, 2017 INSTRUCTIONS MEDICATIONS ADMINISTERED No Known Medications [...] 1992 Hospitalization History was admitted to a intermediate/psych facility [id number]
--- OUTSIDE RECORDS SUMMARY | 2018-09-13 06:27 | XMS REPORT ---
Author FLAQUITA Smith [facility] eClinicalWorks Address Unknown Phone Unavailable Care Team Providers Care Non Acoustic Operator Name Role Phone FLAQUITA PEARCE Unavailable Allergies No Known Allergies Problems Problem Type Condition Code Onset Dates Condition Status Assessment Acid reflux K21.9 Active Problem Gastro-esophageal reflux disease with esophagitis K21.0 Active Problem Depression with anxiety F41.8 Active Problem Primary insomnia F51.01 Active Assessment Hypothyroidism E03.9 Active Assessment Anemia D64.9 Active Assessment Generalized anxiety disorder F41.1 Active Assessment Dysthymic disorder F34.1 Active Medications Medication Code System Code Instructions Start Date End Date Status Dosage Pepcid AC [facility] 14425-00598 10 MG Orally Once a day 2 tablet Levothyroxine Sodium [facility] [address]-37 75 MCG Orally Once a day Mar 13, 2015 1 tablet Amitriptyline HCl [facility] [address]-51 25 MG Orally Once a day at bedtime Mar 12, 2015 1 tablet Melatonin [facility] 63014-09839 10 MG Orally Once a day at hs 10-20 tablets Ferrous Sulfate [facility] [address]-00 325 (65 Fe) MG Orally Once a day Mar 1 tablet Nexium [facility] [address]-07 20 MG Orally Once a day Mar 12, 2015 1 capsule Procedures Procedure Coding System Code Date Psych diagnostic evaluation, established patient CPT-4 74583 Apr 13, 2015 Results No Known Results Summary Purpose eClinicalWorks Submission
--- OUTSIDE RECORDS SUMMARY | 2018-09-13 06:27 | XMS REPORT ---
Author ANNA Mckeon [facility] eClinicalWorks Address Unknown Phone Unavailable Care Team Providers Care Coffee Maker Servicer Name Role Phone ANNA ARIAS CP Unavailable Allergies No Known Allergies Problems [...] Dosage Seroquel [facility] [address]-94 200 mg Orally Once a day May 14, 2015 2 tablet at bedtime Results No Known Results Summary Purpose eClinicalWorks Submission
--- OUTSIDE RECORDS SUMMARY | 2018-09-13 06:28 | XMS REPORT ---
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 Active 52586550 Problem Anxiety disorder, unspecified type F41.9 Active 163011519 Problem Hiatal hernia K44.9 Active 71750504 Problem Iron deficiency anemia due to chronic blood loss D50.0 Active 37815724 Problem Caries K02.9 Active 71439229 Problem Dental examination Z01.20 Active 814222200 Problem Menorrhagia with regular cycle N92.0 Active 849141903 Problem Bipolar disorder, unspecified F31.9 Active 68666743 Problem Primary insomnia F51.01 Active 149023043 Problem Dysthymic disorder F34.1 Active 49345858 Problem Depression with anxiety F41.8 Active 073223245 Problem Gastro-esophageal reflux disease with esophagitis K21.0 Active 714095703 Problem 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 Active 968759887 Problem Gastroesophageal reflux disease with esophagitis K21.0 Active 559969332 Problem Restless leg G25.81 Active 21626334 Problem Hypothyroidism E03.9 Active 21631539 Problem Anger R45.4 Active 32260098 Problem Post traumatic stress disorder (PTSD) F43.10 Active 08686262 ALLERGIES No Information ENCOUNTERS Encounter Location Date Diagnosis [facility] [address] [facility] [id number] [address] Sep, [facility] [address] [facility] [id number], [place] [address] Sep, Aspiration pneumonia, unspecified aspiration pneumonia type , unspecified laterality, unspecified part of lung J69.0 [place] [address] [address] Sep, Pneumonia of left lower lobe due to infectious organism J18.1 [place] [address] [address] Jul, Anxiety disorder, unspecified type F41.9 [facility] [place] [address] [address] Jul, Body aches R52 and Viral illness B34.9 [facility] [address] [address] Jun, Bronchitis J40 [place] [address] [address] May, Hypothyroidism E03.9 [place] [address] [address] May, Menorrhagia with regular cycle N92.0 ; Hypothyroidism E03.9 ; Iron deficiency anemia due to chronic blood loss D50.0 ; Primary insomnia F51.01 and Restless leg G25.81 [place] [address] [address] May, [facility] [place] [address] [address] May, Acute cystitis with hematuria N30.01 and Dysuria R30.0 [place] [address] [address] Apr, [place] [address] [address] Feb, [facility] IN [place] [address] [address] Feb, Ganglion cyst of wrist, left M67.432 [place] [address] [address] Jan, Insomnia, unspecified G47.00 [place] [address] [place] [id number] [place] [address] Jan, Insomnia, unspecified G47.00 [place] [address] [place] [id number] [place] [address] Jan, 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 ; Bipolar disorder, unspecified F31.9 and Hypothyroidism E03.9 [place] [address] [place] [id number] [place] [address] Dec, Dental examination Z01.20 [place] [address] [address] [place] [id number] [place] [address] 14 Dec, 2016 Depression with anxiety F41.8 ; Post traumatic stress disorder (PTSD) F43.10 ; 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 and Adjustment disorder with mixed disturbance of emotions and conduct F43.25 [place] [address] [place] [id number] [place] [address] November, 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 ; Adjustment disorder with mixed disturbance of emotions and conduct F43.25 and Depression with anxiety F41.8 [place] [address] [place] [address] November, Insomnia, unspecified G47.00 [place] [address] [place] [id number] [place] [address] November, 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 ; Adjustment disorder with mixed disturbance of emotions and conduct F43.25 and Depression with anxiety F41.8 [place] [address] [place] [id number] [place] [address] Oct, Insomnia, unspecified G47.00 [facility] [address] [place] [address] Oct, Visit for TB skin test Z11.1 [facility] [address], [place] [address] 28 Sep, 2016 Wheezing R06.2 and Bronchitis J40 [facility] [address] [id number] 20 Sep, 2016 Dental examination Z01.20 [facility] [address] [place] [address] 10 Sep, 2016 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 [facility] [address] [place] [id number] [place] [address] 08 Sep, 2016 Bipolar disorder, unspecified F31.9 ; Insomnia, unspecified G47.00 ; 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 ; Hypothyroidism E03.9 and Acquired hypothyroidism E03.9 [facility] [address] [place] [address] Jul, Hypothyroidism E03.9 [place] [address] [place] [id number] [place] [address] Jul, Hypothyroidism E03.9 [place] [address] [place] [id number] [place] [address] May, Generalized anxiety disorder F41.1 ; Depression with anxiety F41.8 and Bipolar disorder, unspecified F31.9 [facility] [address] [place] [address] Apr, Hypothyroidism E03.9 [facility] [address] [place] [address] Apr, Depression with anxiety F41.8 ; Bipolar disorder, unspecified F31.9 ; Generalized anxiety disorder F41.1 and Post traumatic stress disorder (PTSD) F43.10 [facility] [address], [place] [address] Apr, Encounter to establish care Z76.89 ; Gastroesophageal reflux disease with esophagitis K21.0 ; Hypothyroidism E03.9 ; Bipolar disorder , unspecified F31.9 ; 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 ; Weight gain R63.5 and Insomnia, unspecified type G47.[address] [address] Apr, Primary insomnia F51.01 ; Depression with anxiety F41.8 and Generalized anxiety disorder F41.[address] [address] Apr, [facility] [address] [address] Apr, Overdose of anticonvulsant, undetermined intent, initial encounter T42.74XA [address] [address] Feb, [address] [address] Jan, Bipolar disorder, unspecified F31.9 and Anger R45.4 [facility] [address] [address] Oct, Right forearm pain M79.631 [facility] [address] [id number] 04 Aug, 2015 Encounter for dental examination Z01.20 [facility] [place] [address] [address] Jul, Acute vomiting R11.[address] [address] Jul, Screening for tuberculosis Z11.[address] [address] Jun, Gastro-esophageal reflux disease with esophagitis K21.0 and Generalized anxiety disorder F41.[address] [address] Jun, Generalized anxiety disorder F41.1 and Insomnia, unspecified G47.00 [facility] [address] [place] [id number] [place] [address] Jun, [facility] [address] [address] May, Generalized anxiety disorder F41.1 and Bipolar disorder, unspecified F31.9 [facility] [address] [address] May, Dysthymic disorder F34.1 ; Generalized anxiety disorder F41.1 and Bipolar 1 disorder with moderate felipe F31.12 [place] [address] [address] May, Bipolar 1 disorder with moderate felipe F31.12 ; Generalized anxiety disorder F41.1 and Insomnia, unspecified G47.00 [place] [address] [address] May, Bipolar 1 disorder with moderate felipe F31.12 [facility] IN [facility] [address] [address] May, Bronchitis J40 [facility] [address] [address] Apr, Dysthymic disorder F34.1 and Generalized anxiety disorder F41.1 [place] [address] [place] [id number] [place] [address] Apr, Generalized anxiety disorder F41.1 and Dysthymic disorder F34.1 [place] [address] [place] [id number] [place] [address] Apr, Primary insomnia F51.01 ; Depression with anxiety F41.8 and Restless leg G25.81 [facility] [address] [place] [id number] [place] [address] Apr, Generalized anxiety disorder F41.1 ; Dysthymic disorder F34.1 ; Hypothyroidism E03.9 ; Anemia D64.9 and Acid reflux K21.9 [facility] [address] [place] [id number] [id number] Mar, Dental examination V72.2 [facility] [address] [place] [id number] [place] [address] 2[address] Mar, Routine adult health maintenance V70.0 [facility] [address] [place] [address]- [address] Mar, [facility] [address] [place] [id number] [place] [address] Mar, Insomnia 780.52 ; Routine adult health maintenance V70.0 ; GERD (gastroesophageal reflux disease) 530.81 and Depression with anxiety 300.4 [facility] [address] [place] [id number] Feb, Dental examination V72.2 [facility] [address] [place] [address] Sep, [facility] [address] [place] [id number] [place] [address] Sep, [facility] [id number] [place] [address]- [address] Sep, [facility] [address] [place] [id number] Sep, [facility] [address], [place] [address] Sep, [facility] [address] [place] [id number] [place] [id number] Sep, IMMUNIZATIONS No Known Immunizations SOCIAL HISTORY Never Assessed REASON FOR VISIT Insomnia PLAN OF CARE VITAL SIGNS MEDICATIONS Medication [...] 1992 Hospitalization History was admitted to a assisted/psych facility [id number]
--- OUTSIDE RECORDS SUMMARY | 2018-09-13 06:28 | XMS REPORT ---
Author Author NADYA IVY [facility] eClinicalWorks Address Unknown Phone Unavailable Care Team Providers Care Solar Installation Helper Name Role Phone NADYA IVY CP Unavailable [...] G47.00 Active Problem Anger R45.4 Active Assessment Weight gain R63.5 Active Assessment 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 Active Assessment Insomnia, unspecified type G47.00 Active Assessment Gastroesophageal reflux disease with esophagitis K21.0 Active Assessment Encounter to establish care Z76.89 Active Assessment Bipolar disorder, unspecified F31.9 Active Problem Depression with anxiety F41.8 Active Assessment Hypothyroidism E03.9 Active Problem Gastro-esophageal reflux disease with esophagitis K21.0 Active Medications Medication Code System Code Instructions Start Date End Date Status Dosage Carafate [facility] [address]-14 1 GM Orally 4 times a day before meals and bedtime May 03, 2016 1 tablet on an empty stomach Levothyroxine Sodium [facility] 34579913025 75 MCG Orally Once a day 1 tablet Ferrous Sulfate [facility] [address]-33 325 (65 Fe) MG Orally Once a day Mar [address] [facility] [address]-53 40 mg Orally Once a day May 03, [address] [facility] [address]-60 200 mg Orally Once a day May 14, 2015 2 tablet at bedtime Procedures Procedure Coding System Code Date [facility] VISIT NEW PATIENT CPT-4 G0466 May 03, 2016 Office Visit, New Pt., Level 3 CPT-4 10182 May 03, 2016 [facility] CPT-4 NOBLL May 03, 2016 VENIPUNCT, ROUTINE* CPT-4 32779 May 03, 2016 Vital Signs Date/Time: May 03, 2016 Cardiac Monitoring Heart Rate 76 bpm Weight 203.5 lbs Height 62 in BMI 37.22 Index Blood Pressure Diastolic 68 mmHg Blood Pressure Systolic 122 mmHg Results Name Result Date Reference Range Unit Abnormality Flag INSULIN LEVEL ----Insulin 27.5 98879795 2.6-24.9 uIU/mL H CBC ----Basos 1 33502246 % ----MCV 68 60751545 79-97 fL L ----Hematocrit 32.6 72951524 34.0-46.6 % L ----Eos 8 77994867 % ----MCHC 30.4 65180573 31.5-35.7 g/dL L ----Monocytes 8 70029619 % ----MCH 20.7 65808515 26.6-33.0 pg L ----Lymphs 31 15294091 % ----Eos (Absolute) 0.5 72754282 0.0-0.4 x10E3/uL H ----WBC 6.8 81578641 3.4-10.8 x10E3/uL ----Monocytes(Absolute) 0.5 86836290 0.1-0.9 x10E3/uL ----Lymphs (Absolute) 2.1 05331722 0.7-3.1 x10E3/uL ----Hemoglobin 9.9 21359333 11.1-15.9 g/dL L ----Neutrophils (Absolute) 3.6 67435565 1.4-7.0 x10E3/uL ----RBC 4.78 02613254 3.77-5.28 x10E6/uL ----Immature Grans (Abs) 0.0 51245043 0.0-0.1 x10E3/uL ----Immature Granulocytes 0 46464786 % ----Neutrophils 52 96729980 % ----Baso (Absolute) 0.1 08157636 0.0-0.2 x10E3/uL ----RDW 19.8 87524319 12.3-15.4 % H ----Platelets 412 [id number] 150-379 x10E3/uL H ROUTINE VENIPUNCTURE TSH ----TSH 8.090 [id number] 0.450-4.500 uIU/mL H Summary Purpose eClinicalWorks Submission
--- OUTSIDE RECORDS SUMMARY | 2018-09-13 06:28 | XMS REPORT ---
Author BLAIR [facility] eClinicalWorks Address Unknown Phone Unavailable Care Team Providers Care Master Chef Name Role Phone BLAIR AGUIRRE Unavailable Allergies No Known Allergies Problems Problem Type Condition Code Onset Dates Condition Status Assessment Generalized anxiety disorder F41.1 Active Assessment Insomnia, unspecified G47.00 Active Problem Generalized anxiety disorder F41.1 Active Problem Dysthymic disorder F34.1 Active Problem Restless leg G25.81 Active Problem Depression with anxiety F41.8 Active Assessment Bipolar 1 disorder with moderate felipe F31.12 Active Problem Primary insomnia F51.01 Active Problem Gastro-esophageal reflux disease with esophagitis K21.0 Active Medications Medication Code System Code Instructions Start Date End Date Status Dosage ProAir HFA [facility] [address]-23 108 (90 Base) MCG/ACT Inhalation every 4 hrs May 12, 2015 2 puffs as needed Seroquel [facility] [address]-60 200 MG Orally Once a day May 14, 2015 2 tablet at bedtime Nexium [facility] [address]-05 20 MG Orally Once a day Mar 12, 2015 1 capsule Lexapro [facility] [address]-12 10 MG Orally Once a day Apr 29, 2015 1 tablet Pepcid AC [facility] [address]-56222 10 MG Orally Once a day 2 tablet Clonidine HCl [facility] [address]-30 0.1 MG Orally 3 times a day May 07, 2015 1 tablet Doxycycline Monohydrate [facility] [address]-09 100 MG Orally every 12 hrs MayMay 22, 2015 1 tablet Ferrous Sulfate [facility] [address]-75 325 (65 Fe) MG Orally Once a day Mar 1 tablet Levothyroxine Sodium [facility] [address]-30 75 MCG Orally Once a day Mar 13, 2015 1 tablet Neurontin [facility] [address]-82 100 MG Orally Once a day at hs Apr 29, 2015 as directed Restoril [facility] [address]-14 15 MG Orally daily at hs for sleep Apr 29, 2015 1 capsule at bedtime as needed Procedures Procedure Coding System Code Date Office Visit, Est Pt., Level 5 CPT-4 07188 May 21, 2015 Vital Signs Date/Time: May 21, 2015 Cardiac Monitoring Heart Rate 80 bpm Weight 197.8 lbs Height 62 in BMI 36.17 Index Blood Pressure Diastolic 72 mmHg Blood Pressure Systolic 128 mmHg Results No Known Results Summary Purpose eClinicalWorks Submission
--- OUTSIDE RECORDS SUMMARY | 2018-09-13 06:28 | XMS REPORT ---
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 Active 60908871 Problem Anxiety disorder, unspecified type F41.9 Active 658374870 Problem Hiatal hernia K44.9 Active 25011460 Problem Iron deficiency anemia due to chronic blood loss D50.0 Active 11924853 Problem Caries K02.9 Active 96825183 Problem Dental examination Z01.20 Active 412923816 Problem Menorrhagia with regular cycle N92.0 Active 390441093 Problem Bipolar disorder, unspecified F31.9 Active 41614867 Problem Primary insomnia F51.01 Active 570596429 Problem Dysthymic disorder F34.1 Active 26412491 Problem Depression with anxiety F41.8 Active 304329140 Problem Gastro-esophageal reflux disease with esophagitis K21.0 Active 908250991 Problem 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 Active 978255802 Problem Gastroesophageal reflux disease with esophagitis K21.0 Active 162000608 Problem Restless leg G25.81 Active 61535218 Problem Hypothyroidism E03.9 Active 84716427 Problem Anger R45.4 Active 61060933 Problem Post traumatic stress disorder (PTSD) F43.10 Active 05069646 ALLERGIES No Known Allergies ENCOUNTERS Encounter Location Date Diagnosis [facility] [address] [facility] [id number] [address] Jan, [facility] [address] [place] [id number], [place] [address] November, [facility] [id number] [place] [address] 8068 Oct, [facility] [id number] [place] [address] 55707[address] 3278 Sep, [facility] [id number] [place] [address] Sep, Aspiration pneumonia, unspecified aspiration pneumonia type , unspecified laterality, unspecified part of lung J69.0 [place] [address] [id number] [place] [address] 46196[address] 9015 Sep, Pneumonia of left lower lobe due to infectious organism J18.1 [place] [address] [address] [id number] [place] [address] 66434- 9121 Jul, Anxiety disorder, unspecified type F41.9 [facility] WALK IN [place] [address] [address] Jul, Body aches R52 and Viral illness B34.9 [facility]ALK [facility] [place] [address] [address] [id number] [place] [address]21 [address] Jun, Bronchitis J40 [place] [address] [address] [id number] [place] [address] 15189- 8165 May, Hypothyroidism E03.9 [place] [address] [address] [id number] [place] [address] 51254- 7285 15 May, 2017 Menorrhagia with regular cycle N92.0 ; Hypothyroidism E03.9 ; Iron deficiency anemia due to chronic blood loss D50.0 ; Primary insomnia F51.01 and Restless leg G25.81 [place] [address] [address] [id number] [place] [address] 69050- 7639 06 May, 2017 [facility] [place] [address] [address] [id number] [place] [address] 32841 -0367 06 May, 2017 Acute cystitis with hematuria N30.01 and Dysuria R30.0 [place] [address] [place] [address] Apr, [facility] [id number] [place] [address]40 Feb, [facility] [id number] [place] [address] 62719 [address]2787 Feb, Ganglion cyst of wrist, left M67.432 [place] [address] [place] [address] [id number] [place] [address] 36170- 6547 Jan, Insomnia, unspecified G47.00 [place] [address] [place] [address] [id number] [place] [address] 74365- 0618 Jan, Insomnia, unspecified G47.00 [place] [address] [address] [id number] [place] [address] 54084- 7980 Jan, 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 ; Bipolar disorder, unspecified F31.9 and Hypothyroidism E03.9 [place] [address] [place] [id number] [place] [address] 77472- 2078 Dec, Dental examination Z01.20 [place] [address] [address] [id number] [place] [address] 89076- 0539 14 Dec, 2016 Depression with anxiety F41.8 ; Post traumatic stress disorder (PTSD) F43.10 ; 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 and Adjustment disorder with mixed disturbance of emotions and conduct F43.25 [place] [address] [address] [id number] [place] [address] 99921- 9408 November, 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 ; Adjustment disorder with mixed disturbance of emotions and conduct F43.25 and Depression with anxiety F41.8 [place] [address] [id number] [place] [address] 52096- 5595 November, Insomnia, unspecified G47.00 [place] [address] [address] [id number] [place] [address] 86020- 3480 November, 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 ; Adjustment disorder with mixed disturbance of emotions and conduct F43.25 and Depression with anxiety F41.8 [place] [address] [address] [id number] [place] [address] 25386- 4400 Oct, Insomnia, unspecified G47.00 [facility] WALK IN [facility] [id number] [place] [address] 23402 -5954 09 Oct, 2016 Visit for TB skin test Z11.1 [facility] WALK IN [facility] [id number] [place] [address] 51188 -1824 28 Sep, 2016 Wheezing R06.2 and Bronchitis J40 [facility] [address] [id number] Sep, Dental examination Z01.20 [place] [address] [place] [id number] [place] [address] 90353- 2704 10 Sep, 2016 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 [place] [address] [place] [address] [id number] [place] [address] 55546- 4012 08 Sep, 2016 Bipolar disorder, unspecified F31.9 ; Insomnia, unspecified G47.00 ; 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 ; Hypothyroidism E03.9 and Acquired hypothyroidism E03.9 [place] [address] [address] [id number] [place] [address] 37934- 8627 Jul, Hypothyroidism E03.9 [place] [address] [address] [id number] [place] [address] 05127- 2842 Jul, Hypothyroidism E03.9 [place] [address] [address] [id number] [place] [address] 85739- 3792 May, Generalized anxiety disorder F41.1 ; Depression with anxiety F41.8 and Bipolar disorder, unspecified F31.9 [place] [address] [address] [id number] [place] [address] 49219- 5747 Apr, Hypothyroidism E03.9 [place] [address] [address] [id number] [place] [address] 34054- 5967 Apr, Depression with anxiety F41.8 ; Bipolar disorder, unspecified F31.9 ; Generalized anxiety disorder F41.1 and Post traumatic stress disorder (PTSD) F43.[address] [address] Apr, Encounter to establish care Z76.89 ; Gastroesophageal reflux disease with esophagitis K21.0 ; Hypothyroidism E03.9 ; Bipolar disorder , unspecified F31.9 ; 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 ; Weight gain R63.5 and Insomnia, unspecified type G47.[address] [address]- [address]51 Apr, Primary insomnia F51.01 ; Depression with anxiety F41.8 and Generalized anxiety disorder F41.[address] 27651- [address]57 18 Apr, 2016 [facility] W[facility] IN [address] [address] Apr, Overdose of anticonvulsant, undetermined intent, initial encounter T42.74XA [address] [address]11- 6773 Feb, [address] [address]- [address] Jan, Bipolar disorder, unspecified F31.9 and Anger R45.4 [facility] WALK IN [address] [address]08 15 Oct, 2015 Right forearm pain M79.631 [facility] [address] [id number] 04 Aug, 2015 Encounter for dental examination Z01.20 [facility] WALK IN [address] [address] 14 Jul, 2015 Acute vomiting R11.[address] 79367- 7748 07 Jul, 2015 Screening for tuberculosis Z11.1 [place] [id number] [place] [address] 27287- 8408 Jun, Gastro-esophageal reflux disease with esophagitis K21.0 and Generalized anxiety disorder F41.1 [facility] [id number] [place] [address] 77839- 3692 Jun, Generalized anxiety disorder F41.1 and Insomnia, unspecified G47.00 [place] [address] [id number] [place] [address] 46734- 1927 Jun, [place] [address] [address] [id number] [place] [address] 77427- 8912 May, Generalized anxiety disorder F41.1 and Bipolar disorder, unspecified F31.9 [place] [address] [address] [id number] [place] [address] 93807- 1181 May, Dysthymic disorder F34.1 ; Generalized anxiety disorder F41.1 and Bipolar 1 disorder with moderate felipe F31.12 [place] [address] [id number] [place] [address] 11385- 8731 May, Bipolar 1 disorder with moderate felipe F31.12 ; Generalized anxiety disorder F41.1 and Insomnia, unspecified G47.00 [place] [id number] [place] [address] 95193- 6957 May, Bipolar 1 disorder with moderate felipe F31.12 [facility] WALK IN [facility] [id number] [place] [address] 18807 -3013 May, Bronchitis J40 [place] [address] [address] [id number] [place] [address] 25978- 6507 Apr, Dysthymic disorder F34.1 and Generalized anxiety disorder F41.1 [place] [address] [place] [address] [id number] [place] [address] 93266- 1107 Apr, Generalized anxiety disorder F41.1 and Dysthymic disorder F34.1 [place] [address] [place] [address] [id number] [place] [address] 52635- 7621 Apr, Primary insomnia F51.01 ; Depression with anxiety F41.8 and Restless leg G25.81 [facility] [id number] [place] [address] 32064- 9548 Apr, Generalized anxiety disorder F41.1 ; Dysthymic disorder F34.1 ; Hypothyroidism E03.9 ; Anemia D64.9 and Acid reflux K21.9 [facility] [address] [id number] Mar, Dental examination V72.2 [facility] [address] [address] Mar, Routine adult health maintenance V70.0 [facility] [address] 26067- 4078 Mar, [facility] [address] [address] 5966 Mar, Insomnia 780.52 ; Routine adult health maintenance V70.0 ; GERD (gastroesophageal reflux disease) 530.81 and Depression with anxiety 300.4 [facility] [id number] [place] [address] [id number] Feb, Dental examination V72.2 [facility] [id number] [place] [address] 32068- 4890 Sep, [facility] [id number] [place] [address] 76583- 8594 Sep, [facility] [address] 48094- 7548 Sep, [facility] [id number] [place] [address] 83041- 2560 Sep, [facility] [id number] [place] [address] 65670- 9525 Sep, [facility] [id number] [place] [address] 82235- 7400 Sep, IMMUNIZATIONS No Known Immunizations SOCIAL HISTORY Never Assessed REASON FOR VISIT bodyaches/headache vasyl lozano PLAN OF CARE Activity Details Follow Up prn Reason: VITAL SIGNS Height 62 in 2017-07-12 Weight 202.2 lbs 2017-07-12 Temperature 99.0 degrees Fahrenheit 2017-07-12 Heart Rate 92 bpm 2017-07-12 Respiratory Rate 18 2017-07-12 BMI 36.98 kg/m2 2017-07-12 Blood pressure systolic 128 mmHg 2017-07-12 Blood pressure diastolic 74 mmHg 2017-07-12 MEDICATIONS Medication Instructions Dosage Frequency Start Date End Date Duration Status Seroquel 50 MG Orally Once a day 2 tablets at bedtime 24h May, 30 days Active Levothyroxine Sodium 125 MCG TAKE ONE TABLET BY MOUTH ONCE DAILY 60 Active Gabapentin 300 MG Orally Once a day 1 capsule before bedtime 24h May, 30 day(s) Active Sprintec 28 0.25-35 MG-MCG Orally Once a day Skp the placebo 1 tablet May, 90 days Active RESULTS No Results PROCEDURES Procedure Date Ordered Result Body Site [facility] VISIT ESTABLISHED PATIENT Jul 12, 2017 INSTRUCTIONS MEDICATIONS ADMINISTERED No Known Medications [...] History was admitted to a longterm/psych facility [id number]
--- OUTSIDE RECORDS SUMMARY | 2018-09-13 06:29 | XMS REPORT ---
Author DEONNA Azul [facility] eClinicalWorks Address Unknown Phone Unavailable Care Team Providers Care Clinical Staff Anesthesiologist Name Role Phone DEONNA PETTY CP Unavailable Allergies, Adverse Reactions, Alerts Substance Reaction Event Type N.K.D.A. Info Not Available Non Drug Allergy Problems Problem Type Condition Code Onset Dates Condition Status Problem Generalized anxiety disorder F41.1 Active Problem Dysthymic disorder F34.1 Active Problem Restless leg G25.81 Active Problem Depression with anxiety F41.8 Active Assessment Bronchitis J40 Active Problem Primary insomnia F51.01 Active Problem Gastro-esophageal reflux disease with esophagitis K21.0 Active Medications Medication Code System Code Instructions Start Date End Date Status Dosage Restoril [facility] [address]-75 15 MG Orally daily at hs for sleep Apr 29, 2015 1 capsule at bedtime as needed Clonidine HCl [facility] [address]-66 0.1 MG Orally 3 times a day May 07, 2015 1 tablet Ferrous Sulfate [facility] [address]-21 325 (65 Fe) MG Orally Once a day Mar 1 tablet Doxycycline Monohydrate [facility] [address]-10 100 MG Orally every 12 hrs MayMay 22, 2015 1 tablet Nexium [facility] [address]-56 20 MG Orally Once a day Mar 12, 2015 1 capsule Lexapro [facility] [address]-13 10 MG Orally Once a day Apr 29, 2015 1 tablet Levothyroxine Sodium [facility] [address]-35 75 MCG Orally Once a day Mar 13, 2015 1 tablet Pepcid AC [facility] 56349-62119 10 MG Orally Once a day 2 tablet ProAir HFA [facility] [address]-22 108 (90 Base) MCG/ACT Inhalation every 4 hrs May 12, 2015 2 puffs as needed Neurontin [facility] [address]-22 100 MG Orally Once a day at hs Apr 29, 2015 as directed Procedures Procedure Coding System Code Date MEASURE BLOOD OXYGEN LEVEL CPT-4 27320 May 12, 2015 SOLUMEDROL (UP TO 125 MG) CPT-4 J2930 May 12, 2015 Office Visit, Est Pt., Level 3 CPT-4 70992 May 12, 2015 THER/PROPH/DIAG INJ, SC/IM CPT-4 70405 May 12, 2015 Vital Signs Date/Time: May 12, 2015 Temperature 98.2 F Weight 198.2 lbs Height 62 in Oximetry 99 % Blood Pressure Diastolic 82 mmHg Blood Pressure Systolic 130 mmHg Cardiac Monitoring Heart Rate 74 bpm BMI 36.25 Index Results No Known Results Summary Purpose eClinicalWorks Submission
--- OUTSIDE RECORDS SUMMARY | 2018-09-13 06:29 | XMS REPORT ---
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 Active 73859884 Problem Anxiety disorder, unspecified type F41.9 Active 370205859 Problem Hiatal hernia K44.9 Active 45379986 Problem Iron deficiency anemia due to chronic blood loss D50.0 Active 57712351 Problem Caries K02.9 Active 63501288 Problem Dental examination Z01.20 Active 366384581 Problem Menorrhagia with regular cycle N92.0 Active 735925315 Problem Bipolar disorder, unspecified F31.9 Active 68927858 Problem Primary insomnia F51.01 Active 613088730 Problem Dysthymic disorder F34.1 Active 14293535 Problem Depression with anxiety F41.8 Active 378501815 Problem Gastro-esophageal reflux disease with esophagitis K21.0 Active 557610429 Problem 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 Active 634928707 Problem Gastroesophageal reflux disease with esophagitis K21.0 Active 099863597 Problem Restless leg G25.81 Active 39674160 Problem Hypothyroidism E03.9 Active 75994675 Problem Anger R45.4 Active 61486336 Problem Post traumatic stress disorder (PTSD) F43.10 Active 81774814 ALLERGIES No Information ENCOUNTERS Encounter Location Date Diagnosis [facility] [address] [facility] [id number] [address] Jan, [facility] [address] [id number], [place] [address] November, [place] [id number] [place] [id number] [place] [address]68[address] Oct, [facility] [id number] [place] [address] 59003- 7830 Sep, [facility] [id number] [place] [address] 62634- 8836 Sep, Aspiration pneumonia, unspecified aspiration pneumonia type , unspecified laterality, unspecified part of lung J69.0 [place] [id number] [place] [address] 06622- 6081 Sep, Pneumonia of left lower lobe due to infectious organism J18.1 [place] [address] [id number] [place] [address] 79397- 8163 Jul, Anxiety disorder, unspecified type F41.9 [facility] WALK IN [place] [address] [address] Jul, Body aches R52 and Viral illness B34.9 [facility] [place] [address] [id number] [place] [address]184 [address] Jun, Bronchitis J40 [place] [address] [id number] [place] [address] 50755- 8353 May, Hypothyroidism E03.9 [place] [address] [place] [id number] [place] [address] 87791- 0121 15 May, 2017 Menorrhagia with regular cycle N92.0 ; Hypothyroidism E03.9 ; Iron deficiency anemia due to chronic blood loss D50.0 ; Primary insomnia F51.01 and Restless leg G25.81 [place] [address] [place] [id number] [place] [address] 75035- 9480 May, [facility] [place] [address] [address] [id number] [place] [address]6731 [address] May, Acute cystitis with hematuria N30.01 and Dysuria R30.0 [place] [address] [address] Apr, [facility] [id number] [place] [address] 38208- 5047 Feb, [facility] [id number] [place] [address] 59725 [address]791 Feb, Ganglion cyst of wrist, left M67.432 [place] [address] [id number] [place] [address] 63445- 0231 Jan, Insomnia, unspecified G47.00 [place] [address] [place] [id number] [place] [address] 40632- 9914 Jan, Insomnia, unspecified G47.00 [place] [address] [place] [id number] [place] [address] 77283- 4699 Jan, 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 ; Bipolar disorder, unspecified F31.9 and Hypothyroidism E03.9 [place] [address] [place] [id number] [place] [address] 48200- 4600 Dec, Dental examination Z01.20 [place] [address] [place] [id number] [place] [address] 27421- 7628 14 Dec, 2016 Depression with anxiety F41.8 ; Post traumatic stress disorder (PTSD) F43.10 ; 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 and Adjustment disorder with mixed disturbance of emotions and conduct F43.25 [place] [address] [id number] [place] [address] 62298- 3033 November, 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 ; Adjustment disorder with mixed disturbance of emotions and conduct F43.25 and Depression with anxiety F41.8 [place] [address] [id number] [place] [address] 35785- 4712 November, Insomnia, unspecified G47.00 [place] [address] [place] [id number] [place] [address] 09751- 7426 November, 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 ; Adjustment disorder with mixed disturbance of emotions and conduct F43.25 and Depression with anxiety F41.8 [place] [address] [place] [id number] [place] [address] 62371- 5026 Oct, Insomnia, unspecified G47.00 [facility] WALK IN [facility] [id number] [place] [address] 74706 -4969 09 Oct, 2016 Visit for TB skin test Z11.1 [facility] WALK IN [facility] [address] [address] 28 Sep, 2016 Wheezing R06.2 and Bronchitis J40 [facility] [address] [id number] Sep, Dental examination Z01.20 [place] [address] [place] [id number] [place] [address] 60182- 3661 10 Sep, 2016 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 [place] [address] [place] [id number] [place] [address] 97182- 1629 08 Sep, 2016 Bipolar disorder, unspecified F31.9 ; Insomnia, unspecified G47.00 ; 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 ; Hypothyroidism E03.9 and Acquired hypothyroidism E03.9 [place] [address] [place] [id number] [place] [address] 69206- 4676 Jul, Hypothyroidism E03.9 [place] [address] [place] [id number] [place] [address] 47906- 2388 Jul, Hypothyroidism E03.9 [place] [address] [place] [id number] [place] [address] 99393- 1485 May, Generalized anxiety disorder F41.1 ; Depression with anxiety F41.8 and Bipolar disorder, unspecified F31.9 [place] [address] [place] [id number] [place] [address] 53921- 4502 Apr, Hypothyroidism E03.9 [place] [address] [place] [id number] [place] [address] 61131- 7879 Apr, Depression with anxiety F41.8 ; Bipolar disorder, unspecified F31.9 ; Generalized anxiety disorder F41.1 and Post traumatic stress disorder (PTSD) F43.[address] [address] Apr, Encounter to establish care Z76.89 ; Gastroesophageal reflux disease with esophagitis K21.0 ; Hypothyroidism E03.9 ; Bipolar disorder , unspecified F31.9 ; 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 ; Weight gain R63.5 and Insomnia, unspecified type G47.[address] 29707- 7889 Apr, Primary insomnia F51.01 ; Depression with anxiety F41.8 and Generalized anxiety disorder F41.[address] [address]59- [address] 18 Apr, 2016 [facility] [address] [address] Apr, Overdose of anticonvulsant, undetermined intent, initial encounter T42.74XA [address] 30419- 2551 Feb, [address] 39265- 7487 Jan, Bipolar disorder, unspecified F31.9 and Anger R45.4 [facility] WALK IN [address] [address] 15 Oct, 2015 Right forearm pain M79.631 [facility] [address] [id number] 04 Aug, 2015 Encounter for dental examination Z01.20 [facility] [address] [place] [address] 28620 [address]9923 14 Jul, 2015 Acute vomiting R11.[address] 56629- 9531 07 Jul, 2015 Screening for tuberculosis Z11.1 [place] [id number] [place] [address] 11634- 7661 Jun, Gastro-esophageal reflux disease with esophagitis K21.0 and Generalized anxiety disorder F41.1 [facility] [address] [place] [id number] [place] [address] 80431- 9287 Jun, Generalized anxiety disorder F41.1 and Insomnia, unspecified G47.00 [place] [address] [place] [id number] [place] [address] 57772- 2074 Jun, [place] [address] [place] [id number] [place] [address] 69026- 2372 May, Generalized anxiety disorder F41.1 and Bipolar disorder, unspecified F31.9 [place] [address] [place] [id number] [place] [address] 37412- 0056 May, Dysthymic disorder F34.1 ; Generalized anxiety disorder F41.1 and Bipolar 1 disorder with moderate felipe F31.12 [place] [address] [place] [id number] [place] [address] 26179- 7453 May, Bipolar 1 disorder with moderate felipe F31.12 ; Generalized anxiety disorder F41.1 and Insomnia, unspecified G47.00 [place] [address] [place] [id number] [place] [address] 79422- 7582 May, Bipolar 1 disorder with moderate felipe F31.12 [facility] [address] [place] [id number] [place] [address] 95835 -1052 May, Bronchitis J40 [place] [address] [place] [id number] [place] [address] 23795- 3268 Apr, Dysthymic disorder F34.1 and Generalized anxiety disorder F41.1 [place] [address] [place] [id number] [place] [address] 05732- 1426 Apr, Generalized anxiety disorder F41.1 and Dysthymic disorder F34.1 [place] [address] [place] [id number] [place] [address] 68132- 2061 Apr, Primary insomnia F51.01 ; Depression with anxiety F41.8 and Restless leg G25.81 [facility] [address] [place] [id number] [place] [address] 52179- 8738 Apr, Generalized anxiety disorder F41.1 ; Dysthymic disorder F34.1 ; Hypothyroidism E03.9 ; Anemia D64.9 and Acid reflux K21.9 [facility] [address] [id number] Mar, Dental examination V72.2 [facility] [address] 48990- [address] Mar, Routine adult health maintenance V70.0 [facility] [address] 10932- [address]1 Mar, [facility] [address] 36368- [address]114 Mar, Insomnia 780.52 ; Routine adult health maintenance V70.0 ; GERD (gastroesophageal reflux disease) 530.81 and Depression with anxiety 300.4 [facility] [address] [place] [id number] [place] [id number] Feb, Dental examination V72.2 [facility] [address] [place] [id number] [place] [address] 99235- 6657 Sep, [facility] [address] [place] [id number] [place] [address] 15819- 0429 Sep, [facility] [address] [place] [place] [id number] [place] [address] 90399- 6906 Sep, [facility] [id number] [place] [address] 37824- 6080 Sep, [facility] [address] [id number] [place] [address] 61477- 0474 Sep, [facility] [id number] [place] [address] 10600- 9688 Sep, IMMUNIZATIONS No Known Immunizations SOCIAL HISTORY Never Assessed REASON FOR VISIT Bariatric Evaluation PLAN OF CARE Activity Details Follow Up prn Reason: VITAL SIGNS MEDICATIONS Medication Instructions Dosage Frequency Start Date End Date Duration Status Sprintec 28 0.25-35 MG-MCG Orally Once a day Skp the placebo 1 tablet May, 90 days Active Levothyroxine Sodium 125 MCG TAKE ONE TABLET BY MOUTH ONCE DAILY 60 Active Gabapentin 300 MG Orally Once a day 1 capsule before bedtime 24h May, 90 Active Seroquel 50 MG Orally Once a day 2 tablets at bedtime 24h May, 30 days Active RESULTS No Results PROCEDURES Procedure Date Ordered Result Body Site [facility] VISIT MENTAL HEALTH ESTAB PT Aug 01, 2017 Psych diagnostic evaluation, established patient Aug 01, 2017 INSTRUCTIONS MEDICATIONS ADMINISTERED No Known Medications [...] History was admitted to a custodial/psych facility [id number]
--- OUTSIDE RECORDS SUMMARY | 2018-09-13 06:29 | XMS REPORT ---
Author Author NADYA IVY [facility] Address [address] [place] [address] Care Team Providers Care Dispensing And Measuring Optician Name Role Phone NADYA IVY Unavailable PROBLEMS Type Condition ICD9-CM Code IVA38-UH Code Onset Dates Condition Status SNOMED Code Problem 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 Active 391379220 Problem Post traumatic stress disorder (PTSD) F43.10 Active 04511598 Problem Hypothyroidism E03.9 Active 55559347 Problem Bipolar disorder, unspecified F31.9 Active 67877011 Problem Dental examination Z01.20 Active 611137749 Problem Adjustment disorder with mixed disturbance of emotions and conduct F43.25 Active 12129491 Problem Insomnia, unspecified G47.00 Active 116829719 Problem Caries K02.9 Active 33812122 Problem 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 Active 88790316 Problem Depression with anxiety F41.8 Active 627661137 Problem Dysthymic disorder F34.1 Active 05337711 Problem Restless leg G25.81 Active 79463606 Problem Gastro-esophageal reflux disease with esophagitis K21.0 Active 669571626 Problem Anger R45.4 Active 48434416 Problem Primary insomnia F51.01 Active 427057722 Problem Gastroesophageal reflux disease with esophagitis K21.0 Active 188115131 ALLERGIES No Known Allergies SOCIAL HISTORY Never Assessed PLAN OF CARE Activity Details Follow Up 3 Months Reason:insomnia VITAL SIGNS Height 62 in 2016-09-14 Weight 205.1 lbs 2016-09-14 Temperature 98.3 degrees Fahrenheit 2016-09-14 Heart Rate 100 bpm 2016-09-14 Respiratory Rate 18 2016-09-14 BMI 37.51 kg/m2 2016-09-14 Blood pressure systolic 122 mmHg 2016-09-14 Blood pressure diastolic 90 mmHg 2016-09-14 MEDICATIONS Medication Instructions Dosage Frequency Start Date End Date Duration Status Levothyroxine Sodium 125 MCG Orally Once a day 1 tablet 24h 60 days Active Seroquel 50 MG Orally Once a day 3 tablet at bedtime 24h May, 30 days Active Neurontin 100 MG Orally Once a day at bedtime. 1 Jun, Active Nexium 40 mg Orally Once a day 1 tablet 24h Apr, Active Ferrous Sulfate 325 (65 Fe) MG Orally Once a day 1 tablet 24h Mar, Active RESULTS Name Result Date Reference Range TSH 2016-09-14 TSH 0.844 0.450-4.500 CBC 2016-09-14 WBC 7.0 3.4-10.8 RBC 4.76 3.77-5.28 Hemoglobin 10.2 11.1-15.9 Hematocrit 33.5 34.0-46.6 MCV 70 79-97 MCH 21.4 26.6-33.0 MCHC 30.4 31.5-35.7 RDW 19.1 12.3-15.4 Platelets 372 150-379 Neutrophils 68 Lymphs 22 Monocytes 5 Eos 4 Basos 1 Neutrophils (Absolute) 4.8 1.4-7.0 Lymphs (Absolute) 1.5 0.7-3.1 Monocytes(Absolute) 0.4 0.1-0.9 Eos (Absolute) 0.3 0.0-0.4 Baso (Absolute) 0.0 0.0-0.2 Immature Granulocytes 0 Immature Grans (Abs) 0.0 0.0-0.1 PROCEDURES Procedure Date Ordered Result Body Site LAB NOT BILLED BY [facility] September 14, 2016 [facility] VISIT ESTABLISHED PATIENT September 14, 2016 VENIPUNCT, ROUTINE* September 14, 2016 IMMUNIZATIONS No Known Immunizations MEDICAL (GENERAL) HISTORY [...] History was admitted to a custodial/psych facility [id number]
--- OUTSIDE RECORDS SUMMARY | 2018-09-13 06:29 | XMS REPORT ---
Author BLAIR [facility] e[employer] Address Unknown Phone Unavailable Care Team Providers Care Religion Department Chair Name Role Phone BLAIR AGUIRRE Unavailable Allergies, Adverse Reactions, Alerts Substance Reaction Event Type N.K.D.A. Info Not Available Non Drug Allergy Problems Problem Type Condition Code Onset Dates Condition Status Assessment Bipolar 1 disorder with moderate felipe F31.12 Active Assessment Dysthymic disorder F34.1 Active Assessment Generalized anxiety disorder F41.1 Active Problem Restless leg G25.81 Active Problem Generalized anxiety disorder F41.1 Active Problem Bipolar disorder, unspecified F31.9 Active Problem Gastro-esophageal reflux disease with esophagitis K21.0 Active Problem Depression with anxiety F41.8 Active Problem Dysthymic disorder F34.1 Active Problem Primary insomnia F51.01 Active Medications Medication Code System Code Instructions Start Date End Date Status Dosage Restoril [facility] [place] [address]-97 15 MG Orally daily at hs for sleep Apr 29, 2015 1 capsule at bedtime as needed Clonidine HCl [facility] [place] [address]-38 0.1 MG Orally 3 times a day May 07, 2015 1 tablet Levothyroxine Sodium [facility] [place] [address]-95 75 MCG Orally Once a day Mar 13, 2015 1 tablet Ferrous Sulfate [facility] [place] [address]-79 325 (65 Fe) MG Orally Once a day Mar 1 tablet ProAir HFA [facility] [place] [address]-02 108 (90 Base) MCG/ACT Inhalation every 4 hrs May 12, 2015 2 puffs as needed Neurontin [facility] [place] [address]-99 100 MG Orally Once a day at hs Apr 29, 2015 as directed Pepcid AC [facility] [place] [address]172 10 MG Orally Once a day 2 tablet Claflin Carbonate [facility] [place] [address]-43 150 MG Orally 2 times a day May 14, 2015 1 capsule Nexium [facility] [place] [address]-32 20 MG Orally Once a day Mar 12, 2015 1 capsule Seroquel [facility] [place] [address]-82 200 MG Orally Once a day May 14, 2015 2 tablet at bedtime Lexapro [facility] [place] [address]-70 10 MG Orally Once a day Apr 29, 2015 1 tablet Procedures Procedure Coding System Code Date MH Office Visit, Est Pt., Level 3 CPT-4 77569 Jun 01, 2015 Vital Signs Date/Time: Jun 01, 2015 Cardiac Monitoring Heart Rate 88 bpm Weight 200.9 lbs Height 62 in BMI 36.74 Index Blood Pressure Diastolic 86 mmHg Blood Pressure Systolic 130 mmHg Results No Known Results Summary Purpose eClinicalWorks Submission
--- OUTSIDE RECORDS SUMMARY | 2018-09-13 06:29 | XMS REPORT ---
Author Author NADYA IVY Organization [facility] Address [address] [place] [address] Care Team Providers Care Kiln Worker Name Role Phone NADYA IVY Unavailable PROBLEMS Type Condition ICD9-CM Code FCY20-UG Code Onset Dates Condition Status SNOMED Code Problem 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 Active 813162281 Problem Post traumatic stress disorder (PTSD) F43.10 Active 47104069 Problem Hypothyroidism E03.9 Active 13530630 Problem Bipolar disorder, unspecified F31.9 Active 71124315 Problem Dental examination Z01.20 Active 424953534 Problem Adjustment disorder with mixed disturbance of emotions and conduct F43.25 Active 76557329 Problem Insomnia, unspecified G47.00 Active 270911520 Problem Caries K02.9 Active 59662962 Problem 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 Active 53794826 Problem Depression with anxiety F41.8 Active 040732935 Problem Dysthymic disorder F34.1 Active 43306518 Problem Restless leg G25.81 Active 29866369 Problem Gastro-esophageal reflux disease with esophagitis K21.0 Active 768546108 Problem Anger R45.4 Active 89261564 Problem Primary insomnia F51.01 Active 113273133 Problem Gastroesophageal reflux disease with esophagitis K21.0 Active 744656009 ALLERGIES No Known Allergies SOCIAL HISTORY No smoking Hx information available PLAN OF CARE VITAL SIGNS MEDICATIONS No Known Medications RESULTS Name Result Date Reference Range TSH 2016-07-12 TSH 7.220 0.450-4.500 PROCEDURES Procedure Date Ordered Related Diagnosis Body Site LAB NOT BILLED BY [facility] Jul 12, 2016 GARFIELD, ROUTINE* Jul 12, 2016 IMMUNIZATIONS No Known Immunizations
--- OUTSIDE RECORDS SUMMARY | 2018-09-13 06:29 | XMS REPORT ---
Author JEANA Yancey Organization [employer] Address Unknown Phone Unavailable Care Team Providers Care Vocational Aide Name Role Phone JEANA CULLEN CP Unavailable Allergies No Known Allergies Problems Problem Type Condition ICD-9 Code Onset Dates Condition Status Assessment Dental examination V72.2 Active Medications No Known Medications Procedures Procedure Coding System Code Date INTRAORL-PERIAPICAL 1 FILM 39223 CPT-4 D0220 Mar 02, 2015 BITEWING - SINGLE FILM CPT-4 D0270 Mar 02, 2015 LTD ORAL EVALUATION - PROBLEM FOCUS CPT-4 D0140 Mar 02, 2015 Results No Known Results Summary Purpose eClinicalWorks Submission
--- OUTSIDE RECORDS SUMMARY | 2018-09-13 06:29 | XMS REPORT ---
Author Author NADYA IVY 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 Active 35668994 Problem Anxiety disorder, unspecified type F41.9 Active 276786806 Problem Hiatal hernia K44.9 Active 05065266 Problem Iron deficiency anemia due to chronic blood loss D50.0 Active 90823576 Problem Caries K02.9 Active 55268295 Problem Dental examination Z01.20 Active 088835564 Problem Menorrhagia with regular cycle N92.0 Active 049949818 Problem Bipolar disorder, unspecified F31.9 Active 85949275 Problem Primary insomnia F51.01 Active 428194595 Problem Dysthymic disorder F34.1 Active 44952023 Problem Depression with anxiety F41.8 Active 866649846 Problem Gastro-esophageal reflux disease with esophagitis K21.0 Active 888185172 Problem 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 Active 064087054 Problem Gastroesophageal reflux disease with esophagitis K21.0 Active 786807387 Problem Restless leg G25.81 Active 76569486 Problem Hypothyroidism E03.9 Active 53864212 Problem Anger R45.4 Active 18746630 Problem Post traumatic stress disorder (PTSD) F43.10 Active [id number] ALLERGIES No Information ENCOUNTERS Encounter Location Date Diagnosis [facility] [address] [facility] [id number] [address] Sep, [facility] [address] [facility] [id number] [address] Sep, Aspiration pneumonia, unspecified aspiration pneumonia type , unspecified laterality, unspecified part of lung J69.0 [place] [address] [address] Sep, Pneumonia of left lower lobe due to infectious organism J18.1 [place] [address] [address] Jul, Anxiety disorder, unspecified type F41.9 [facility] [place] [address] [address] Jul, Body aches R52 and Viral illness B34.9 [facility] [address] [address] Jun, Bronchitis J40 [place] [address] [address] May, Hypothyroidism E03.9 [place] [address] [address] May, Menorrhagia with regular cycle N92.0 ; Hypothyroidism E03.9 ; Iron deficiency anemia due to chronic blood loss D50.0 ; Primary insomnia F51.01 and Restless leg G25.81 [place] [address] [address] May, [facility] [place] [address] [address] May, Acute cystitis with hematuria N30.01 and Dysuria R30.0 [place] [address] [address] Apr, [place] [address] [address] Feb, [facility] [place] [address] [address] Feb, Ganglion cyst of wrist, left M67.432 [place] [address] [address] Jan, Insomnia, unspecified G47.00 [place] [address] [address] [place] [id number] [place] [address] Jan, Insomnia, unspecified G47.00 [place] [address] [address] [place] [id number] [place] [address] Jan, 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 ; Bipolar disorder, unspecified F31.9 and Hypothyroidism E03.9 [place] [address] [address] [place] [id number] [place] [address] Dec, Dental examination Z01.20 [place] [address] [address] [place] [id number] [place] [address] 14 Dec, 2016 Depression with anxiety F41.8 ; Post traumatic stress disorder (PTSD) F43.10 ; 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 and Adjustment disorder with mixed disturbance of emotions and conduct F43.25 [place] [address] [address] [place] [id number] [place] [address] November, 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 ; Adjustment disorder with mixed disturbance of emotions and conduct F43.25 and Depression with anxiety F41.8 [place] [address] [place] [address] November, Insomnia, unspecified G47.00 [place] [address] [address] [place] [id number] [place] [address] November, 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 ; Adjustment disorder with mixed disturbance of emotions and conduct F43.25 and Depression with anxiety F41.8 [place] [address] [address] [place] [id number] [place] [address] Oct, Insomnia, unspecified G47.00 [facility] [id number] [place] [address] Oct, Visit for TB skin test Z11.1 [facility] [address] [address] 28 Sep, 2016 Wheezing R06.2 and Bronchitis J40 [facility] [address] [address] 20 Sep, 2016 Dental examination Z01.20 [facility] [address] [place] [address] 10 Sep, 2016 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 [facility] [address] [place] [id number] [place] [address] 08 Sep, 2016 Bipolar disorder, unspecified F31.9 ; Insomnia, unspecified G47.00 ; 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 ; Hypothyroidism E03.9 and Acquired hypothyroidism E03.9 [facility] [address] [place] [address] Jul, Hypothyroidism E03.9 [place] [address] [place] [id number] [place] [address] Jul, Hypothyroidism E03.9 [place] [address] [address] [place] [id number] [place] [address] May, Generalized anxiety disorder F41.1 ; Depression with anxiety F41.8 and Bipolar disorder, unspecified F31.9 [facility] [address] [place] [address] Apr, Hypothyroidism E03.9 [facility] [address] [place] [address] Apr, Depression with anxiety F41.8 ; Bipolar disorder, unspecified F31.9 ; Generalized anxiety disorder F41.1 and Post traumatic stress disorder (PTSD) F43.10 [facility] [address], [place] [address] Apr, Encounter to establish care Z76.89 ; Gastroesophageal reflux disease with esophagitis K21.0 ; Hypothyroidism E03.9 ; Bipolar disorder , unspecified F31.9 ; 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 ; Weight gain R63.5 and Insomnia, unspecified type G47.[address] [address] Apr, Primary insomnia F51.01 ; Depression with anxiety F41.8 and Generalized anxiety disorder F41.[address] [address] Apr, [facility] [address] [address] Apr, Overdose of anticonvulsant, undetermined intent, initial encounter T42.74XA [address] [address] Feb, [address] [address] Jan, Bipolar disorder, unspecified F31.9 and Anger R45.4 [facility] [address] [address] Oct, Right forearm pain M79.631 [facility] [address] [id number] 04 Aug, 2015 Encounter for dental examination Z01.20 [facility] [address] [address] Jul, Acute vomiting R11.[address] [address] Jul, Screening for tuberculosis Z11.[address] [address] Jun, Gastro-esophageal reflux disease with esophagitis K21.0 and Generalized anxiety disorder F41.[address] [address] Jun, Generalized anxiety disorder F41.1 and Insomnia, unspecified G47.00 [facility] [address] [place] [id number] [place] [address] Jun, [facility] [address] [address] May, Generalized anxiety disorder F41.1 and Bipolar disorder, unspecified F31.9 [facility] [address] [address] May, Dysthymic disorder F34.1 ; Generalized anxiety disorder F41.1 and Bipolar 1 disorder with moderate felipe F31.12 [place] [address] [address] May, Bipolar 1 disorder with moderate felipe F31.12 ; Generalized anxiety disorder F41.1 and Insomnia, unspecified G47.00 [place] [address] [address] May, Bipolar 1 disorder with moderate felipe F31.12 [facility] [address] [address] May, Bronchitis J40 [facility] [address] [address] Apr, Dysthymic disorder F34.1 and Generalized anxiety disorder F41.1 [place] [address] [place] [id number] [place] [address] Apr, Generalized anxiety disorder F41.1 and Dysthymic disorder F34.1 [place] [address] [address] [place] [id number] [place] [address] Apr, Primary insomnia F51.01 ; Depression with anxiety F41.8 and Restless leg G25.81 [facility] [address] [place] [id number] [place] [address] Apr, Generalized anxiety disorder F41.1 ; Dysthymic disorder F34.1 ; Hypothyroidism E03.9 ; Anemia D64.9 and Acid reflux K21.9 [facility] [address] [id number] [address] Mar, Dental examination V72.2 [facility] [address] [place] [id number] [place] [address]110[address] Mar, Routine adult health maintenance V70.0 [facility] [address] [place] [address]- [address] Mar, [facility] [address] [place] [id number] [place] [address] 359263[address] Mar, Insomnia 780.52 ; Routine adult health maintenance V70.0 ; GERD (gastroesophageal reflux disease) 530.81 and Depression with anxiety 300.4 [facility] [address] [place] [id number] Feb, Dental examination V72.2 [facility] [address] [place] [address] Sep, [facility] [address] [place] [id number] [place] [address]- [address] Sep, [facility] [address] [place] [id number] [place] [address]- [address] Sep, [facility] [address] [place] [id number] [place] [address]- [address] Sep, [facility] [address], [place] [address] Sep, [facility] [address] [place] [id number] [place] [id number]- [address] Sep, IMMUNIZATIONS No Known Immunizations SOCIAL HISTORY Never Assessed REASON FOR VISIT Refill request PLAN OF CARE VITAL SIGNS MEDICATIONS Medication Instructions Dosage Frequency Start Date End Date Duration Status Seroquel 50 mg Orally Once a day at bedtime 1 tablet May, 30 days Active RESULTS No Results [...] 1992 Hospitalization History was admitted to a jail/psych facility [id number]
--- OUTSIDE RECORDS SUMMARY | 2018-09-13 06:30 | XMS REPORT ---
Author Author CRISTY MARAVILLA [facility] Address [address] [place] [address] Care Team Providers Care Tank House Operator Helper Name Role Phone CRISTY MARAVILLA Unavailable PROBLEMS Type Condition ICD9-CM Code XLD88-YF Code Onset Dates Condition Status SNOMED Code Problem 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 Active 126087772 Problem Post traumatic stress disorder (PTSD) F43.10 Active 17173058 Problem Hypothyroidism E03.9 Active 88625709 Problem Bipolar disorder, unspecified F31.9 Active 89286000 Problem Dental examination Z01.20 Active 091649071 Problem Adjustment disorder with mixed disturbance of emotions and conduct F43.25 Active 80413957 Problem Insomnia, unspecified G47.00 Active 501501136 Problem Caries K02.9 Active 63757959 Problem 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 Active 21565730 Problem Depression with anxiety F41.8 Active 365703238 Problem Dysthymic disorder F34.1 Active 60011004 Problem Restless leg G25.81 Active 08268662 Problem Gastro-esophageal reflux disease with esophagitis K21.0 Active 461149673 Problem Anger R45.4 Active 48667835 Problem Primary insomnia F51.01 Active 972924299 Problem Gastroesophageal reflux disease with esophagitis K21.0 Active 098774735 ALLERGIES No Information SOCIAL HISTORY Never Assessed PLAN OF CARE Activity Details Follow Up 2 Weeks Reason:Anxiety, depression VITAL SIGNS MEDICATIONS Unknown Medications RESULTS No Results PROCEDURES Procedure Date Ordered Result Body Site Psychotherapy, patient &/family, 30 minutes, established patient November 08, 2016 IMMUNIZATIONS No Known Immunizations MEDICAL (GENERAL) [...] History was admitted to a long-term/psych facility [id number]
--- OUTSIDE RECORDS SUMMARY | 2018-09-13 06:30 | XMS REPORT ---
Author FLAQUITA Smith [facility] eClinicalWorks Address Unknown Phone Unavailable Care Team Providers Care Assistant Auditor Name Role Phone FLAQUITA PEARCE Unavailable Allergies No Known Allergies Problems Problem Type Condition Code Onset Dates Condition Status Assessment Dysthymic disorder F34.1 Active Problem Generalized anxiety disorder F41.1 Active Problem Dysthymic disorder F34.1 Active Problem Restless leg G25.81 Active Problem Depression with anxiety F41.8 Active Assessment Generalized anxiety disorder F41.1 Active Problem Primary insomnia F51.01 Active Problem Gastro-esophageal reflux disease with esophagitis K21.0 Active Medications No Known Medications Procedures Procedure Coding System Code Date Psychotherapy, patient &/family, 45 minutes, established patient CPT-4 99590 May 04, 2015 Results No Known Results Summary Purpose eClinicalWorks Submission
--- OUTSIDE RECORDS SUMMARY | 2018-09-13 06:30 | XMS REPORT ---
Author GUZMAN Bales [facility] eClinicalWorks Address Unknown Phone Unavailable Care Team Providers Care Marketing Manager Health Communications Name Role Phone GUZMAN ALMANZAR CP Unavailable Allergies, Adverse Reactions, Alerts Substance Reaction Event Type N.K.D.A. Info Not Available Non Drug Allergy Problems Problem Type Condition Code Onset Dates Condition Status Assessment Acute vomiting R11.10 Active Problem Restless leg G25.81 Active Problem Generalized anxiety disorder F41.1 Active Problem Bipolar disorder, unspecified F31.9 Active Problem Gastro-esophageal reflux disease with esophagitis K21.0 Active Problem Depression with anxiety F41.8 Active Problem Dysthymic disorder F34.1 Active Problem Primary insomnia F51.01 Active Medications Medication Code System Code Instructions Start Date End Date Status Dosage Restoril [facility] [address]-18 15 MG Orally daily at hs for sleep Apr 29, 2015 1 capsule at bedtime as needed Neurontin [facility] [address]-02 100 MG Orally Once a day at hs Apr 29, 2015 as directed Levothyroxine Sodium [facility] [address]-70 75 MCG Orally Once a day Mar 13, 2015 1 tablet Nexium [facility] [address]-37 20 MG Orally Once a day Mar 12, 2015 1 capsule Nexium [facility] [address]-83 20 MG Orally Once a day Jul 01, 2015 1 capsule Seroquel [facility] [address]-54 200 MG Orally Once a day May 14, 2015 2 tablet at bedtime Clonidine HCl [facility] [address]-85 0.1 MG Orally 3 times a day May 07, 2015 1 tablet Ferrous Sulfate [facility] [address]-24 325 (65 Fe) MG Orally Once a day Mar 1 tablet Neurontin [facility] [address]-32 100 MG Orally Once a day at bedtime. Jul 01, 2015 1 ProAir HFA [facility] [address]-14 108 (90 Base) MCG/ACT Inhalation every 4 hrs May 12, 2015 2 puffs as needed Procedures Procedure Coding System Code Date [facility] VISIT ESTABLISHED PATIENT CPT-4 G0467 Jul 23, 2015 Office Visit, Est Pt., Level 4 CPT-4 71370 Jul 23, 2015 URINALYSIS, AUTO, W/O SCOPE CPT-4 60241 Jul 23, 2015 Vital Signs Date/Time: Jul 23, 2015 Temperature 98.7 F Weight 203 lbs Height 62 in BMI 37.13 Index Blood Pressure Diastolic 92 mmHg Blood Pressure Systolic 134 mmHg Cardiac Monitoring Heart Rate 92 bpm Results Name Result Date Reference Range Unit Abnormality Flag UA LONG DIP (IN HOUSE) ----TRUMAN Negative 20150723 ----NIT Negative 20150723 ----Exp date 20150723 ----Lot # [id number] ----SG 1.025 20150723 ----KET Trace 20150723 ----JOCELYN Negative 20150723 ----GLU Negative 20150723 ----Odor no 20150723 ----pH 5.0 20150723 ----BLO Negative 20150723 ----URO 0.2 20150723 ----Protein Negative 20150723 ----Lot # [id number] ----Exp date 20150723 ----Clarity clear 20150723 ----Color yellow 20150723 Summary Purpose eClinicalWorks Submission
--- OUTSIDE RECORDS SUMMARY | 2018-09-13 06:30 | XMS REPORT ---
Author BLAIR Villareal [facility] eClinicalWorks Address Unknown Phone Unavailable Care Team Providers Care Dairy Management Specialist Name Role Phone BLAIR AGUIRRE CP Unavailable Allergies No Known Allergies Problems Problem Type Condition Code Onset Dates Condition Status Problem Restless leg G25.81 Active Problem Generalized anxiety disorder F41.1 Active Problem Bipolar disorder, unspecified F31.9 Active Problem Gastro-esophageal reflux disease with esophagitis K21.0 Active Problem Depression with anxiety F41.8 Active Problem Dysthymic disorder F34.1 Active Problem Primary insomnia F51.01 Active Medications No Known Medications Results No Known Results Summary Purpose eClinicalWorks Submission
--- OUTSIDE RECORDS SUMMARY | 2018-09-13 06:30 | XMS REPORT ---
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 Active 09356916 Problem Anxiety disorder, unspecified type F41.9 Active 841657577 Problem Hiatal hernia K44.9 Active 12297297 Problem Iron deficiency anemia due to chronic blood loss D50.0 Active 35387551 Problem Caries K02.9 Active 18292503 Problem Dental examination Z01.20 Active 008595948 Problem Menorrhagia with regular cycle N92.0 Active 339914018 Problem Bipolar disorder, unspecified F31.9 Active 64532972 Problem Primary insomnia F51.01 Active 978695771 Problem Dysthymic disorder F34.1 Active 47010536 Problem Depression with anxiety F41.8 Active 943234410 Problem Gastro-esophageal reflux disease with esophagitis K21.0 Active 001605119 Problem 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 Active 054116503 Problem Gastroesophageal reflux disease with esophagitis K21.0 Active 772676603 Problem Restless leg G25.81 Active 58003128 Problem Hypothyroidism E03.9 Active 96663900 Problem Anger R45.4 Active 42933302 Problem Post traumatic stress disorder (PTSD) F43.10 Active 32836718 ALLERGIES No Information ENCOUNTERS Encounter Location Date Diagnosis [facility] [address] [facility] [id number] [address] Sep, [facility] [address] [id number] [address] Sep, Aspiration pneumonia, unspecified aspiration pneumonia type , unspecified laterality, unspecified part of lung J69.0 [place] [address] [address] Sep, Pneumonia of left lower lobe due to infectious organism J18.1 [place] [address] [address] Jul, Anxiety disorder, unspecified type F41.9 [facility] [place] [address] [address] Jul, Body aches R52 and Viral illness B34.9 [facility] [address] [address] Jun, Bronchitis J40 [place] [address] [address] May, Hypothyroidism E03.9 [place] [address] [address] May, Menorrhagia with regular cycle N92.0 ; Hypothyroidism E03.9 ; Iron deficiency anemia due to chronic blood loss D50.0 ; Primary insomnia F51.01 and Restless leg G25.81 [place] [address] [address] May, [facility] [place] [address] [address] May, Acute cystitis with hematuria N30.01 and Dysuria R30.0 [place] [address] [address] Apr, [place] [address] [address] Feb, [facility] [place] [address] [address] Feb, Ganglion cyst of wrist, left M67.432 [place] [address] [place] [id number] [place] [address] Jan, Insomnia, unspecified G47.00 [place] [address] [place] [id number] [place] [address] Jan, Insomnia, unspecified G47.00 [place] [address] [place] [id number] [place] [address] Jan, 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 ; Bipolar disorder, unspecified F31.9 and Hypothyroidism E03.9 [place] [address] [place] [id number] [place] [address] Dec, Dental examination Z01.20 [place] [address] [place] [id number] [place] [address] 14 Dec, 2016 Depression with anxiety F41.8 ; Post traumatic stress disorder (PTSD) F43.10 ; 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 and Adjustment disorder with mixed disturbance of emotions and conduct F43.25 [place] [address] [place] [id number] [place] [address] November, 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 ; Adjustment disorder with mixed disturbance of emotions and conduct F43.25 and Depression with anxiety F41.8 [place] [address] [place] [id number] [place] [address] November, Insomnia, unspecified G47.00 [place] [address] [place] [id number] [place] [address] November, 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 ; Adjustment disorder with mixed disturbance of emotions and conduct F43.25 and Depression with anxiety F41.8 [place] [address] [place] [id number] [place] [address] Oct, Insomnia, unspecified G47.00 [facility] [place] [address] [place] [id number] [place] [address] Oct, Visit for TB skin test Z11.1 [facility] [address], [place] [address] 28 Sep, 2016 Wheezing R06.2 and Bronchitis J40 [facility] [address] [place] [id number] [place] [id number] Sep, Dental examination Z01.20 [facility] [address] [place] [id number] [place] [address] 10 Sep, 2016 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 [facility] [address] [place] [id number] [place] [address] 08 Sep, 2016 Bipolar disorder, unspecified F31.9 ; Insomnia, unspecified G47.00 ; 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 ; Hypothyroidism E03.9 and Acquired hypothyroidism E03.9 [facility] [address] [place] [id number] [place] [address] Jul, Hypothyroidism E03.9 [place] [address] [place] [id number] [place] [address] Jul, Hypothyroidism E03.9 [place] [address] [place] [id number] [place] [address] May, Generalized anxiety disorder F41.1 ; Depression with anxiety F41.8 and Bipolar disorder, unspecified F31.9 [facility] [address] [place] [address] Apr, Hypothyroidism E03.9 [facility] [address] [place] [id number] [place] [address] Apr, Depression with anxiety F41.8 ; Bipolar disorder, unspecified F31.9 ; Generalized anxiety disorder F41.1 and Post traumatic stress disorder (PTSD) F43.10 [facility] [address] [place] [address] Apr, Encounter to establish care Z76.89 ; Gastroesophageal reflux disease with esophagitis K21.0 ; Hypothyroidism E03.9 ; Bipolar disorder , unspecified F31.9 ; 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 ; Weight gain R63.5 and Insomnia, unspecified type G47.[address] [address] Apr, Primary insomnia F51.01 ; Depression with anxiety F41.8 and Generalized anxiety disorder F41.[address] [address] Apr, [facility] [address] [address] Apr, Overdose of anticonvulsant, undetermined intent, initial encounter T42.74XA [address] [address] Feb, [address] [address] Jan, Bipolar disorder, unspecified F31.9 and Anger R45.4 [facility] [address] [address] 15 Oct, 2015 Right forearm pain M79.631 [facility] [address] [id number] 04 Aug, 2015 Encounter for dental examination Z01.20 [facility] [address] [address] Jul, Acute vomiting R11.[address] [address] 07 Jul, 2015 Screening for tuberculosis Z11.[address] [address] Jun, Gastro-esophageal reflux disease with esophagitis K21.0 and Generalized anxiety disorder F41.[address] [address] Jun, Generalized anxiety disorder F41.1 and Insomnia, unspecified G47.00 [facility] [address] [place] [id number] [place] [address] Jun, [facility] [address] [address] May, Generalized anxiety disorder F41.1 and Bipolar disorder, unspecified F31.9 [facility] [address] [address] May, Dysthymic disorder F34.1 ; Generalized anxiety disorder F41.1 and Bipolar 1 disorder with moderate felipe F31.12 [facility] [address] [address] May, Bipolar 1 disorder with moderate felipe F31.12 ; Generalized anxiety disorder F41.1 and Insomnia, unspecified G47.00 [facility] [address] [address] May, Bipolar 1 disorder with moderate felipe F31.12 [facility] [address] [address] May, Bronchitis J40 [facility] [address] [address] Apr, Dysthymic disorder F34.1 and Generalized anxiety disorder F41.1 [facility] [address] [address] Apr, Generalized anxiety disorder F41.1 and Dysthymic disorder F34.1 [place] [address] [place] [id number] [place] [address] Apr, Primary insomnia F51.01 ; Depression with anxiety F41.8 and Restless leg G25.81 [facility] [address] [place] [id number] [place] [address] Apr, Generalized anxiety disorder F41.1 ; Dysthymic disorder F34.1 ; Hypothyroidism E03.9 ; Anemia D64.9 and Acid reflux K21.9 [facility] [address] [place] [address] [id number] [id number] Mar, Dental examination V72.2 [facility] [address] [place] [id number] [place] [address] Mar, Routine adult health maintenance V70.0 [facility] [address] [place] [id number] [place] [address] Mar, [facility] [address] [place] [id number] [place] [address] 8[address] Mar, Insomnia 780.52 ; Routine adult health maintenance V70.0 ; GERD (gastroesophageal reflux disease) 530.81 and Depression with anxiety 300.4 [facility] [address] [place] [id number] Feb, Dental examination V72.2 [facility] [address] [place] [address] [id number]- [address] Sep, [facility] [address] [place] [id number] [place] [address] [id number][address] Sep, [facility] [address] [place] [address] Sep, [facility] [address] [place] [id number] [place] [address] [id number]- [address] Sep, [facility] [address], [place] [address] Sep, [facility] [address] [place] [id number] [place] [id number] Sep, IMMUNIZATIONS No Known Immunizations SOCIAL HISTORY Never Assessed REASON FOR VISIT f/u PLAN OF CARE Activity Details Follow Up 2 Weeks Reason:Anxiety, depression VITAL SIGNS MEDICATIONS Unknown Medications RESULTS No Results PROCEDURES Procedure Date Ordered Result Body Site Psychotherapy, patient &/family, 30 minutes, established patient December 07, 2016 INSTRUCTIONS MEDICATIONS ADMINISTERED No Known Medications MEDICAL [...] History was admitted to a custodial/psych facility [id number]
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
[2018-09-13] MEDS ORDERED: LACTATED RINGERS 1,000 ML IV SCH ×2 (06:47→07:08)
[2018-09-13] MEDS ORDERED: SEVOFLURANE (ULTANE) 15 ML INHAL SOLN ONE ×6 (06:49→09:08)
[2018-09-13] MEDS ORDERED: fentaNYL INJECTION 100 MCG/2 ML AMP ONE ×2 (06:49→08:23)
[2018-09-13] MEDS ORDERED: LIDOCAINE PF 2% 5 ML (XYLOCAINE) VIAL ONE (06:49)
[2018-09-13] MEDS ORDERED: ONDANSETRON 4 MG/2 ML (SDV) Z0FRAN ONE (06:49)
[2018-09-13] MEDS ORDERED: DEXAMETHASONE 10 MG/ML (DECADRON) 1 ML VIAL ONE (06:49)
[2018-09-13] MEDS ORDERED: MIDAZOLAM 2 MG/2 ML (VERSED) VIAL ONE (06:49)
[2018-09-13] MEDS ORDERED: ROCURONIUM 10 MG/ML 5 ML SYRINGE IV ONE (06:49)
[2018-09-13] MEDS ORDERED: proPOfol 200 MG/20 ML (DIPRIVAN) VIAL IV ONE (06:49)
[2018-09-13] MEDS ORDERED: ceFAZolin 2 GM IV Premixed 50 ML IV ONE (07:00)
[2018-09-13] MEDS ORDERED: metroNIDAZOLE 500MG/100ML IVPB 100 ML IV ONE (07:00)
[2018-09-13 07:01] VITALS: BP 127/91
[2018-09-13] MEDS ORDERED: BUP/EPI 0.5% 1:200,000 (SENSORCAINE) 30 ML VIAL ONE (07:01)
--- NOTE | 2018-09-13 07:07 | Progress Note-Pre Operative ---
Pre-Operative Progress Note H&P Reviewed The H&P was reviewed, patient examined and no changes noted. Date Seen by Provider: Sep 13, 2018 Time Seen by Provider: 07:00 Date H&P Reviewed: Sep 13, 2018 Time H&P Reviewed: 07:00 Pre-Operative Diagnosis: CPP, Adenomyosis, Menorrhagia, Dysmenorrhea LISA LUQUE DO Sep 13, 2018 07:07
--- NOTE | 2018-09-13 07:12 | Discharge Inst-Women's Service ---
Discharge Inst-Women's Serv Depart Medication/Instructions New, Converted or Re-Newed RX: RX on Chart Consults/Follow Up Additional Follow Up: Yes Orders/Referrals Dr. Hudson in 7-10 days and in 8 weeks Activity Activity: Activity as Tolerated Driving Instructions: No Driving for 1 Week NO SMOKING: NO SMOKING Nothing Inside Vagina: No Douching, No [place], No Tampons Diet Discharge Diet: No Restrictions Symptoms to Report to : Bleeding Excessive, Pain Increased, Fever Over 101 Degrees F, Vaginal Bleeding Increase, Questions/Concerns For Any Problems or Questions: Contact Your Physician, Go to [facility] Skin/Wound Care Infection Signs and Symptoms: Increased Redness, Foul Odor of Wound, Increased Drainage, Skin Itchy or Has a Rash, Increased Swelling, Temperature Above 101 F Operative Area Clean and Dry: Keep Incision Clean/Dry Stitches/[place]/Dermabond: Dermabond, Care of Stitches Bathing Instructions: LISA Chong DO Sep 13, 2018 07:12
[2018-09-13] MEDS ORDERED: HYDR-34 PO (07:14)
[2018-09-13] MEDS ORDERED: DOCU100C37 PO (07:14)
[2018-09-13] MEDS ORDERED: IBUP-844 PO (07:14)
[2018-09-13] MEDS ORDERED: CHLORASEPTIC LOZENGE MM PRN (07:15)
[2018-09-13] MEDS ORDERED: ANTACID SUSP 30 ML UDC (MYLANTA) PO PRN (07:15)
[2018-09-13] MEDS ORDERED: ZOLPIDEM 5 MG (AMBIEN) TAB PO PRN (07:15)
[2018-09-13] MEDS ORDERED: HYDROcodone/APAP 7.5 MG/325 MG (LORTAB, LORCET PLUS) TABLET PO PRN (07:15)
[2018-09-13] MEDS ORDERED: SIMETHICONE 80 MG (MYLICON) CHEW PO PRN (07:15)
[2018-09-13] MEDS ORDERED: ONDANSETRON 4 MG/2 ML (SDV) Z0FRAN IV PRN (07:15)
[2018-09-13] MEDS ORDERED: DOCUSATE SODIUM 100 MG (COLACE) CAP PO PRN (07:15)
[2018-09-13] MEDS ORDERED: SIME80TA16 PO (07:22)
[2018-09-13] MEDS: LACTATED RINGERS 1,000 ML IV PRN ×2 (07:37→09:57)
[2018-09-13] MEDS ORDERED: GLYCOPYRROLATE 0.2 MG/ML (ROBINUL) 2 ML VIAL ONE (09:07)
[2018-09-13] MEDS ORDERED: NEOSTIGMINE 1 MG/ML 5 ML SYRINGE ONE (09:07)
[2018-09-13] MEDS ORDERED: KETOROLAC 30 MG/ML VIAL ONE (09:52)
[2018-09-13] MEDS ORDERED: morphine INJ 10 MG/ML 1ML (SYR OR VIAL) ONE (09:52)
[2018-09-13] MEDS: KETOROLAC 30 MG/ML VIAL IV PRN ×3 (09:55→22:03)
[2018-09-13] MEDS ORDERED: morphine INJ 10 MG/ML 1ML (SYR OR VIAL) IVP ONE (10:00)
[2018-09-13] MEDS ORDERED: ONDANSETRON 4 MG/2 ML (SDV) Z0FRAN IVP PRN (10:00)
[2018-09-13] MEDS ORDERED: HYDROmorphone 2 MG/ML VIAL (DILAUDID) IV ONE (10:00)
[2018-09-13] MEDS ORDERED: HYDROmorphone 2 MG/ML VIAL (DILAUDID) ONE (10:08)
--- NOTE | 2018-09-13 10:45 | NUR ---
LANIE GREGG presented to unit via BED from RECOVERY, accompanied by Elaina CASTELLANOS RN AND Emilie MERRILL RN FOLLOWING HER SURGERY. LANIE GREGG oriented to bed controls, call light, TV, heat, and A/C controls.
[2018-09-13 10:56] VITALS: BP 133/80
--- NOTE | 2018-09-13 11:05 | NUR ---
VS OBTAINED. PHONE # OF S/O DIALED FOR PT, PT VOICES THAT S/O WILL BE HERE SHORTLY. INITIAL SHIFT ASSESSMENT COMPLETED; SEE INTERVENTION FOR FURTHER. PRAVEEN TO D/D. SCDS ON CALVES BILATERALLY. IV TUBING CONVERTED OVER TO PUMP TUBING. CURRENT LR FROM RECOVERY INFUSING @ 125 ML/HR/PUMP. S/O TO BEDSIDE. CALL LIGHT WITHIN REACH.
[2018-09-13 12:03] VITALS: BP 124/79
--- NOTE | 2018-09-13 12:55 | Anesthesia-General Post-Op ---
General Patient Condition Mental Status/LOC: Same as Preop Cardiovascular: Satisfactory Nausea/Vomiting: Absent Respiratory: Satisfactory Pain: Controlled Complications: Absent Post Op Complications Complications None Follow Up Care/Instructions Patient Instructions None needed. Anesthesia/Patient Condition Patient Condition Patient is doing well, no complaints, stable vital signs, no apparent adverse anesthesia problems. No complications reported per nursing. XIN FRANKEL CRNA Sep 13, 2018 12:55
--- NOTE | 2018-09-13 12:56 | NUR ---
1240- PRAVEEN MCCOLLUM; SEE INTERVENTION FOR FURTHER. PT VOICES THAT IT STILL FEELS LIKE SHE NEEDS TO PEE. PT UP TO BATHROOM WITH STANDBY ASSIST X2. PT UNABLE TO VOID AT THIS TIME. PT BACK TO BED. SCDS RECONNECTED. MENU PROVIDED. TEACHING DONE RE: ROOM SERVICE. PT LOOKING OVER MENU AND VISITING WITH S/O. CALL LIGHT WITHIN REACH.
--- NOTE | 2018-09-13 13:35 | NUR ---
ROOM SERVICE DELIVERED LUNCH TO BEDSIDE.
--- NOTE | 2018-09-13 14:02 | NUR ---
PT TRIED VOIDING AGAIN, NO SUCCESS. PT BACK TO BED. SCDS RECONNECTED. PT PREPPING TO TAKE A NAP, LIGHTS OUT. CALL LIGHT WITHIN REACH.
--- NOTE | 2018-09-13 15:05 | OPERATIVE REPORT ---
DATE OF SERVICE: 09/13/2018 PREOPERATIVE DIAGNOSES: 1. A 43-year-old female with chronic pelvic pain. 2. Abnormal uterine bleeding. 3. Dysmenorrhea: 4. Chronic blood loss anemia secondary to above. POSTOPERATIVE DIAGNOSES: 1. A 43-year-old female with chronic pelvic pain. 2. Abnormal uterine bleeding. 3. Dysmenorrhea: 4. Chronic blood loss anemia secondary to above. 5. Some adhesions of the vesicouterine peritoneum. PROCEDURE PERFORMED: Robotic-assisted total laparoscopic hysterectomy with bilateral salpingectomy. SURGEON: Oscar Luque DO. ANESTHESIA: General endotracheal. ESTIMATED BLOOD LOSS: 50 mL. URINE OUTPUT: 75 mL clear at the end of the procedure. FLUIDS: 1800 mL lactated Ringer solution. FINDINGS: A hyperemic-appearing uterus with multiple filmy adhesions of the vesicouterine peritoneum as well as a few endometriosis implants of the posterior cul-de-sac, grossly normal-appearing bilateral ovaries and fallopian tubes. INDICATIONS FOR PROCEDURE: This 43-year-old female is a patient that was consulted in my office for chronic blood loss anemia secondary to the heavy periods that she has been having. She reports that her periods have been heavy the entire life as well as become more painful recently. Her ultrasound was suspicious for adenomyosis. She had tried more conservative measures in the past to try to deal with the bleeding; however, they were unsuccessful. She wanted to proceed with more aggressive measures as she continues to become anemic and may need iron infusions including blood transfusions as well. We discussed the procedure in detail including risk of bleeding, infection, damage to surrounding structures including, but not limited to bowel, bladder, ureter, kidneys, possible need for reoperation, postoperative recovery timeframe, recovery restrictions, possible need for reoperation, risk from anesthesia and even . After everything was discussed with the patient in detail, consent was obtained in the preoperative area. All questions were answered and the patient was taken to the operating room. DESCRIPTION OF PROCEDURE IN DETAIL: Once in the operating room, general anesthesia was found to be adequate, placed in dorsal lithotomy position, prepped and draped in normal sterile fashion. Woodall catheter was then placed using sterile technique. After a timeout was performed, a weighted speculum was inserted in the patient's vagina. A right angle retractor was utilized. The cervix was grasped at 12 o'clock position using a long Allis clamp and placed an #0 Vicryl suture in the anterior lip of the cervix and removed with Allis clamp. I then used the suture as my retraction point. At this time, the uterine cavity depth was found to be 8 cm. I then placed an 8 cm Lizbeth uterine manipulator tip. On a 3.5 cm colpotomy ring, I placed the manipulator tip. After the Lizbeth was assembled into the endometrial cavity deploying the balloon and advancing a colpotomy around the vaginal fornix and once this was in place, I am able to appreciate excellent bimanual manipulation on bimanual exam. I did remove all the other instruments from the patient's vagina, performed a change of gloves, took my attention to the abdomen where supraumbilically I infiltrated this area using a 0.25% Marcaine to make an incision through a previously existing scar that is 8 mm incision and directed a Veress needle through the incision until the intraperitoneal placement was confirmed using a saline drop test. I then proceeded with insufflation using CO2 gas and opening pressure of 5 mmHg was noted and proceeded to a maximum pressure of 15 mmHg, at which point I removed the Veress needle and introduced an 8 mm blunt da Aaliyah camera trocar. Once this was in place, I am able to confirm intraperitoneal placement using the da Aaliyah laparoscope. I then had the patient placed in steep Trendelenburg. I am able to visualize all the pelvic anatomy as described above. A gross inspection of the upper abdominal anatomy appears to be normal. I then placed two lateral trocars and these were both 8 mm trocars, approximately 10 cm lateral to my supraumbilical trocar site. Once these trocars are in place, which were done under direct visualization of the laparoscope, I bring the da Aaliyah robot and docked in the appropriate fashion. I placed the da Aaliyah vessel sealer in the left hand and monopolar dorothy in the right hand following dissection bilaterally. Starting at the uteroovarian ligament, I bipolar cauterized and transected using the vessel sealer. I then created a window in the mesosalpinx using monopolar dorothy and took this laterally amputating the fallopian tube from the mesosalpinx and its surrounding blood supply. I then grasped the round ligament, bipolar cauterized this and transected using the vessel sealer. I then grasped the entire broad ligament, bipolar cauterized and transected using the vessel sealer down to the level of the lower uterine segment where I encountered some filmy adhesions of the anterior vesicouterine peritoneum. I took these down carefully. Care was used to stay away from the bladder. I then started my dissection in the vesicouterine peritoneum just proximal to the uterus as I can, peeling back to the bladder and the peritoneum including the vesicouterine peritoneum away from the anterior vaginal fornix, which is easily encountered. I am able to create a window and a colpotomy in the anterior vaginal fornix. I did take this dissection laterally connecting the peritoneal dissection plane to the broad ligament. I then took the posterior leaflet of the broad ligament down to the posterior vaginal fornix, which allows me to skeletonize the uterine vessels laterally, which I then bipolar cauterized and transected using the vessel sealer. Once this was done bilaterally, I then approached the colpotomy at 12 o'clock position and again using monopolar dorothy, I took it circumferentially around the vaginal fornix amputating the cervix away from the vagina. The specimen was then removed through the vagina. I then closed the lateral vaginal apices of the vaginal cuff using 2-0 Vicryl suture in a [id number] fashion, colposuspended to the uterosacral ligaments. I then closed the remainder of the vaginal cuff using 2-0 V-Loc in a running fashion. After this was done, no active bleeding was noted from any of my dissection planes. I undocked the da Aaliyah robot and proceeded with the remainder of the case laparoscopically, copiously irrigating the pelvis using normal saline as no active bleeding noted from any of my dissection planes. I then placed Surgiflo hemostatic agent over all my planes of dissection. Once again, there was no active bleeding noted from any of my dissection planes. I had the patient taken out of steep Trendelenburg. I removed the lateral trocars under direct visualization of the laparoscope. The supraumbilical trocar was left in place to release insufflation and to introduce 10 mL of 0.25% Marcaine for postoperative pain management. This trocar was then removed as well. The skin was then reapproximated using 4-0 Monocryl in interrupted subcuticular stitches. Dermabond was applied to the incision and Band-Aids were placed over these. Woodall catheter was left in place. The patient tolerated the procedure well and was taken to recovery area in stable condition. Lap and sponge counts were correct at the end of the procedure. Instrument count was correct as well. Two grams of Ancef, 500 mg of Flagyl were given preoperatively for infection prophylaxis. Job ID: [id number] DocumentID: [id number] Dictated Date: 09/13/2018 10:01:06 Brand Marketing Specialist Date: 09/13/2018 15:04:53 Dictated By: OSCAR LUQUE DO
[2018-09-13 16:27] VITALS: BP 134/86
--- NOTE | 2018-09-13 16:58 | NUR ---
PT ATTEMPTED TO VOID AGAIN WITH NO SUCCESS. PT BACK TO BED, IV FLUIDS COMPLETE AND SALINE LOCKED AT THIS TIME. ROUTINE TORADOL GIVEN; SEE EMAR FOR FURTHER. DR LUQUE TO PT'S BEDSIDE. 5129 PT UP AMBULATING HALLWAYS WITH S/O AT SIDE.
--- NOTE | 2018-09-13 17:26 | NUR ---
DR NOTIFIED OF RECENT VOID OF 200ML, WOULD LIKE BLADDER SCAN PERFORMED.
--- NOTE | 2018-09-13 17:33 | NUR ---
DR NOTIFIED OF BLADDER SCAN REPORTING [address] WOULD LIKE PVR TO BE LESS THAN 150 ML. NEW ORDER RECEIVED.
[2018-09-13] MEDS ORDERED: BETHANECHOL 10 MG (URECHOLINE) TAB PO NR (18:00)
[2018-09-13] MEDS ORDERED: BETHANECHOL 10 MG (URECHOLINE) TAB ONE (18:18)
--- NOTE | 2018-09-13 18:38 | NUR ---
S/O LEAVING WITH RXS TO GET FILLED PER PT'S REQUEST IN CASE OF DISCHARGE TONIGHT.
[2018-09-13 20:05] VITALS: BP 136/87
--- NOTE | 2018-09-13 20:30 | NUR ---
PM assessment completed. VSS. 3 lap sites on abdomen, covered with bandaids, no drainage noted. Pt. still able to void small amounts without difficulty, denies any discomfort. No questions or concerns voiced at this time. will continue to monitor. call light within reach.
--- NOTE | 2018-09-13 21:14 | NUR ---
Dr. Hudson called unit for an update and spoke to this RN. No new orders received.
[2018-09-14 00:25] VITALS: BP 124/72
[2018-09-14] MEDS: IBUPROFEN 600 MG (MOTRIN) TAB PO PRN ×2 (03:26→10:05)
[2018-09-14 03:27] VITALS: BP 129/83
--- NOTE | 2018-09-14 06:40 | NUR ---
Dr. Hudson here to discuss POC with pt.
[2018-09-14 08:00] VITALS: BP 117/74
--- NOTE | 2018-09-14 08:00 | NUR ---
A.M. ASSESSMENT COMPLETED. VSS. UP TO BATHROOM TO VOID. VOIDED 200 CC CLEAR YELLOW URINE. BLADDER SCAN X3 REVEALS, 8ML,11ML,14 ML. DOING WELL. NOT WANTING TO GO HOME FOR AWHILE TODAY.
[2018-09-14] MEDS ORDERED: FLU QUADRIvalent (5+ YOA) 2018-2019 (AFLURIA) 0.5 ML IM ONE (08:30)
--- NOTE | 2018-09-14 10:00 | NUR ---
OUT TO AMBULATE IN THE HALLWAY. MOVES WELL. ENCOURAGED I.S.
--- NOTE | 2018-09-14 11:04 | Anesthesia-General Post-Op ---
General Patient Condition Mental Status/LOC: Same as Preop Cardiovascular: Satisfactory Nausea/Vomiting: Absent Respiratory: Satisfactory Pain: Controlled Complications: Absent Post Op Complications Complications None Follow Up Care/Instructions Patient Instructions None needed. Anesthesia/Patient Condition Patient Condition Patient is doing well, no complaints, stable vital signs, no apparent adverse anesthesia problems. No complications reported per nursing. JOSSELYN RUDOLPH CRNA Sep 14, 2018 11:04
--- NOTE | 2018-09-14 11:20 | NUR ---
SLEEPING SOUNDLY. RIDE MAY COME AROUND 1200. NO APPARENT DISTRESS.
--- NOTE | 2018-09-14 12:25 | NUR ---
DISCHARGE INSTRUCTIONS REVIEWED WITH COPY TO PT. STATES UNDERSTANDING OF ALL INSTRUCTIONS AND NEED TO F/U SCHEDULED AND NEEDED.
[2018-09-14 12:35] VITALS: BP 117/74
--- NOTE | 2018-09-14 12:35 | NUR ---
DISMISSED VIA W/C FROM [facility] TO FAMILY CAR IN STABLE CONDITION ACC BY LELA AMBROCIO.
== END 2018-09-14 12:35 | disposition home or self-care (01) ==
LOC: SDC 06:00 → WS 10:45 → SDC 09-14 12:35
PROVIDERS: ATTEND Obstetrics & Gynecology
DX: N80.3 Endometriosis of pelvic peritoneum (principal); N83.8 Other noninflammatory disorders of ovary, fallopian tube and broad ligament; N94.6 Dysmenorrhea, unspecified; N92.1 Excessive and frequent menstruation with irregular cycle; D50.0 Iron deficiency anemia secondary to blood loss (chronic); G47.30 Sleep apnea, unspecified; K21.9 Gastro-esophageal reflux disease without esophagitis; Z87.410 Personal history of cervical dysplasia; E66.9 Obesity, unspecified; Z68.39 Body mass index [BMI] 39.0-39.9, adult; Z79.899 Other long term (current) drug therapy
CPT/HCPCS: 36415; 84703; 86850; 86900; 86901; 88307; 94664

== ENCOUNTER 2018-10-08 19:33 | Outpatient (CLI) | payer MEDICARE, MEDICAID ==
[~2018-10-08 19:33] MED LIST changes: +DOCU100C37 PO; +HYDR-34 PO; +IBUP-844 PO; +SIME80TA16 PO
== END 2018-10-09 05:30 | disposition home or self-care (01) ==
LOC: SLEEP 19:33
PROVIDERS: ATTEND Surgery
DX: G47.33 Obstructive sleep apnea (adult) (pediatric) (principal); I10 Essential (primary) hypertension; G47.00 Insomnia, unspecified; F39 Unspecified mood [affective] disorder; E66.9 Obesity, unspecified; R06.83 Snoring; Z91.19 Patient's noncompliance with other medical treatment and regimen
CPT/HCPCS: 95810

== ENCOUNTER 2019-04-13 19:35 | Emergency (ER) | payer MEDICARE, MEDICAID ==
[~2019-04-13] VITALS: Ht 157.5 cm; Wt 81.8 kg
[2019-04-13 19:57] VITALS: BP 143/85
--- NOTE | 2019-04-13 20:17 | ED Upper Extremity ---
General Chief Complaint: Skin/Wound Problems Stated Complaint: LEFT HAND SORE Source: patient History of Present Illness Date Seen by Provider: Apr 13, 2019 Time Seen by Provider: 20:05 Initial Comments PT ARRIVES VIA POV FROM HOME OTHER FAMILY MEMBER BEING SEEN IN ER FOR UNRELATED PROBLEM , SO PT DECIDED TO CHECK IN ALSO C/O "KNOT" ON ANTERIOR ASPECT OF LEFT WRIST--PRESENT FOR MANY MONTHS, IS NO DIFFERENT TODAY STATES SHE "KEEPS HITTING IT ON THINGS"--SUCH ON THE STEERING WHEEL, AND HIT IT ON A CABINET-- AND IT CAUSES PAIN AND TINGLING IN HER FINGERS WHEN SHE DOES THAT. NO PRIOR INJURY TO THIS AREA SYMPTOMS ARE NO DIFFERENT TODAY IN ANY WAY HAS NOT TAKEN ANYTHING FOR SYMPTOMS HAS NOT SOUGHT CARE AT ANY TIME FOR IT. STATES "I JUST WAS CURIOUS TO SEE WHAT IT MIGHT BE" SO SHE CHECKED INTO ER. PT IS RIGHT HANDED PCP: TONYA. JACINTO IVY Allergies and Home Medications Allergies Coded Allergies: No Known Drug Allergies (Unverified , 09/10/18) Home Medications Docusate Sodium 100 Mg Capsule, 100 MG PO BID PRN for CONSTIPATION-1ST LINE Prescribed by: LISA LUQUE on 09/13/18713 Hydrocodone Bit/Acetaminophen 1 Ea Tablet, 2 EA PO Q6H PRN for Pain-See Instructions Prescribed by: LISA LUQUE on 09/13/18713 Ibuprofen 600 Mg Tablet, 600 MG PO Q6H PRN for PAIN-MODERATE Prescribed by: LISA LUQUE on 09/13/18713 Levothyroxine Sodium 100 Mcg Tablet, 100 MCG PO DAILY, (Reported) Omeprazole Magnesium 20 Mg Tablet.dr, 20 MG PO DAILY Prescribed by: AIDAN LEE on 05/23/16 1137 Quetiapine Fumarate 200 Mg Tablet, 200 MG PO HS, (Reported) Simethicone 80 Mg Tab.chew, 40 MG PO TID PRN for INDIGESTION 2ND LINE Prescribed by: LISA LUQUE on 09/13/18721 Patient Home Medication List Home Medication List Reviewed: Yes Review of Systems Constitutional: no symptoms reported : No Control/STD Prophylaxis: Other (HYSTERECTOMY) Musculoskeletal: see HPI Skin: no symptoms reported Psychiatric/Neurological: See HPI Past Nhtmzhj-Kstykw-Lospgp Hx Patient Social History Alcohol Use: Occasionally Uses Recreational Drug Use: Yes (OVERDOSED IN 2016; HX OF METH USE) Drug of Choice: HX OF METH USE; HX OF OVERDOSE 2016 Smoking Status: Current Everyday Smoker Type Used: Cigarettes 2nd Hand Smoke Exposure: Yes Recent Foreign Travel: No Contact w/Someone Who Travel: No Recent Hopitalizations: No Immunizations Up To Date Tetanus Booster (TDap): Unknown Seasonal Allergies Seasonal Allergies: No Past Medical History Surgeries: Yes ( X 2, LEEPS X2, EGD; HYST/OVARIES INTACT; GASTRIC SLEEVE) Abdominal, Section, Gallbladder, Hysterectomy Respiratory: Yes Sleep Apnea Currently Using CPAP: Yes Cardiac: No Neurological: No Reproductive Disorders: Yes (CERVICAL DYSPLASIA--S/P LEEP SURGERY X 2; CHRONIC PELVIC PAIN--S/P HYSTERECTOMY--OVARIES INTACT. 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 Sexually Transmitted Disease: No HIV/AIDS: No Genitourinary: No Gastrointestinal: Yes (S/P GASTRIC SLEEVE SURGERY) Gastroesophageal Reflux, Esophagitis Musculoskeletal: No Endocrine: Yes Hypothyroidsim HEENT: Yes (GLASSES; DENTAL CARIES) Loss of Vision: Bilateral Hearing Impairment: Denies Cancer: No (CERVICAL DYSPLASIA--S/P LEEP X 2; THEN HYST FOR CHRONIC PELVIC PAIN) Psychosocial: Yes (OVERDOSED 2015) Sleep Difficulties, Anxiety, Suicide Attempts Integumentary: No Blood Disorders: No Adverse Reaction/Blood Tranf: No Family Medical History No Pertinent Family Hx Physical Exam Vital Signs Vital Signs - First Documented 04/13/19 19:57 Temp 37.2 Pulse 70 Resp 16 B/P (MAP) 143/85 (104) Pulse Ox 98 O2 Delivery Room Air Capillary Refill : Height, Weight, BMI Height: 5'2.00" Weight: 213lbs. 7.0oz. 96.536321gh; 39.0 BMI Method:Stated General Appearance: WD/WN, no apparent distress Wrist: Yes mass (ANTERIOR ASPECT OF LEFT WRIST, RADIAL SIDE WITH 2 CM CYSTIC- TYPE MASS. NO SKIN DISCOLORATION. NO WOUNDS OR EXTERNAL EVIDENCE OF TRAUMA. DISTAL MOTOR/SENSORY/VASCULAR INTACT. ), Yes soft tissue tenderness, Yes swelling Progress/Results/Core Measures Results/Orders My Orders Orders - PANFILO HERR DO Wrist, Left, 3 Views Or More (04/13/19 20:09) Vital Signs/I&O 04/13/19 19:57 Temp 37.2 Pulse 70 Resp 16 B/P (MAP) 143/85 (104) Pulse Ox 98 O2 Delivery Room Air Diagnostic Imaging Comments XRAYS LEFT WRIST--SOFT TISSUE MASS, NO BONY ABNORMALITY, PENDING RADIOLOGIST REVIEW Reviewed: Reviewed by Me Departure Impression Primary Impression: Ganglion cyst of volar aspect of left wrist Disposition: HOME, SELF-CARE Condition: Stable Departure-Patient Inst. Referrals: [facility] (PCP/Family) Primary Care Physician DAYA LOWE DO Patient Instructions: Ganglion Cyst (DC) Add. Discharge Instructions: TYLENOL AND MOTRIN NEEDED FOR PAIN FOLLOW UP WITH DR. LOWE, OR ORTHOPEDIC SURGEON OF CHOICE FOR FURTHER CARE All discharge instructions reviewed with patient and/or family. Voiced understanding. PANFILO HERR DO Apr 13, 2019 20:17
--- NOTE | 2019-04-13 21:08 | Diagnostic Imaging Report ---
INDICATION: Left wrist nodule. AP, oblique, and lateral views of the left wrist are obtained. No fracture or acute bony abnormality is seen. Joint spaces appear unremarkable. IMPRESSION: Negative left wrist. Dictated by: Dictated on workstation # [id number]
== END 2019-04-13 21:25 | disposition home or self-care (01) ==
LOC: EDUNIT# 19:35 → ER 19:36
DX: M67.432 Ganglion, left wrist (principal); G47.30 Sleep apnea, unspecified; K21.0 Gastro-esophageal reflux disease with esophagitis; E03.9 Hypothyroidism, unspecified; F41.9 Anxiety disorder, unspecified; F17.210 Nicotine dependence, cigarettes, uncomplicated; Z91.5 Personal history of self-harm; Z99.89 Dependence on other enabling machines and devices; Z90.710 Acquired absence of both cervix and uterus
CPT/HCPCS: 73110; 99282

== ENCOUNTER 2019-05-12 13:47 | Emergency (ER) | payer MEDICARE, MEDICAID ==
[~2019-05-12] VITALS: Ht 157 cm; Wt 77.0 kg
--- NOTE | 2019-05-12 14:27 | ED Abdominal Pain ---
General Chief Complaint: Abdominal/GI Problems Stated Complaint: PAIN FROM RT SIDE DOWN TO HER LEG Nursing Triage Note: PT HAS SUDDEN ON SET ABD AND FLANK PAIN [id number] Sepsis Screen: No Definite Risk Source of Information: Patient, Family Exam Limitations: No Limitations History of Present Illness Date Seen by Provider: May 12, 2019 Time Seen by Provider: 14:24 Initial Comments This 43-year-old white female presents with sudden right flank pain that radiated into her groin that began approximately an hour prior to presentation return to department. The patient has had no similar episodes in the past. There is no family history of kidney stones. The patient has had no associated chest discomfort, coughing, fever or chill, palpitations, abdominal trauma, hematemesis or black or tarry stools, or medication change. Allergies and Home Medications Allergies Coded Allergies: No Known Drug Allergies (Unverified , 09/10/18) Home Medications Hydrocodone Bit/Acetaminophen 1 Ea Tablet, 2 EA PO Q6H PRN for Pain-See Instructions Prescribed by: LISA LUQUE on 09/13/18 0714 Levothyroxine Sodium 100 Mcg Tablet, 100 MCG PO DAILY, (Reported) Omeprazole Magnesium 20 Mg Tablet.dr, 20 MG PO DAILY Prescribed by: AIDAN LEE on 05/23/16 1137 Quetiapine Fumarate 200 Mg Tablet, 200 MG PO HS, (Reported) Simethicone 80 Mg Tab.chew, 40 MG PO TID PRN for INDIGESTION 2ND LINE Prescribed by: LISA LUQUE on 09/13/18 0722 Patient Home Medication List Home Medication List Reviewed: Yes Review of Systems Review of Systems Constitutional: No chills, No fever EENTM: No Symptoms Reported Respiratory: No Symptoms Reported; Denies Cough Cardiovascular: No Symptoms Reported; Denies Chest Pain Gastrointestinal: See HPI, Abdominal Pain, Nausea Genitourinary: See HPI, Flank Pain (on the right) Musculoskeletal: no symptoms reported Skin: no symptoms reported; No rash Psychiatric/Neurological: No Symptoms Reported Endocrine: No Symptoms Reported Hematologic/Lymphatic: No Symptoms Reported Past Nzpavbn-Ueptrp-Zwfmuy Hx Past Med/Social Hx: Reviewed Nursing Past Med/Soc Hx Patient Social History Alcohol Use: Denies Use Recreational Drug Use: No Drug of Choice: HX OF METH USE; HX OF OVERDOSE 2015 Smoking Status: Never a Smoker Type Used: Cigarettes 2nd Hand Smoke Exposure: Yes Recent Foreign Travel: No Contact w/Someone Who Travel: No Recent Infectious Disease Expo: No Recent Hopitalizations: No Immunizations Up To Date Tetanus Booster (TDap): Unknown Seasonal Allergies Seasonal Allergies: No Past Medical History Surgeries: Yes ( X 2, LEEPS X2, EGD; HYST/OVARIES INTACT; GASTRIC SLEEVE) Abdominal, Section, Gallbladder, Hysterectomy Respiratory: Yes Sleep Apnea Currently Using CPAP: Yes Cardiac: No Neurological: No Reproductive Disorders: Yes Female Reproductive Disorders: Endometriosis 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 Sexually Transmitted Disease: No HIV/AIDS: No Genitourinary: No Gastrointestinal: Yes (S/P GASTRIC SLEEVE SURGERY) Gastroesophageal Reflux, Esophagitis Musculoskeletal: No Endocrine: Yes Hypothyroidsim HEENT: Yes (GLASSES; DENTAL CARIES) Loss of Vision: Bilateral Hearing Impairment: Denies Cancer: No (CERVICAL DYSPLASIA--S/P LEEP X 2; THEN HYST FOR CHRONIC PELVIC PAIN) Cervical Psychosocial: Yes (OVERDOSED 2015) Sleep Difficulties, Anxiety, Suicide Attempts Integumentary: No Blood Disorders: No Adverse Reaction/Blood Tranf: No Family Medical History No Pertinent Family Hx Physical Exam Vital Signs Vital Signs - First Documented 05/12/19 13:59 Temp 36.8 Pulse 83 Resp 18 B/P (MAP) 142/91 (108) Pulse Ox 98 Capillary Refill : Less Than 3 Seconds Height/Weight/BMI Height: 5'2.00" Weight: 213lbs. 7.0oz. 96.614220us; 31.00 BMI Method:Stated General Appearance: WD/WN, mild distress Neck: full range of motion, normal inspection Respiratory: lungs clear, normal breath sounds Cardiovascular: regular rate, rhythm, no murmur Gastrointestinal: normal bowel sounds, non tender, soft Extremities: normal range of motion, non-tender, normal inspection Back: normal inspection, CVA tenderness (R) Neurologic/Psychiatric: no motor/sensory deficits, alert, normal mood/affect, oriented x 3 Skin: normal color, warm/dry Progress/Results/Core Measures Results/Orders Lab Results Laboratory Tests Test 05/12/19 14:10 Range/Units White Blood Count 8.0 4.3-11.0 10^3/uL Red Blood Count 4.74 4.35-5.85 10^6/uL Hemoglobin 14.4 11.5-16.0 G/DL Hematocrit 41 35-52 % Mean Corpuscular Volume 87 80-99 FL Mean Corpuscular Hemoglobin 30 25-34 PG Mean Corpuscular Hemoglobin Concent 35 32-36 G/DL Red Cell Distribution Width 13.3 10.0-14.5 % Platelet Count 238 130-400 10^3/uL Mean Platelet Volume 10.2 7.4-10.4 FL Neutrophils (%) (Auto) 63 42-75 % Lymphocytes (%) (Auto) 29 12-44 % Monocytes (%) (Auto) 6 0-12 % Eosinophils (%) (Auto) 2 0-10 % Basophils (%) (Auto) 0 0-10 % Neutrophils # (Auto) 4.6 1.8-7.8 X 10^3 Lymphocytes # (Auto) 2.1 1.0-4.0 X 10^3 Monocytes # (Auto) 0.4 0.0-1.0 X 10^3 Eosinophils # (Auto) 0.2 0.0-0.3 10^3/uL Basophils # (Auto) 0.0 0.0-0.1 10^3/uL Urine Color YELLOW Urine Clarity CLEAR Urine pH 5 5-9 Urine Specific [place] 1.030 H 1.016-1.022 Urine Protein 1+ H NEGATIVE Urine Glucose (UA) NEGATIVE NEGATIVE Urine Ketones NEGATIVE NEGATIVE Urine Nitrite NEGATIVE NEGATIVE Urine Bilirubin NEGATIVE NEGATIVE Urine Urobilinogen NORMAL NORMAL MG/DL Urine Leukocyte Esterase NEGATIVE NEGATIVE Urine RBC (Auto) NEGATIVE NEGATIVE Urine RBC NONE /HPF Urine WBC NONE /HPF Urine Squamous Epithelial Cells 10-25 H /HPF Urine Crystals NONE /LPF Urine Bacteria TRACE /HPF Urine Casts NONE /LPF Urine Mucus NEGATIVE /LPF Urine Culture Indicated NO Sodium Level 136 135-145 MMOL/L Potassium Level 4.0 3.6-5.0 MMOL/L Chloride Level 107 98-107 MMOL/L Carbon Dioxide Level 18 L 21-32 MMOL/L Anion Gap 11 5-14 MMOL/L Blood Urea Nitrogen 15 7-18 MG/DL Creatinine 0.84 0.60-1.30 MG/DL Estimat Glomerular Filtration Rate > 60 BUN/Creatinine Ratio 18 Glucose Level 101 70-105 MG/DL Calcium Level 9.0 8.5-10.1 MG/DL Corrected Calcium 8.9 8.5-10.1 MG/DL Total Bilirubin 0.3 0.1-1.0 MG/DL Aspartate Amino Transf (AST/SGOT) 25 5-34 U/L Alanine Aminotransferase (ALT/SGPT) 19 0-55 U/L Alkaline Phosphatase 64 40-136 U/L Total Protein 7.1 6.4-8.2 GM/DL Albumin 4.1 3.2-4.5 GM/DL Lipase 20 8-78 U/L My Orders Orders - ASHLEY DURAND MD Cbc With Automated Diff (05/12/19 14:21) Comprehensive Metabolic Panel (05/12/19 14:21) Ua Culture If Indicated (05/12/19 14:21) Lipase (05/12/19 14:21) Ct Abd/Pelvis Wo(Kidney Stone) (05/12/19 14:21) Ondansetron Injection (Zofran Injectio (05/12/19 14:30) Fentanyl Injection (Sublimaze Injection (05/12/19 14:30) Ns Iv 1000 Ml (Sodium Chloride 0.9%) (05/12/19 14:30) Medications Given in ED Current Medications Medications Dose Ordered Sig/Janusz Route Start Time Stop Time Status Last Admin Dose Admin Fentanyl Citrate 50 mcg ONCE ONCE IVP 05/12/19 14:30 05/12/19 14:31 DC 05/12/19 14:38 50 MCG Ondansetron HCl 4 mg ONCE ONCE IVP 05/12/19 14:30 05/12/19 14:31 DC 05/12/19 14:38 4 MG Vital Signs/I&O 05/12/19 13:59 Temp 36.8 Pulse 83 Resp 18 B/P (MAP) 142/91 (108) Pulse Ox 98 Blood Pressure Mean: 108 POS Progress Progress Note : Time: 15:36 Progress Note Patient's laboratory and CT evaluation was unremarkable. There was no evidence of a kidney stone or hydroureter. The patient's pain was relieved as she was taken down for her CAT scan. Departure Impression Primary Impression: Kidney stone on right side Disposition: 01 HOME, SELF-CARE Condition: Improved Departure-Patient Inst. Decision time for Depature: 15:47 Referrals: [facility] (PCP/Family) Primary Care Physician Patient Instructions: Kidney Stones (DC) Add. Discharge Instructions: Vicodin for pain and Zofran for nausea. Come back for any problems or questions. Follow up with [facility] this week. All discharge instructions reviewed with patient and/or family. Voiced understanding. Scripts Ondansetron (Ondansetron Odt) 4 Mg Tab.rapdis 4 MG PO Q4H PRN for NAUSEA/VOMITING-1ST LINE, #10 TAB Prov: ASHLEY DURAND MD 05/12/19 Hydrocodone/Acetaminophen (Vicodin 5-300 mg Tablet) 1 Each Tablet 1-2 EACH PO Q6H PRN for PAIN-MODERATE MDD 10 for 7 Days, #10 TAB Prov: ASHLEY DURAND MD 05/12/19 ASHLEY DURAND MD May 12, 2019 14:27 POS
[2019-05-12] MEDS ORDERED: fentaNYL INJECTION 100 MCG/2 ML AMP IVP ONE (14:30)
[2019-05-12] MEDS ORDERED: NS IV 1000 ML 1,000 ML IV SCH (14:30)
[2019-05-12] MEDS ORDERED: ONDANSETRON 4 MG/2 ML (SDV) Z0FRAN IVP ONE (14:30)
[2019-05-12 14:35] LABS: BASOPHILS % (AUTO) 0 % (0-10); EOSINOPHILS # (AUTO) 0.2 10^3/uL (0.0-0.3); EOSINOPHILS % (AUTO) 2 % (0-10); LYMPHOCYTES # (AUTO) 2.1 X 10^3 (1.0-4.0); LYMPHOCYTES % (AUTO) 29 % (12-44); MEAN CORPUSCULAR HGB CONC 35 G/DL (32-36); MEAN CORPUSCULAR VOLUME 87 FL (80-99); MEAN PLATELET VOLUME 10.2 FL (7.4-10.4); MONOCYTES # (AUTO) 0.4 X 10^3 (0.0-1.0); MONOCYTES % (AUTO) 6 % (0-12); NEUTROPHILS # (AUTO) 4.6 X 10^3 (1.8-7.8); NEUTROPHILS % (AUTO) 63 % (42-75); RED CELL DISTRIBUTION WIDTH 13.3 % (10.0-14.5)
[2019-05-12 14:36] LABS: HEMATOCRIT 41 % (35-52); HEMOGLOBIN 14.4 G/DL (11.5-16.0); MEAN CORPUSCULAR HEMOGLOBIN 30 PG (25-34); PLATELET COUNT 238 10^3/uL (130-400)
[2019-05-12 14:38] LABS: BILIRUBIN,URINE NEGATIVE (NEGATIVE); CLARITY,URINE CLEAR; COLOR,URINE YELLOW; GLUCOSE, URINE (UA) NEGATIVE (NEGATIVE); KETONES,URINE NEGATIVE (NEGATIVE); LEUKOCYTE ESTERASE ,URINE NEGATIVE (NEGATIVE); NITRITE,URINE NEGATIVE (NEGATIVE); PH,URINE 5 (5-9); PROTEIN,URINE 1+ (NEGATIVE)
[2019-05-12 14:45] LABS: BACTERIA,URINE TRACE /HPF
[2019-05-12 14:48] LABS: ALANINE AMINOTRANSFERASE 19 U/L (0-55); ALBUMIN 4.1 GM/DL (3.2-4.5); ALKALINE PHOSPHATASE 64 U/L (40-136); BILIRUBIN,TOTAL 0.3 MG/DL (0.1-1.0); BUN/CREATININE RATIO 18; CARBON DIOXIDE 18 MMOL/L (21-32); CHLORIDE 107 MMOL/L (98-107); CREATININE SERUM 0.84 MG/DL (0.60-1.30); GFR ESTIMATED > 60; GLUCOSE 101 MG/DL (70-105); LIPASE 20 U/L (8-78); SODIUM 136 MMOL/L (135-145); TOTAL PROTEIN 7.1 GM/DL (6.4-8.2)
--- NOTE | 2019-05-12 15:16 | Diagnostic Imaging Report ---
PROCEDURE: CT urinary tract, rule out kidney stone. TECHNIQUE: Multiple contiguous axial images were obtained through the abdomen and pelvis without the use of intravenous contrast. Auto Exposure Controls were utilized during the CT exam to meet ALARA standards for radiation dose reduction. INDICATION: Right flank pain. COMPARISON: 07/23/2015. FINDINGS: The lung bases are clear. The gallbladder is surgically absent. There is a low-density lesion in the lateral segment of the left lobe of the liver compatible with a known hemangioma. The spleen, adrenal glands, right kidney, and pancreas are grossly normal. There has been an interval increase in size of the left renal cyst, now measuring approximately 6 cm. Previously, this measured 5 cm. No renal calculi are seen. The course and caliber of the ureters are normal. The urinary bladder is decompressed. The uterus is surgically absent. There are a few diverticula of the sigmoid colon without diverticulitis. A cyst is seen in the right adnexa, presumably ovarian. There is no lymphadenopathy. Osseous structures are age appropriate. IMPRESSION: 1. Diverticulosis of the sigmoid colon without diverticulitis. 2. No renal calculi or hydronephrosis. 3. Interval increase in size of the benign left renal cyst. 4. Surgically absent uterus and gallbladder. Dictated by: Dictated on workstation # [id number]
[2019-05-12] MEDS ORDERED: ONDA4TAB11 PO (15:49)
[2019-05-12] MEDS ORDERED: HYDR-3455 PO (15:49)
[2019-05-12 16:18] VITALS: BP 119/73
== END 2019-05-12 16:18 | disposition home or self-care (01) ==
LOC: EDUNIT# 13:47 → ER 13:48
DX: N20.0 Calculus of kidney (principal); K21.9 Gastro-esophageal reflux disease without esophagitis; G47.30 Sleep apnea, unspecified; E03.9 Hypothyroidism, unspecified; F41.9 Anxiety disorder, unspecified; Z91.5 Personal history of self-harm; Z85.41 Personal history of malignant neoplasm of cervix uteri; Z99.89 Dependence on other enabling machines and devices; Z77.22 Contact with and (suspected) exposure to environmental tobacco smoke (acute) (chronic); Z90.710 Acquired absence of both cervix and uterus
CPT/HCPCS: 36415; 74176; 80053; 81000; 83690; 85025

== ENCOUNTER → 2019-05-16 | Outpatient (CLI) | payer MEDICARE, MEDICAID ==
[~2019-05-16] MED LIST changes: +HYDR-3455 PO; +ONDA4TAB11 PO
--- NOTE | 2019-05-17 17:50 | Diagnostic Imaging Report ---
EXAMINATION: Digital mammogram bilateral screening. INDICATION: Screening. This is the patient's baseline study. At this time, there are no current complaints. The current study was also evaluated with a Computer Aided Detection (CAD) system. 3-D tomosynthesis was also performed and reviewed. FINDINGS: The fibroglandular tissue in both breasts is dense. This does limit the sensitivity of this exam. There is a group of benign-appearing calcifications in the 12 o'clock position of the right breast at posterior depth. There is no primary or secondary sign of malignancy noted otherwise. However, there are numerous minute radiopaque densities overlying each axilla on the MLO view. Most likely, these are related to deodorant artifact. Even so, I would recommend that a follow-up MLO view of each breast be repeated to confirm this. IMPRESSION: 1. There is no evidence for malignancy. 2. The MLO views of each breast should be repeated. ACR BI-RADS Category 0: Incomplete. (Needs additional imaging evaluation). Result letter will be mailed to the patient. Note: At least 10% of breast cancer is not imaged by mammography. Dictated by: Dictated on workstation # [id number]
== END ==
LOC: RAD 10:21
PROVIDERS: ATTEND Nurse Practitioner Community Health
DX: Z12.31 Encounter for screening mammogram for malignant neoplasm of breast (principal)
CPT/HCPCS: 77067

== ENCOUNTER → 2019-06-03 | Outpatient (CLI) | payer MEDICARE, MEDICAID ==
--- NOTE | 2019-06-04 09:22 | Diagnostic Imaging Report ---
INDICATION: Bilateral diagnostic mammogram The current study was also evaluated with a Computer Aided Detection (CAD) system. 3-D tomosynthesis was also performed and reviewed. The baseline screening mammogram performed on 05/16/2019 noted minute radiopaque densities overlying each axilla on the MLO view of each breast. These findings were felt to be related to deodorant artifact. The patient was asked to return for additional MLO views. The repeat MLO views performed today are of better quality. There is no evidence for artifact. IMPRESSION: 1. There is no evidence of malignancy. The patient should have her annual screening mammogram on schedule in May 2020. 2. The radiopaque densities overlying the axilla seen on the prior study were related to deodorant artifact. ACR BI-RADS Category 1: Negative. Result letter will be mailed to the patient. Note: At least 10% of breast cancer is not imaged by mammography. Dictated by: Dictated on workstation # [id number]
== END ==
LOC: RAD 12:49
PROVIDERS: ATTEND Nurse Practitioner Community Health
DX: R92.8 Other abnormal and inconclusive findings on diagnostic imaging of breast (principal); R92.2 Inconclusive mammogram
CPT/HCPCS: 77067

== ENCOUNTER 2019-09-08 19:23 | Emergency (ER) | payer BC, MEDICARE ==
[~2019-09-08] VITALS: Ht 157.5 cm; Wt 77.1 kg
[~2019-09-08 19:23] MED LIST changes: +QUET200T29 PO; -QUET200T57 PO
[2019-09-08 19:55] LABS: BILIRUBIN,URINE NEGATIVE (NEGATIVE); CLARITY,URINE SL CLOUDY; COLOR,URINE YELLOW; GLUCOSE, URINE (UA) NEGATIVE (NEGATIVE); KETONES,URINE NEGATIVE (NEGATIVE); LEUKOCYTE ESTERASE ,URINE NEGATIVE (NEGATIVE); NITRITE,URINE NEGATIVE (NEGATIVE); PROTEIN,URINE NEGATIVE (NEGATIVE)
[2019-09-08] MEDS ORDERED: KETOROLAC 30 MG/ML VIAL IVP STA (20:08)
[2019-09-08] MEDS ORDERED: NS IV 1000 ML 1,000 ML IV SCH (20:08)
[2019-09-08 20:09] LABS: AMORPHOUS SEDIMENT,UR FEW AMOR URATES /LPF; BACTERIA,URINE MODERATE /HPF
[2019-09-08] MEDS ORDERED: RX-OSELTAMIVIR 75 MG (TAMIFLU) BOX OF 10 PO STA (20:16)
[2019-09-08] MEDS ORDERED: ONDANSETRON 4 MG/2 ML (SDV) Z0FRAN IVP STA (20:28)
--- NOTE | 2019-09-08 20:41 | ED Back Pain ---
General Chief Complaint: Back Problems Stated Complaint: LOWER BACK PAIN, NAUSEA Nursing Triage Note: PT AMBULATE TO TRIAGE WITH C/O RIGHT FLANK PAIN STARTING TODAY. PT STATES SHE MAY HAVE HAD A KIDNEY STONE BEFORE. Nursing Sepsis Screen: No Definite Risk History of Present Illness Date Seen by Provider: Sep 08, 2019 Time Seen by Provider: 20:00 Initial Comments 44 Year old female presents for right flank pain 7/10 and nausea. Symptoms began at 1330 today. No history of previous kidney stones. Location: Other (right flank) Associated Symptoms: No loss of bladder control, No loss of bowel control Allergies and Home Medications Allergies Coded Allergies: No Known Drug Allergies (Unverified , 09/10/18) Home Medications Hydrocodone Bit/Acetaminophen 1 Ea Tablet, 2 EA PO Q6H PRN for Pain-See Instructions Prescribed by: LISA LUQUE on 09/13/18 0714 Hydrocodone/Acetaminophen 1 Each Tablet, 1-2 EACH PO Q6H PRN for PAIN-MODERATE Prescribed by: ASHLEY DURAND MD on 05/12/19 1549 Levothyroxine Sodium 100 Mcg Tablet, 100 MCG PO DAILY, (Reported) Omeprazole Magnesium 20 Mg Tablet.dr, 20 MG PO DAILY Prescribed by: AIDAN LEE on 05/23/16 1137 Ondansetron 4 Mg Tab.rapdis, 4 MG PO Q4H PRN for NAUSEA/VOMITING-1ST LINE Prescribed by: ASHLEY DURAND MD on 05/12/19 1549 Quetiapine Fumarate 200 Mg Tablet, 200 MG PO HS, (Reported) Simethicone 80 Mg Tab.chew, 40 MG PO TID PRN for INDIGESTION 2ND LINE Prescribed by: LISA LUQUE on 09/13/18 0722 Patient Home Medication List Home Medication List Reviewed: Yes Review of Systems Constitutional: no symptoms reported, see HPI Genitourinary: see HPI All Other Systems Reviewed Negative Unless Noted: Yes Past Mgjjhgx-Oqlmdw-Coevqn Hx Past Med/Social Hx: Reviewed Nursing Past Med/Soc Hx Patient Social History Alcohol Use: Occasionally Uses Alcohol Beverage of Choice: Other Recreational Drug Use: No Drug of Choice: HX OF METH USE; HX OF OVERDOSE 2015 Smoking Status: Former Smoker Type Used: Cigarettes Former Smoker, Quit: Jan 08, 2018 2nd Hand Smoke Exposure: Yes Recent Foreign Travel: No Contact w/Someone Who Travel: No Recent Infectious Disease Expo: No Recent Hopitalizations: No Physical Abuse: No Sexual Abuse: No Mistreated: No Fear: No Immunizations Up To Date Tetanus Booster (TDap): Unknown Seasonal Allergies Seasonal Allergies: No Past Medical History Surgeries: Yes (C SECTION X2, GASTRIC SLEEVE) Gallbladder, Hysterectomy, Orthopedic Respiratory: No Sleep Apnea Currently Using CPAP: Yes Cardiac: No Neurological: No Reproductive Disorders: Yes Female Reproductive Disorders: Endometriosis [employer]WORKING [employer] IN[employer]CTOR History: Hysterectomy Sexually Transmitted Disease: No HIV/AIDS: No Genitourinary: No Gastrointestinal: Yes (S/P GASTRIC SLEEVE SURGERY) Gastroesophageal Reflux, Gall Bladder Disease Musculoskeletal: No Endocrine: Yes Hypothyroidsim HEENT: No Loss of Vision: Bilateral Hearing Impairment: Denies Cancer: Yes Cervical What Type of Treatment Did You: Surgical Intervention Psychosocial: Yes Anxiety, Bipolar, Depression Integumentary: No Blood Disorders: No Adverse Reaction/Blood Tranf: No Family Medical History No Pertinent Family Hx Physical Exam Vital Signs Vital Signs - First Documented 09/08/19 19:54 Temp 36.7 Pulse 119 Resp 18 B/P (MAP) 135/88 (104) O2 Delivery Room Air Capillary Refill : Less Than 3 Seconds Height, Weight, BMI Height: 5'2.00" Weight: 213lbs. 7.0oz. 96.885418yd; 31.00 BMI Method:Stated General Appearance: No Apparent Distress, WD/WN Cardiovascular: Regular Rate, Rhythm, No Edema, No Murmur, Normal Peripheral Pulses Respiratory: Chest Non Tender, Lungs Clear, Normal Breath Sounds Gastrointestinal: Normal Bowel Sounds, Non Tender, Soft; No Distended, No Rebound, No Tenderness Back: Normal Inspection, No Vertebral Tenderness, CVA Tenderness (R) Extremity: Normal Capillary Refill, Normal Inspection Neurologic/Psychiatric: Alert, Oriented x3, No Motor/Sensory Deficits, Normal Mood/Affect Skin: Normal Color, Warm/Dry Progress/Results/Core Measures Results/Orders Lab Results Laboratory Tests Test 09/08/19 19:48 Range/Units Urine Color YELLOW Urine Clarity SL CLOUDY Urine pH 6.0 5-9 Urine Specific [place] >=1.030 1.016-1.022 Urine Protein NEGATIVE NEGATIVE Urine Glucose (UA) NEGATIVE NEGATIVE Urine Ketones NEGATIVE NEGATIVE Urine Nitrite NEGATIVE NEGATIVE Urine Bilirubin NEGATIVE NEGATIVE Urine Urobilinogen 1.0 < = 1.0 MG/DL Urine Leukocyte Esterase NEGATIVE NEGATIVE Urine RBC (Auto) NEGATIVE NEGATIVE Urine RBC NONE /HPF Urine WBC NONE /HPF Urine Squamous Epithelial Cells 2-5 /HPF Urine Crystals PRESENT H /LPF Urine Amorphous Sediment FEW ROGER URATES H /LPF Urine Bacteria MODERATE H /HPF Urine Casts NONE /LPF Urine Mucus SMALL H /LPF Urine Culture Indicated YES My Orders Orders - ADINA ALLAN Ua Culture If Indicated (09/08/19 19:25) Urine Culture (09/08/19 19:48) Ed Iv/Invasive Line Start (09/08/19 20:08) Ns Iv 1000 Ml (Sodium Chloride 0.9%) (09/08/19 20:08) Ketorolac Injection (Toradol Injection) (09/08/19 20:08) Ct Abd/Pelvis Wo(Kidney Stone) (09/08/19 20:28) Ondansetron Injection (Zofran Injectio (09/08/19 20:28) Vital Signs/I&O 09/08/19 19:54 Temp 36.7 Pulse 119 Resp 18 B/P (MAP) 135/88 (104) O2 Delivery Room Air Blood Pressure Mean: 104 Progress Progress Note : Time: 20:00 Progress Note Patient seen and evaluated, will obtain CT of abdomen and pelvis for kidney stone, normal saline 1 L per IV, Zofran 8 mg IV for nausea and Toradol 30 mg IV for pain. 2054 patient reports trace improvement in her symptoms. CT results reviewed with her. Discharge instructions and return precautions reviewed. Patient seen by Dr. Ochoa, agreed with plan of care. Diagnostic Imaging Diagonstic Imaging: CT Plain Films/CT/US/NM/MRI: abdomen, pelvis Comments [facility], [place] NAME: LANIE GREGG [facility] REC#: [id number] PT STATUS: REG ER : 1975 PHYSICIAN: ADINA ALLAN ADMIT DATE: 09/08/19/ER Draft Date of Exam:09/08/19 CT ABD/PELVIS WO(KIDNEY STONE) PROCEDURE: CT abd/pelvis w/o contrast (kidney stone). TECHNIQUE: Unenhanced CT imaging of the abdomen and pelvis was performed. 2D reformats are created and submitted for interpretation. Automatic exposure controls were utilized to optimize patient dose. INDICATION: Right-sided back pain. COMPARISON: 05/22/2019. FINDINGS: Evaluation of the abdominal viscera is mildly limited without contrast. Lower chest: The lung bases are clear. No pericardial or pleural effusion. Peritoneum: No free intraperitoneal air or fluid. Liver and biliary system: Stable hemangioma in the anterior aspect of the left hepatic lobe, measuring 3.0 x 2.0 cm. No new hepatic lesion. Cholecystectomy. No pathologic biliary duct dilatation. Spleen and Pancreas: Spleen is normal. Unenhanced pancreas is grossly normal. Adrenals: Normal. tract: No renal or ureteral calculi. No obstructive uropathy. Large exophytic cyst in the upper pole of the left kidney measures 6.7 x 5.7 cm. Urinary bladder is decompressed, limiting assessment. Hysterectomy has been performed. No concerning adnexal mass. GI tract: Gastric sleeve has been performed. Moderate size hiatal hernia is unchanged. No bowel obstruction. No pericolonic inflammatory changes. Normal appendix. Sigmoid and descending colon diverticulosis. Vasculature and Lymph nodes: Normal caliber aorta. No abdominal or pelvic lymphadenopathy. Musculoskeletal: Chronic sacroiliitis on the right is unchanged. IMPRESSION: 1. No urinary tract calculi or obstructive uropathy. 2. Chronic unilateral right-sided sacroiliitis is unchanged since 05/12/2019. This is most frequently seen with psoriatic or reactive arthritis. 3. Diverticulosis without diverticulitis. Dictated on workstation # [id number] Dict: 09/08/192047 Trans: 09/08/192057 [facility] [id number] Interpreted by: JAY DUBOIS MD Electronically signed by: Reviewed: Reviewed by Me Departure Impression Primary Impression: Sacro ilial pain Additional Impression: UTI (urinary tract infection) Qualified Codes: N30.00 - Acute cystitis without hematuria Disposition: HOME, SELF-CARE Condition: Improved (ERASED) Departure-Patient Inst. Decision time for Depature: 20:55 Referrals: [facility] (PCP/Family) Primary Care Physician Patient Instructions: Sacroiliac Joint Pain, Urinary Tract Infection, Adult (DC) Add. Discharge Instructions: Increase fluid intake, 16 ounces every 2 hours. Alternate between Tylenol 650 mg and ibuprofen 600 mg every 4 hours for pain. Use Zofran every 6-8 hours for nausea and vomiting. Use tramadol for more severe pain every 8 hours. Take antibiotics as prescribed. Follow-up with your primary care provider in 2-3 days if symptoms are not better or worsen. Return to the emergency department for fever greater than 101 not relieved by Tylenol and ibuprofen, increasing pain, persistent vomiting or new health problem All discharge instructions reviewed with patient and/or family. Voiced understanding. ADINA ALLAN Sep 08, 2019 20:41
--- NOTE | 2019-09-08 20:59 | Diagnostic Imaging Report ---
PROCEDURE: CT abd/pelvis w/o contrast (kidney stone). TECHNIQUE: Unenhanced CT imaging of the abdomen and pelvis was performed. 2D reformats are created and submitted for interpretation. Automatic exposure controls were utilized to optimize patient dose. INDICATION: Right-sided back pain. COMPARISON: 05/22/2019. FINDINGS: Evaluation of the abdominal viscera is mildly limited without contrast. Lower chest: The lung bases are clear. No pericardial or pleural effusion. Peritoneum: No free intraperitoneal air or fluid. Liver and biliary system: Stable hemangioma in the anterior aspect of the left hepatic lobe, measuring 3.0 x 2.0 cm. No new hepatic lesion. Cholecystectomy. No pathologic biliary duct dilatation. Spleen and Pancreas: Spleen is normal. Unenhanced pancreas is grossly normal. Adrenals: Normal. tract: No renal or ureteral calculi. No obstructive uropathy. Large exophytic cyst in the upper pole of the left kidney measures 6.7 x 5.7 cm. Urinary bladder is decompressed, limiting assessment. Hysterectomy has been performed. No concerning adnexal mass. GI tract: Gastric sleeve has been performed. Moderate size hiatal hernia is unchanged. No bowel obstruction. No pericolonic inflammatory changes. Normal appendix. Sigmoid and descending colon diverticulosis. Vasculature and Lymph nodes: Normal caliber aorta. No abdominal or pelvic lymphadenopathy. Musculoskeletal: Chronic sacroiliitis on the right is unchanged. IMPRESSION: 1. No urinary tract calculi or obstructive uropathy. 2. Chronic unilateral right-sided sacroiliitis is unchanged since 05/12/2019. This is most frequently seen with psoriatic or reactive arthritis. 3. Diverticulosis without diverticulitis. Dictated by: Dictated on workstation # [id number]
[2019-09-08] MEDS ORDERED: RX-NITROFURANTOIN 100 MG (MACROBID) CAP PPK#2 PO STA (21:18)
[2019-09-08] MEDS ORDERED: RX-TRAMADOL 50 MG (ULTRAM) TAB PPK#4 PO STA (21:18)
[2019-09-08] MEDS ORDERED: NITR100C PO (21:26)
[2019-09-08 21:36] VITALS: BP 130/82
== END 2019-09-08 21:37 | disposition home or self-care (01) ==
LOC: EDUNIT# 19:23 → ER 19:25
DX: M46.1 Sacroiliitis, not elsewhere classified (principal); N39.0 Urinary tract infection, site not specified; F31.9 Bipolar disorder, unspecified; F41.9 Anxiety disorder, unspecified; E03.9 Hypothyroidism, unspecified; K21.9 Gastro-esophageal reflux disease without esophagitis; Z85.41 Personal history of malignant neoplasm of cervix uteri
CPT/HCPCS: 74176; 81000; 87088; 96361; 96374; 96375

== ENCOUNTER 2020-01-01 18:07 | Inpatient (IN) | payer BC, MEDICARE ==
[~2020-01-01] VITALS: Ht 157.5 cm; Wt 91.0 kg
[~2020-01-01 18:07] MED LIST changes: +NITR100C PO
[2020-01-01] MEDS ORDERED: NS IV 1000 ML 1,000 ML IV SCH ×2 (18:24)
[2020-01-01] MEDS ORDERED: AZITHROMYCIN 250 MG TAB (ZITHROMAX) PO ONE (18:30)
[2020-01-01] MEDS ORDERED: cefTRIAXone FOR IV USE 1,000 MG in WATER (STERILE) FOR INJECTION 10 ML IV ONE (18:30)
--- NOTE | 2020-01-01 18:36 | Diagnostic Imaging Report ---
EXAMINATION: Chest radiograph, portable AP view. DATE: 01/01/2020 6:25 PM INDICATION: 44-year-old female, chest pain. COMPARISON: None. FINDINGS: Heart size and mediastinal contours are unremarkable. There is no identified pneumothorax. There is no large pleural effusion. There is no identified focal airspace consolidation. IMPRESSION: No identified acute cardiopulmonary abnormality. Dictated by: Dictated on workstation # [id number]
--- NOTE | 2020-01-01 18:39 | ED Chest Pain ---
General Chief Complaint: Chest Pain Stated Complaint: COUGH,CHEST TIGHTNESS,FEVER Source: patient Exam Limitations: no limitations History of Present Illness Date Seen by Provider: Jan 01, 2020 Time Seen by Provider: 18:08 Initial Comments Patient presents ER by private conveyance with one day of chest pain on deep inspiration cough fever and shortness of breath. She had negative COVID-19 testing on , 6 days ago prior to doing an EGD today with Dr. Álvarez. She says last time she had an EGD she ended up with an aspiration pneumonia. She has a known hiatal hernia with surgery. She had testing today and was told she had some inflammatory changes and biopsies may be taken. She has general malaise weakness tiredness shortness of breath and occasionally productive cough. She has not taken any Tylenol or Motrin but she did have 103 fever on her thermometer at home. She denies nausea dysuria. She has no history of coronary disease, significant family early onset coronary disease, hyperlipidemia, hypertension, smoking, diabetes but she does have hypothyroidism. Allergies and Home Medications Allergies Coded Allergies: No Known Drug Allergies (Unverified , 09/10/18) Home Medications Hydrocodone Bit/Acetaminophen 1 Ea Tablet, 2 EA PO Q6H PRN for Pain-See In structions Prescribed by: LISA LUQUE on 09/13/18 0714 Hydrocodone/Acetaminophen 1 Each Tablet, 1-2 EACH PO Q6H PRN for PAIN-MODERATE Prescribed by: ASHLEY DURAND MD on 05/12/19 1549 Levothyroxine Sodium 100 Mcg Tablet, 100 MCG PO DAILY, (Reported) Nitrofurantoin Macrocrystal 100 Mg Capsule, 100 MG PO BID Prescribed by: ADINA ALLAN on 09/08/196 Omeprazole Magnesium 20 Mg Tablet.dr, 20 MG PO DAILY Prescribed by: AIDAN LEE on 05/23/16 1137 Ondansetron 4 Mg Tab.rapdis, 4 MG PO Q4H PRN for NAUSEA/VOMITING-1ST LINE Prescribed by: ASHLEY DURAND MD on 05/12/19 1549 Quetiapine Fumarate 200 Mg Tablet, 200 MG PO HS, (Reported) Simethicone 80 Mg Tab.chew, 40 MG PO TID PRN for INDIGESTION 2ND LINE Prescribed by: LISA LUQUE on 09/13/18 0722 Patient Home Medication List Home Medication List Reviewed: Yes Review of Systems Review of Systems Constitutional: chills; No diaphoresis; fever, malaise, weakness EENTM: No Blurred Vision, No Double Vision Respiratory: Cough, Shortness of Air; Denies Wheezing Cardiovascular: Denies Chest Pain, Denies Edema Gastrointestinal: Denies Constipated, Denies Diarrhea, Denies Nausea Genitourinary: Denies Burning, Denies Discharge Musculoskeletal: No back pain, No joint pain Skin: No pruritus, No rash All Other Systems Reviewed Negative Unless Noted: Yes Past [id number]-Llyyjl Hx Patient Social History Alcohol Use: Denies Use Alcohol Beverage of Choice: Other Recreational Drug Use: No Drug of Choice: HX OF METH USE; HX OF OVERDOSE 2015 Smoking Status: Former Smoker Type Used: Cigarettes Former Smoker, Quit: Jan 08, 2018 2nd Hand Smoke Exposure: Yes Recent Hopitalizations: No Immunizations Up To Date Tetanus Booster (TDap): Unknown Seasonal Allergies Seasonal Allergies: No Past Medical History Surgeries: Yes (C SECTION X2, GASTRIC SLEEVE) Gallbladder, Hysterectomy, Orthopedic Respiratory: No Sleep Apnea Currently Using CPAP: Yes Cardiac: No Neurological: No Reproductive Disorders: Yes Female Reproductive Disorders: Endometriosis [employer] History: Hysterectomy Sexually Transmitted Disease: No HIV/AIDS: No Genitourinary: No Gastrointestinal: Yes (S/P GASTRIC SLEEVE SURGERY) Gastroesophageal Reflux, Gall Bladder Disease Musculoskeletal: No Endocrine: Yes Hypothyroidsim HEENT: No Loss of Vision: Bilateral Hearing Impairment: Denies Cancer: Yes Cervical What Type of Treatment Did You: Surgical Intervention Psychosocial: Yes Anxiety, Bipolar, Depression Integumentary: No Blood Disorders: No Adverse Reaction/Blood Tranf: No Family Medical History No Pertinent Family Hx Physical Exam Vital Signs Vital Signs - First Documented Capillary Refill : Height, Weight, BMI Height: 5'2.00" Weight: 213lbs. 7.0oz. 96.707287pd; 31.00 BMI Method:Stated General Appearance: WD/WN, Moderate Distress HEENT: PERRL/EOMI, Pharynx Normal, Moist Mucous Membranes Neck: Full Range of Motion, Normal Inspection Respiratory: Lungs Clear, Normal Breath Sounds, No Accessory Muscle Use, Respiratory Distress (Mild to moderate) Cardiovascular: Regular Rate, Rhythm, No Edema, Normal Peripheral Pulses, Tachycardia Gastrointestinal: Normal Bowel Sounds, No Organomegaly, Non Tender, Soft Extremity: Normal Capillary Refill, Normal Inspection, Normal Range of Motion, Non Tender, No Pedal Edema Neurologic/Psychiatric: Alert, Oriented x3, No Motor/Sensory Deficits Skin: Normal Color, Warm/Dry Focused Exam Lactate Level 01/01/20 18:28: Lactic Acid Level 1.84 Lactic Acid Level Laboratory Tests Test 01/01/20 18:28 Lactic Acid Level 1.84 MMOL/L (0.50-2.00) Progress/Results/Core Measures Results/Orders Lab Results Laboratory Tests Test 01/01/20 18:28 01/01/20 18:45 Range/Units White Blood Count 15.8 H 4.3-11.0 10^3/uL Red Blood Count 4.40 4.35-5.85 10^6/uL Hemoglobin 13.6 11.5-16.0 G/DL Hematocrit 39 35-52 % Mean Corpuscular Volume 90 80-99 FL Mean Corpuscular Hemoglobin 31 25-34 PG Mean Corpuscular Hemoglobin Concent 35 32-36 G/DL Red Cell Distribution Width 13.2 10.0-14.5 % Platelet Count 238 130-400 10^3/uL Mean Platelet Volume 10.0 7.4-10.4 FL Neutrophils (%) (Auto) 89 H 42-75 % Lymphocytes (%) (Auto) 6 L 12-44 % Monocytes (%) (Auto) 5 0-12 % Eosinophils (%) (Auto) 0 0-10 % Basophils (%) (Auto) 0 0-10 % Neutrophils # (Auto) 14.0 H 1.8-7.8 X 10^3 Lymphocytes # (Auto) 0.9 L 1.0-4.0 X 10^3 Monocytes # (Auto) 0.8 0.0-1.0 X 10^3 Eosinophils # (Auto) 0.1 0.0-0.3 10^3/uL Basophils # (Auto) 0.0 0.0-0.1 10^3/uL Sodium Level 136 135-145 MMOL/L Potassium Level 3.9 3.6-5.0 MMOL/L Chloride Level 105 98-107 MMOL/L Carbon Dioxide Level 20 L 21-32 MMOL/L Anion Gap 11 5-14 MMOL/L Blood Urea Nitrogen 12 7-18 MG/DL Creatinine 0.90 0.60-1.30 MG/DL Estimat Glomerular Filtration Rate > 60 BUN/Creatinine Ratio 13 Glucose Level 121 H 70-105 MG/DL Lactic Acid Level 1.84 0.50-2.00 MMOL/L Calcium Level 8.9 8.5-10.1 MG/DL Corrected Calcium 8.7 8.5-10.1 MG/DL Total Bilirubin 0.3 0.1-1.0 MG/DL Aspartate Amino Transf (AST/SGOT) 28 5-34 U/L Alanine Aminotransferase (ALT/SGPT) 25 0-55 U/L Alkaline Phosphatase 57 40-136 U/L Total Protein 7.1 6.4-8.2 GM/DL Albumin 4.2 3.2-4.5 GM/DL My Orders Orders - COOPER,KLEBER J Chest 1 View, Ap/Pa Only (01/01/20 ) Cbc With Automated Diff (01/01/20 18:24) Comprehensive Metabolic Panel (01/01/20 18:24) Blood Culture (01/01/20 18:24) Sputum Culture (01/01/20 18:24) Urinalysis (01/01/20 18:24) Urine Culture (01/01/20 18:24) Protime With Inr (01/01/20 18:24) Partial Thromboplastin Time (01/01/20 18:24) Ed Iv/Invasive Line Start (01/01/20 18:24) Ed Iv/Invasive Line Start (01/01/20 18:24) Ekg Tracing (01/01/20 18:24) Vital Signs Adult Sepsis Patie Q15M (01/01/20 18:24) O2 (01/01/20 18:24) Remove Rings In Anticipation O (01/01/20 18:24) Lactic Acid Analyzer (01/01/20 18:24) Ns Iv 1000 Ml (Sodium Chloride 0.9%) (01/01/20 18:24) Ceftriaxone For Iv Use (Rocephin For I (01/01/20 18:30) Ed Iv/Invasive Line Start (01/01/20 18:24) Ns Iv 1000 Ml (Sodium Chloride 0.9%) (01/01/20 18:24) Azithromycin Tablet (Zithromax Tablet) (01/01/20 18:30) Manual Differential (01/01/20 18:28) Arterial Blood Gas (01/01/20 18:46) Acetaminophen Tablet (Tylenol Tablet) (01/01/20 19:00) Vital Signs/I&O 01/01/20 01/01/20 18:14 18:14 Temp 37.8 Pulse 116 Resp 22 B/P (MAP) 135/91 (106) Pulse Ox 94 O2 Delivery Room Air Room Air Progress Progress Note : Time: 18:32 Progress Note Septic workup. For possible aspiration pneumonia Rocephin should have good coverage. Give her half a gram of azithromycin for atypicals. Her recent negative COVID-19 and her symptoms did not startle after the EGD was performed. She does have a history of EGD related aspiration pneumonia last time she had one. Patient's tachycardic, tach. EKG unremarkable. We'll get a troponin but she doesn't have a significant amount of risk factors and her chest pain is completely related to inspiration and coughing. Her chest pain seems to be pleuritic. 2 L of fluid would be greater than 20 mL/kg. Her blood pressure is acceptable. Oxygen sats of been in the mid 90s. Plan to get ABG. Initial ECG Impression Date: Jan 01, 2020 Initial ECG Impression Time: 18:13 Initial ECG Rate: 116 Initial ECG Rhythm: S.Tach Initial ECG Intervals: Normal Initial ECG Impression: Normal Initial ECG Comparisson: No Previous ECG Available Comment No clinically relevant ST elevation or depression. Sinus tachycardia. Diagnostic Imaging Diagonstic Imaging: Xray Plain Films/CT/US/NM/MRI: chest Reviewed: Reviewed by Me Departure Communication (Admissions) Time/Spoke to Admitting Phy: 19:00 Discussed the case with Dr. Morales and we discussed imaging and labs and she would feel her set up an plan the patient had COVID-19 and that the patient was with family with testing again soon recommended we contact another sample. Patient did acquiesce to repeat testing today. She agrees with Rocephin for now. She will except the patient to the floor. Impression Primary Impression: Pneumonia, aspiration Qualified Codes: J69.0 - Pneumonitis due to inhalation of food and vomit Additional Impression: covid 9 pui Disposition: ADMITTED INPATIENT Condition: Stable Admissions Decision to Admit Reason: Admit from ER (General) Decision to Admit/Date: Jan 01, 2020 Time/Decision to Admit Time: 18:45 Departure-Patient Inst. Referrals: [facility] (PCP/Family) Primary Care Physician KLEBER GAMBOA Jan 01, 2020 18:39
[2020-01-01 18:45] LABS: BASOPHILS % (AUTO) 0 % (0-10); EOSINOPHILS # (AUTO) 0.1 10^3/uL (0.0-0.3); EOSINOPHILS % (AUTO) 0 % (0-10); HEMATOCRIT 39 % (35-52); HEMOGLOBIN 13.6 G/DL (11.5-16.0); LYMPHOCYTES # (AUTO) 0.9 X 10^3 (1.0-4.0); LYMPHOCYTES % (AUTO) 6 % (12-44); MEAN CORPUSCULAR HEMOGLOBIN 31 PG (25-34); MEAN CORPUSCULAR HGB CONC 35 G/DL (32-36); MEAN CORPUSCULAR VOLUME 90 FL (80-99); MONOCYTES # (AUTO) 0.8 X 10^3 (0.0-1.0); MONOCYTES % (AUTO) 5 % (0-12); NEUTROPHILS % (AUTO) 89 % (42-75); PLATELET COUNT 238 10^3/uL (130-400); RED CELL DISTRIBUTION WIDTH 13.2 % (10.0-14.5); WHITE BLOOD COUNT 15.8 10^3/uL (4.3-11.0)
[2020-01-01 18:48] LABS: ALBUMIN 4.2 GM/DL (3.2-4.5)
[2020-01-01 18:49] LABS: CHLORIDE 105 MMOL/L (98-107); POTASSIUM 3.9 MMOL/L (3.6-5.0); SODIUM 136 MMOL/L (135-145)
[2020-01-01 18:50] LABS: CALCIUM 8.9 MG/DL (8.5-10.1)
--- NOTE | 2020-01-01 18:50 | NUR ---
BLOOD CULTURE #2 OBTAINED FROM Liset CRAWFORD ET SENT TO LAB.
[2020-01-01 18:51] LABS: GLUCOSE 121 MG/DL (70-105); TOTAL PROTEIN 7.1 GM/DL (6.4-8.2)
[2020-01-01 18:52] LABS: CARBON DIOXIDE 20 MMOL/L (21-32)
[2020-01-01 18:53] LABS: BILIRUBIN,TOTAL 0.3 MG/DL (0.1-1.0)
[2020-01-01 18:54] LABS: ALKALINE PHOSPHATASE 57 U/L (40-136)
[2020-01-01 18:55] LABS: GFR ESTIMATED > 60
[2020-01-01 18:56] LABS: BUN/CREATININE RATIO 13
[2020-01-01] MEDS ORDERED: ACETAMINOPHEN 500 MG TAB (TYLENOL) ONE (18:57)
[2020-01-01 18:58] LABS: ALANINE AMINOTRANSFERASE 25 U/L (0-55); PROTHROMBIN TIME PATIENT 13.2 SEC (12.2-14.7)
[2020-01-01] MEDS ORDERED: ACETAMINOPHEN 500 MG TAB (TYLENOL) PO ONE (19:00)
[2020-01-01 19:01] LABS: ABG BASE EXCESS -2.6 MMOL/L (-2.5-2.5); ABG OXYGEN SATURATION 96 % (94-100); ABG PCO2 39 MMHG (35-45); ABG PH 7.37 (7.37-7.43); ABG PO2 89 MMHG (79-93); ABG TCO2 22.9 MMOL/L (21.0-31.0)
[2020-01-01 19:07] LABS: ALLENS TEST POS; INSPIRED O2 ROOM AIR; VENTILATOR NO
[2020-01-01 19:08] LABS: PATIENT TEMP 37.8
--- NOTE | 2020-01-01 19:10 | NUR ---
COVID-19 SWAB OBTAINED ET SENT TO LAB.
[2020-01-01 19:25] LABS: BAND NEUTROPHILS 3 %; LYMPHOCYTES % (MANUAL) 5 %; MONOCYTES % (MANUAL) 2 %; NEUTROPHILS % (MANUAL) 90 %; RBC MORPH NORMAL
--- OUTSIDE RECORDS SUMMARY | 2020-01-01 19:53 | XMS REPORT ---
Author Author Zarpo bilingual legal assistant [employer] [facility] [place] [facility] K[employer] Address [address] [place] [address] Care Team Providers Care Tool And Die Engineer Name Role Phone ANNA ARIAS Unavailable Unavailable [facility] Unavailable [phone] CRISTY MARAVILLA Unavailable Unavailable BIJU, NADYA Unavailable Unavailable FABIAN SELF Unavailable Unavailable FLAQUITA PEARCE Unavailable Unavailable DEONNA PETTY Unavailable Unavailable BLAIR AGUIRRE Unavailable Unavailable GUZMAN ALMANZAR Unavailable Unavailable JOANNA AMAYA Unavailable Unavailable MELISSA QUEVEDO Unavailable Unavailable NO, LOCAL PHYSICIAN Unavailable Unavailable JEANA CULLEN Unavailable Unavailable NO, LOCAL PHYSICIAN Unavailable Unavailable BIJU, NADYA Unavailable BIJU, NADYA Unavailable BIJU, NADYA Unavailable BIJU, NADYA Unavailable BIJU, NADYA Unavailable BIJU, NADAY Unavailable BIJU, NADYA Unavailable ESTER RIVAS Unavailable BRISA FRAUSTO Unavailable ESTER RIVAS Unavailable FLAQUITA PEARCE Unavailable BIJU, NADYA Unavailable BIJU, NADYA Unavailable BIJU, NADYA Unavailable BIJU, NADYA Unavailable BIJU, NADYA Unavailable BIJU, NADYA Unavailable BIJU, NADYA Unavailable BIJU, NADYA Unavailable BIJU, NADYA Unavailable BIJU, NADYA Unavailable BIJU, NADYA Unavailable [facility] PCP DEUCE, CHANDROUTIE Unavailable Unavailable DEUCE, CHANDROUTIE Unavailable Unavailable DEUCE, CHANDROUTIE Unavailable Unavailable DEUCE DO, CHANDROUTIE Unavailable Unavailable ABAD Villalpando Unavailable BIJU, NADYA Unavailable [facility] PCP BIJU, NADYA 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 PROFESSOR Unavailable Unavailable BIJU, NADYA S Unavailable Unavailable KIZZY HARDIN, ASHLEY Vazquez Unavailable Unavailable ANITA HOSKINS APRN Unavailable Unavailable DAYANA HARDIN, DAVID Waller Unavailable Unavailable NEMESIO DO, GIOVANNA K Unavailable Unavailable ENE DO, LISA S Unavailable Unavailable ARTI HARDIN, NERIS Stokes Unavailable Unavailable Unavailable Unavailable JORDAN HARDIN, RIN Hahn Unavailable Unavailable JERRELL HOUSTON, ADINA L Unavailable Unavailable TAYO PHILLIPS, STEPHANIE Hutchins Unavailable Unavailable ANITA HOSKINS APRN Unavailable Unavailable Unavailable Unavailable Unavailable Unavailable Unavailable Unavailable Unavailable Unavailable Unavailable Unavailable Unavailable Unavailable Unavailable Unavailable Allergies Normalized Allergy Reported Date of Reaction(s) Care Provider Facility Allergy Type classification allergen Allergy Onset DA (20 Unclassified No Known Drug 01-03-2015 - no information ANITA HOSKINS Not Available sources.) Allergies (03813) no information Unclassified NO KNOWN DRUG NO KNOWN DRUG [facility] (22 sources.) ALLERGIES ALLERGIES, [facility] of UNKNOWN [facility] ([address]68) Medications Current Medications Medication Ingredient Drug Dose Dates Status Sig Sig Care Class(es) (Normalized) (Original) Provid er ondansetron Ondansetron Serotonin-3 05-12-20 Active no Ondan setron no 4 mg Receptor 19 - information Active 4 name disintegrat Antagonist 05-12-20 ORAL Every ing oral 19 4HRS as tablet (2 needed for sources.) Nausea/Vomit ing-1ST Line May 12, 2019 3:49pm simethicone Simethicone no 3200 09-14-19 Active no Sim ethicone no 80 mg information mg 19 - information Active 40 na me chewable 09-14-19 ORAL Three tablet (5 19 Times A Day sources.) as needed for Indigestion 2ND Line September 13, 2018 7:22am Completed/Discontinued Medications Medication Ingredient Drug Dose Dates Status Sig Sig Care Class(es) (Normalized) (Original) Provid er no ACETAMINOPH no 650 mg 12-27-19 no no no no information EN SUPPOS information 19 - informat information in formation name (1 source.) SUP 650 MG 01-03-20 ion (TYLENOL) 19 no Albuterol / Anticholine 12-27-19 no no no no information Ipratropium rgic, 19 - informat information inform ation name (1 source.) beta2-Adren 12-27-19 ion ergic 19 Agonist no CEFAZOLIN no 12-27-19 no no no no information PREMIX IV information 19 - informat information in formation name (1 source.) BAG IV 1 12-28-19 ion GM/50CC 19 (ANCEF PREMIX IV BAG) no CEFAZOLIN no 1 g 12-27-19 no no no no information VIAL INJ 1 information 19 - informat informatio n information name (1 source.) GM (ANCEF) 12-27-19 ion 19 no D5 LAC no 12-27-19 no no no no information RINGERS information - informat information info rmation name (1 source.) 1000CC IV 01-03-20 ion BAG INJ 19 no Diazepam no 12-27-19 no no no no information inj SYRINGE information 19 - informat informati on information name (1 source.) 5mg/mL 2mL 01-03-20 ion (Valium) 19 docusate Docusate no 100 mg 09-14-19 Complete no Docusat e no sodium 100 information 19 - d information Sodium name mg oral 05-12-20 Discontinued capsule (5 19 100 ORAL sources.) Twice A Day as needed for Constipation -1ST Line 40 September 13, 2018 7:14am May 12, 2019 no ENALAPRIL no 12-27-19 no no no no information VIAL INJ information 19 - informat information inf ormation name (1 source.) 1.25 MG/CC 12-30-19 ion (VASOTEC 19 VIAL) {21 Ethinyl Progestin, 11-15-20 Suspende no Sprintec 28 no (Ethinyl Estradiol / Estrogen 17 d information 0.25-35 name Estradiol norgestimat MG-MCG 0.035 MG / e Orally Once norgestimat Translation a day Skp e 0.25 MG s: [ the placebo Oral Sprintec 28 1 tablet 15 Tablet) / 7 0.25-35 May, 2017 90 (Inert MG-MCG] days Ingredients Not-Taking 1 MG Oral Tablet) } Pack [Sprintec 28 Day] (1 source.) no FENTANYL no 12-27-19 no no no no information INJ 100 information - informat information info rmation name (1 source.) MCG/2CC 12-27-19 ion VIAL 19 12-26-2018 no no no no name - information inform informat 12-26-2018 ation ion no Heparin, no 500 12-28-19 no no no no information FLUSH IV information [IU] - informat informati on information name (1 source.) syringe 500 01-06-20 ion units 19 no HYDROCODONE no 12-28-19 no no no no information /APAP information - informat information infor mation name (1 source.) 7.5/325 01-07-20 ion ELIX LIQ 15 19 CC (LORTAB ELIX 7.5/325) ibuprofen Ibuprofen Nonsteroida 600 mg 09-14-19 Complete no Ibuprofen no 600 mg oral l 19 - d information Discontinued name tablet (5 Anti-inflam 05-12-20 600 ORAL sources.) matory Drug 19 Every 6 Hours as needed for Pain-Moderat e 80 September 13, 2018 7:14am May 12, 2019 no KETOROLAC no 12-28-19 no no no no information VIAL INJ 30 information - informat informati on information name (1 source.) MG/CC 12-31-19 ion (TORADOL 19 VIAL) no Lactated no 12-27-19 no no no no information Ringer's information - informat information inf ormation name (1 source.) Solution 20 ion 19 10-30-2018 no no no no name - information inform informat 11-06-2018 ation ion no Melatonin/P no 02-07-20 Complete take 1 no (no information yridoxine information 15 d tablet by inform ation phone) (3 Hcl mouth at sources.) (Melatonin bedtime 1 Mg Tablet) 1 Each Tablet, Unknown Dose Oral no METOCLOPRAM no 12-27-19 no no no no information DANE VIAL information - informat information inf ormation name (1 source.) INJ 10 01-06-20 ion MG/2CC 19 (REGLAN 2CC VIAL) no MORPHINE no 12-27-19 no no no no information SYRINGE INJ information - informat informati on information name (1 source.) 2 MG/CC 01-03-20 ion 19 no Nitrofurant no 07-24-19 Complete no Nitrofuranto no information oin information 16 - d information in name (3 Monohyd/M-C 01-29-20 Monohyd/M-Cr sources.) ryst yst Discontinued 100 ORAL Twice A Day July 23, 2015 9:27pm January 29, 2016 07-24-2015 Completed no Nitrofur no name - inform antoin 01-29-2016 ation Monohyd/ M-Cryst Disconti nued 100 ORAL Twice A Day July 23, 2015 9:27pm January 29, 2016 no Nitrofurant no 07-23-19 Complete no Nitrofuranto Giovanna K information oin information 16 - d information in [place] (3 Monohyd/M-C 01-29-20 Monohyd/M-Cr (no sources.) ryst yst phone) (Macrobid (Macrobid 100 Mg 100 Mg Capsule) Capsule) 100 100 Mg Mg Capsule, Capsule, 100 Mg Oral 100 Mg Oral Twice A Day 07/23/15 Discontinued no Omeprazole no 02-07-20 Complete no Omeprazole [facility] information (Prilosec) information 15 - d information (Pr ilosec) en L (3 40 Mg 03-14-20 40 Mg Tayo sources.) Capsule., 15 Capsule., (no 40 Mg Oral 40 Mg Oral phone) Daily 02/06/15 Discontinued no Omeprazole no 20 mg 05-23-20 Complete take 1 Omepraz ole David information Magnesium information 16 d tablet by Didi Waller (3 (Prilosec mouth once (Prilosec Jenkin sources.) Otc) 20 Mg daily Otc) 20 Mg s (no Tablet.dr Tablet. 20 phone) Mg ORAL Daily 30 Tab 05/23/16 no ONDANSETRON no 12-27-19 no no no no information VIAL INJ 4 information - informat informatio n information name (1 source.) MG/2CC 01-03-20 ion (ZOFRAN 2CC 19 VIAL) 12-26-2018 no no no no name - information inform informat 12-26-2018 ation ion no PANTOPRAZOL no 40 mg 12-28-19 no no no no information E VIAL INJ information - informat informatio n information name (1 source.) 40 MG 01-06-20 ion (PROTONIX 19 IV) no PROMETHAZIN no 12-27-19 no no no no information E VIAL INJ information 19 - informat informatio n information name (1 source.) 25 MG/CC 01-06-20 ion (PHENERGAN 19 VIAL) no Scopolamine Anticholine 12-27-19 no no no no information rgic 19 - informat information information name (1 source.) 12-27-19 ion 19 Problems Active Problems Problem Normalized Date Last Normalized Normalized Provider Fa cility Classification Problem(s) Recorded Problem Problem Sta tus Duration Abdominal pain Abdominal Episodic Active STEPHANIE [facility] Via (18 sources.) pain, ALAN GOLD epigastric Hospital - Translations: [place] [ UNSPECIFIED (34645) ABDOMINAL PAIN, PELVIC AND PERINEAL PAIN] Residual Acquired Episodic Active GIOVANNA NEMESIO , DO [facility] Via codes; absence of Vickie unclassified both cervix Hospital - (19 sources.) and uterus [place] (90037) Deficiency and Anemia, Episodic Active STEPHANIE [facility] Via other anemia unspecified ALAN GOLD (2 sources.) Hospital - [place] (21429) Other Body mass Chronic Active LISA LUQUE Not [place] ilable nutritional; index (BMI) , DO (99900) endocrine; and 39.0-39.9, metabolic adult disorders (19 sources.) Other Body Mass Chronic Active [facility] nutritional; Index [facility] of endocrine; and 39.0-39.9, [place] metabolic adult County (88426) disorders (10 sources.) Calculus of Calculus of Episodic Active ASHLEY DURAND , [facility] Via urinary tract kidney MD [facility] (15 sources.) Translations: Hospital - [ Calculus of [place] right kidney] (11675) Spondylosis; Cervicalgia 11-13-2019 - Episodic Active ANITA SHANIQUA GRANADOS [facility] Via intervertebral Translations: [place]ickie disc [ Sacroiliac Hospital - disorders; joint pain, [place] other back LOW BACK PAIN] (18631) problems (9 sources.) Residual Contact with Episodic Active ASHLEY HOLLISBHARGAVI [facility] Via codes; and MD [place] unclassified (suspected) Hospital - (13 sources.) exposure to [place] environmental (28804) tobacco smoke (acute) (chronic) Other diseases Cyst of Episodic Active GIOVANNA NEMESIO , DO [facility] Via of kidney and kidney, [place] ureters (5 acquired Hospital - sources.) [place] (86666) 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 GIOVANNA NEMESIO , DO [facility] Via codes; other enabling Vickie unclassified machines and Hospital - (19 sources.) devices [place] (08194) Diverticulosis Diverticulosis Chronic Active GIOVANNA NEMESIO , D O [facility] Via and of intestine, [place] diverticulitis part Hospital - (5 sources.) unspecified, [place] without (03421) perforation or abscess without bleeding Poisoning by Drug overdose Episodic Active ASHLEY HOLLISCOMB , [facility] Via other Translations: MD [facility] medications [ Drug Hospital - and drugs (12 overdose, [place] sources.) POISONING BY (22088) OTH ANTIEPLPTC AND SED-HYPN] Other Dyspepsia and Episodic Active STEPHANIE [facility] Via disorders of other ALAN GOLD stomach and specified Hospital - duodenum (2 disorders of [place] sources.) function of (58021) stomach Other Encounter for Episodic Active NADYA MARKSAN [facility] Via screening for screening [place]ickie suspected mammogram for Hospital - conditions malignant [place] (not mental neoplasm of (24360) disorders or breast infectious Translations: disease) (27 [ OTH ABN AND sources.) INCONCLUSIVE FINDINGS ON DX , INCONCLUSIVE MAMMOGRAM] Endometriosis Endometriosis Chronic Active LISA LUQUE [facility] Via (15 sources.) of uterus , DO [place] Translations: Hospital - [ [place] ENDOMETRIOSIS (88889) OF PELVIC PERITONEUM] Esophageal Esophageal no information Active [facility] Via disorders (3 disorders CENTER/K Vickie sources.) [address] Hospital (10726) Esophageal Esophagitis, Episodic Active DAVID ANNE [facility] Via disorders (4 unspecified , MD [place] sources.) Hospital - [place] (27696) Essential Essential Chronic Active CHANDROUTIE Not Availa ble hypertension (primary) DEUCE , DO (75073) (27 sources.) hypertension Translations: [ MALIGNANT ESSENTIAL HYPERTENSION] Other Ganglion of Episodic Active COMM[facility]ITY [place] Via connective wrist CENTER/DOU[facility] tissue disease [address] [place] [address] (3 sources.) (76391) Gastroduodenal Gastric ulcer, Chronic Active DAVID GUERRAHUYEN S [facility] Via ulcer (except unspecified as , MD [place] hemorrhage) (4 acute or Hospital - sources.) chronic, [place] without (05380) hemorrhage or perforation Gastritis and Gastritis, Episodic Active DAVID DAYANA [facility] Via duodenitis (4 unspecified, , MD [place] sources.) without Hospital - bleeding [place] (43911) Residual Insomnia, Episodic Active NADYA BIJU Communi ty codes; unspecified [address] [place] [address] unclassified Translations: [facility] (20 sources.) [ - Insomnia, [place] (59675) unspecified G47.00, - Insomnia, unspecified type G47.00] Other liver Liver disease, Chronic Active GIOVANNA HERR DO [facility] Via diseases (5 unspecified Vickie sources.) Hospital - [place] (22511) Other Morbid Chronic Active [facility] nutritional; (severe) [facility] of endocrine; and obesity due to [place] metabolic excess [facility] (31421) disorders (9 calories sources.) Other Morbid obesity Chronic Active [facility] nutritional; [facility] of endocrine; and [facility] (78477) disorders (9 sources.) Substance-rela Nicotine Chronic Active ANITA HOSKINS [facility] Vi a wiley disorders dependenceVickie (11 sources.) cigarettes, Hospital - uncomplicated [place] (76965) Other Obesity, Chronic Active LISA LUQUE Not Avai lable nutritional; unspecified , DO (04025) endocrine; and metabolic disorders (16 sources.) Residual Obstructive Chronic Active [facility] Not Avai lable codes; sleep apnea DO DEUCE (72542) unclassified (adult) (14 sources.) (pediatric) Deficiency and Other iron Episodic Active NADYA BIJU C ommunity other anemia deficiency [address] [place] [address] (20 sources.) anemias of [facility] Translations: [place] (20386) [ - 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, - 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 - disorders (6 [place] sources.) (47615) Residual Patient's Episodic Active CHANDROUTIE Not Availa ble codes; noncompliance DO DEUCE (74547) unclassified with other (7 sources.) medical treatment and regimen Other female Personal Episodic Active LISA LUQUE Not A vailable genital history of , DO (56547) disorders (9 cervical sources.) dysplasia Cancer of Personal 11-13-2019 - Episodic Active ASHLEY DURAND [facility] Via cervix (16 history of MD [place] sources.) malignant Hospital - neoplasm of [place] cervix uteri (80755) Suicide and Personal Episodic Active GIOVANNA GAFFNEYO , DO [facility] Vi a intentional history of [facility] self-inflicted self-harm Hospital - injury (19 [place] sources.) (64933) Residual Procedure and Episodic Active NERIS CHI [facility] Via codes; treatment not , MD [place] unclassified carried out Hospital - (5 sources.) due to patient [place] leaving prior (92596) to being seen by health care provider Spondylosis; Sacroiliitis, 11-13-2019 - Chronic Active ADINA HI TE , [facility] Via intervertebral not elsewhere 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 PROFESSORHussein [place] disc classified Hospital - disorders; [place] other back (29796) problems (3 sources.) Residual Sleep apnea, Chronic Active LISA LUQUE [facility] Via codes; unspecified , DO Vickie unclassified Hospital - (22 sources.) [place] (82419) Other lower Snoring Episodic Active CHANDROUTIE Not Avail able respiratory DEUCEDO KASSANDRA (31616) disease (7 sources.) Gastritis and Unspecified Chronic Active CHANDROUTIE Hosp ital duodenitis (8 chronic [facility] of sources.) gastritis [place] (78754) bleeding Translations: [ ATROPHIC GASTRITIS, WITHOUT MENTION OF HEMORRHAGE] Past or Other Problems Problem Normalized Date Last Normalized Normalized Provider Fa cility Classification Problem(s) Recorded Problem Problem Sta tus Duration Abdominal pain Pelvic and no information no information LISA LUQUE Not Available (3 sources.) perineal pain , DO (31844) Poisoning by Poisoning by no information no information ASHLEY ALYCE AMAYA , Not Available other other MD (68026) medications antiepileptic and drugs (2 and sources.) sedative-hypno tic drugs, accidental (unintentional ), initial encounter Residual Sleep apnea, no information no information LISA ECHEVARRIA [facility] Not Available codes; unspecified , DO (71176) unclassified (6 sources.) Procedures Procedure Normalized Procedure Procedure Result Performer Facility Date 09-08-2019 CT of abdomen and no information no name [facility] (37580) 05-12-2019 CT of abdomen and no information no name [facility] (82254) 06-20-2018 [facility] visit, estab pt no information no name [facility] (16042) 01-17-2018 [facility] visit, estab pt no information no name [facility] (19910) 09-14-2017 [facility] visit, estab pt no information no name [facility] (36440) 09-11-2017 [facility] visit, estab pt no information no name [facility] (63606) 09-25-2018 LAB NOT BILLED [facility] (27027) 09-13-2018 Laparoscopic no information LISA LUQUE [facility] (78010) 09-13-2018 Laps total hysterect no information LISA ANNE H [place] Via [facility] 250 gm/< w/rmvl [facility] (75452) tube/ovary 04-13-2019 Radiography of wrist no information no name As cension Via [facility] (48495) 04-13-2019 - 04-13-2019 09-11-2017 Radiologic exam chest no information no name C [facility] 2 views [facility] (64457) 06-04-2018 Us pelvic nonobstetric no information no name [facility] real-time image Center [facility] (63055) Immunizations Normalized Immunization Date Notes Care Provider Facili ty Immunization NEGATED: Highlighted 09-14-2018 - no information [facility] [place] Via row has not 09-14-2018 [address] [facility]! (44562) influenza, injectable,quadrival ent, preservative free, pediatric influenza, seasonal, 04-29-2019 no information no name [facility] injectable [facility] (64450) vaccine no information [facility] [place] Via Translations: [ [address] [place] [address] vaccine] (57366) no information 04-13-2019 no information [facility] [place] Via [address] [place] [address] (84000) Results Test Name Value Interpretation Reference Range Date Time Fa cility (Normalized) (Normalized) (Medline Reference) xray : chest 2 view (in house) on null NEGATED: no information (no code) [facility] Highlighted row Center of Laboratory [facility] (95146) not yet categorized on 2019-11-04 Control Negative (no code) [facility] (83567) Exp date 2022-05-29 (no code) [facility] (75809) Lot # [id number] (no code) [facility] (31274) not yet categorized on 2019-08-15 Control Negative (no code) [facility] (44790) Exp date 2021-04-17 (no code) [facility] (20425) Lot # [id number] (no code) [facility] (74720) laboratory on 2019-04-29 Free T4 1.2 ng/dL (N) 0.9 - 2.2 ng/dL [facility] [Mass/Vol] [facility] (81998) TSH Qn 0.14 m[IU]/L (L) 0.4 - 4 m[IU]/L [facility] (40507) laboratory on 2018-12-29 Retinol 53.6 (no code) 12-29-2018 [facility] (82536 ) [Mass/Vol] 07:41-0400 other on 2018-12-27 GFR/1.73 sq 94 (no code) 90 - 120 12-27-2018 Hospital M.predicted MDRD mL/min/{1.73_m2} mL/min/{1.73_m2} 08: [facility] of (S/P/Bld) [Vol [facility] rate/Area] (57366) HCO3 (P) 22 (no code) 12-27-2018 Hospital [Moles/Vol] 08: [facility] (74118) MCHC (RBC) 32.7 g/dL (no code) 32 - 36 g/dL 12-27-2018 Hospital [Mass/Vol] 08: [facility] (26472) Osmolality Calc 283 (no code) 12-27-2018 Hospital [Osmolality] 08: [facility] (96201) Platelet mean 9.9 fL (no code) 7.2 - 11.7 fL 12-27-2018 Hosp ital volume (Bld) 08: [facility] [Entitic vol] [facility] (44856) metabolic panel on 2018-12-27 Anion gap 12 mmol/L (no code) 3 - 11 mmol/L 12-27-2018 Hospital [Moles/Vol] 08:25 [facility] (75624) Calcium 8.7 mg/dL (no code) 8.5 - 10.2 mg/dL 12-27-2018 Hospi ceasar [Mass/Vol] 08:25 [facility] (25434) Chloride 107 mmol/L (no code) 95 - 106 mmol/L 12-27-2018 Hospi ceasar [Moles/Vol] 08: [facility] (55514) Creatinine 0.69 mg/dL (no code) 12-27-2018 Hospital [Mass/Vol] 08: [facility] (95350) Glucose 149 mg/dL (H) 60 - 125 mg/dL 12-27-2018 Hospita l [Mass/Vol] 08: [facility] (31191) Potassium 3.8 mmol/L (no code) 3.7 - 5.2 mmol/L 12-27-2018 Hosp ital [Moles/Vol] 08: [facility] (19392) Sodium 137 mmol/L (no code) 135 - 145 mmol/L 12-27-2018 Hosp ital [Moles/Vol] 08: [facility] () Urea nitrogen 5 mg/dL (no code) 7 - 20 mg/dL 12-27-2018 Hospi ceasar [Mass/Vol] 08: [facility] () hematology on 2018-12-27 Basophils (Bld) 0.0 10*3/uL (no code) 0 - 0.3 10*3/uL 12-27-2018 Hospital [#/Vol] 08: [facility] () Basophils/100 0.30 % (no code) 0.5 - 1 % 12-27-2018 Hospital WBC (Bld) 08: [facility] (49856) Eosinophils 0.0 10*3/uL (no code) 0.05 - 0.5 12-27-2018 Hospita l (Bld) [#/Vol] 10*3/uL 08: [facility] (81581) Eosinophils/100 0.1 % (no code) 1 - 4 % 12-27-2018 Hospit al WBC (Bld) 08: [facility] (11401) Hematocrit (Bld) 39.4 % (no code) 36.1 - 50.3 % 12-27-2018 H ospital [Volume 08: [facility] of fraction] [facility] (18751) Hemoglobin (Bld) 12.9 g/dL (L) 12.1 - 17.2 g/dL 12-27-2018 Hospital [Mass/Vol] 08: [facility] ([id number]) Lymphocytes 1.17 10*3/uL (no code) 0.9 - 2.9 12-27-2018 Hospita l (Bld) [#/Vol] 10*3/uL 08: [facility] ([id number]) Lymphocytes/100 8.5 % (L) 20 - 40 % 12-27-2018 Hospit al WBC (Bld) 08: [facility] ([id number]) MCH (RBC) 26.5 pg (L) 27 - 31 pg 12-27-2018 Hospital [Entitic mass] 08: [facility] ([id number]) MCV (RBC) 81.1 fL (no code) 80 - 100 fL 12-27-2018 Hospital [Entitic vol] 08: [facility] () Monocytes (Bld) 0.7 10*3/uL (no code) 0.3 - 0.9 12-27-2018 Hosp ital [#/Vol] 10*3/uL 08: [facility] () Monocytes/100 4.8 % (no code) 2 - 8 % 12-27-2018 Hospital WBC (Bld) 08: [facility] ([id number]) Neutrophils 11.86 10*3/uL (H) 1.7 - 7 10*3/uL 12-27-2018 Hospital (Bld) [#/Vol] 08: [facility] ([id number]) Neutrophils/100 86.3 % (H) 40 - 60 % 12-27-2018 Hospit al WBC (Bld) 08: [facility] ([id number]) Platelets (Bld) 271 10*3/uL (no code) 150 - 450 12-27-2018 Hosp ital [#/Vol] 10*3/uL 08: [facility] ([id number]) RBC (Bld) 4.86 10*6/uL (no code) 4.2 - 6.1 12-27-2018 Hospital [#/Vol] 10*6/uL 08: [facility] ([id number]) WBC (Bld) 13.74 10*3/uL (H) 3.5 - 10.5 12-27-2018 Hospita l [#/Vol] 10*3/uL 08:250 [facility] ([id number]) other on 2018-12-26 ABO and Rh group Positive (no code) 12-26-2018 Hospital Nom (BldC) 09:00 [facility] ([id number]) CULTURE SOURCE cath (no code) 12-26-2018 Hospital 10:48-0400 [facility] ([id number]) FINAL CULTURE No Growth 48 (no code) 12-26-2018 Hospital RESULTS hours 10:48-0400 [facility] ([id number]) GFR/1.73 sq 86 (no code) 90 - 120 12-26-2018 Hospital M.predicted MDRD mL/min/{1.73_m2} mL/min/{1.73_m2} 18:00 [facility] (S/P/Bld) [Vol [facility] rate/Area] ([id number]) HCO3 (P) 19 (L) 12-26-2018 Hospital [Moles/Vol] 18:00 [facility] ([id number]) Major crossmatch COMPATIBLE X 2 (no code) 12-26-2018 Hospit al [Interp] 09: [facility] ([id number]) MCHC (RBC) 32.1 g/dL (no code) 32 - 36 g/dL 12-26-2018 Hospital [Mass/Vol] 18:00-0400 [facility] ([id number]) MEDIA PLATED Setup at 12:49 (no code) 12-26-2018 Hospital on 12/26/2018 10:48-040 [facility] ([id number]) Osmolality Calc 283 (no code) 12-26-2018 Hospital [Osmolality] 18:00 [facility] ([id number]) Platelet mean 10.0 fL (no code) 7.2 - 11.7 fL 12-26-2018 Hosp ital volume (Bld) 18:00 [facility] [Entitic vol] [facility] ([id number]) PRELIM CULTURE No Growth 24 (no code) 12-26-2018 Hospital RESULTS hours 10:48-0400 [facility] ([id number]) VITAMIN A 53.6 (no code) 12-26-2018 Hospital 09:000400 [facility] ([id number]) metabolic panel on 2018-12-26 Anion gap 15 mmol/L (H) 3 - 11 mmol/L 12-26-2018 Hospital [Moles/Vol] 18:00-0400 [facility] ([id number]) Calcium 8.4 mg/dL (no code) 8.5 - 10.2 mg/dL 12-26-2018 Hospi ceasar [Mass/Vol] 18:000400 [facility] (07102) Chloride 107 mmol/L (no code) 95 - 106 mmol/L 12-26-2018 Hospi ceasar [Moles/Vol] 18:000400 [facility] ([id number]) Creatinine 0.74 mg/dL (no code) 12-26-2018 Hospital [Mass/Vol] 18:000400 [facility] ([id number]) Glucose 144 mg/dL (H) 60 - 125 mg/dL 12-26-2018 Hospita l [Mass/Vol] 18:000400 [facility] ([id number]) Potassium 4.5 mmol/L (no code) 3.7 - 5.2 mmol/L 12-26-2018 Hosp ital [Moles/Vol] 18:000400 [facility] (89209) Sodium 136 mmol/L (no code) 135 - 145 mmol/L 12-26-2018 Hosp ital [Moles/Vol] 18:000400 [facility] (43714) Urea nitrogen 10 mg/dL (no code) 7 - 20 mg/dL 12-26-2018 Hospi ceasar [Mass/Vol] 18:000400 [facility] ([id number]) hematology on 2018-12-26 Basophils (Bld) 0.0 10*3/uL (no code) 0 - 0.3 10*3/uL 12-26-2018 Hospital [#/Vol] 18:00-0400 [facility] (42061) Basophils/100 0.20 % (no code) 0.5 - 1 % 12-26-2018 Hospital WBC (Bld) 18:000400 [facility] ([id number]) Blood group Negative (no code) 12-26-2018 Hospital antibody screen 09: [facility] Ql [facility] (29960) Eosinophils 0.0 10*3/uL (no code) 0.05 - 0.5 12-26-2018 Hospita l (Bld) [#/Vol] 10*3/uL 18: [facility] ([id number]) Eosinophils/100 0.0 % (no code) 1 - 4 % 12-26-2018 Hospit al WBC (Bld) : [facility] ([id number]) Hematocrit (Bld) 40.0 % (no code) 36.1 - 50.3 % 12-26-2018 H ospital [Volume 09: [facility] fraction] [facility] ([id number]) Hematocrit (Bld) 38.3 % (no code) 36.1 - 50.3 % 12-26-2018 H ospital [Volume 18: [facility] fraction] [facility] ([id number]) Hemoglobin (Bld) 13.2 g/dL (no code) 12.1 - 17.2 g/dL 12-26-2018 Hospital [Mass/Vol] : [facility] (70266) Hemoglobin (Bld) 12.3 g/dL (L) 12.1 - 17.2 g/dL 12-26-2018 Hospital [Mass/Vol] 18: [facility] (89242) Lymphocytes 0.71 10*3/uL (no code) 0.9 - 2.9 12-26-2018 Hospita l (Bld) [#/Vol] 10*3/uL 18: [facility] ([id number]) Lymphocytes/100 5.8 % (L) 20 - 40 % 12-26-2018 Hospit al WBC (Bld) : [facility] ([id number]) MCH (RBC) 26.3 pg (L) 27 - 31 pg 12-26-2018 Hospital [Entitic mass] : [facility] ([id number]) MCV (RBC) 81.8 fL (no code) 80 - 100 fL 12-26-2018 Hospital [Entitic vol] 18:00-0400 [facility] ([id number]) Monocytes (Bld) 0.3 10*3/uL (no code) 0.3 - 0.9 12-26-2018 Hosp ital [#/Vol] 10*3/uL 18:000400 [facility] (99274) Monocytes/100 2.1 % (no code) 2 - 8 % 12-26-2018 Hospital WBC (Bld) 18:000400 [facility] ([id number]) Neutrophils 11.15 10*3/uL (H) 1.7 - 7 10*3/uL 12-26-2018 Hospital (Bld) [#/Vol] 18:000400 [facility] (14297) Neutrophils/100 91.9 % (H) 40 - 60 % 12-26-2018 Hospit al WBC (Bld) 18:000400 [facility] ([id number]) Platelets (Bld) 285 10*3/uL (no code) 150 - 450 12-26-2018 Hosp ital [#/Vol] 10*3/uL 18:00-0400 [facility] ([id number]) RBC (Bld) 4.68 10*6/uL (no code) 4.2 - 6.1 12-26-2018 Hospital [#/Vol] 10*6/uL 18:00-0400 [facility] ([id number]) WBC (Bld) 12.14 10*3/uL (H) 3.5 - 10.5 12-26-2018 Hospita l [#/Vol] 10*3/uL 18:000400 [facility] (39883) laboratory on 2018-12-21 Biotin 0.07 (no code) 12-21-2018 [facility] ([id number] ) [Mass/Vol] 12:12-0400 Copper 126 (no code) 12-21-2018 [facility] ([id number] ) [Mass/Vol] 03:42-0400 Niacin <5.0 (no code) 12-21-2018 [facility] ([id number] ) [Mass/Vol] 12:26-0400 Nicotinamide 13.6 (no code) 12-21-2018 [facility] (0000 0) [Mass/Vol] 12:42-0400 Selenium 157 (no code) 12-21-2018 [facility] ([id number] ) [Mass/Vol] 08:15-0400 Zinc [Mass/Vol] 86 (no code) 12-21-2018 [facility] (0 0000) 03:42-0400 laboratory on 2018-12-19 Thiamine (Bld) 182.8 (no code) 12-19-2018 [facility] (00 000) [Moles/Vol] 13:02-0400 other on 2018-12-17 Albumin BCG dye 4.2 (no code) 12-17-2018 Hospital [Mass/Vol] 14:30040 [facility] ([id number]) Cobalamin 734.00 pg/mL (no code) 200 - 900 pg/mL 12-17-2018 Hos pital (Vitamin B12) 14: [facility] [Mass/Vol] [facility] ([id number]) COPPER, SERUM 126 (no code) 12-17-2018 Hospital 14:30040 [facility] (16704) Ferritin 24.68 ng/mL (no code) 12-17-2018 Hospital [Mass/Vol] 14:30040 [facility] (38122) FINAL CULTURE Negative (no code) 12-17-2018 Hospital RESULTS 14:30040 [facility] ([id number]) Folate (Bld) 14.30 (no code) 12-17-2018 Hospital [Mass/Vol] 14:30040 [facility] (14606) GFR/1.73 sq 85 (no code) 90 - 120 12-17-2018 Hospital M.predicted MDRD mL/min/{1.73_m2} mL/min/{1.73_m2} 14:30040 [facility] (S/P/Bld) [Vol [facility] rate/Area] ([id number]) Globulin (S) 2.7 g/dL (no code) 2 - 3.5 g/dL 12-17-2018 Hospit al [Mass/Vol] 14:30040 [facility] (92663) HCO3 (P) 23 (no code) 12-17-2018 Hospital [Moles/Vol] 14: [facility] (71739) INR Coag 1.0 (no code) 12-17-2018 Hospital (Platelet poor 14: [facility] plasma or blood) [facility] [Relative time] ([id number]) MCHC (RBC) 33.0 g/dL (no code) 32 - 36 g/dL 12-17-2018 Hospital [Mass/Vol] 14: [facility] ([id number]) MEDIA PLATED Setup at 13:50 (no code) 12-17-2018 Hospital on 12/17/2018 14: [facility] ([id number]) NICOTINAMIDE 13.6 (no code) 12-17-2018 Hospital 14: [facility] ([id number]) NICOTINIC ACID <5.0 (no code) 12-17-2018 Hospital 14: [facility] (04904) Osmolality Calc 281 (no code) 12-17-2018 Hospital [Osmolality] 14: [facility] (59073) Platelet mean 10.2 fL (H) 7.2 - 11.7 fL 12-17-2018 Hosp ital volume (Bld) 14: [facility] [Entitic vol] [facility] ([id number]) SELENIUM, 157 (no code) 12-17-2018 Hospital SERUM/PLASMA 14: [facility] ([id number]) VIT. B1, WHOLE 182.8 (no code) 12-17-2018 Hospital BLOOD 14: [facility] ([id number]) VITAMIN B7 0.07 (no code) 12-17-2018 Hospital 14: [facility] (75198) ZINC, PLASMA OR 86 (no code) 12-17-2018 Hospital SERUM 14: [facility] ([id number]) metabolic panel on 2018-12-17 ALP [Catalytic 78 U/L (no code) 44 - 147 U/L 12-17-2018 Hosp ital activity/Vol] 14: [facility] () ALT [Catalytic 38 U/L (no code) 4 - 40 U/L 12-17-2018 Hospit al activity/Vol] 14: [facility] () Anion gap 13 mmol/L (no code) 3 - 11 mmol/L 12-17-2018 Hospital [Moles/Vol] 14: [facility] () AST [Catalytic 30 U/L (no code) 10 - 34 U/L 12-17-2018 Hospi ceasar activity/Vol] 14: [facility] () Bilirubin 0.2 mg/dL (no code) 0.1 - 1.2 mg/dL 12-17-2018 Hospit al [Mass/Vol] 14: [facility] () Calcium 9.6 mg/dL (no code) 8.5 - 10.2 mg/dL 12-17-2018 Hospi ceasar [Mass/Vol] 14: [facility] ([id number]) Chloride 105 mmol/L (no code) 95 - 106 mmol/L 12-17-2018 Hospi ceasar [Moles/Vol] 14: [facility] () Creatinine 0.75 mg/dL (no code) 12-17-2018 Hospital [Mass/Vol] 14: [facility] () Glucose 94 mg/dL (no code) 60 - 125 mg/dL 12-17-2018 Hospita l [Mass/Vol] 14: [facility] ([id number]) Potassium 4.5 mmol/L (no code) 3.7 - 5.2 mmol/L 12-17-2018 Hosp ital [Moles/Vol] 14: [facility] ([id number]) Prealbumin 27.00 mg/dL (no code) 19 - 38 mg/dL 12-17-2018 Hospi ceasar [Mass/Vol] 14: [facility] ([id number]) Protein 6.9 g/dL (no code) 6.4 - 8.3 g/dL 12-17-2018 Hospita l [Mass/Vol] 14: [facility] () Sodium 136 mmol/L (no code) 135 - 145 mmol/L 12-17-2018 Hosp ital [Moles/Vol] 14: [facility] () Urea nitrogen 14 mg/dL (no code) 7 - 20 mg/dL 12-17-2018 Hospi ceasar [Mass/Vol] 14: [facility] () hematology on 2018-12-17 Basophils (Bld) 0.0 10*3/uL (no code) 0 - 0.3 10*3/uL 12-17-2018 Hospital [#/Vol] 14: [facility] () Basophils/100 0.30 % (no code) 0.5 - 1 % 12-17-2018 Hospital WBC (Bld) 14: [facility] () Eosinophils 0.2 10*3/uL (no code) 0.05 - 0.5 12-17-2018 Hospita l (Bld) [#/Vol] 10*3/uL 14: [facility] () Eosinophils/100 3.8 % (no code) 1 - 4 % 12-17-2018 Hospit al WBC (Bld) 14: [facility] () Hematocrit (Bld) 40.0 % (no code) 36.1 - 50.3 % 12-17-2018 H ospital [Volume 14: [facility] fraction] [facility] () Hemoglobin (Bld) 13.2 g/dL (no code) 12.1 - 17.2 g/dL 12-17-2018 Hospital [Mass/Vol] 14: [facility] () Lymphocytes 1.96 10*3/uL (no code) 0.9 - 2.9 12-17-2018 Hospita l (Bld) [#/Vol] 10*3/uL 14: [facility] () Lymphocytes/100 32.8 % (no code) 20 - 40 % 12-17-2018 Hospit al WBC (Bld) 14: [facility] ([id number]) MCH (RBC) 26.1 pg (L) 27 - 31 pg 12-17-2018 Hospital [Entitic mass] 14: [facility] () MCV (RBC) 79.2 fL (L) 80 - 100 fL 12-17-2018 Hospital [Entitic vol] 14: [facility] () Monocytes (Bld) 0.4 10*3/uL (no code) 0.3 - 0.9 12-17-2018 Hosp ital [#/Vol] 10*3/uL 14: [facility] () Monocytes/100 5.9 % (no code) 2 - 8 % 12-17-2018 Hospital WBC (Bld) 14: [facility] () Neutrophils 3.42 10*3/uL (no code) 1.7 - 7 10*3/uL 12-17-2018 H ospital (Bld) [#/Vol] 14: [facility] () Neutrophils/100 57.2 % (no code) 40 - 60 % 12-17-2018 Hospit al WBC (Bld) 14: [facility] () Platelets (Bld) 317 10*3/uL (no code) 150 - 450 12-17-2018 Hosp ital [#/Vol] 10*3/uL 14: [facility] ([id number]) PT Coag (PPP) 11.8 (no code) 12-17-2018 Hospital [Time] 14: [facility] ([id number]) RBC (Bld) 5.05 10*6/uL (H) 4.2 - 6.1 12-17-2018 Hospital [#/Vol] 10*6/uL 14: [facility] ([id number]) WBC (Bld) 5.98 10*3/uL (no code) 3.5 - 10.5 12-17-2018 Hospital [#/Vol] 10*3/uL 14:30 [facility] ([id number]) imm/path on 2018-10-30 Surgical Sent to [facility] (no code) 10-30-2018 Hospital pathology study Pathology 09: [facility] ([id number]) other on 2018-10-25 Erythrocyte 19.4 % (H) 11.6 - 14.6 % 10-25-2018 Hospit al distribution 09:49 [facility] width (RBC) [facility] [Ratio] ([id number]) GFR/1.73 sq 85 (no code) 90 - 120 10-25-2018 Hospital M.predicted MDRD mL/min/{1.73_m2} mL/min/{1.73_m2} 09:49 [facility] (S/P/Bld) [Vol [facility] rate/Area] ([id number]) HCO3 (P) 23 (no code) 10-25-2018 Hospital [Moles/Vol] 09:49 [facility] ([id number]) INR Coag 1.0 (no code) 10-25-2018 Hospital (Platelet poor 09:49 [facility] plasma or blood) [facility] [Relative time] ([id number]) MCHC (RBC) 30.4 g/dL (L) 32 - 36 g/dL 10-25-2018 Hospital [Mass/Vol] 09:49 [facility] ([id number]) Osmolality Calc 282 (no code) 10-25-2018 Hospital [Osmolality] 09:49 [facility] ([id number]) Platelet mean 9.4 fL (no code) 7.2 - 11.7 fL 10-25-2018 Hosp ital volume (Bld) 09:49 [facility] [Entitic vol] [facility] ([id number]) metabolic panel on 2018-10-25 Anion gap 11 mmol/L (no code) 3 - 11 mmol/L 10-25-2018 Hospital [Moles/Vol] 09:49 [facility] ([id number]) Calcium 9.0 mg/dL (no code) 8.5 - 10.2 mg/dL 10-25-2018 Hospi ceasar [Mass/Vol] 09:490400 [facility] (40888) Chloride 106 mmol/L (no code) 95 - 106 mmol/L 10-25-2018 Hospi ceasar [Moles/Vol] 09:49 [facility] (47091) Creatinine 0.75 mg/dL (no code) 10-25-2018 Hospital [Mass/Vol] 09:49 [facility] ([id number]) Glucose 121 mg/dL (H) 60 - 125 mg/dL 10-25-2018 Hospita l [Mass/Vol] 09:49 [facility] (11254) Potassium 4.2 mmol/L (no code) 3.7 - 5.2 mmol/L 10-25-2018 Hosp ital [Moles/Vol] 09:49 [facility] (64086) Sodium 136 mmol/L (no code) 135 - 145 mmol/L 10-25-2018 Hosp ital [Moles/Vol] 09:49 [facility] (96639) Urea nitrogen 11 mg/dL (no code) 7 - 20 mg/dL 10-25-2018 Hospi ceasar [Mass/Vol] 09:49 [facility] ([id number]) hematology on 2018-10-25 Basophils (Bld) 0.0 10*3/uL (no code) 0 - 0.3 10*3/uL 10-25-2018 Hospital [#/Vol] 09:49 [facility] (95207) Basophils/100 0.40 % (no code) 0.5 - 1 % 10-25-2018 Hospital WBC (Bld) 09: [facility] ([id number]) Eosinophils 0.2 10*3/uL (no code) 0.05 - 0.5 10-25-2018 Hospita l (Bld) [#/Vol] 10*3/uL 09:49 [facility] ([id number]) Eosinophils/100 4.5 % (no code) 1 - 4 % 10-25-2018 Hospit al WBC (Bld) 09: [facility] ([id number]) Hematocrit (Bld) 28.3 % (L) 36.1 - 50.3 % 10-25-2018 H ospital [Volume 09: [facility] fraction] [facility] ([id number]) Hemoglobin (Bld) 8.6 g/dL (L) 12.1 - 17.2 g/dL 10-25-2018 Hospital [Mass/Vol] 09: [facility] (68840) Lymphocytes 1.44 10*3/uL (no code) 0.9 - 2.9 10-25-2018 Hospita l (Bld) [#/Vol] 10*3/uL 09: [facility] (50293) Lymphocytes/100 30.9 % (no code) 20 - 40 % 10-25-2018 Hospit al WBC (Bld) 09: [facility] (80759) MCH (RBC) 19.8 pg (L) 27 - 31 pg 10-25-2018 Hospital [Entitic mass] 09: [facility] ([id number]) MCV (RBC) 65.2 fL (L) 80 - 100 fL 10-25-2018 Hospital [Entitic vol] 09: [facility] ([id number]) Monocytes (Bld) 0.3 10*3/uL (no code) 0.3 - 0.9 10-25-2018 Hosp ital [#/Vol] 10*3/uL 09: [facility] (09224) Monocytes/100 6.0 % (no code) 2 - 8 % 10-25-2018 Hospital WBC (Bld) 09: [facility] (16596) Neutrophils 2.71 10*3/uL (no code) 1.7 - 7 10*3/uL 10-25-2018 H ospital (Bld) [#/Vol] 09: [facility] (57614) Neutrophils/100 58.2 % (no code) 40 - 60 % 10-25-2018 Hospit al WBC (Bld) 09:49-0400 [facility] (67034) Platelets (Bld) 318 10*3/uL (no code) 150 - 450 10-25-2018 Hosp ital [#/Vol] 10*3/uL 09:49 [facility] ([id number]) PT Coag (PPP) 11.3 (no code) 10-25-2018 Hospital [Time] 09: [facility] ([id number]) RBC (Bld) 4.34 10*6/uL (no code) 4.2 - 6.1 10-25-2018 Hospital [#/Vol] 10*6/uL 09: [facility] ([id number]) WBC (Bld) 4.66 10*3/uL (L) 3.5 - 10.5 10-25-2018 Hospital [#/Vol] 10*3/uL 09: [facility] (77204) thyroid on 2018-09-25 TSH Qn 5.17 m[IU]/L (H) 0.4 - 4 m[IU]/L [facility] (66605) venous blood hemoglobin measurement (mass/volume) on 2018-09-10 Hemoglobin (Bld) 8.9 g/dL (L) 12.1 - 17.2 g/dL [facility] [Mass/Vol] [facility] ([id number]) methicillin resistant staphylococcus aureus (mrsa) screening culture on 2018-09-10 MRSA isol Org MRSA not (no code) [place] [facility] specific cx Ql isolated [facility] (Unsp spec) ([id number]) blood neutrophils automated count (number/volume) on 2018-09-10 Neutrophils 3.5 10*3/uL (no code) 1.7 - 7 10*3/uL [place] [facility] (Bld) [#/Vol] [facility] ([id number]) blood monocytes/100 leukocytes on 2018-09-10 Monocytes/100 8 % (no code) 2 - 8 % [place] [facility] WBC (Bld) [facility] (06171) blood monocytes automated count (number/volume) on 2018-09-10 Monocytes (Bld) 0.4 10*3/uL (no code) 0.3 - 0.9 [place] [facility] [#/Vol] 10*3/uL [facility] (45343) blood lymphocytes automated count (number/volume) on 2018-09-10 Lymphocytes 0.8 10*3/uL (L) 0.9 - 2.9 [place] [facility] (Bld) [#/Vol] 10*3/uL [facility] ([id number]) blood leukocytes automated count (number/volume) on 2018-09-10 WBC (Bld) 4.8 10*3/uL (no code) 3.5 - 10.5 [place] [facility] [#/Vol] 10*3/uL [facility] ([id number]) blood hematocrit (volume fraction) on 2018-09-10 Hematocrit (Bld) 30 % (L) 36.1 - 50.3 % [facility] [Volume [facility] fraction] ([id number]) blood erythrocytes automated count (number/volume) on 2018-09-10 RBC (Bld) 4.55 10*6/uL (no code) 4.2 - 6.1 [place] [facility] [#/Vol] 10*6/uL [facility] ([id number]) automated erythrocyte mean corpuscular volume on 2018-09-10 MCV (RBC) 65 fL (L) 80 - 100 fL [place] [facility] [Entitic vol] [facility] ([id number]) automated erythrocyte mean corpuscular hemoglobin concentration measurement (mass/volume) on 2018-09-10 MCHC (RBC) 30 g/dL (L) 32 - 36 g/dL [place] [facility] [Mass/Vol] [facility] ([id number]) automated erythrocyte mean corpuscular hemoglobin (mass per erythrocyte) on 2018-09-10 MCH (RBC) 20 pg (L) 27 - 31 pg [place] [facility] [Entitic mass] [facility] ([id number]) automated erythrocyte distribution width ratio on 2018-09-10 Erythrocyte 19.8 % (H) 11.6 - 14.6 % [place] [facility] distribution [facility] width (RBC) ([id number]) [Ratio] automated eosinophil count on 2018-09-10 Eosinophils 0.1 10*3/uL (no code) 0.05 - 0.5 [place] [facility] (Bld) [#/Vol] 10*3/uL [facility] ([id number]) automated blood platelet mean volume measurement on 2018-09-10 Platelet mean 10.1 fL (no code) 7.2 - 11.7 fL [place] [facility] volume (Bld) [facility] [Entitic vol] ([id number]) automated blood platelet count (count/volume) on 2018-09-10 Platelets (Bld) 373 10*3/uL (no code) 150 - 450 [place] [facility] [#/Vol] 10*3/uL [facility] (51936) automated blood neutrophils/100 leukocytes on 2018-09-10 Neutrophils/100 72 % (no code) 40 - 60 % [place] [facility] WBC (Bld) [facility] ([id number]) automated blood lymphocytes/100 leukocytes on 2018-09-10 Lymphocytes/100 16 % (no code) 20 - 40 % [place] [facility] WBC (d) [facility] ([id number]) automated blood eosinophils/100 leukocytes on 2018-09-10 Eosinophils/100 3 % (no code) 1 - 4 % [place] [facility] WBC (Bld) [facility] (22181) automated blood basophils/100 leukocytes on 2018-09-10 Basophils/100 1 % (no code) 0.5 - 1 % [place] [facility] WBC (d) [facility] ([id number]) automated blood basophil count (count/volume) on 2018-09-10 Basophils (Bld) 0.0 10*3/uL (no code) 0 - 0.3 10*3/uL [facility] [#/Vol] [facility] ([id number]) thyroid on 2018-05-23 TSH Qn 0.04 m[IU]/L (L) 0.4 - 4 m[IU]/L [facility] ([id number]) other on 2018-05-23 Albumin/Globulin 1.5 (N) [facility] [Mass ratio[facility] ([id number]) Erythrocyte 18.6 % (H) 11.6 - 14.6 % [facility] (RBC) [facility] [Ratio] ([id number]) Globulin (S) 2.8 (N) [facility] [Mass/Vol] [facility] ([id number]) MCHC (RBC) 29.7 g/dL (L) 32 - 36 g/dL [facility] [Mass/Vol] [facility] ([id number]) Platelet mean 10.0 fL (N) 7.2 - 11.7 fL [facility] volume (Bld) [facility] [Entitic vol] [facility] ([id number]) metabolic panel on 2018-05-23 Albumin 4.1 g/dL (N) 3.4 - 5.4 g/dL [facility] [Mass/Vol] [facility] ([id number]) ALP [Catalytic 75 U/L (N) 44 - 147 U/L [facility] activity/Vol] [facility] ([id number]) ALT [Catalytic 28 U/L (N) 4 - 40 U/L [facility]Vol] [facility] ([id number]) AST [Catalytic 24 U/L (N) 10 - 34 U/L [facility] activity/Vol] [facility] ([id number]) Bilirubin 0.3 mg/dL (N) 0.1 - 1.2 mg/dL [facility] [Mass/Vol] [facility] (42014) Calcium 9.3 mg/dL (N) 8.5 - 10.2 mg/dL On license of [facility] [Mass/Vol] [facility] (04652) Chloride 105 mmol/L (N) 95 - 106 mmol/L [facility] [Moles/Vol] [facility] (96425) CO2 [Moles/Vol] 26 mmol/L (N) 23 - 29 mmol/L [facility] (43648) Creatinine 0.56 mg/dL (N) [facility] [Mass/Vol] [facility] (08051) GFR/1.73 sq M 135 (N) 90 - [address] [facility] predicted among mL/min/{1.73_m2} mL/min/{1.73_m2} [place] [facility] blacks MDRD [facility] (S/P/Bld) [Vol (99371) rate/Area] GFR/1.73 sq 117 (N) 90 - 120 [facility] M.predicted MDRD mL/min/{1.73_m2} mL/min/{1.73_m2} [facility] (S/P/Bld) [Vol [facility] rate/Area] (35120) Glucose 94 mg/dL (N) 60 - 125 mg/dL [facility] [Mass/Vol] [facility] (81612) Potassium 4.8 mmol/L (N) 3.7 - 5.2 mmol/L On license of [facility] [Moles/Vol] [facility] (69354) Protein 6.9 g/dL (N) 6.4 - 8.3 g/dL [facility] [Mass/Vol] [facility] (51636) Sodium 136 mmol/L (N) 135 - 145 mmol/L On license of [facility] [Moles/Vol] [facility] (92440) Urea nitrogen 11 mg/dL (N) 7 - 20 mg/dL [facility] [Mass/Vol] [facility] (61005) Urea NOT APPLICABLE (no code) [facility] h nitrogen/Creatin [facility] [Mass ratio] [facility] (92575) hematology on 2018-05-23 Basophils (Bld) 0.05 10*3/uL (N) 0 - 0.3 10*3/uL [facility] [#/Vol] [facility] (00574) Basophils/100 1.0 % (N) 0.5 - 1 % [facility] alth WBC (Bld) [facility] (39359) Eosinophils 0.16 10*3/uL (N) 0.05 - 0.5 [facility]th (Bld) [#/Vol] 10*3/uL [facility] (12148) Eosinophils/100 3.2 % (N) 1 - 4 % [facility] WBC (Bld) [facility] (52964) Hematocrit (Bld) 32.0 % (L) 36.1 - 50.3 % [facility] [Volume [facility]] [facility] (59538) Hemoglobin (Bld) 9.5 g/dL (L) 12.1 - 17.2 g/dL [facility] [Mass/Vol] [facility] (04500) Lymphocytes 1.63 10*3/uL (N) 0.9 - 2.9 [facility]th (Bld) [#/Vol] 10*3/uL [facility] (24089) Lymphocytes/100 32.6 % (N) 20 - 40 % [facility] Health WBC (Bld) [facility] (11266) MCH (RBC) 20.3 pg (L) 27 - 31 pg [facility] [Entitic mass] [facility] (15447) MCV (RBC) 68.4 fL (L) 80 - 100 fL [facility] lth [Entitic vol] [facility] (57587) Monocytes (Bld) 0.36 10*3/uL (N) 0.3 - 0.9 [facility] [#/Vol] 10*3/uL [facility] (11665) Monocytes/100 7.2 % (N) 2 - 8 % [facility] alth WBC (Bld) [facility] (45017) Morphology Jose no information (N) [facility] (Bld) [Interp] [facility] (21065) Neutrophils 2.8 10*3/uL (N) 1.7 - 7 10*3/uL [facility] Health (Bld) [#/Vol] [facility] (65538) Neutrophils/100 56 % (N) 40 - 60 % [facility] WBC (Bld) [facility] (15783) Platelets (Bld) 385 10*3/uL (N) 150 - 450 [facility] [#/Vol] 10*3/uL [facility] (19636) RBC (Bld) 4.68 10*6/uL (N) 4.2 - 6.1 [facility] lth [#/Vol] 10*6/uL [facility] (95867) WBC (Bld) 5.0 10*3/uL (N) 3.5 - 10.5 [facility] [#/Vol] 10*3/uL [facility] (49976) other on 2017-10-17 Vitamin A 41.7 (no code) 10-17-2017 [facility] (22153 ) 14:25-0400 metabolic panel on 2017-10-15 Protein mass None Detected (no code) 10-15-2017 [facility] (00 000) conc 10:29-0400 Protein mass 31.6 (no code) 10-15-2017 [facility] (0000 0) conc 10:29-0400 no panel information on 2017-10-11 NEGATED no information (no code) 10-11-2017 [facility] (00 000) no 17:22-0400 information other on 2017-10-09 Nicotinamide 12.7 (no code) 10-09-2017 [facility] (0000 0) 15:08-0400 Nicotinic Acid <5.0 (no code) 10-09-2017 [facility] (00 000) 21:10-0400 other on 2017-10-07 Copper, Serum 131 (no code) 10-07-2017 [facility] (000 00) 19:02-0400 Vit. B1, Whole 133.8 (no code) 10-07-2017 [facility] (00 000) Blood 21:15-0400 Zinc, Plasma or 70 (no code) 10-07-2017 [facility] (0 0000) Serum 19:02-0400 other on 2017-10-06 Selenium, 162 (no code) 10-06-2017 [facility] (58341 ) Serum/Plasma 15:06-0400 no panel information on 2017-10-06 NEGATED no information (no code) 10-06-2017 [facility] (00 000) no 14:09-0400 information NEGATED no information (no code) 10-06-2017 [facility] (00 000) no 14:09-0400 information NEGATED no information (no code) 10-06-2017 [facility] (00 000) no 14:11-0400 information other on 2017-01-12 Erythrocyte 20.1 % (H) 11.6 - 14.6 % 01-12-2017 Not Av ailable distribution 07: (11270) width (RBC) [Ratio] Immature 0.0 10*3/uL (no code) 0 - 0.2 10*3/uL 01-12-2017 Not Available granulocytes 07: (58775) (Bld) [#/Vol] Immature 0 % (no code) 0 - 0.5 % 01-12-2017 Not Availabl e granulocytes/100 07:150 (47684) WBC (Bld) MCHC (RBC) 31.3 g/dL (L) 32 - 36 g/dL 01-12-2017 Not Avai lable [Mass/Vol] 07:150 (58801) hematology on 2017-01-12 Basophils (Bld) 0.0 10*3/uL (no code) 0 - 0.3 10*3/uL 01-12-2017 Not Available [#/Vol] 07:150400 (17778) Basophils/100 1 % (no code) 0.5 - 1 % 01-12-2017 Not Avai lable WBC (Bld) 07:15 (05756) Eosinophils 0.3 10*3/uL (no code) 0.05 - 0.5 01-12-2017 Not [place] ilable (Bld) [#/Vol] 10*3/uL 07:150400 (11962) Eosinophils/100 5 % (no code) 1 - 4 % 01-12-2017 Not Av ailable WBC (Bld) 07:15 (70106) Hematocrit (Bld) 32.3 % (L) 36.1 - 50.3 % 01-12-2017 N ot Available [Volume 07: (44074) fraction] Hemoglobin (Bld) 10.1 g/dL (L) 12.1 - 17.2 g/dL 01-12-2017 Not Available [Mass/Vol] 07:150 (85585) Lymphocytes 1.8 10*3/uL (no code) 0.9 - 2.9 01-12-2017 Not Avai lable (Bld) [#/Vol] 10*3/uL 07:15 (80456) Lymphocytes/100 33 % (no code) 20 - 40 % 01-12-2017 Not Av ailable WBC (Bld) 07:15 (71226) MCH (RBC) 22.3 pg (L) 27 - 31 pg 01-12-2017 Not Availab le [Entitic mass] 07:150 (45084) MCV (RBC) 72 fL (L) 80 - 100 fL 01-12-2017 Not Availa ble [Entitic vol] 07:150 (12714) Monocytes (Bld) 0.4 10*3/uL (no code) 0.3 - 0.9 01-12-2017 Not Available [#/Vol] 10*3/uL 07:150400 (49331) Monocytes/100 6 % (no code) 2 - 8 % 01-12-2017 Not Avai lable WBC (Bld) 07:15 (83730) Neutrophils 3.1 10*3/uL (no code) 1.7 - 7 10*3/uL 01-12-2017 No t Available (Bld) [#/Vol] 07:150400 (10073) Neutrophils/100 55 % (no code) 40 - 60 % 01-12-2017 Not Av ailable WBC (Bld) 07:15 (96114) Platelets (Bld) 385 10*3/uL (H) 150 - 450 01-12-2017 Not Available [#/Vol] 10*3/uL 07:150400 (50537) RBC (Bld) 4.52 10*6/uL (no code) 4.2 - 6.1 01-12-2017 Not Avail able [#/Vol] 10*6/uL 07:150400 (17269) WBC (Bld) 5.6 10*3/uL (no code) 3.5 - 10.5 01-12-2017 Not Avail able [#/Vol] 10*3/uL 07:150400 (67220) thyroid on 2016-07-13 TSH Qn 7.220 (H) 07-13-2016 Not Available 09:170500 (42919) Vital Signs Vital Sign Value Interpretation Reference Date Time Care Prov ider Facility (Normalized) (Normalized) Range BMI (Body Mass 39.06 kg/m2 (no code) 15 - 25 kg/m2 06-20-2018 B FRANSISCO B[facility] Community Index) 10:00-0500 79518 [facility] (47856) BMI (Body Mass 37.13 kg/m2 (no code) 15 - 25 kg/m2 01-17-2018 B [facility] Community Index) 16:00-0400 05986 [facility] (68195) BMI (Body Mass 36.94 kg/m2 (no code) 15 - 25 kg/m2 09-14-2017 B [facility] Community Index) 11:40-0500 87177 [facility] (65723) BMI (Body Mass 36.58 kg/m2 (no code) 15 - 25 kg/m2 09-11-2017 Cesar WALLSNNAN [facility] Index) 17:00-0500 56462 [facility] (73943) Body 98.2 [degF] (no code) 97.8 - 99.0 06-20-2018 [facility] Temperature [degF] 10:00-0500 77584 [facility] (24326) Body 98 [degF] (no code) 97.8 - 99.0 01-17-2018 [facility] Temperature [degF] 16:00-0400 58902 [facility] (18129) Body 98.9 [degF] (no code) 97.8 - 99.0 09-14-2017 [facility] Temperature [degF] 11:40-0500 59795 [facility] (44367) Body 98.5 [degF] (no code) 97.8 - 99.0 09-11-2017 [facility] Temperature [degF] 17:00-0500 56008 [facility] (73029) Height 157.48 cm (no code) cm 06-20-2018 [facility] 10:00-0500 29397 [facility] (31409) Height 157.48 cm (no code) cm 01-17-2018 [facility] 16:00-0400 97446 [facility] (81665) Height 157.48 cm (no code) cm 09-14-2017 [facility] 11:40-0500 32390 [facility] (21619) Height 157.48 cm (no code) cm 09-11-2017 [facility] 17:00-0500 40847 [facility] (71276) Pulse Oximetry 0 % (no code) 95 - 100 % 09-14-2017 NADYA MAHMOOD [facility] 11:40-0500 37086 [facility] (52249) Weight 96.89 kg (no code) kg 06-20-2018 [facility] 10:00-[address] [place] [address] (37455) Weight 92.08 kg (no code) kg 01-17-2018 [facility] 16:00-[address] [place] [address] (39299) Weight 91.63 kg (no code) kg 09-14-2017 [facility] 11:40-[address] [place] [address] (56499) Weight 90.72 kg (no code) kg 09-11-2017 [facility] 17:00-[address] [place] [address] (80852) Interventions No Information Plan of Treatment Normalized Care Care Detail Care Activity Date Care Provider F acility Activity (CHM) [facility] 06-20-2018 NADYA Mcgarry [address] [place] [address] (25695) Bacteria identified no information no information [facility] [place] [facility] (U) [address] [place] [address] (70750) [facility] 03-12-2019 NADYA IVY [phone] [facility] ([id number]) [facility] 02-15-2019 NADYA IVY 66 [phone] [facility] (48508) New patient [facility] 06-21-2018 NADYA IVY [address] [place] [address] ([id number]) Patient Education no information no information [facility] [place] [facility] [address] [place] [address] ([id number]) Patient encounter no information 05-16-2019 NADYA IVY VC H Via [facility] ([id number]) Patient referral no information no information [facility] [place] [facility] [address] [place] [address] (43999) no information no information no information NADYA IVY [phone] [facility] ([id number]) Goals Patient Goal Desired Goal no information no information Social History Normalized Code Original Code Date Value Tobacco smoking status Tobacco smoking status no information Smokes tobacco daily [facility] (finding) no information no information 01-29-2016 Denies Use no information no information 01-29-2016 No no information no information 04-13-2019 Denies no information no information 04-13-2019 Current Everyda y Smoker no information no information 04-13-2019 Cigarettes no information no information 04-13-2019 HX OF METH USE; HX OF OVERDOSE 2015 Sex Assigned At Sex Assigned At 1975 - 07-11 Female Tobacco smoking status Tobacco smoking status no information Never smoked tobacco [facility] (finding) no information no information 05-12-2019 Never a Smoker Tobacco smoking status Tobacco smoking status no information Ex-smoker (finding) [facility] no information no information 09-08-2019 Former Smoker Functional Status Status Assessment Result Care Provider Facility Functional status [facility] Opioid-induced [facility] [place] [facility] Sedation Scale (POSS) [address] [place] [address] ([id number]) Awake and alert Mental Status Status Assessment Result Care Provider Facility Cognitive function [facility] [facility]ioid-induced [facility] [place] [facility] Sedation Scale (POSS) [address] [place] [address] ([id number]) Awake and alert Encounters Encounter Normalized Encounter Encounter Diagnosis Care Provi lubna Organization Date Type 09-13-2018 Admission to day no information LISA LUQUE Wo rk no organization name - surgery Phone: 09-14-2018 LISA LUQUE 01-31-2019 [facility] Bipolar disorder, CARO WHI TNEY (no [facility] unspecified phone) (no phone) 09-08-2019 Emergency department no information (no phone) [facility] - patient visit Hospital (no phone) 09-09-2019 09-08-2019 Emergency department no information RIN JAVIER MD [facility] - patient visit (no phone) [facility] 09-08-2019 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 (no phone) ADINA Hutchins (no phone) [facility] 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 PROFESSOR (no phone) ADINA Hutchins [facility] 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 PROFESSOR (no phone) 05-12-2019 Emergency department no information (no phone) [facility] - patient visit Hospital (no phone) 05-12-2019 05-12-2019 Emergency department no information ASHLEY DURAND MD (no [facility] - patient visit phone) [facility] 05-12-2019 (no phone) 04-13-2019 Emergency department no information (no phone) [facility] - patient visit Hospital (no phone) 04-14-2019 04-13-2019 Emergency department no information GIOVANNA HERR DO (no [facility] - patient visit phone) [facility] 04-13-2019 (no phone) 04-23-2016 Emergency department no information ASHLEY DURAND MD (no [facility] - patient visit phone) [facility] 04-23-2016 (no phone) 01-29-2016 Emergency department no information ANITA MERLOS (no [facility] - patient visit phone) [facility] 01-29-2016 (no phone) 10-24-2015 Emergency department no information NERIS CHI MD (no [facility] - patient visit phone) [facility] 10-24-2015 (no phone) 07-23-2015 Emergency department no information GIOVANNA HERR DO (no [facility] - patient visit phone) [facility] 07-23-2015 (no phone) 03-14-2015 Emergency department no information ANITA MERLOS (no [facility] - patient visit phone) [facility] 03-14-2015 (no phone) 01-03-2015 Emergency department no information no name no organization name - patient visit 01-03-2015 12-26-2018 Evaluation and no information no name no organ ization name - management of 12-27-2018 inpatient 03-26-2018 Patient encounter no information no name no or ganization name 09-11-2017 Patient encounter no information no name no or ganization name 08-01-2017 Patient encounter no information no name no or ganization name 12-24-2019 Patient encounter no information NADYA IVY ( no [facility] (no phone) 11-04-2019 Patient encounter no information (no phone) [facility] procedure [facility] (no phone) 09-08-2019 Patient encounter no information ADINA HOUSTON (n o [facility] procedure phone) [facility] (no phone) 09-05-2019 Patient encounter no information NADYA IVY ( no [facility] procedure phone) [facility] (no phone) 08-15-2019 Patient encounter no information (no phone) [facility] procedure [facility] (no phone) 06-03-2019 Patient encounter no information NADYA CALDWELL P [facility] procedure (no phone) [facility] (no phone) 05-24-2019 Patient encounter no information no name no or ganization name procedure 05-16-2019 Patient encounter no information no name no or ganization name procedure 05-12-2019 Patient encounter no information no name no or ganization name procedure 04-29-2019 Patient encounter no information no name no or ganization name procedure 04-13-2019 Patient encounter no information no name no or ganization name procedure 01-31-2019 Patient encounter no information no name no or ganization name procedure 12-20-2018 Patient encounter no information no name no or ganization name procedure 12-17-2018 Patient encounter no information no name no or ganization name - procedure 12-18-2018 10-30-2018 Patient encounter no information no name no or ganization name - procedure 10-30-2018 10-25-2018 Patient encounter no information no name no or ganization name - procedure 10-26-2018 10-08-2018 Patient encounter no information LAUREROUTIE LATCHM AN no organization name - procedure Work Phone: 10-09-2018 10-08-2018 Patient encounter no information CHANDROUTIE LATCHM AN [facility] - procedure DO (no phone) [facility] 10-09-2018 (no phone) 10-02-2018 Patient encounter no information no name no or ganization name procedure 09-25-2018 Patient encounter no information no name no or ganization name procedure 09-13-2018 Patient encounter no information LISA Valenzuela [facility] - procedure (no phone) [facility] 09-14-2018 (no phone) 09-10-2018 Patient encounter no information LISA paezk no organization name - procedure Phone: 09-10-2018 LISA LUQUE LISA LUQUE 09-10-2018 Patient encounter no information LISA LUQUE D O [facility] - procedure (no phone) [facility] 09-10-2018 (no phone) 07-31-2018 Patient encounter no information no name no or ganization name procedure 07-25-2018 Patient encounter no information no name no or ganization name procedure 07-05-2018 Patient encounter no information no name no or ganization name procedure 06-20-2018 Patient encounter no information no name no or ganization name procedure 06-04-2018 Patient encounter no information no name no or ganization name procedure 05-23-2018 Patient encounter no information no name no or ganization name procedure 05-23-2016 Patient encounter no information no name no or ganization name procedure 05-23-2016 Patient encounter no information DAVID Hahn [facility] procedure (no phone) [facility] (no phone) 05-19-2016 Patient encounter no information DAVID Hahn [facility] - procedure (no phone) [facility] 05-19-2016 (no phone) 11-07-2019 no information Encounter for other no name no organization name preprocedural examination 11-07-2019 no information Encounter for no name no organi zation name preprocedural laboratory examination no information Encounter for no name no organization name preprocedural laboratory examination no information Encounter for other no name no organiz ation name preprocedural examination Medical Equipment The data below is from unstructured sourcesNo Medical Equipment Information availableNo Medical Equipment Information availableNo Medical Equipment Information availableNo Medical Equipment Information a vailableNo Medical Equipment Information available Payers Normalized Payer Value Medicaid no information ([id number]) Medicare no information Medicare [id number] ([id number]) Evaluation note Note Type Note Facility Evaluation No Assessments Information Available A scension note [facility] ([id number]) Summary Purpose eClinicalWorks SubmissioneClinicalWorks SubmissioneClinicalWorks SubmissioneClinicalWorks SubmissioneClinicalWorks SubmissioneClinicalWorks SubmissioneClinicalWorks SubmissioneClinicalWorks SubmissioneClinicalWorks SubmissioneClinicalWorks SubmissioneClinicalWorks SubmissioneClinicalWorks SubmissioneClinicalWorks SubmissioneClinicalWorks SubmissioneClinicalWorks SubmissioneClinicalWorks SubmissioneClinicalWorks SubmissioneClinicalWorks SubmissioneClinicalWorks SubmissioneClinicalWorks SubmissioneClinicalWorks SubmissioneClinicalWorks SubmissioneClinicalWorks SubmissioneClinicalWorks SubmissioneClinicalWorks SubmissioneClinicalWorks SubmissioneClinicalWorks Submission Advance Directives Directive Response Recor ded Date/Time Advance Directives No 7:56pm Organ Donor Yes 10/24/15 11:32am Resuscitation Status Full Code 01/29/16 7:56pm Directive Response Recor ded Date/Time Advance Directives No 12:40pm Organ Donor Yes 04/23/16 12:40pm Resuscitation Status Full Code 04/23/16 12:40pm Directive Response Recor ded Date/Time Advance Directives No 2:44pm Organ Donor Yes 05/19/16 2:44pm Resuscitation Status Full Code 05/19/16 2:44pm Directive Response Recor ded Date/Time Advance Directives No 11:32am Organ Donor Yes 10/24/15 11:32am Resuscitation Status Full Code 10/24/15 11:32am Directive Response Recor ded Date/Time Advance Directives No 6:26pm Organ Donor Yes 07/23/15 6:26pm Resuscitation Status Full Code 07/23/15 6:26pm Directive Response Recor ded Date/Time Advance Directives No 9:43am Organ Donor Yes 02/06/15 9:43am Resuscitation Status Full Code 02/06/15 9:43am Directive Response Recor ded Date/Time Advance Directives No 9:50pm Organ Donor Yes 01/03/15 9:50pm Resuscitation Status Full Code 01/03/15 9:50pm Directive Response Recor ded Date/Time Advance Directives No 5:20pm Organ Donor Yes 03/14/15 5:20pm Resuscitation Status Full Code 03/14/15 5:20pm Directive Response Recor ded Date/Time Advance Directives No 9:43am Health Care Power of Marble Installer No 09/10/18 9:43am Organ Donor Yes 05/23/16 10:10am Resuscitation Status Full Code 09/10/18 9:43am Directive Response Recor ded Date/Time Advance Directives No 7:02am Health Care Power of Marble Installer No 09/13/18 7:02am Organ Donor Yes 09/13/18 7:02am Resuscitation Status Full Code 09/13/18 7:02am Directive Response Recor ded Date/Time Advance Directives No 7:02am Health Care Power of Marble Installer No 09/13/18 7:02am Organ Donor Yes 09/13/18 7:02am Advance Directive Response Recorded Date/Time Advance Directives No Oc 2018 7:57pm Health Care Power of Marble Installer No April 13, 2019 7:57pm Organ Donor Yes April 13, 2019 7:57pm Resuscitation Status Full Code April 13, 2019 7:57pm Advance Directive Response Recorded Date/Time Advance Directives No No [facility]2018 1:59pm Health Care Power of Marble Installer No April 13, 2019 7:57pm Organ Donor Yes April 13, 2019 7:57pm Resuscitation Status Full Code May 12, 2019 1:59pm Advance Directive Response Recorded Date/Time Advance Directives No Ma 2019 7:58pm Health Care Power of Marble Installer No September 08, 2019 7:58pm Organ Donor Yes September 7:58pm Resuscitation Status Full Code September 08, 2019 7:58pm Discharge Instructions No hospital discharge instructions.No hospital discharge instructions.No hospital discharge instructions.No hospital discharge instructions.No hospital discharge instructions.No hospital discharge instructions.No hospital discharge instructions.No hospital discharge instructions.No hospital discharge instructions.No hospital discharge instruction information available.No hospital discharge instruction information available.No hospital discharge instruction information available. Chief Complaint and Reason for Visit Chief Complaint Skin/Wound Problems Reason for Visit [id number] Chief Complaint Abdominal/GI Problem s Reason for Visit [id number] Chief Complaint Back Problems Reason for Visit [id number] Assessments No Assessments Information Available Additional Source Comments This clinical document has been generated using Touch[employer] software that has been certified by the Office of the National Coordinator for Health Information Technology (ONC [id number]) and the National [employer] for Integration Developer (NCQA, as an eMeasure certified technology). FOR RECORDS PERTAINING TO PATIENTS WHO ARE OR HAVE BEEN ENROLLED IN A CHEMICAL D EPENDENCY/SUBSTANCE ABUSE PROGRAM, SOME INFORMATION MAY BE OMITTED. This clinica l summary was aggregated from multiple sources. Caution should be exercised in using it in the provision of clinical care. This summary normalizes information from multiple sources, and as a consequence, information in this document may ma terially change the coding, format and clinical context of patient data. In federico tion, data may be omitted in some cases. CLINICAL DECISIONS SHOULD BE BASED ON T HE PRIMARY CLINICAL RECORDS. [employer] provides no warranty or guara ntee of the accuracy or completeness of information in this document.The followi ng information is based on time limited clinical information UNRECOGNIZED CONTENT PROVIDED BELOW FOR UNRECOGNIZED SECTION MEDICAL (GENERAL) HISTORY Type Description Date Medical History anemia Medical History Hypothyroidism Medical History esophageal reflux (p ossible deterioration of esophageal tissue) Medical History insomnia Medical History restless leg syndrome Medical History hx of drug abuse-met h (last used 08/2014--No IDVU) Medical History hx of PTSD Medical History hx of major depression Surgical History loop electrosurgica l excision procedure (LEEP) x3 late in 2009 Surgical History dilatation and cure ttage s/p miscarriage 2008 Surgical History section x2 1996 & 2004 Surgical History cholecystectomy 1996 Surgical History wisdom teeth extraction 1994 Surgical History EGD some esophagitis 05/2016 Hospitalization History rehab x30 da ys each 4 different times Hospitalization History 18 day stay at psych facility 1992 Hospitalization History was admitted to a retirement/psych facility [id number] Type Description Date Medical History anemia Medical History Hypothyroidism Medical History esophageal reflux (p ossible deterioration of esophageal tissue) Medical History insomnia Medical History restless leg syndrome Medical History hx of drug abuse-met h (last used 08/2014--No IDVU) Medical History hx of PTSD Medical History hx of major depression Surgical History loop electrosurgica l excision procedure (LEEP) x3 late in 2009 Surgical History dilatation and cure ttage s/p miscarriage 2008 Surgical History section x2 1996 & 2004 Surgical History cholecystectomy 1996 Surgical History wisdom teeth extraction 1994 Surgical History EGD some esophagitis 05/2016 Surgical History EGD 2017 Hospitalization History rehab x30 da ys each 4 different times Hospitalization History 18 day stay at psych facility 1992 Hospitalization History was admitted to a retirement/psych facility Type Description Date Medical History anemia Medical History Hypothyroidism Medical History esophageal reflux (p ossible deterioration of esophageal tissue) Medical History insomnia Medical History restless leg syndrome Medical History hx of drug abuse-met h (last used 08/2013--No IDVU) Medical History PTSD Medical History hx of major depression Surgical History loop electrosurgica l excision procedure (LEEP) x3 late in 2009 Surgical History dilatation and cure ttage s/p miscarriage 2008 Surgical History section x2 1996 & 2004 Surgical History cholecystectomy 1996 Surgical History wisdom teeth extraction 1994 Surgical History EGD some esophagitis 05/2016 Surgical History EGD 2017 Surgical History hysterectomy 09/13/18 Surgical History EGD large hiatal hernia 09/25 Hospitalization History rehab x30 da ys each 4 different times Hospitalization History 18 day stay at psych facility 1992 Hospitalization History was admitted to a retirement/psych facility Type Description Date Medical History anemia Medical History Hypothyroidism Medical History esophageal reflux (p ossible deterioration of esophageal tissue) Medical History insomnia Medical History restless leg syndrome Medical History hx of drug abuse-met h (last used 08/2013--No IDVU) Medical History PTSD Medical History hx of major depression Medical History Hiatal hernia Surgical History loop electrosurgica l excision procedure (LEEP) x3 late in 2009 Surgical History dilatation and cure ttage s/p miscarriage 2008 Surgical History section x2 1996 & 2004 Surgical History cholecystectomy 1996 Surgical History wisdom teeth extraction 1994 Surgical History EGD some esophagitis 05/2016 Surgical History EGD 2017 Surgical History hysterectomy 09/13/18 Surgical History EGD large hiatal hernia 09/25 Surgical History laparoscopic sleeve procedure 12/2018 Surgical History hiatal hernia repair 12/2018 Hospitalization History rehab x30 da ys each 4 different times Hospitalization History 18 day stay at psych facility 1992 Hospitalization History was admitted to a retirement/psych facility UNRECOGNIZED CONTENT PROVIDED BELOW FOR UNRECOGNIZED SECTION REASON FOR VISIT Thyroid WB-MA, No major concernsUltrasound walk-in. A.Bookless RDMS RVTOrders fr om ResultsUltrasound Order f/uhypothyroid f/u Pt in for follow up on hypothyroid ism --Sherita Deng (walk-in)
--- OUTSIDE RECORDS SUMMARY | 2020-01-01 19:56 | XMS REPORT | Continuity of Care Document ---
Demographics Preferred Language Unknown Marital Status Unknown Uatsdin Affiliation Unknown Race Unknown Ethnic Group Unknown Author Organization Unknown Address Unknown Phone Unavailable Allergies Active Description Code Type Severity Reaction Onset Reported/Identified Relationship to Patient Clinical Status Yes NO KNOWN DRUG ALLERGIES UNKNOWN NO KNOWN DRUG ALLERG Yes NO KNOWN DRUG ALLERGIES UNKNOWN UNKNOWN Yes No Known Drug Allergies [id number] Drug Allergy Unknown N/A 09/10/2018 Medications Medication Packaging Start Date St op Date Route Dosage Sig QUETIAPINE TAB 25 [...] 0 Hour Scopolamine TD patch 3 day ( TransDerm- Scop patch) PATCH 10/11/2017 10/11/2017 ONCE&0820 LACTATED RINGERS 1000CC IV BAG INJ ml 10/30/2018 11/06/2018 CONTINUOUSEVERY 0 Hour Scopolamine TD patch 3 day ( TransDerm- Scop patch) PATCH 12/26/2018 12/26/2018 ONCE&0630 LACTATED RINGERS 1000CC IV BAG INJ ml 12/26/2018 01/02/2019 CONTINUOUSEVERY 0 Hour CEFAZOLIN VIAL INJ 1 GM (ANCEF) GM 12/26/2018 12/26/2018 ONCE&0900 FENTANYL INJ 100 MCG/2CC VIAL MCG 12/26/2018 12/26/2018 ONCE&1305 ONDANSETRON VIAL INJ 4 MG/2CC (ZOFRAN 2CC VIAL) MG 12/26/2018 12/26/2018 PRN ONCE FENTANYL INJ 100 MCG/2CC VIAL MCG 12/26/2018 12/26/2018 ONCE&1344 IPRATROPIUM/ALBUTEROL INH SO LN (DUO-NEB INH SOLN) MLS 12/26/2018 12/26/2018 ONCE&1400 D5 LAC RINGERS 1000CC IV BAG INJ ml 12/26/2018 01/02/2019 CONTINUOUSEVERY 0 Hour PROMETHAZINE VIAL INJ 25 MG/CC (PHENERGAN VIAL) MG 12/26/2018 01/05/2019 PRN QID CEFAZOLIN PREMIX IV BAG IV 1 GM/50CC (ANCEF PREMIX IV BAG) GM 12/26/2018 12/27/2018 Q8H&0100 ACETAMINOPHEN SUPPOS SUP 650 MG (TYLENOL) MG 12/26/2018 01/02/2019 PRN Q6H ONDANSETRON VIAL INJ 4 MG/2CC (ZOFRAN 2CC VIAL) MG 12/26/2018 01/02/2019 PRN Q4H ALBUTEROL SVN 2.5MG/3CC LIQ 2.5 MG (PROVENTIL WIL 2.5MG/3CC) MG 12/26/2018 01/05/2019 QID&0600,1100,1600,2100 METOCLOPRAMIDE VIAL INJ 10 M G/2CC (REGLAN 2CC VIAL) MG 12/26/2018 01/05/2019 PRN Q6H MORPHINE SYRINGE INJ 2 MG/CC MG 12/26/2018 01/02/2019 PRN Q4H ENALAPRIL VIAL INJ 1.25 MG/CC (VASOTEC VIA L) MG 12/26/2018 12/29/2018 PRN Q6H Diazepam inj SYRINGE 5mg/mL 2mL (Valium) MG 12/26/2018 01/02/2019 PRN EVERY 4 Hour Heparin, FLUSH IV syringe 500 units UNITS 12/27/2018 01/05/2019 BID&0800,2000 KETOROLAC VIAL INJ 30 MG/CC (TORADOL VIAL) MG 12/27/2018 12/30/2018 PRN Q6H PANTOPRAZOLE VIAL INJ 40 MG (PROTONIX IV) MG 12/27/2018 01/05/2019 Daily&0900 HYDROCODONE/APAP 7.5/325 PAULIE X LIQ 15 CC (LORTAB ELIX 7.5/325) ML 12/27/2018 01/06/2019 PRN Q4H LACTATED RINGERS 1000CC IV BAG INJ ml 01/01/2020 01/08/2020 CONTINUOUSEVERY 0 Hour Problems Date Dx Coded Attending Type Code Diagnosis Diagnosed By 09/29/2014 MONICOMARY STEINER ABAD A V72.31 FRAME TABLE OPERATOR EXAM, ROUTINE 09/29/2014 MONICO LEACHZeferino ABAD A V72.62 LAB SCREENING- GENERAL PHYSICAL 09/29/2014 MONICOZeferino STEINER ABAD A V73.81 HPV SCREENING 09/29/2014 MONICOZeferino STEINER ABAD A V7 4.5 STD SCREEN 09/29/2014 MONICOZeferino STEINER ABAD A V76.10 BREAST CANCER SCREENING 09/29/2014 MONICOZeferino STEINER ABAD A V7 6.2 CERVICAL CANCER SCREENING (PAP SMEAR) 09/29/2014 ALYSE ALVARADOSJEANA V72.31 FRAME TABLE OPERATOR EXAM, ROUTINE 09/29/2014 CULLEN DDS, JEANA V72.62 LAB SCREENING- GENERAL PHYSICAL 09/29/2014 ALYSE ALVARADOSJEANA V73.81 HPV SCREENING 09/29/2014 CULLEN DDSJEANA V7 4.5 STD SCREEN 09/29/2014 CULLEN CHRISTIANOS, JEANA V76.10 BREAST CANCER SCREENING 09/29/2014 ALYSE ALVARADOSJEANA V7 6.2 CERVICAL CANCER SCREENING (PAP SMEAR) 09/29/2014 MONICO RESEARCH NURSE PRACTITIONER, ABAD A V72.31 FRAME TABLE OPERATOR EXAM, ROUTINE 09/29/2014 MONICO RESEARCH NURSE PRACTITIONER, ABAD A V72.62 LAB SCREENING- GENERAL PHYSICAL 09/29/2014 MONICOMARY STEINER ABAD A V73.81 HPV SCREENING 09/29/2014 MONICOZeferino STEINER ABAD A V7 4.5 STD SCREEN 09/29/2014 MONICOZeferino STEINER ABAD A V76.10 BREAST CANCER SCREENING 09/29/2014 MONICOZeferino STEINER ABAD A V7 6.2 CERVICAL CANCER SCREENING (PAP SMEAR) 01/03/2015 ANITA HOSKINS APRN Ot 521.00 UNSPEC DENTAL CARIES 01/03/2015 ANITA HOSKINS APRN Ot 525 .9 DENTAL DISORDER NOS 02/06/2015 STEPHANIE PEARCE Ot 285.9 ANEMIA NOS 02/06/2015 STEPHANIE PEARCE Ot 536.8 STOMACH FUNCTION DIS NEC 02/06/2015 ALLA PHILLIPS STEPHANIE Liset Ot 786.59 CHEST PAIN NEC 02/06/2015 ALLA PHILLIPS STEPHANIE Liset Ot 789.06 ABDOMINAL PAIN, EPIGASTRIC 02/09/2015 ALLA PHILLIPS STEPHANIE L Ot 285.9 02/09/2015 ALLA PHILLIPS STEPHANIE L Ot 536.8 02/09/2015 ALLA PHILLIPS STEPHANIE Liset Ot 786.59 02/09/2015 ALLA PHILLIPS STEPHANIE Liset Ot 789.06 03/14/2015 ANITA HOSKINS APRN Ot 521.00 UNSPEC DENTAL CARIES 03/14/2015 ANITA HOSKINS APRN Ot 723 .1 CERVICALGIA 07/23/2015 PANFILO HERR DO Ot K57.90 DVRTCLOS OF INTEST, PART UNSP, W/O PERF 07/23/2015 PANFILO HERR DO Ot K76.9 LIVER DISEASE, UNSPECIFIED 07/23/2015 PANFILO HERR DO Ot N28.1 CYST OF KIDNEY, ACQUIRED 07/23/2015 PANFILO HERR DO Ot N39.0 URINARY TRACT INFECTION, SITE NOT SPECIF 07/23/2015 JOYA HERR DOA K Ot N83.29 OTHER OVARIAN CYSTS 10/24/2015 NERIS CHI MD Ot M79.631 PAIN IN RIGHT FOREARM 10/24/2015 NERIS CHI MD Ot Z53.21 PROC/TRTMT NOT CRD OUT D/T PT LV BEF SEE 10/26/2015 NERIS CHI MD Ot M79.631 PAIN IN RIGHT FOREARM 10/26/2015 NERIS CHI MD Ot Z53.21 PROC/TRTMT NOT CRD OUT D/T PT LV BEF SEE 01/29/2016 ANITA HOSKINS APRN Ot F17.210 NICOTINE DEPENDENCE, CIGARETTES, UNCOMPL 01/29/2016 ANITA HOSKINS APRN Ot K02 .9 DENTAL CARIES, UNSPECIFIED 01/29/2016 ANITA HOSKINS APRN Ot K08 .8 OTHER SPECIFIED DISORDERS OF TEETH AND S 02/01/2016 ANITA HOSKINS APRN Ot K02 .9 DENTAL CARIES, UNSPECIFIED 02/01/2016 ANITA HOKSINS APRN Ot K08 .8 OTHER SPECIFIED DISORDERS OF TEETH AND S 02/01/2016 ANITA HOSKINS RESEARCH NURSE PRACTITIONER Ot F17.210 NICOTINE DEPENDENCE, CIGARETTES, UNCOMPL 02/01/2016 ANITA HOSKINS RESEARCH NURSE PRACTITIONER Ot K02 .9 DENTAL CARIES, UNSPECIFIED 02/01/2016 ANITA HOSKINS RESEARCH NURSE PRACTITIONER Ot K08 .8 OTHER SPECIFIED DISORDERS OF TEETH AND S 02/04/2016 ANITA HOSKINS RESEARCH NURSE PRACTITIONER Ot F17.210 NICOTINE DEPENDENCE, CIGARETTES, UNCOMPL 02/04/2016 ANITA HOSKINS RESEARCH NURSE PRACTITIONER Ot K02 .9 DENTAL CARIES, UNSPECIFIED 02/04/2016 ANITA HOSKINS RESEARCH NURSE PRACTITIONER Ot K08 .8 OTHER SPECIFIED DISORDERS OF TEETH AND S 04/23/2016 KIZZY HARDIN, ASHLEY Vazquez Ot E03. 9 HYPOTHYROIDISM, UNSPECIFIED 04/23/2016 KIZZY HARDIN, ASHLEY Vazquez Ot F31. 9 BIPOLAR DISORDER, UNSPECIFIED 04/23/2016 KIZZY HARDIN, ASHLEY Vazquez Ot T42.6X1A POISONING BY OTH ANTIEPLPTC AND SED-HYPN 04/23/2016 KIZZY HARDIN, ASHLEY Vazquez Ot Z79.899 OTHER JAIL (CURRENT) DRUG THERAPY 04/29/2016 KIZZY HARDIN, ASHLEY Vazquez Ot E03. 9 HYPOTHYROIDISM, UNSPECIFIED 04/29/2016 KIZZY HARDIN, ASHLEY Vazquez Ot F31. 9 BIPOLAR DISORDER, UNSPECIFIED 04/29/2016 KIZZY HARDIN, ASHLEY Vazquez Ot T42.6X1A POISONING BY OTH ANTIEPLPTC AND SED-HYPN 04/29/2016 KIZZY HARDIN, ASHLEY Vazquez Ot Z79.899 OTHER JAIL (CURRENT) DRUG THERAPY 05/19/2016 DAYANA HARDIN, MICHAEL Waller Ot K21.0 GASTRO-ESOPHAGEAL REFLUX DISEASE WITH ES 05/19/2016 DAYANA HARDIN, MICHAEL Waller Ot Z01.818 ENCOUNTER FOR OTHER PREPROCEDURAL EXAMIN 05/20/2016 MICHAEL ANNE MD Ot K21.0 GASTRO-ESOPHAGEAL REFLUX DISEASE WITH ES 05/20/2016 DAYANA HARDIN, MICHAEL Waller Ot Z01.818 ENCOUNTER FOR OTHER PREPROCEDURAL EXAMIN 05/24/2016 MICHAEL ANNE MD Ot K20.9 ESOPHAGITIS, UNSPECIFIED 05/24/2016 DAYANA HARDIN, MICHAEL Waller Ot K25.9 GASTRIC ULCER, UNSP ACUTE OR CHRONIC, 05/24/2016 ANNE MD, MICHAEL M Ot K29.70 GASTRITIS, UNSPECIFIED, WITHOUT [...] Ot K44.9 DIAPHRAGMATIC HERNIA WITHOUT OBSTRUCTION 06/24/2016 DAYANA HARDIN, MICHAEL M Ot K20.9 ESOPHAGITIS, [...] DIAPHRAGMATIC HERNIA WITHOUT OBSTRUCTION 09/07/2017 Soy Álvarez W 4 86 PNEUMONIA, ORGANISM UNSPECIFIED 09/07/2017 Soy Álvarez A 530.81 09/07/2017 Soy Álvarez W 535.50 09/07/2017 Syo Álvarez W 552.3 DIAPHRAGMATIC HERNIA WITH OBSTRUCTION 09/07/2017 Soy Álvarez W 780.60 FEVER, UNSPECIFIED 09/07/2017 Soy Álvarez W 997.32 POSTPROCEDURAL ASPIRATION PNEUMONIA 09/07/2017 Soy Álvarez J18.9 PNEUMONIA, UNSPECIFIED ORGANISM 09/07/2017 Henri Laurevidya W J95.89 OTH POSTPROC COMPLICATIONS AND DISORDERS OF RESP SYS, NEC 09/07/2017 Soy Álvarez K21.0 GASTRO-ESOPHAGEAL REFLUX DISEASE WITH ESOPHAGITIS 09/07/2017 Soy Álvarez K29.60 OTHER GASTRITIS WITHOUT BLEEDING 09/07/2017 Soy Álvarez K44.9 DIAPHRAGMATIC HERNIA WITHOUT OBSTRUCTION OR GANGRENE 09/07/2017 Soy Álvarez R50.9 FEVER, UNSPECIFIED 09/07/2017 Mayank, Jhoana A 780.60 FEVER, UNSPECIFIED 09/07/2017 Mayank, Jhoana A R50.9 FEVER, UNSPECIFIED 10/11/2017 Soy Álvarez 786.2 COUGH 10/11/2017 Soy Álvarez R 05 COUGH 10/11/2017 Soy Álvarez V64.1 SURGICAL OR [...] Ot K44.9 DIAPHRAGMATIC HERNIA WITHOUT OBSTRUCTION 09/10/2018 HENRI DO, CHANDROUTIE Ot G47.33 OBSTRUCTIVE SLEEP APNEA (ADULT) (PEDIATR 09/10/2018 HENRI SOY Ot G47.33 OBSTRUCTIVE SLEEP APNEA (ADULT) (PEDIATR 09/10/2018 GERMAINECH DOLISA Ot N80.0 ENDOMETRIOSIS OF UTERUS 09/10/2018 FENECH DO, LISA Vazquez Ot N92.0 EXCESSIVE AND FREQUENT MENSTRUATION WITH 09/10/2018 FENECH DOLISA Ot N94.6 DYSMENORRHEA, UNSPECIFIED 09/10/2018 GERMAINECH LISA PRINCE Ot R10.2 PELVIC AND PERINEAL PAIN 09/10/2018 FENECH DOLISA Ot Z01.812 ENCOUNTER FOR PREPROCEDURAL LABORATORY E 09/10/2018 GERMAINECH DOLISA Ot Z11.2 ENCOUNTER FOR SCREENING FOR OTHER BACTER 09/12/2018 LISA LUQUE DO Ot N80.0 ENDOMETRIOSIS OF UTERUS 09/12/2018 GERMAINECH DOLISA Ot N92.0 EXCESSIVE AND FREQUENT MENSTRUATION WITH 09/12/2018 FENECH DOLISA Ot N94.6 DYSMENORRHEA, UNSPECIFIED 09/12/2018 FENECH DOLISA Ot R10.2 PELVIC AND PERINEAL PAIN 09/12/2018 FENECH DOLISA Ot Z01.812 ENCOUNTER FOR PREPROCEDURAL LABORATORY E 09/12/2018 LISA LUQUE DO Ot Z11.2 ENCOUNTER FOR SCREENING FOR OTHER BACTER 09/14/2018 LISA LUQUE DO Ot D50.0 IRON DEFICIENCY ANEMIA SECONDARY TO BLOO 09/14/2018 LISA LUQUE DO Ot E66.9 OBESITY, UNSPECIFIED 09/14/2018 LISA LUQUE DO Ot G47.30 SLEEP APNEA, UNSPECIFIED 09/14/2018 GERMAINECH DOLISA Ot K21.9 GASTRO-ESOPHAGEAL REFLUX DISEASE WITHOUT 09/14/2018 FENECH DOLISA Ot N80.3 ENDOMETRIOSIS OF PELVIC PERITONEUM 09/14/2018 GERMAINECH DOLISA Ot N83.8 OTH NONINFLAMMATORY DISORD OF OVARY, FAL 09/14/2018 GERMAINECH DOLISA Ot N92.1 EXCESSIVE AND FREQUENT MENSTRUATION WITH 09/14/2018 FENECH DOLISA Ot N94.6 DYSMENORRHEA, UNSPECIFIED 09/14/2018 GERMAINECH DOLISA Ot Z68.39 BODY MASS INDEX (BMI) 39.0-39.9, ADULT 09/14/2018 FENECH DO, LISA S Ot Z79.899 OTHER JAIL (CURRENT) DRUG THERAPY 09/14/2018 GERMAINECH DO, LISA S Ot Z87.410 PERSONAL HISTORY OF CERVICAL DYSPLASIA 09/18/2018 GERMAINECH DO, LISA S Ot D50.0 IRON DEFICIENCY ANEMIA SECONDARY TO BLOO 09/18/2018 FENECH DO, LISA S Ot E66.9 OBESITY, UNSPECIFIED 09/18/2018 FENECH DO, LISA S Ot G47.30 SLEEP APNEA, UNSPECIFIED 09/18/2018 FENECH DO, LISA S Ot K21.9 GASTRO-ESOPHAGEAL REFLUX DISEASE WITHOUT 09/18/2018 FENECH DO, LISA S Ot N80.3 ENDOMETRIOSIS OF PELVIC PERITONEUM 09/18/2018 FENECH DO, LISA S Ot N83.8 OTH NONINFLAMMATORY DISORD OF OVARY, FAL 09/18/2018 FENECH DO, LISA S Ot N92.1 EXCESSIVE AND FREQUENT MENSTRUATION WITH 09/18/2018 FENECH DO, LISA S Ot N94.6 DYSMENORRHEA, UNSPECIFIED 09/18/2018 FENECH DO, LISA S Ot Z68.39 BODY MASS INDEX (BMI) 39.0-39.9, ADULT 09/18/2018 GERMAINECH DO, LISA S Ot Z79.899 OTHER WRAPPER OPENER (CURRENT) DRUG THERAPY 09/18/2018 ENE DO, LISA S Ot Z87.410 PERSONAL HISTORY OF CERVICAL DYSPLASIA 09/18/2018 GERMAINECH DO, LISA S Ot D50.0 IRON DEFICIENCY ANEMIA SECONDARY TO BLOO 09/18/2018 FENECH DO, LISA S Ot E66.9 OBESITY, UNSPECIFIED 09/18/2018 FENECH DO, LISA S Ot G47.30 SLEEP APNEA, UNSPECIFIED 09/18/2018 FENECH DO, LISA S Ot K21.9 GASTRO-ESOPHAGEAL REFLUX DISEASE WITHOUT 09/18/2018 FENECH DO, LISA S Ot N80.3 ENDOMETRIOSIS OF PELVIC PERITONEUM 09/18/2018 FENECH DO, LISA S Ot N83.8 OTH NONINFLAMMATORY DISORD OF OVARY, FAL 09/18/2018 FENECH DO, LISA S Ot N92.1 EXCESSIVE AND FREQUENT MENSTRUATION WITH 09/18/2018 FENECH DO, LISA S Ot N94.6 DYSMENORRHEA, UNSPECIFIED 09/18/2018 FENECH DO, LISA S Ot Z68.39 BODY MASS INDEX (BMI) 39.0-39.9, ADULT 09/18/2018 ENE DO LISA Vazquez Ot Z79.899 OTHER JAIL (CURRENT) DRUG THERAPY 09/18/2018 ENE PRINCE LISA Vazquez Ot Z87.410 PERSONAL HISTORY OF CERVICAL DYSPLASIA 10/03/2018 ENE DO LISA S Ot D50.0 IRON DEFICIENCY ANEMIA SECONDARY TO BLOO 10/03/2018 GERMAINECH DOLISA S Ot E66.9 OBESITY, UNSPECIFIED 10/03/2018 FENECH DO, LISA S Ot G47.30 SLEEP APNEA, UNSPECIFIED 10/03/2018 FENECH DO, LISA S Ot K21.9 GASTRO-ESOPHAGEAL REFLUX DISEASE WITHOUT 10/03/2018 FENECH DOLISA S Ot N80.3 ENDOMETRIOSIS OF PELVIC PERITONEUM 10/03/2018 GERMAINECH DOLISA S Ot N83.8 OTH NONINFLAMMATORY DISORD OF OVARY, FAL 10/03/2018 GERMAINECH DOLISA S Ot N92.1 EXCESSIVE AND FREQUENT MENSTRUATION WITH 10/03/2018 ENE DOLISA S Ot N94.6 DYSMENORRHEA, UNSPECIFIED 10/03/2018 ENE DO LISA Vazquez Ot Z68.39 BODY MASS INDEX (BMI) 39.0-39.9, ADULT 10/03/2018 ENE DO LISA Vazquez Ot Z79.899 OTHER JAIL (CURRENT) DRUG THERAPY 10/03/2018 ENE PRINCE LISA Vazquez Ot Z87.410 PERSONAL HISTORY OF CERVICAL DYSPLASIA 10/03/2018 SOY ÁLVAREZ DO Ot G47.33 OBSTRUCTIVE SLEEP APNEA (ADULT) (PEDIATR 10/04/2018 ENE DOLISA S Ot D50.0 IRON DEFICIENCY ANEMIA SECONDARY TO BLOO 10/04/2018 GERMAINECH DOLISA S Ot E66.9 OBESITY, UNSPECIFIED 10/04/2018 FENECH DOLISA S Ot G47.30 SLEEP APNEA, UNSPECIFIED 10/04/2018 FENECH DOLISA S Ot K21.9 GASTRO-ESOPHAGEAL REFLUX DISEASE WITHOUT 10/04/2018 FENECH DOLISA S Ot N80.3 ENDOMETRIOSIS OF PELVIC PERITONEUM 10/04/2018 FENECH DOLISA S Ot N83.8 OTH NONINFLAMMATORY DISORD OF OVARY, FAL 10/04/2018 FENECH DOLISA S Ot N92.1 EXCESSIVE AND FREQUENT MENSTRUATION WITH 10/04/2018 LISA LUQUE DO Ot N94.6 DYSMENORRHEA, UNSPECIFIED 10/04/2018 LISA LUQUE DO Ot Z68.39 BODY MASS INDEX (BMI) 39.0-39.9, ADULT 10/04/2018 LISA LUQUE DO Ot Z79.899 OTHER JAIL (CURRENT) DRUG THERAPY 10/04/2018 LISA LUQUE DO Ot Z87.410 PERSONAL HISTORY OF CERVICAL DYSPLASIA 10/08/2018 SOY ÁLVAREZ DO Ot G47.33 OBSTRUCTIVE SLEEP APNEA (ADULT) (PEDIATR 10/09/2018 HENRI DO, SOY Ot E66.9 OBESITY, UNSPECIFIED 10/09/2018 HENRI DOSOY Ot F39 UNSPECIFIED MOOD [AFFECTIVE] DISORDER 10/09/2018 HENRI SOY PRINCE Ot G47.00 INSOMNIA, UNSPECIFIED 10/09/2018 HENRI DOSOY Ot G47.33 OBSTRUCTIVE SLEEP APNEA (ADULT) (PEDIATR 10/09/2018 HENRISOY REID DO Ot I10 ESSENTIAL (PRIMARY) HYPERTENSION 10/09/2018 HENRISOY REID DO Ot R06.83 SNORING 10/09/2018 HENRI DO, SOY Ot Z91.19 PATIENT'S NONCOMPLIANCE W [facility] TR 10/10/2018 SOY ÁLVAREZ DO Ot E66.9 OBESITY, UNSPECIFIED 10/10/2018 HENRI SOY PRINCE Ot F39 UNSPECIFIED MOOD [AFFECTIVE] DISORDER 10/10/2018 HENRISOY REID DO Ot G47.00 INSOMNIA, UNSPECIFIED 10/10/2018 HENRI DOSOY Ot G47.33 OBSTRUCTIVE SLEEP APNEA (ADULT) (PEDIATR 10/10/2018 HENRI DOSOY Ot I10 ESSENTIAL (PRIMARY) HYPERTENSION 10/10/2018 HENRISOY REID DO Ot R06.83 SNORING 10/10/2018 HENRI , LAUREROUCHEY Ot Z91.19 PATIENT'S NONCOMPLIANCE W [facility] 10/30/2018 Soy Álvarez W 530.81 ESOPHAGEAL REFLUX 10/30/2018 Soy Álvarez W 535.10 ATROPHIC GASTRITIS, WITHOUT MENTION OF HEMORRHAGE 10/30/2018 Soy Álvarez 552.3 DIAPHRAGMATIC HERNIA WITH OBSTRUCTION 10/30/2018 Soy Álvarez K21.9 GASTRO-ESOPHAGEAL REFLUX DISEASE WITHOUT ESOPHAGITIS 10/30/2018 Soy Álvarez W K29.50 UNSPECIFIED CHRONIC GASTRITIS WITHOUT BLEEDING 10/30/2018 Soy Álvarez W K44.9 DIAPHRAGMATIC HERNIA WITHOUT OBSTRUCTION OR GANGRENE 12/27/2018 Soy Álvarez 244.9 UNSPECIFIED HYPOTHYROIDISM 12/27/2018 Soy Álvarez W 278.01 MORBID OBESITY 12/27/2018 Soy Álvarez W 401.0 MALIGNANT ESSENTIAL HYPERTENSION 12/27/2018 Soy Álvarez 530.81 ESOPHAGEAL REFLUX 12/27/2018 Soy Álvarez 552.3 DIAPHRAGMATIC HERNIA WITH OBSTRUCTION 12/27/2018 Soy Álvarez E03.9 HYPOTHYROIDISM, UNSPECIFIED 12/27/2018 Soy Álvarez E66.01 MORBID (SEVERE) OBESITY DUE TO EXCESS CALORIES 12/27/2018 Soy Álvarez W I 10 ESSENTIAL (PRIMARY) HYPERTENSION 12/27/2018 Soy Álvarez K21.9 GASTRO-ESOPHAGEAL REFLUX DISEASE WITHOUT ESOPHAGITIS 12/27/2018 Soy Álvarez K44.9 DIAPHRAGMATIC HERNIA WITHOUT OBSTRUCTION OR GANGRENE 12/27/2018 Soy Álvarez W V85.39 BODY MASS INDEX 39.0-39.9, ADULT 12/27/2018 Soy Álvarez Z68.39 BODY MASS INDEX (BMI) 39.0-39.9, ADULT 04/13/2019 JOYA HERR DOA Divya Ot E03.9 HYPOTHYROIDISM, UNSPECIFIED 04/13/2019 JOYA HERR DOA K Ot F17.210 NICOTINE DEPENDENCE, CIGARETTES, UNCOMPL 04/13/2019 JOYA HERR DOA Divya Ot F41.9 ANXIETY DISORDER, UNSPECIFIED 04/13/2019 JOYA HERR DOA K Ot G47.30 SLEEP APNEA, UNSPECIFIED 04/13/2019 JOYA HERR DOA K Ot K21.0 GASTRO-ESOPHAGEAL REFLUX DISEASE WITH ES 04/13/2019 PANFILO HERR DO Ot M25.532 PAIN IN LEFT WRIST 04/13/2019 CALEDONIA , PANFILO Stokes Ot M67.432 GANGLION, LEFT WRIST 04/13/2019 NEMESIO PANFILO PRINCE Ot Z90.710 ACQUIRED ABSENCE OF BOTH CERVIX AND UTER 04/13/2019 NEMESIO PANFILO PRINCE Ot Z91.5 PERSONAL HISTORY OF SELF-HARM 04/13/2019 NEMESIO PANFILO PRINCE Ot Z99.89 DEPENDENCE ON OTHER ENABLING MACHINES AN 04/18/2019 NEMESIO PANFILO PRINCE Ot E03.9 HYPOTHYROIDISM, UNSPECIFIED 04/18/2019 CALEDONIA , PANFILO Stokes Ot F17.210 NICOTINE DEPENDENCE, CIGARETTES, UNCOMPL 04/18/2019 NEMESIO PANFILO PRINCE Ot F41.9 ANXIETY DISORDER, UNSPECIFIED 04/18/2019 NEMESIO PANFILO PRINCE Ot G47.30 SLEEP APNEA, UNSPECIFIED 04/18/2019 CALEDONIA PANFILO PRINCE Ot K21.0 GASTRO-ESOPHAGEAL REFLUX DISEASE WITH ES 04/18/2019 NEMESIO PANFILO PRINCE Ot M25.532 PAIN IN LEFT WRIST 04/18/2019 NEMESIO , PANFILO Stokes Ot M67.432 GANGLION, LEFT WRIST 04/18/2019 NEMESIO , PANFILO Stokes Ot Z90.710 ACQUIRED ABSENCE OF BOTH CERVIX AND UTER 04/18/2019 NEMESIO PANFILO PRINCE Ot Z91.5 PERSONAL HISTORY OF SELF-HARM 04/18/2019 NEMESIO PANFILO PRINCE Ot Z99.89 DEPENDENCE ON OTHER ENABLING MACHINES AN 04/30/2019 NADYA IVY Ot Z12.31 ENCNTR SCREEN MAMMOGRAM FOR MALIGNANT NE 05/12/2019 KIZZY HARDIN, ASHLEY Vazquez Ot E03. 9 HYPOTHYROIDISM, UNSPECIFIED 05/12/2019 KIZZY HARDIN, ASHLEY Vazquez Ot F41. 9 ANXIETY DISORDER, UNSPECIFIED 05/12/2019 KIZZY HARDIN, ASHLEY Vazquez Ot G47. 30 SLEEP APNEA, UNSPECIFIED 05/12/2019 ASHLEY DURAND MD Ot K21. 9 GASTRO-ESOPHAGEAL REFLUX DISEASE WITHOUT 05/12/2019 KIZZY HARDIN, ASHLEY Vazquez Ot N20. 0 CALCULUS OF KIDNEY 05/12/2019 KIZZY HARDIN, ASHLEY Vazquez Ot R10. 9 UNSPECIFIED ABDOMINAL PAIN 05/12/2019 KIZZY HARDIN, ASHLEY Vazquez Ot Z77. 22 CNTCT W AND EXPSR TO ENVIRON TOBACCO SMO 05/12/2019 KIZZY HARDIN, ASHLEY Vazquez Ot Z85. 41 PERSONAL HISTORY OF MALIGNANT NEOPLASM O 05/12/2019 KIZZY HARDIN, ASHLEY Vazquez Ot Z90.710 ACQUIRED ABSENCE OF BOTH CERVIX AND UTER 05/12/2019 KIZZY HARDIN, ASHLEY Vazquez Ot Z91. 5 PERSONAL HISTORY OF SELF-HARM 05/12/2019 KIZZY HARDIN, ASHLEY Vazquez Ot Z99. 89 DEPENDENCE ON OTHER ENABLING MACHINES AN 05/15/2019 NADYA IVY SALT GRINDER Ot Z12.31 ENCNTR SCREEN MAMMOGRAM FOR MALIGNANT NE 05/16/2019 KIZZY HARDIN, ASHLEY Vazquez Ot E03. 9 HYPOTHYROIDISM, UNSPECIFIED 05/16/2019 KIZZY HARDIN, ASHLEY Vazquez Ot F41. 9 ANXIETY DISORDER, UNSPECIFIED 05/16/2019 KIZZY HARDIN, ASHLEY Vazquez Ot G47. 30 SLEEP APNEA, UNSPECIFIED 05/16/2019 KIZZY HARDIN, ASHLEY Vazquez Ot K21. 9 GASTRO-ESOPHAGEAL REFLUX DISEASE WITHOUT 05/16/2019 KIZZY HARDIN, ASHLEY Vazquez Ot N20. 0 CALCULUS OF KIDNEY 05/16/2019 KIZZY HARDIN, ASHLEY Vazquez Ot R10. 9 UNSPECIFIED ABDOMINAL PAIN 05/16/2019 KIZZY HARDIN, ASHLEY Vazquez Ot Z77. 22 CNTCT W AND EXPSR TO ENVIRON TOBACCO SMO 05/16/2019 ASHLEY DURAND MD Ot Z85. 41 PERSONAL HISTORY OF MALIGNANT NEOPLASM O 05/16/2019 KIZZY HARDIN, ASHLEY Vazquez Ot Z90.710 ACQUIRED ABSENCE OF BOTH CERVIX AND UTER 05/16/2019 KIZZY HARDIN, ASHLEY Vazquez Ot Z91. 5 PERSONAL HISTORY OF SELF-HARM 05/16/2019 KIZZY HARDIN, ASHLEY Vazquez Ot Z99. 89 DEPENDENCE ON OTHER ENABLING MACHINES AN 05/18/2019 NADYA IVY SALT GRINDER Ot Z12.31 ENCNTR SCREEN MAMMOGRAM FOR MALIGNANT NE 05/21/2019 NADYA IVYP Ot Z12.31 ENCNTR SCREEN MAMMOGRAM FOR MALIGNANT NE 05/21/2019 NADYA IVY SALT GRINDER Ot Z12.31 ENCNTR SCREEN MAMMOGRAM FOR MALIGNANT NE 05/22/2019 NADYA IVY SALT GRINDER Ot Z12.31 ENCNTR SCREEN MAMMOGRAM FOR MALIGNANT NE 05/27/2019 BIJU, NADYA SALT GRINDER Ot R92.8 OTH ABN AND INCONCLUSIVE FINDINGS ON DX 05/30/2019 NADYA IVY SALT GRINDER Ot Z12.31 ENCNTR SCREEN MAMMOGRAM FOR MALIGNANT NE 06/03/2019 NADYA IVY SALT GRINDER Ot R92.8 OTH ABN AND INCONCLUSIVE FINDINGS ON DX 06/05/2019 NADYA IVY SALT GRINDER Ot R92.2 INCONCLUSIVE MAMMOGRAM 06/05/2019 NADYA IVY SALT GRINDER Ot R92.8 OTH ABN AND INCONCLUSIVE FINDINGS ON DX 06/05/2019 DAYANA HARDIN, MICHAEL M Ot K20.9 ESOPHAGITIS, UNSPECIFIED 06/05/2019 DAYANA HARDIN, MCIHAEL M Ot K25.9 GASTRIC ULCER, UNSP ACUTE OR CHRONIC, 06/05/2019 DAYANA HARDIN, MICHAEL M Ot K29.70 GASTRITIS, UNSPECIFIED, WITHOUT BLEEDING 06/05/2019 DAYANA HARDIN, MICHAEL M Ot K44.9 DIAPHRAGMATIC HERNIA WITHOUT OBSTRUCTION 06/05/2019 NADYA IVY SALT GRINDER Ot Z12.31 ENCNTR SCREEN MAMMOGRAM FOR MALIGNANT NE 06/05/2019 NADYA IVY SALT GRINDER Ot R92.2 INCONCLUSIVE MAMMOGRAM 06/05/2019 NADYA IVY SALT GRINDER Ot R92.8 OTH ABN AND INCONCLUSIVE FINDINGS ON DX 06/05/2019 NADYA IVY SALT GRINDER Ot Z12.31 ENCNTR SCREEN MAMMOGRAM FOR MALIGNANT NE 06/05/2019 DAYANA HARDIN, MICHAEL M Ot K20.9 ESOPHAGITIS, UNSPECIFIED 06/05/2019 DAYANA HARDIN, MICHAEL M Ot K25.9 GASTRIC ULCER, UNSP ACUTE OR CHRONIC, 06/05/2019 DAYANA HARDIN, MICHAEL M Ot K29.70 GASTRITIS, UNSPECIFIED, WITHOUT BLEEDING 06/05/2019 DAYANA HARDIN, MICHAEL M Ot K44.9 DIAPHRAGMATIC HERNIA WITHOUT OBSTRUCTION 06/05/2019 NADYA IVY SALT GRINDER Ot Z12.31 ENCNTR SCREEN MAMMOGRAM FOR MALIGNANT NE 06/05/2019 NADYA IVY SALT GRINDER Ot R92.2 INCONCLUSIVE MAMMOGRAM 06/05/2019 NADYA IVY SALT GRINDER Ot R92.8 OTH ABN AND INCONCLUSIVE FINDINGS ON DX 06/05/2019 NADYA IVY SALT GRINDER Ot Z12.31 ENCNTR SCREEN MAMMOGRAM FOR MALIGNANT NE 06/05/2019 NADYA IVY SALT GRINDER Ot Z12.31 ENCNTR SCREEN MAMMOGRAM FOR MALIGNANT NE 06/19/2019 NADYA IVY SALT GRINDER Ot Z12.31 ENCNTR SCREEN MAMMOGRAM FOR MALIGNANT NE 09/08/2019 JERRELL, ADINA SALT GRINDER Ot E03.9 HYPOTHYROIDISM, UNSPECIFIED 09/08/2019 JERRELL, ADINA SALT GRINDER Ot F31.9 BIPOLAR DISORDER, UNSPECIFIED 09/08/2019 JERRELL, ADINA SALT GRINDER Ot F41.9 ANXIETY DISORDER, UNSPECIFIED 09/08/2019 JERRELL, ADINA SALT GRINDER Ot K21.9 GASTRO-ESOPHAGEAL REFLUX DISEASE WITHOUT 09/08/2019 JERRELL, ADINA SALT GRINDER Ot M46.1 SACROILIITIS, NOT ELSEWHERE CLASSIFIED 09/08/2019 JERRELL, ADINA SALT GRINDER Ot M54.5 LOW BACK PAIN 09/08/2019 JERRELL, ADINA SALT GRINDER Ot N39.0 URINARY TRACT INFECTION, SITE NOT SPECIF 09/08/2019 JERRELL, ADINA SALT GRINDER Ot Z85.41 PERSONAL HISTORY OF MALIGNANT NEOPLASM O 09/11/2019 JERRELL, ADINA SALT GRINDER Ot E03.9 HYPOTHYROIDISM, UNSPECIFIED 09/11/2019 JERRELL, AIDNA SALT GRINDER Ot F31.9 BIPOLAR DISORDER, UNSPECIFIED 09/11/2019 JERRELL, ADINA SALT GRINDER Ot F41.9 ANXIETY DISORDER, UNSPECIFIED 09/11/2019 JERRELL, ADINA SALT GRINDER Ot K21.9 GASTRO-ESOPHAGEAL REFLUX DISEASE WITHOUT 09/11/2019 JERRELL, ADINA SALT GRINDER Ot M46.1 SACROILIITIS, NOT ELSEWHERE CLASSIFIED 09/11/2019 JERRELL, ADINA SALT GRINDER Ot M54.5 LOW BACK PAIN 09/11/2019 JERRELL, ADINA SALT GRINDER Ot N39.0 URINARY TRACT INFECTION, SITE NOT SPECIF 09/11/2019 JERRELL, ADINA SALT GRINDER Ot Z85.41 PERSONAL HISTORY OF MALIGNANT NEOPLASM O 11/07/2019 DAYANA HARDIN, MICHAEL Waller Ot K20.9 ESOPHAGITIS, UNSPECIFIED 11/07/2019 DAYANA HARDIN, MICHAEL Waller Ot K25.9 GASTRIC ULCER, UNSP ACUTE OR CHRONIC, 11/07/2019 DAYANA HARDIN, MICHAEL Waller Ot K29.70 GASTRITIS, UNSPECIFIED, WITHOUT BLEEDING 11/07/2019 DAYANA HARDIN, MICHAEL Waller Ot K44.9 DIAPHRAGMATIC HERNIA WITHOUT OBSTRUCTION 11/07/2019 BIJUKAVITANADYAKERWIN HOUSTON Ot R92.2 INCONCLUSIVE MAMMOGRAM 11/07/2019 BIJUNADYA Ot R92.8 OTH ABN AND INCONCLUSIVE FINDINGS ON DX Procedures Code Description [place] [address] GC/C HLAM PROBE (STATE) 09/29/2014 18413 PAP SMEAR 09/29/2014 Q0091 PAP SMEAR OBTAIN SMEAR 09/29/2014 04564 TRIC HOMONAS (IN-HOUSE) 09/29/2014 77589 CULT URE UROGENITAL 10/01/2014 91258 SYPH ILLIS-STATE LAB 10/22/2014 52136 HIV (STATE LAB) 10/22/2014 82313 ROUT INE VENIPUNCTURE 10/22/[id number] GF R CALC (RESULT ONLY) 10/22/2014 15099 CMP 10/22/2014 91670 LIPI D PANEL 10/22/2014 69250 TSH 10/22/2014 13154 CBC 10/22/2014 Results Test Result Range Comprehensive metabolic panel - 04/23/16 12:43 Serum or plasma sodium measurement (moles/volume) 139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
[2020-01-01 20:41] LABS: BILIRUBIN,URINE NEGATIVE (NEGATIVE); CLARITY,URINE CLEAR; COLOR,URINE YELLOW; GLUCOSE, URINE (UA) NEGATIVE (NEGATIVE); KETONES,URINE NEGATIVE (NEGATIVE); LEUKOCYTE ESTERASE ,URINE NEGATIVE (NEGATIVE); NITRITE,URINE NEGATIVE (NEGATIVE); PROTEIN,URINE NEGATIVE (NEGATIVE)
--- NOTE | 2020-01-01 20:55 | NUR ---
LANIE GREGG admitted to room 423-1, with an admitting diagnosis of SEPSIS, ASPIRATION PNA, on 01/01/20 from [place] via WHEELCHAIR, accompanied by STAFF.LANIE GREGG introduced to surroundings, call light, bed controls, phone, TV, temperature control, lights, meal times, smoking policy, visitor policy, side rail policy, bathrooms and showers. Patient Rights given to patient in the handbook.LANIE GREGG verbalizes understanding that [facility] is not responsible for the loss or damage to any personal effects or valuables that are kept in the patients posession during their hospitalization. LANIE GREGG verbalizes understanding of Interdisciplinary Patient Education. Patient and/or family were informed about the Rapid Response Team and its purpose.
[2020-01-01] MEDS ORDERED: LURA40TA3 PO (21:02)
[2020-01-01] MEDS ORDERED: CHLO25TA20 PO (21:02)
[2020-01-01] MEDS ORDERED: TRAZ150T72 PO (21:02)
[2020-01-01] MEDS ORDERED: QUET300T44 PO (21:02)
[2020-01-01] MEDS ORDERED: GBPN600T PO (21:02)
[2020-01-01 21:06] VITALS: BP 126/71
[2020-01-01 21:06] LABS: BACTERIA,URINE MODERATE /HPF; SQUAMOUS EPITHELIAL CELL,UR 0-2 /HPF; WBC,URINE 0-2 /HPF
[2020-01-01] MEDS ORDERED: IBUPROFEN 800 MG (MOTRIN) TAB PO PRN (22:30)
[2020-01-01] MEDS ORDERED: ACETAMINOPHEN 500 MG TAB (TYLENOL) PO PRN (22:45)
[2020-01-01] MEDS ORDERED: traZODone 50 MG (DESYREL) TAB ONE (22:56)
[2020-01-01] MEDS ORDERED: GABAPENTIN 300 MG (NEURONTIN) CAP ONE (22:56)
[2020-01-01] MEDS ORDERED: traZODone 150 MG (DESYREL) TABLET ONE (22:58)
[2020-01-01] MEDS ORDERED: QUEtiapine 100 MG (SEROquel) TAB IMMEDIATE RELEASE ONE (22:59)
[2020-01-01] MEDS: NS IV 1000 ML 1,000 ML IV SCH (23:08)
[2020-01-01 23:14] VITALS: BP 123/75
[2020-01-02] VITALS (7 sets, daily range): BP systolic 101–135; BP diastolic 55–91
--- NOTE | 2020-01-02 01:00 | NUR ---
ALBUTEROL MDI QID and PRN. Icentive and Aerobika TID and PRN. RT to reassess or reevaluate in 72 hours or as needed.Initiate 02 with sats <90% Addendum: 01/02/20 at 0100 by HUMZA CAMPOS RT Amended: Links added.
[2020-01-02] MEDS ORDERED: RT-ALBUTEROL INHALER HFA (VENTOLIN HFA) 8 GM IH PRN (01:15)
[2020-01-02] MEDS: NS IV 1000 ML 1,000 ML IV SCH ×2 (05:02→11:55)
[2020-01-02] MEDS ORDERED: LEVOTHYROXINE 100 MCG (LEVOTHROID) TAB PO SCH (06:30)
[2020-01-02] MEDS ORDERED: LEVOTHYROXINE 75 MCG (LEVOTHROID) TABLET PO SCH (06:30)
[2020-01-02 06:34] LABS: BASOPHILS % (AUTO) 0 % (0-10); EOSINOPHILS # (AUTO) 0.3 10^3/uL (0.0-0.3); EOSINOPHILS % (AUTO) 3 % (0-10); HEMATOCRIT 35 % (35-52); HEMOGLOBIN 11.4 G/DL (11.5-16.0); LYMPHOCYTES # (AUTO) 1.4 X 10^3 (1.0-4.0); LYMPHOCYTES % (AUTO) 16 % (12-44); MEAN CORPUSCULAR HEMOGLOBIN 30 PG (25-34); MEAN CORPUSCULAR HGB CONC 33 G/DL (32-36); MEAN CORPUSCULAR VOLUME 92 FL (80-99); MEAN PLATELET VOLUME 10.3 FL (7.4-10.4); MONOCYTES # (AUTO) 0.4 X 10^3 (0.0-1.0); MONOCYTES % (AUTO) 4 % (0-12); NEUTROPHILS % (AUTO) 77 % (42-75); PLATELET COUNT 210 10^3/uL (130-400); RED CELL DISTRIBUTION WIDTH 13.4 % (10.0-14.5)
[2020-01-02 06:42] LABS: ALBUMIN 3.1 GM/DL (3.2-4.5)
[2020-01-02 06:43] LABS: CHLORIDE 115 MMOL/L (98-107); SODIUM 138 MMOL/L (135-145)
[2020-01-02 06:44] LABS: CALCIUM 7.5 MG/DL (8.5-10.1)
[2020-01-02 06:45] LABS: GLUCOSE 108 MG/DL (70-105); TOTAL PROTEIN 5.4 GM/DL (6.4-8.2)
[2020-01-02 06:46] LABS: CARBON DIOXIDE 17 MMOL/L (21-32)
[2020-01-02 06:47] LABS: BILIRUBIN,TOTAL 0.3 MG/DL (0.1-1.0)
[2020-01-02 06:49] LABS: ALKALINE PHOSPHATASE 47 U/L (40-136); CREATININE SERUM 0.74 MG/DL (0.60-1.30); GFR ESTIMATED > 60
[2020-01-02 06:50] LABS: BUN/CREATININE RATIO 9
[2020-01-02 06:52] LABS: ALANINE AMINOTRANSFERASE 23 U/L (0-55)
[2020-01-02] MEDS: RT-ALBUTEROL INHALER HFA (VENTOLIN HFA) 8 GM IH SCH ×3 (07:21→14:48)
--- NOTE | 2020-01-02 07:21 | NUR ---
MEDICATION IS NOT BROUGHT UP FROM THE PHARMACY. Addendum: 01/02/20 at 0722 by JAMARI DE OLIVEIRA RT Amended: Links added.
--- NOTE | 2020-01-02 07:24 | History & Physical ---
HPI History of Present Illness: 44 yo female came to ER due to fever, cough and shortness of breath after having had EGD yesterday. She stated she had this problem previously with EGD as well. She had negative COVID testing 6 days ago prior to her EGD and has no known exposures. Source: patient Date seen by provider: Jan 02, 2020 Time Seen by Provider: 12:00 Attending Physician Matt Morales MD [facility] Consult Date of Admission Jan 01, 2020 at 19:20 Home Medications Home Medications Reviewed patient Home Medication Reconciliation performed by pharmacy medication reconciliations air analysis technician and/or nursing. Patients Allergies have been reviewed. Allergies Coded Allergies: No Known Drug Allergies (Unverified , 09/10/18) FDI-Eixgwo-Rihwbg Hx Patient Social History Alcohol Use: Denies Use Recreational Drug Use: No Drug of Choice: HX OF METH USE; HX OF OVERDOSE 2015 Smoking Status: Former Smoker Type Used: Cigarettes 2nd Hand Smoke Exposure: Yes Recent Foreign Travel: No Contact w/other who traveled: No Recent Hopitalizations: No Recent Infectious Disease Expo: No Immunizations Up To Date Tetanus Booster (TDap): Unknown Past Medical History PMHx: Insomnia GERD with esophagitis Depression Anxiety Restless Leg syndrome Hypothyroidism Iron deficiency anemia due to inadequate intake PTSD Menorrhagia Bipolar disorder SurgHx: LEEP D&C C section x 2 Cholecystectomy [place] teeth extraction Hysterectomy Hiatal hernia repair Gastric sleeve Family Medical History Significant Family History: CAD Over 55 Years Old, Diabetes Review of Systems ([facility]) Constitutional: fever Respiratory: cough, short of breath Cardiovascular: No chest pain Gastrointestinal: No abdominal pain, No constipation, No diarrhea Skin: No rash Reviewed Test Results Reviewed Test Results Lab Laboratory Tests Test 01/01/20 18:28 01/01/20 18:45 01/01/20 19:10 01/01/20 20:25 Range/Units White Blood Count 15.8 H 4.3-11.0 10^3/uL Red Blood Count 4.40 4.35-5.85 10^6/uL Hemoglobin 13.6 11.5-16.0 G/DL Hematocrit 39 35-52 % Mean Corpuscular Volume 90 80-99 FL Mean Corpuscular Hemoglobin 31 25-34 PG Mean Corpuscular Hemoglobin Concent 35 32-36 G/DL Red Cell Distribution Width 13.2 10.0-14.5 % Platelet Count 238 130-400 10^3/uL Mean Platelet Volume 10.0 7.4-10.4 FL Neutrophils (%) (Auto) 89 H 42-75 % Lymphocytes (%) (Auto) 6 L 12-44 % Monocytes (%) (Auto) 5 0-12 % Eosinophils (%) (Auto) 0 0-10 % Basophils (%) (Auto) 0 0-10 % Neutrophils # (Auto) 14.0 H 1.8-7.8 X 10^3 Lymphocytes # (Auto) 0.9 L 1.0-4.0 X 10^3 Monocytes # (Auto) 0.8 0.0-1.0 X 10^3 Eosinophils # (Auto) 0.1 0.0-0.3 10^3/uL Basophils # (Auto) 0.0 0.0-0.1 10^3/uL Neutrophils % (Manual) 90 % Lymphocytes % (Manual) 5 % Monocytes % (Manual) 2 % Band Neutrophils 3 % Blood Morphology Comment NORMAL Erythrocyte Sedimentation Rate 5 0-20 MM/HR Prothrombin Time 13.2 12.2-14.7 SEC INR Comment 1.0 0.8-1.4 Activated Partial Thromboplast Time 26 24-35 SEC Sodium Level 136 135-145 MMOL/L Potassium Level 3.9 3.6-5.0 MMOL/L Chloride Level 105 98-107 MMOL/L Carbon Dioxide Level 20 L 21-32 MMOL/L Anion Gap 11 5-14 MMOL/L Blood Urea Nitrogen 12 7-18 MG/DL Creatinine 0.90 0.60-1.30 MG/DL Estimat Glomerular Filtration Rate > 60 BUN/Creatinine Ratio 13 Glucose Level 121 H 70-105 MG/DL Lactic Acid Level 1.84 0.50-2.00 MMOL/L Calcium Level 8.9 8.5-10.1 MG/DL Corrected Calcium 8.7 8.5-10.1 MG/DL Total Bilirubin 0.3 0.1-1.0 MG/DL Aspartate Amino Transf (AST/SGOT) 28 5-34 U/L Alanine Aminotransferase (ALT/SGPT) 25 0-55 U/L Alkaline Phosphatase 57 40-136 U/L Lactate Dehydrogenase 185 125-220 U/L C-Reactive Protein High Sensitivity 0.45 0.00-0.50 MG/DL Total Protein 7.1 6.4-8.2 GM/DL Albumin 4.2 3.2-4.5 GM/DL Procalcitonin 0.07 <0.10 NG/ML Blood Gas Puncture Site RT RAD Blood Gas Patient Temperature 37.8 Arterial Blood pH 7.37 7.37-7.43 Arterial Blood Partial Pressure CO2 39 35-45 MMHG Arterial Blood Partial Pressure O2 89 79-93 MMHG Arterial Blood HCO3 22 L 23-27 MMOL/L Arterial Blood Total CO2 22.9 21.0-31.0 MMOL/L Arterial Blood Oxygen Saturation 96 94-100 % Arterial Blood Base Excess -2.6 L -2.5-2.5 MMOL/L Sterling Test POS Blood Gas Ventilator Setting NO Blood Gas Inspired Oxygen ROOM AIR Urine Color YELLOW Urine Clarity CLEAR Urine pH 7.0 5-9 Urine Specific [place] 1.015 L 1.016-1.022 Urine Protein NEGATIVE NEGATIVE Urine Glucose (UA) NEGATIVE NEGATIVE Urine Ketones NEGATIVE NEGATIVE Urine Nitrite NEGATIVE NEGATIVE Urine Bilirubin NEGATIVE NEGATIVE Urine Urobilinogen 0.2 < = 1.0 MG/DL Urine Leukocyte Esterase NEGATIVE NEGATIVE Urine RBC (Auto) NEGATIVE NEGATIVE Urine RBC NONE /HPF Urine WBC 0-2 /HPF Urine Squamous Epithelial Cells 0-2 /HPF Urine Crystals NONE /LPF Urine Bacteria MODERATE H /HPF Urine Casts NONE /LPF Urine Mucus NEGATIVE /LPF Urine Culture Indicated YES Test 01/02/20 06:25 Range/Units White Blood Count 9.0 4.3-11.0 10^3/uL Red Blood Count 3.79 L 4.35-5.85 10^6/uL Hemoglobin 11.4 L 11.5-16.0 G/DL Hematocrit 35 35-52 % Mean Corpuscular Volume 92 80-99 FL Mean Corpuscular Hemoglobin 30 25-34 PG Mean Corpuscular Hemoglobin Concent 33 32-36 G/DL Red Cell Distribution Width 13.4 10.0-14.5 % Platelet Count 210 130-400 10^3/uL Mean Platelet Volume 10.3 7.4-10.4 FL Neutrophils (%) (Auto) 77 H 42-75 % Lymphocytes (%) (Auto) 16 12-44 % Monocytes (%) (Auto) 4 0-12 % Eosinophils (%) (Auto) 3 0-10 % Basophils (%) (Auto) 0 0-10 % Neutrophils # (Auto) 7.0 1.8-7.8 X 10^3 Lymphocytes # (Auto) 1.4 1.0-4.0 X 10^3 Monocytes # (Auto) 0.4 0.0-1.0 X 10^3 Eosinophils # (Auto) 0.3 0.0-0.3 10^3/uL Basophils # (Auto) 0.0 0.0-0.1 10^3/uL Sodium Level 138 135-145 MMOL/L Potassium Level 4.0 3.6-5.0 MMOL/L Chloride Level 115 #H 98-107 MMOL/L Carbon Dioxide Level 17 L 21-32 MMOL/L Anion Gap 6 5-14 MMOL/L Blood Urea Nitrogen 7 7-18 MG/DL Creatinine 0.74 0.60-1.30 MG/DL Estimat Glomerular Filtration Rate > 60 BUN/Creatinine Ratio 9 Glucose Level 108 H 70-105 MG/DL Calcium Level 7.5 L 8.5-10.1 MG/DL Corrected Calcium 8.2 L 8.5-10.1 MG/DL Total Bilirubin 0.3 0.1-1.0 MG/DL Aspartate Amino Transf (AST/SGOT) 27 5-34 U/L Alanine Aminotransferase (ALT/SGPT) 23 0-55 U/L Alkaline Phosphatase 47 40-136 U/L Total Protein 5.4 L 6.4-8.2 GM/DL Albumin 3.1 L 3.2-4.5 GM/DL Radiology 12/31 CXR no acute findings 01/01 CXR DRAFT IMPRESSION: 1. The findings are suspicious for mild pneumonia/atelectasis and/or fluid in the right lung base. 2. There is no acute cardiopulmonary abnormality noted otherwise. Physical Exam-([facility]) Physical Exam Vital Signs VS - Last 72 Hours, by Label 01/01/20 01/01/20 01/01/20 01/01/20 18:14 18:14 19:22 21:00 Temp 37.8 Pulse 116 101 Resp 22 18 B/P (MAP) 135/91 (106) 125/68 Pulse Ox 94 95 O2 Delivery Room Air Room Air Room Air Room Air 01/01/20 01/01/20 01/01/20 01/02/20 21:06 23:14 23:49 00:46 Temp 37.3 36.6 37.8 Pulse 89 100 87 116 Resp 22 20 B/P (MAP) 126/71 123/75 (91) Pulse Ox 95 96 94 O2 Delivery Room Air Room Air FiO2 21 01/02/20 01/02/20 01/02/20 01/02/20 01:00 04:58 06:46 07:51 Temp 36.6 37.0 Pulse 80 85 73 90 Resp 20 B/P (MAP) 101/55 (70) 115/68 (84) Pulse Ox 95 95 O2 Delivery Room Air Room Air 01/02/20 01/02/20 01/02/20 01/02/20 08:00 11:56 11:57 12:36 Temp 37.0 37.0 Pulse 76 90 77 Resp 20 B/P (MAP) 122/79 (93) Pulse Ox 95 96 95 O2 Delivery Room Air Room Air FiO2 21 01/02/20 01/02/20 16:35 18:11 Temp 36.5 36.5 Pulse 80 80 Resp 20 20 B/P (MAP) 120/78 (92) 120/78 Pulse Ox 96 96 O2 Delivery Room Air Room Air Capillary Refill : Less Than 3 Seconds General Appearance: WD/WN, no apparent distress Respiratory: no accessory muscle use (no isolation stethoscope available at time of exam, patient with no respiratory distress, not requiring supplemental oxygen) Cardiovascular: regular rate, rhythm Gastrointestinal: non tender, soft Extremities: No pedal edema Neurologic/Psychiatric: normal mood/affect Skin: normal color, warm/dry Assessment/Plan Assessment/Plan Admission Status: Inpatient Order (span 2 midnights) Reason for Inpatient Admission: Aspiration pneumonia/pneumonitis (1) Pneumonia, aspiration Status: Acute Assessment & Plan: Suspect aspiration related to recent procedure. Antibiotics started empirically. COVID swab pending given fever, shortness of breath and cough. Qualifiers: Qualified Codes: J69.0 - Pneumonitis due to inhalation of food and vomit (2) Sepsis Status: Acute Assessment & Plan: Secondary to suspected aspiration pneumonia. No signs of severe sepsis. Started on ceftriaxone and azithromycin and IVF. (3) Hypothyroidism Status: Chronic Assessment & Plan: Resume home levothyroxine (4) Acid reflux disease Status: Acute Assessment & Plan: Pantoprazole Qualifiers: Qualified Codes: K21.0 - Gastro-esophageal reflux disease with esophagitis (5) Depression Status: Chronic Assessment & Plan: Resume home behavioral health medications (6) Anxiety Status: Chronic (7) DVT prophylaxis Status: Acute Assessment & Plan: Enoxaparin Clinical Quality Measures AMI/AHF: ASA po Prior to arrival: No DVT/VTE Risk/Contraindication: Risk Factor Score Per Nursin RFS Level Per Nursing on Admit: 3=High MATT MORALES MD Jan 02, 2020 07:24
[2020-01-02] MEDS ORDERED: ENOXAPARIN 40 MG/0.4 ML (LOVENOX) SYR SQ SCH (07:30)
--- NOTE | 2020-01-02 09:25 | Diagnostic Imaging Report ---
EXAMINATION: Portable erect AP chest at 354h. INDICATION: Aspiration pneumonia The heart size is within normal limits and stable when compared to 01/01/2020 the lungs remain generally clear. However since the prior study a small amount of atelectasis/infiltrate and/or fluid appears to have developed in the right lung base. If further study is desired, then a follow-up PA and lateral chest would be recommended. The mediastinum is not widened. The osseous structures are intact. IMPRESSION: 1. The findings are suspicious for mild pneumonia/atelectasis and/or fluid in the right lung base. Additional considerations as above. 2. There is no acute cardiopulmonary abnormality noted otherwise. Dictated by: Dictated on workstation # [id number]
[2020-01-02] MEDS ORDERED: OMEP40CA27 PO (09:52)
[2020-01-02] MEDS ORDERED: IBUP-2473 PO (09:52)
[2020-01-02] MEDS ORDERED: CALC600T12 PO (09:52)
[2020-01-02] MEDS ORDERED: MULT-1136 PO (09:52)
[2020-01-02] MEDS ORDERED: CALCIUM CARBONATE 500 MG (TUMS) TAB.CHEW PO PRN (10:15)
--- NOTE | 2020-01-02 10:48 | NUR ---
SPOKE WITH THE PT ( I CALLED THE ROOM PHONE AND PT SAYS SHE HAS HER MEDS WITH HER) WENT THRU THE EXT MED HISTORY AND CALLED [facility] (BOTH LOCATIONS), [facility] AND [facility] FOR MED LISTS WHEN I SPOKE WITH THE PATIENT I ASKED ABOUT HER LEVOTHYROXINE. PT SAYS SHE TAKES 175MCG- I DID NOT SEE IT ON THE EXT MED HISTORY SO I ASKED WHERE SHE FILLED IT. I COULD HEAR HER GOING THRU HER BOTTLES AND SHE SAID THE LAST STRENGTH SHE GOT WAS THE 100MCG ON 04-05-2019 #90/90DS. PT KEPT SAYING THAT SHE THOUGHT SHE WAS TAKING 175MCG SO I REACHED OUT TO [facility], [facility], [facility] AND EVEN DR. GREENE OFFICE AND NONE OF THOSE PROVIDERS HAD THE 175MCG ON FILE. WHEN I SPOKE WITH THE PT AGAIN SHE UNDERSTOOD MY INFORMATION AND DID ADMIT TO HAVING STOPPED HER MEDICATION FOR AWHILE, BUT SHE SAYS SHE IS CURRENTLY TAKING NOW. I DID LEAVE IT ON THE MED REC WITH THE PAST DUE FILL DOCUMENTED ON THE EXT MED HISTORY IT SHOWS ON 01-01-2020 DR. CROWDER HAD SENT OUT MULTIPLE SCRIPTS (ONE WAS LEVOTHYROXINE 75MCG) HOWEVER IT DOES NOT SHOW WHAT PHARAMCY THEY WENT TO.WHEN I CALLED THE OFFICE THEY DID NOT SHOW ANY MEDICATIONS SENT OUT AND FURTHER EXPLAINED THAT DR. CROWDER DOES NOT FILL MEDS THAT A PT SHOULD GET FROM A PCP (SUCH LEVOTHYROXINE). I EVEN CALLED ALL OF THE PHARMACIES THE PT HAS USED AND NONE HAVE SCRIPTS FROM 01-01-[address] CROWDER - FOR THIS REASON I AM GOING TO USE THE MED LIST FROM [facility] AND THE EXT MED HISTORY (NOT INCLUDING THE 01-01-[address] CROWDER) FOR CURRENT FILL DATES 12-16-2019 LATUDA 40MG #30/30DS (THIS DOES NOT SHOW ON THE EXT MED HISTORY) OTC MEDS: IBUPROFEN MTV CALCIUM
[2020-01-02] MEDS ORDERED: PATIENT MAY USE OWN MED,SINGLE MED PO SCH (12:15)
[2020-01-02] MEDS ORDERED: AMOX-358 PO (18:03)
--- NOTE | 2020-01-02 18:05 | Discharge Summary ---
Discharge [facility] Discharge Medications New, Converted or Re-Newed RX: Transmitted to Pharmacy New Medications: Amoxicillin/Potassium Clav (Augmentin 875-125 Tablet) 1 Each Tablet 1 EACH PO BID for 5 Days, #10 TAB 0 Refills Continued Medications: Calcium Carbonate (Calcium) 600 Mg Tablet 600 MG PO DAILY, TAB Gabapentin (Gabapentin) 600 Mg Tablet 600 MG PO HS, TAB Ibuprofen (Ibuprofen) 200 Mg Tablet 400-600 MG PO Q8H PRN for PAIN-MILD (1-4), TAB Levothyroxine Sodium (Levothyroxine Sodium) 100 Mcg Tablet 100 MCG PO HS, TAB LAST FILLED 04-05-2019 #90 Lurasidone HCl (Latuda) 40 Mg Tablet 40 MG PO HS, TAB Multivitamin (Multivitamin) 1 Each Tablet 1 EACH PO DAILY, TAB Omeprazole (Omeprazole) 40 Mg Capsule.dr 40 MG PO DAILY, CAP Quetiapine Fumarate (Quetiapine Fumarate) 300 Mg Tablet 300 MG PO HS Trazodone HCl (Trazodone HCl) 150 Mg Tablet 150 MG PO HS PRN for SLEEP, TAB Patient Instructions Goal/Follow Up Appt: Follow up with primary provider on Monday or Monday. Return to The Hospital For: Fever, worsening shortness of breath, cough Activity & Diet Discharge Diet: No Restrictions Activity as Tolerated: Yes MATT CADET MD Jan 02, 2020 18:05
--- NOTE | 2020-01-02 18:06 | Discharge Summary ---
Discharge Summary Hospital Course Problems/Diagnosis: (1) Pneumonia, aspiration Status: Acute Assessment & Plan: Suspect aspiration related to recent procedure. Antibiotics started empirically. COVID swab done given fever, shortness of breath and cough and was negative. Stable and requesting discharge, sent on Augmentin. Qualifiers: Qualified Codes: J69.0 - Pneumonitis due to inhalation of food and vomit (2) Sepsis Status: Acute Assessment & Plan: Secondary to suspected aspiration pneumonia. No signs of severe sepsis. Started on ceftriaxone and azithromycin and IVF. Resolved and discharged with Augmentin. (3) Hypothyroidism Status: Chronic Assessment & Plan: Resume home levothyroxine (4) Acid reflux disease Status: Acute Assessment & Plan: Pantoprazole Qualifiers: Qualified Codes: K21.0 - Gastro-esophageal reflux disease with esophagitis (5) Depression Status: Chronic Assessment & Plan: Resume home behavioral health medications (6) Anxiety Status: Chronic Hospital Course Date of Admission: Jan 01, 2020 at 19:20 Admission Diagnosis : Family Physician/Provider: [place] Date of Discharge: 01/02/20 Discharge Diagnosis: See problem list Hospital Course: See problem list Labs and Pending Lab Test: Laboratory Tests 01/01/20 18:28: White Blood Count 15.8H, Red Blood Count 4.40, Hemoglobin 13.6, Hematocrit 39, Mean Corpuscular Volume 90, Mean Corpuscular Hemoglobin 31, Mean Corpuscular Hemoglobin Concent 35, Red Cell Distribution Width 13.2, Platelet Count 238, Mean Platelet Volume 10.0, Neutrophils (%) (Auto) 89H, Lymphocytes (%) (Auto) 6L , Monocytes (%) (Auto) 5, Eosinophils (%) (Auto) 0, Basophils (%) (Auto) 0, Neutrophils # (Auto) 14.0H, Lymphocytes # (Auto) 0.9L, Monocytes # (Auto) 0.8, Eosinophils # (Auto) 0.1, Basophils # (Auto) 0.0, Neutrophils % (Manual) 90, Lymphocytes % (Manual) 5, Monocytes % (Manual) 2, Band Neutrophils 3, Blood Morphology Comment NORMAL, Erythrocyte Sedimentation Rate 5, Prothrombin Time 13.2, INR Comment 1.0, Activated Partial Thromboplast Time 26, Sodium Level 136, Potassium Level 3.9, Chloride Level 105, Carbon Dioxide Level 20L, Anion Gap 11, Blood Urea Nitrogen 12, Creatinine 0.90, Estimat Glomerular Filtration Rate > 60, BUN/Creatinine Ratio 13, Glucose Level 121H, Lactic Acid Level 1.84, Calcium Level 8.9, Corrected Calcium 8.7, Total Bilirubin 0.3, Aspartate Amino Transf (AST/SGOT) 28, Alanine Aminotransferase (ALT/SGPT) 25, Alkaline Phosphatase 57, Lactate Dehydrogenase 185, C-Reactive Protein High Sensitivity 0.45, Total Protein 7.1, Albumin 4.2, Procalcitonin 0.07 01/01/20 18:45: Blood Gas Puncture Site RT RAD, Blood Gas Patient Temperature 37.8, Arterial Blood pH 7.37, Arterial Blood Partial Pressure CO2 39, Arterial Blood Partial Pressure O2 89, Arterial Blood HCO3 22L, Arterial Blood Total CO2 22.9, Arterial Blood Oxygen Saturation 96, Arterial Blood Base Excess -2.6L, Sterling Test POS, Blood Gas Ventilator Setting NO, Blood Gas Inspired Oxygen ROOM AIR 01/01/20 19:10: Coronavirus (COVID-19)(PCR) Negative 01/01/20 20:25: Urine Color YELLOW, Urine Clarity CLEAR, Urine pH 7.0, Urine Specific [place] 1.015L, Urine Protein NEGATIVE, Urine Glucose (UA) NEGATIVE, Urine Ketones NEGATIVE, Urine Nitrite NEGATIVE, Urine Bilirubin NEGATIVE, Urine Urobilinogen 0.2, Urine Leukocyte Esterase NEGATIVE, Urine RBC (Auto) NEGATIVE, Urine RBC NONE, Urine WBC 0-2, Urine Squamous Epithelial Cells 0-2, Urine Crystals NONE, Urine Bacteria MODERATEH, Urine Casts NONE, Urine Mucus NEGATIVE, Urine Culture Indicated YES 01/02/20 06:25: White Blood Count 9.0, Red Blood Count 3.79L, Hemoglobin 11.4L, Hematocrit 35, Mean Corpuscular Volume 92, Mean Corpuscular Hemoglobin 30, Mean Corpuscular Hemoglobin Concent 33, Red Cell Distribution Width 13.4, Platelet Count 210, Mean Platelet Volume 10.3, Neutrophils (%) (Auto) 77H, Lymphocytes (%) (Auto) 16, Monocytes (%) (Auto) 4, Eosinophils (%) (Auto) 3, Basophils (%) (Auto) 0, Neutrophils # (Auto) 7.0, Lymphocytes # (Auto) 1.4, Monocytes # (Auto) 0.4, Eosinophils # (Auto) 0.3, Basophils # (Auto) 0.0, Sodium Level 138, Potassium Level 4.0, Chloride Level 115#H, Carbon Dioxide Level 17L, Anion Gap 6, Blood Urea Nitrogen 7, Creatinine 0.74, Estimat Glomerular Filtration Rate > 60, BUN/Creatinine Ratio 9, Glucose Level 108H, Calcium Level 7.5L, Corrected Calcium 8.2L, Total Bilirubin 0.3, Aspartate Amino Transf (AST/SGOT) 27, Alanine Aminotransferase (ALT/SGPT) 23, Alkaline Phosphatase 47, Total Protein 5.4L, Albumin 3.1L Microbiology 01/01/20 Urine Culture - Final, Complete NO GROWTH 01/01/20 Blood Culture - Preliminary, Resulted No growth Home Meds Active Augmentin 875-125 Tablet (Amoxicillin/Potassium Clav) 1 Each Tablet 1 Each PO BID 5 Days Reported Calcium (Calcium Carbonate) 600 Mg Tablet 600 Mg PO DAILY Multivitamin 1 Each Tablet 1 Each PO DAILY Ibuprofen 200 Mg Tablet 400-600 Mg PO Q8H PRN Omeprazole 40 Mg Capsule.dr 40 Mg PO DAILY Latuda (Lurasidone HCl) 40 Mg Tablet 40 Mg PO HS Quetiapine Fumarate 300 Mg Tablet 300 Mg PO HS Trazodone HCl 150 Mg Tablet 150 Mg PO HS PRN Gabapentin 600 Mg Tablet 600 Mg PO HS Levothyroxine Sodium 100 Mcg Tablet 100 Mcg PO HS LAST FILLED 04-05-2019 #90 Assessment/Pt DC Instructions Follow up with primary provider within a week. Discharge Diet: No Restrictions Activity as Tolerated: Yes Discharge Physical Examination Allergies: Coded Allergies: No Known Drug Allergies (Unverified , 09/10/18) General Appearance: No Apparent Distress, WD/WN Respiratory: Lungs Clear, Normal Breath Sounds Cardiovascular: Regular Rate, Rhythm, No Murmur Skin: Normal Color, Warm/Dry Neurologic/Psychiatric: Alert, Normal Mood/Affect Clinical Quality Measures AMI/AHF: ASA po Prior to arrival: No DVT/VTE Risk/Contraindication: Risk Factor Score Per Nursin RFS Level Per Nursing on Admit: 3=High MATT CADET MD Jan 02, 2020 18:05
[2020-01-02] MEDS ORDERED: cefTRIAXone 1,000 MG/SWFI 10 ML IV PUSH IV SCH ×2 (18:30)
--- NOTE | 2020-01-02 18:48 | NUR ---
LANIE GREGG demonstrates understanding of discharge instructions and accurately returns instructions upon questioning. Copy of Post-Discharge Instructions and Medication Discharge Instructions given to PT. LANIE GREGG is able to manage continuing needs after discharge. Patients belongings returned to PT. Skin dry and intact; no breakdown noted. Patient discharged from [facility]- on 01/02/20 at 1835. LANIE GREGG left floor via , accompanied by STAFF.
[2020-01-02] MEDS ORDERED: traZODone 150 MG (DESYREL) TABLET PO SCH (21:00)
[2020-01-02] MEDS ORDERED: QUEtiapine 100 MG (SEROquel) TAB IMMEDIATE RELEASE PO SCH (21:00)
[2020-01-02] MEDS ORDERED: AZITHROMYCIN 500 MG/NS 250 ML IVPB IV SCH ×2 (21:00)
[2020-01-02] MEDS ORDERED: GABAPENTIN 300 MG (NEURONTIN) CAP PO SCH (21:00)
[2020-01-02] MEDS ORDERED: LURASIDONE 40 MG (LATUDA) TABLET NON-FORM PO SCH (21:00)
[2020-01-03] MEDS ORDERED: PANTOPRAZOLE 40 MG (PROTONIX) TAB PO SCH (09:00)
== END 2020-01-02 18:35 | disposition home or self-care (01) | DRG 871 ==
LOC: EDUNIT# 18:07 → ER 18:09 → 4TH 19:20
PROVIDERS: ADMIT Family Medicine; ATTEND Family Medicine
DX: A41.9 Sepsis, unspecified organism (principal); J69.0 Pneumonitis due to inhalation of food and vomit; R07.81 Pleurodynia; K44.9 Diaphragmatic hernia without obstruction or gangrene; E03.9 Hypothyroidism, unspecified; G47.30 Sleep apnea, unspecified; F41.9 Anxiety disorder, unspecified; Z20.828 Contact with and (suspected) exposure to other viral communicable diseases; K21.0 Gastro-esophageal reflux disease with esophagitis; G25.81 Restless legs syndrome; D50.9 Iron deficiency anemia, unspecified; F43.10 Post-traumatic stress disorder, unspecified; N92.0 Excessive and frequent menstruation with regular cycle; F31.9 Bipolar disorder, unspecified; Z85.41 Personal history of malignant neoplasm of cervix uteri; Z90.710 Acquired absence of both cervix and uterus; Z87.891 Personal history of nicotine dependence; Z98.84 Bariatric surgery status
CPT/HCPCS: 36415; 71045; 80053; 81000; 82805; 83605; 83615; 84145; 85007; 85025; 85027; 85610; 85652; 85730; 86141; 87040; 87088; 87635; 93005

== ENCOUNTER 2020-05-25 09:24 | Emergency (ER) | payer BC, MEDICARE ==
[~2020-05-25 09:24] MED LIST changes: +CHLO25TA20 PO; +CLC600T PO; +GBPN600T PO; +IBUP-2473 PO; +LURA40TA3 PO; +MULT-1136 PO; +OMEP40CA27 PO; +QUET300T44 PO; +TRAZ150T72 PO
--- NOTE | 2020-05-25 09:42 | ED General ---
General Chief Complaint: Cough/Cold/Flu Symptoms Stated Complaint: H/A DIARRHEA COUGH SORE THROAT History of Present Illness Date Seen by Provider: May 25, 2020 Time Seen by Provider: 09:42 Initial Comments 44-year-old female presents with some cough, headache, diarrhea, sore throat. Patient's symptoms started 3-4 days ago. Patient presents because she wants COVID tested. Patient reports that her her work center and because she is unable to go and get tested anywhere outpatient today. Patient has known COVID exposure. Patient is only here because she was asked come in by her work to be tested. No shortness of breath. Allergies and Home Medications Allergies Coded Allergies: No Known Drug Allergies (Unverified , 09/10/18) Home Medications Amoxicillin/Potassium Clav 1 Each Tablet, 1 EACH PO BID Prescribed by: MATT CADET on 01/02/20 1803 Calcium Carbonate 600 Mg Tablet, 600 MG PO DAILY, (Reported) Gabapentin 600 Mg Tablet, 600 MG PO HS, (Reported) Ibuprofen 200 Mg Tablet, 400-600 MG PO Q8H PRN for PAIN-MILD (1-4), (Reported) Levothyroxine Sodium 100 Mcg Tablet, 100 MCG PO HS, (Reported) LAST FILLED 04-05-2019 #90 Lurasidone HCl 40 Mg Tablet, 40 MG PO HS, (Reported) Multivitamin 1 Each Tablet, 1 EACH PO DAILY, (Reported) Omeprazole 40 Mg Capsule.dr, 40 MG PO DAILY, (Reported) Quetiapine Fumarate 300 Mg Tablet, 300 MG PO HS, (Reported) Trazodone HCl 150 Mg Tablet, 150 MG PO HS PRN for SLEEP, (Reported) Patient Home Medication List Home Medication List Reviewed: Yes Review of Systems Review of Systems Constitutional: chills; No fever; malaise EENTM: throat pain Respiratory: cough; No dyspnea on exertion, No short of breath Gastrointestinal: No abdominal pain; diarrhea, nausea Musculoskeletal: no symptoms reported Skin: no symptoms reported Psychiatric/Neurological: Headache Past Khttifd-Znhuas-Tqjmdb Hx Past Med/Social Hx: Reviewed Nursing Past Med/Soc Hx Patient Social History Alcohol Beverage of Choice: Other Drug of Choice: HX OF METH USE; HX OF OVERDOSE 2015 Type Used: Cigarettes Former Smoker, Quit: Jan 08, 2018 2nd Hand Smoke Exposure: Yes Recent Hopitalizations: No Immunizations Up To Date Tetanus Booster (TDap): Unknown Seasonal Allergies Seasonal Allergies: No Past Medical History Surgeries: Yes (C SECTION X2, GASTRIC SLEEVE) Gallbladder, Hysterectomy, Orthopedic Respiratory: No Sleep Apnea Currently Using CPAP: Yes Cardiac: No Neurological: No Reproductive Disorders: Yes Female Reproductive Disorders: Endometriosis [employer] 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: Hysterectomy Sexually Transmitted Disease: No HIV/AIDS: No Genitourinary: No Gastrointestinal: Yes (S/P GASTRIC SLEEVE SURGERY) Gastroesophageal Reflux, Gall Bladder Disease Musculoskeletal: No Endocrine: Yes Hypothyroidsim HEENT: No Loss of Vision: Bilateral Hearing Impairment: Denies Cancer: Yes Cervical What Type of Treatment Did You: Surgical Intervention Psychosocial: Yes Anxiety, Bipolar, Depression Integumentary: No Blood Disorders: No Adverse Reaction/Blood Tranf: No Family Medical History CAD Over 55 Years Old, Diabetes Physical Exam Vital Signs Vital Signs - First Documented 05/25/20 09:37 Temp 36.9 Pulse 106 Resp 18 B/P (MAP) 147/102 (117) Pulse Ox 98 O2 Delivery Room Air Capillary Refill : Height, Weight, BMI Height: 5'2.00" Weight: 213lbs. 7.0oz. 96.280115dv; 36.68 BMI Method:Stated General Appearance: No Apparent Distress HEENT: PERRL/EOMI, Moist Mucous Membranes Respiratory: Lungs Clear, Normal Breath Sounds Cardiovascular: Regular Rate, Rhythm, No Edema Gastrointestinal: Non Tender, Soft Neurologic/Psychiatric: Alert, Oriented x3, No Motor/Sensory Deficits, Normal Mood/Affect Skin: Normal Color, Warm/Dry Progress/Results/Core Measures Suspected Sepsis SIRS Temperature: Pulse: Respiratory Rate: Blood Pressure / Mean: Results/Orders Lab Results Laboratory Tests Test 05/25/20 09:46 Range/Units Coronavirus 2018 (ANABELLA) Negative Negative Micro Results Microbiology 05/25/20 Influenza Types A,B Antigen (SOCO) - Final, Complete My Orders Orders - SHARON TREJO DO Influenza A And B Antigens (05/25/20 09:54) Covid 19 Inhouse Test (05/25/20 09:54) Coronavirus Sars-Cov-2 So 2018 (05/25/20 09:46) Vital Signs/I&O 05/25/20 05/25/20 09:37 09:46 Temp 36.9 Pulse 106 Resp 18 B/P (MAP) 147/102 (117) Pulse Ox 98 O2 Delivery Room Air Room Air Capillary Refill : Progress Note : Time: 10:51 Progress Note Patient with negative rapid COVID and negative influenza. Patient likely viral syndrome from another virus. Patient stable will be discharged home Departure Impression Primary Impression: Upper respiratory infection Qualified Codes: J06.9 - Acute upper respiratory infection, unspecified Disposition: HOME, SELF-CARE Condition: Stable Departure-Patient Inst. Referrals: [facility] (PCP/Family) Primary Care Physician Patient Instructions: VIRAL SYNDROME, Viral Upper Respiratory Infection, Adult (DC) SHARON TREJO DO May 25, 2020 09:42
[2020-05-25 11:11] VITALS: BP 136/95
== END 2020-05-25 11:11 | disposition home or self-care (01) ==
LOC: EDUNIT# 09:24 → ER 09:26
DX: J06.9 Acute upper respiratory infection, unspecified (principal); E03.9 Hypothyroidism, unspecified; K21.9 Gastro-esophageal reflux disease without esophagitis; F41.9 Anxiety disorder, unspecified; F31.9 Bipolar disorder, unspecified; Z20.828 Contact with and (suspected) exposure to other viral communicable diseases; Z82.49 Family history of ischemic heart disease and other diseases of the circulatory system; Z83.3 Family history of diabetes mellitus; Z85.41 Personal history of malignant neoplasm of cervix uteri; Z87.891 Personal history of nicotine dependence; Z79.890 Hormone replacement therapy
CPT/HCPCS: 87804; 99282; U0002; 87635

== ENCOUNTER 2020-08-20 17:46 | Emergency (ER) | payer BC, MEDICARE ==
[~2020-08-20] VITALS: Ht 157.4 cm; Wt 40.9 kg
[~2020-08-20 17:46] MED LIST changes: +QUET300T19 PO; -QUET300T44 PO
[2020-08-20 17:59] VITALS: BP 115/90
--- NOTE | 2020-08-20 18:09 | ED Back Pain ---
General Stated Complaint: FALL / BACK PAIN Source of Information: Patient Exam Limitations: No Limitations History of Present Illness Date Seen by Provider: Aug 20, 2020 Time Seen by Provider: 18:07 Initial Comments To ER with reports of a fall twice on the ice landing on her buttocks which time. She has right buttock pain Location: Other (Right buttock) Timing/Duration: 1-2 Days Severity: Moderate Associated Symptoms: denies symptoms Allergies and Home Medications Allergies Coded Allergies: No Known Drug Allergies (Unverified , 09/10/18) Home Medications Amoxicillin/Potassium Clav 1 Each Tablet, 1 EACH PO BID Prescribed by: MATT CADET on 01/02/20 1803 Calcium Carbonate 600 Mg Tablet, 600 MG PO DAILY, (Reported) Gabapentin 600 Mg Tablet, 600 MG PO HS, (Reported) Ibuprofen 200 Mg Tablet, 400-600 MG PO Q8H PRN for PAIN-MILD (1-4), (Reported) Levothyroxine Sodium 100 Mcg Tablet, 100 MCG PO HS, (Reported) LAST FILLED 04-05-2019 #90 Lurasidone HCl 40 Mg Tablet, 40 MG PO HS, (Reported) Multivitamin 1 Each Tablet, 1 EACH PO DAILY, (Reported) Omeprazole 40 Mg Capsule.dr, 40 MG PO DAILY, (Reported) Quetiapine Fumarate 300 Mg Tablet, 300 MG PO HS, (Reported) Trazodone HCl 150 Mg Tablet, 150 MG PO HS PRN for SLEEP, (Reported) Patient Home Medication List Home Medication List Reviewed: Yes Review of Systems Constitutional: see HPI EENTM: see HPI Respiratory: no symptoms reported Musculoskeletal: see HPI Skin: no symptoms reported Psychiatric/Neurological: No Symptoms Reported Past Tqlrfmp-Ewycop-Mwmeov Hx Patient Social History Alcohol Beverage of Choice: Other Drug of Choice: HX OF METH USE; HX OF OVERDOSE 2015 Type Used: Cigarettes Former Smoker, Quit: Jan 08, 2018 2nd Hand Smoke Exposure: Yes Recent Hopitalizations: No Immunizations Up To Date Tetanus Booster (TDap): Unknown Seasonal Allergies Seasonal Allergies: No Past Medical History Surgeries: Yes (C SECTION X2, GASTRIC SLEEVE) Gallbladder, Hysterectomy, Orthopedic Respiratory: No Sleep Apnea Currently Using CPAP: Yes Cardiac: No Neurological: No Reproductive Disorders: Yes 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 Sexually Transmitted Disease: No HIV/AIDS: No Genitourinary: No Gastrointestinal: Yes (S/P GASTRIC SLEEVE SURGERY) Gastroesophageal Reflux, Gall Bladder Disease Musculoskeletal: No Endocrine: Yes Hypothyroidsim HEENT: No Loss of Vision: Bilateral Hearing Impairment: Denies Cancer: Yes Cervical What Type of Treatment Did You: Surgical Intervention Psychosocial: Yes Anxiety, Bipolar, Depression Integumentary: No Blood Disorders: No Adverse Reaction/Blood Tranf: No Family Medical History CAD Over 55 Years Old, Diabetes Physical Exam Vital Signs Vital Signs - First Documented 08/20/20 17:59 Pulse 87 Resp 18 B/P (MAP) 115/90 (98) Pulse Ox 98 Capillary Refill : Height, Weight, BMI Height: 5'2.00" Weight: 213lbs. 7.0oz. 96.819154az; 36.68 BMI Method:Stated General Appearance: No Apparent Distress, WD/WN Cardiovascular: Regular Rate, Rhythm, Normal Peripheral Pulses Respiratory: Normal Breath Sounds, No Accessory Muscle Use, No Respiratory Distress Gastrointestinal: Normal Bowel Sounds, Non Tender, Soft Extremity: Normal Capillary Refill, Normal Inspection Neurologic/Psychiatric: Alert, Oriented x3 Skin: Normal Color, Warm/Dry She has a topical lidocaine patch on her right buttock. No bruising ecchymosis or erythema. Progress/Results/Core Measures Results/Orders My Orders Orders - ANITA HOSKINS APRN Hydrocodone/Apap 5/325 Tablet (Lortab 5 (08/20/20 18:15) Pelvis (08/20/20 18:06) Medications Given in ED Current Medications Medications Dose Ordered Sig/Janusz Route Start Time Stop Time Status Last Admin Dose Admin Acetaminophen/ Hydrocodone Bitart 1 tab ONCE ONCE PO 08/20/20 18:15 08/20/20 18:16 DC 08/20/20 18:11 1 TAB Vital Signs/I&O 08/20/20 17:59 Pulse 87 Resp 18 B/P (MAP) 115/90 (98) Pulse Ox 98 Departure Impression Primary Impression: Contusion, buttock Disposition: 01 HOME, SELF-CARE Condition: Stable Departure-Patient Inst. Decision time for Depature: 18:48 Referrals: [facility] (PCP/Family) Primary Care Physician Patient Instructions: Contusion (DC) Add. Discharge Instructions: . Ice pack to the area. Anti-inflammatories as directed. Pain medication as directed. Return to ER for any concerns. Follow-up with your doctor next week. ANITA HOSKINS APRN Aug 20, 2020 18:08
[2020-08-20] MEDS ORDERED: HYDROcodone/APAP 5 MG/325 MG (LORTAB) TAB PO ONE (18:15)
--- NOTE | 2020-08-20 18:30 | Diagnostic Imaging Report ---
INDICATION: Slip and fall on ice. Pain. EXAMINATION: Pelvis 08/20/2020 Single view of the pelvis FINDINGS: There is no evidence for an acute fracture or dislocation. The joint spaces are well maintained. There is no significant soft tissue swelling. IMPRESSION: No acute process. Dictated by: Dictated on workstation # [id number]
[2020-08-20] MEDS ORDERED: TRAM-42 PO (18:49)
== END 2020-08-20 18:56 | disposition home or self-care (01) ==
LOC: EDUNIT# 17:46 → ER 17:48
DX: S30.0XXA Contusion of lower back and pelvis, initial encounter (principal); K21.9 Gastro-esophageal reflux disease without esophagitis; F41.9 Anxiety disorder, unspecified; F31.9 Bipolar disorder, unspecified; E03.9 Hypothyroidism, unspecified; Z87.891 Personal history of nicotine dependence; Z85.41 Personal history of malignant neoplasm of cervix uteri; Z82.49 Family history of ischemic heart disease and other diseases of the circulatory system; Z83.3 Family history of diabetes mellitus; Z79.890 Hormone replacement therapy; W00.0XXA Fall on same level due to ice and snow, initial encounter
CPT/HCPCS: 72170

== ENCOUNTER 2020-10-13 22:31 | Emergency (ER) | payer BC, MEDICARE ==
[~2020-10-13] VITALS: Ht 157.5 cm; Wt 86.4 kg
--- NOTE | 2020-10-13 22:54 | ED Chest Pain ---
General Stated Complaint: CHEST TIGHTNESS, SOB, 2ND DOSE OF COVID VACCINE Source: patient Exam Limitations: no limitations History of Present Illness Date Seen by Provider: Oct 13, 2020 Time Seen by Provider: 22:39 Initial Comments The patient presents to the ER by private conveyance from home with chief complaint of pressure and tightness across to her chest like her large dog is laying on her chest. She has some mild shortness of air but no cough fever chills nausea vomiting diarrhea sweats. No history of personal coronary disease nor family primary history of coronary disease. No history of hypertension, hyperlipidemia, diabetes. She does follow with Celestine Cisneros at [facility]. On , 5 days ago she had a Covid vaccine and she suspects that is the reason for her symptoms. She denies ever having had Covid. She does not have a sore throat runny nose nasal congestion or general malaise but her chest pressure has been going on for the past 2 days consistently. No familial history of pulmonary embolism. She is not a smoker and does not use oral contraceptives. About 9 months ago she had an aspiration pneumonia related to a procedure looking for gastritis, EGD. She was treated successfully and patient and sent h ome. She denies a history of asthma or COPD or other long-term difficulties with her breathing. Allergies and Home Medications Allergies Coded Allergies: No Known Drug Allergies (Unverified , 09/10/18) Home Medications Amoxicillin/Potassium Clav 1 Each Tablet, 1 EACH PO BID Prescribed by: MATT CADET on 01/02/20 1803 Calcium Carbonate 600 Mg Tablet, 600 MG PO DAILY, (Reported) Gabapentin 600 Mg Tablet, 600 MG PO HS, (Reported) Ibuprofen 200 Mg Tablet, 400-600 MG PO Q8H PRN for PAIN-MILD (1-4), (Reported) Levothyroxine Sodium 100 Mcg Tablet, 100 MCG PO HS, (Reported) LAST FILLED 04-05-2019 #90 Lurasidone HCl 40 Mg Tablet, 40 MG PO HS, (Reported) Multivitamin 1 Each Tablet, 1 EACH PO DAILY, (Reported) Omeprazole 40 Mg Capsule.dr, 40 MG PO DAILY, (Reported) Quetiapine Fumarate 300 Mg Tablet, 300 MG PO HS, (Reported) Tramadol HCl 50 Mg Tablet, 50 MG PO Q6H PRN for PAIN-SEVERE (8-10) Prescribed by: ANITA HOSKINS on 08/20/20 1850 Trazodone HCl 150 Mg Tablet, 150 MG PO HS PRN for SLEEP, (Reported) Patient Home Medication List Home Medication List Reviewed: Yes Review of Systems Review of Systems Constitutional: No chills, No diaphoresis EENTM: No Blurred Vision, No Double Vision Respiratory: Denies Cough; Shortness of Air Cardiovascular: See HPI; Denies Chest Pain (Denies pain stating she just has pressure and tightness across her anterior chest bilaterally), Denies Lightheadedness, Denies Palpitations, Denies Syncope Gastrointestinal: Denies Abdominal Pain, Denies Constipated, Denies Diarrhea, Denies Nausea Genitourinary: Denies Burning, Denies Discharge Musculoskeletal: No back pain, No joint pain All Other Systems Reviewed Negative Unless Noted: Yes Past Ifshtwz-Qmszyv-Ljxhcu Hx Patient Social History Alcohol Use: Occasionally Uses Number of Drinks Today: 2 Alcohol Beverage of Choice: Other Drug of Choice: HX OF METH USE; HX OF OVERDOSE 2015 Smoking Status: Former Smoker Type Used: Cigarettes Former Smoker, Quit: Jan 08, 2018 2nd Hand Smoke Exposure: Yes Recent Hopitalizations: No Immunizations Up To Date Tetanus Booster (TDap): Unknown Seasonal Allergies Seasonal Allergies: No Past Medical History Surgeries: Yes (C SECTION X2, GASTRIC SLEEVE) Gallbladder, Hysterectomy, Orthopedic Respiratory: No Sleep Apnea Currently Using CPAP: Yes Cardiac: No Neurological: No Reproductive Disorders: Yes 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 Transmitted Disease: No HIV/AIDS: No Genitourinary: No Gastrointestinal: Yes (S/P GASTRIC SLEEVE SURGERY) Gastroesophageal Reflux, Gall Bladder Disease Musculoskeletal: No Endocrine: Yes Hypothyroidsim HEENT: No Loss of Vision: Bilateral Hearing Impairment: Denies Cancer: Yes Cervical What Type of Treatment Did You: Surgical Intervention Psychosocial: Yes Anxiety, Bipolar, Depression Integumentary: No Blood Disorders: No Adverse Reaction/Blood Tranf: No Family Medical History CAD Over 55 Years Old, Diabetes Physical Exam Vital Signs Vital Signs - First Documented 10/13/20 22:38 Temp 35.6 Pulse 110 Resp 22 B/P (MAP) 137/115 (122) Pulse Ox 95 O2 Delivery Room Air Capillary Refill : Height, Weight, BMI Height: 5'2.00" Weight: 213lbs. 7.0oz. 96.696195tc; 16.00 BMI Method:Stated General Appearance: WD/WN, Anxious, Mild Distress HEENT: PERRL/EOMI, Pharynx Normal, Moist Mucous Membranes Neck: Full Range of Motion, Normal Inspection Respiratory: Chest Non Tender, Lungs Clear, Normal Breath Sounds, No Accessory Muscle Use, No Respiratory Distress Cardiovascular: Regular Rate, Rhythm, No Edema Gastrointestinal: Normal Bowel Sounds, Non Tender, Soft Extremity: Normal Capillary Refill, Normal Inspection, No Pedal Edema Neurologic/Psychiatric: Alert, Oriented x3 Skin: Normal Color, Warm/Dry Progress/Results/Core Measures Results/Orders Lab Results Laboratory Tests Test 10/13/20 22:45 10/13/20 22:50 Range/Units White Blood Count 7.5 4.3-11.0 10^3/uL Red Blood Count 4.40 3.80-5.11 10^6/uL Hemoglobin 13.8 11.5-16.0 g/dL Hematocrit 41 35-52 % Mean Corpuscular Volume 92 80-99 fL Mean Corpuscular Hemoglobin 31 25-34 pg Mean Corpuscular Hemoglobin Concent 34 32-36 g/dL Red Cell Distribution Width 12.2 10.0-14.5 % Platelet Count 323 130-400 10^3/uL Mean Platelet Volume 10.6 9.0-12.2 fL Immature Granulocyte % (Auto) 0 % Neutrophils (%) (Auto) 61 42-75 % Lymphocytes (%) (Auto) 31 12-44 % Monocytes (%) (Auto) 6 0-12 % Eosinophils (%) (Auto) 2 0-10 % Basophils (%) (Auto) 1 0-10 % Neutrophils # (Auto) 4.5 1.8-7.8 10^3/uL Lymphocytes # (Auto) 2.3 1.0-4.0 10^3/uL Monocytes # (Auto) 0.4 0.0-1.0 10^3/uL Eosinophils # (Auto) 0.2 0.0-0.3 10^3/uL Basophils # (Auto) 0.1 0.0-0.1 10^3/uL Immature Granulocyte # (Auto) 0.0 0.0-0.1 10^3/uL Prothrombin Time 12.4 12.2-14.7 SEC INR Comment 0.9 0.8-1.4 Activated Partial Thromboplast Time 24 24-35 SEC D-Dimer 0.49 0.00-0.49 UG/ML Sodium Level 140 135-145 MMOL/L Potassium Level 4.4 3.6-5.0 MMOL/L Chloride Level 108 H 98-107 MMOL/L Carbon Dioxide Level 16 L 21-32 MMOL/L Anion Gap 16 H 5-14 MMOL/L Blood Urea Nitrogen 10 7-18 MG/DL Creatinine 0.82 0.60-1.30 MG/DL Estimat Glomerular Filtration Rate > 60 BUN/Creatinine Ratio 12 Glucose Level 83 70-105 MG/DL Calcium Level 8.5 8.5-10.1 MG/DL Corrected Calcium 8.4 L 8.5-10.1 MG/DL Magnesium Level 2.2 1.6-2.4 MG/DL Total Bilirubin 0.2 0.1-1.0 MG/DL Aspartate Amino Transf (AST/SGOT) 31 5-34 U/L Alanine Aminotransferase (ALT/SGPT) 24 0-55 U/L Alkaline Phosphatase 56 40-136 U/L Myoglobin 30.4 10.0-92.0 NG/ML Troponin I < 0.028 <0.028 NG/ML B-Type Natriuretic Peptide 10.9 <100.0 PG/ML Total Protein 7.4 6.4-8.2 GM/DL Albumin 4.1 3.2-4.5 GM/DL Lipase 30 8-78 U/L Blood Gas Puncture Site LEFT RADIAL Blood Gas Patient Temperature 35.6 Arterial Blood pH 7.43 7.37-7.43 Arterial Blood Partial Pressure CO2 33 L 35-45 MMHG Arterial Blood Partial Pressure O2 92 79-93 MMHG Arterial Blood HCO3 22 L 23-27 MMOL/L Arterial Blood Total CO2 23.1 21.0-31.0 MMOL/L Arterial Blood Oxygen Saturation 98 94-100 % Arterial Blood Base Excess -2.0 -2.5-2.5 MMOL/L Sterling Test YES-POS Blood Gas Ventilator Setting NO Blood Gas Inspired Oxygen ROOM AIR My Orders Orders - KLEBER GAMBOA Ekg Tracing (10/13/20 22:34) Continuous Ekg Monitoring (10/13/20 22:34) Cbc With Automated Diff (10/13/20 22:48) Magnesium (10/13/20 22:48) Chest 1 View, Ap/Pa Only (10/13/20 22:48) Comprehensive Metabolic Panel (10/13/20 22:48) Myoglobin Serum (10/13/20 22:48) Protime With Inr (10/13/20 22:48) Partial Thromboplastin Time (10/13/20 22:48) O2 (10/13/20 22:48) Lipid Panel (10/14/20 06:00) Ed Iv/Invasive Line Start (10/13/20 22:48) Lipase (10/13/20 22:48) BNP (10/13/20 22:48) Troponin I (10/13/20 22:48) Nitroglycerin 0.4 Mg Btl 25's (Nitrostat (10/13/20 23:00) Aspirin Chewable Tablet (Baby Aspirin Ch (10/13/20 23:00) Arterial Blood Gas (10/13/20 22:57) Fibrin Degradation Products (10/13/20 22:45) Medications Given in ED Current Medications Medications Dose Ordered Sig/Janusz Route Start Time Stop Time Status Last Admin Dose Admin Aspirin 324 mg ONCE ONCE PO 10/13/20 23:00 10/13/20 23:01 DC 10/13/20 23:02 324 MG Nitroglycerin 0.4 mg UD PRN SL 10/13/20 23:00 10/13/20 23:03 0.4 MG Vital Signs/I&O 10/13/20 10/13/20 10/13/20 10/13/20 22:38 22:38 22:45 23:00 Temp 35.6 36.0 36.0 Pulse 110 106 94 Resp 22 24 24 B/P (MAP) 137/115 (122) 149/106 (120) 129/99 (109) Pulse Ox 95 95 95 O2 Delivery Room Air Room Air Room Air Room Air 10/13/20 10/13/20 10/13/20 23:08 23:15 23:30 Temp 36.0 36.2 36.3 Pulse 98 93 88 Resp 22 20 20 B/P (MAP) 124/88 (100) 115/79 (91) 124/95 (105) Pulse Ox 95 94 94 O2 Delivery Room Air Room Air Room Air Progress Progress Note #1: Time: 22:52 Progress Note The patient is having some tachycardia and oxygen saturations of 92% so were going to get an ABG and a D-dimer. We will get a chest x-ray give her some aspirin and trial some nitroglycerin. This could be aftereffects of the Covid vaccine especially if she had Covid virus before. She does not appear to be having an active infection with fever cough chills or malaise. Her tachycardia could be from anxiety however her relative hypoxia is more concerning that that is the reason she is tachycardic. Progress Note #2: Time: 23:40 Progress Note The patient said her symptoms went away down to just a low level of tightness across to her chest after the nitroglycerin. Her oxygen sats remained in the middle 90s and her ABG demonstrates a PaO2 of 92 however she is tachypneic and tachycardic which could be anxiety or perfusion issue. She has blown off her CO2 down to lower limit of normal 34 CO2. This could also be in response to the fact that she is in a metabolic acidemia. She has a marginally elevated gap and I suspect that alcohol would be the most likely reason she has a high anion gap metabolic acidosis. She did admit to having a couple drinks tonight. Her pH is borderline alkalosis which is often intolerable to people and may explain her symptoms. She is not having any significant symptoms at this time so we will wait to see what her D-dimer shows. Wells score for PE is 1.5 points. And she has 2 points according to the PERC rule so we are unable to rule out a pulmonary embolism by history and physical exam alone. Progress Note #3: Time: 00:33 Progress Note The patient is comfortable and largely asymptomatic at this time. We have ruled out pulmonary embolism, coronary since her troponin after 2 days is negative. Chest x-ray unremarkable. Reassurances were given and will allow her to discharge home to follow-up outpatient as necessary. Return precautions were discussed. Initial ECG Impression Date: Oct 13, 2020 Initial ECG Impression Time: 22:42 Initial ECG Rate: 101 Initial ECG Rhythm: S.Tach Initial ECG Intervals: Normal Initial ECG Impression: Normal Comment Normal sinus tachycardia without significant ST elevation or depression Diagnostic Imaging Diagonstic Imaging: Xray Plain Films/CT/US/NM/MRI: chest Comments No acute cardiopulmonary processes on 1 view chest x-ray. Reviewed: Reviewed by Me Departure Impression Primary Impression: Myalgia after COVID-19 vaccination Disposition: HOME, SELF-CARE Condition: Stable Departure-Patient Inst. Decision time for Depature: 00:35 Referrals: [facility] (PCP/Family) Primary Care Physician Patient Instructions: Chest Pain That Is Not Caused by the Heart (DC) Add. Discharge Instructions: I suspect your symptoms are related to the recent Covid 19 vaccination. If they happen again start with ibuprofen 800 mg every 8 hours. Tylenol 1000 mg every 8 hours as necessary. Zofran 1 tablet every 6 hours as necessary for nausea and/or vomiting. Muscle rubs may be helpful for body aches. Scripts Ondansetron (Ondansetron Odt) 4 Mg Tab.rapdis 4 MG PO Q6H PRN for NAUSEA/VOMITING, #8 TAB 0 Refills Prov: KLEBER GAMBOA 10/14/20 Work/School Note: Work Release Form Date Seen in the Emergency Department: Oct 14, 2020 Return to Work: Oct 16, 2020 Restrictions: No Restrictions KLEBER GAMBOA Oct 13, 2020 22:54
[2020-10-13 22:59] LABS: BASOPHILS # (AUTO) 0.1 10^3/uL (0.0-0.1); BASOPHILS % (AUTO) 1 % (0-10); EOSINOPHILS # (AUTO) 0.2 10^3/uL (0.0-0.3); EOSINOPHILS % (AUTO) 2 % (0-10); HEMATOCRIT 41 % (35-52); HEMOGLOBIN 13.8 g/dL (11.5-16.0); LYMPHOCYTES # (AUTO) 2.3 10^3/uL (1.0-4.0); LYMPHOCYTES % (AUTO) 31 % (12-44); MEAN CORPUSCULAR HEMOGLOBIN 31 pg (25-34); MEAN CORPUSCULAR HGB CONC 34 g/dL (32-36); MEAN CORPUSCULAR VOLUME 92 fL (80-99); MEAN PLATELET VOLUME 10.6 fL (9.0-12.2); MONOCYTES # (AUTO) 0.4 10^3/uL (0.0-1.0); MONOCYTES % (AUTO) 6 % (0-12); NEUTROPHILS # (AUTO) 4.5 10^3/uL (1.8-7.8); NEUTROPHILS % (AUTO) 61 % (42-75); PLATELET COUNT 323 10^3/uL (130-400); WHITE BLOOD COUNT 7.5 10^3/uL (4.3-11.0)
[2020-10-13] MEDS ORDERED: ASPIRIN 81 MG CHEW (CHILDREN'S ASA) PO ONE (23:00)
[2020-10-13] MEDS ORDERED: NITROGLYCERIN 0.4 MG SL TABS BTL 25'S SL PRN (23:00)
[2020-10-13 23:04] LABS: ABG OXYGEN SATURATION 98 % (94-100); ABG PCO2 33 MMHG (35-45); ABG PH 7.43 (7.37-7.43); ABG PO2 92 MMHG (79-93); ABG TCO2 23.1 MMOL/L (21.0-31.0)
[2020-10-13 23:05] LABS: ALLENS TEST YES-POS; INSPIRED O2 ROOM AIR; PATIENT TEMP 35.6; VENTILATOR NO
[2020-10-13 23:08] LABS: ALBUMIN 4.1 GM/DL (3.2-4.5)
[2020-10-13 23:09] LABS: CHLORIDE 108 MMOL/L (98-107); POTASSIUM 4.4 MMOL/L (3.6-5.0); SODIUM 140 MMOL/L (135-145)
[2020-10-13 23:10] LABS: CALCIUM 8.5 MG/DL (8.5-10.1)
[2020-10-13 23:11] LABS: GLUCOSE 83 MG/DL (70-105); TOTAL PROTEIN 7.4 GM/DL (6.4-8.2)
[2020-10-13 23:12] LABS: CARBON DIOXIDE 16 MMOL/L (21-32)
[2020-10-13 23:13] LABS: BILIRUBIN,TOTAL 0.2 MG/DL (0.1-1.0)
[2020-10-13 23:14] LABS: ALKALINE PHOSPHATASE 56 U/L (40-136)
[2020-10-13 23:15] LABS: CREATININE SERUM 0.82 MG/DL (0.60-1.30); GFR ESTIMATED > 60
[2020-10-13 23:16] LABS: BUN/CREATININE RATIO 12
[2020-10-13 23:17] LABS: MAGNESIUM 2.2 MG/DL (1.6-2.4)
[2020-10-13 23:18] LABS: ALANINE AMINOTRANSFERASE 24 U/L (0-55); LIPASE 30 U/L (8-78)
[2020-10-13 23:28] LABS: FIBRIN DEGRADATION PRODUCTS 0.49 UG/ML (0.00-0.49); INR 0.9 (0.8-1.4); PROTHROMBIN TIME PATIENT 12.4 SEC (12.2-14.7)
[2020-10-14 00:40] VITALS: BP 129/86
[2020-10-14] MEDS ORDERED: ONDA4TAB11 PO (00:40)
--- NOTE | 2020-10-14 07:25 | Diagnostic Imaging Report ---
INDICATION: Chest pain COMPARISON STUDY: Chest from January 01. FINDINGS: Portable upright view chest is unchanged from the previous exam. Prominence on the right side of the arch is stable. Heart size and vascularity are normal. The lungs are clear. There are no pleural effusions. IMPRESSION: There are no acute findings. Dictated by: Dictated on workstation # [id number]
== END 2020-10-14 00:45 | disposition home or self-care (01) ==
LOC: EDUNIT# 22:31 → ER 22:33
DX: M79.10 Myalgia, unspecified site (principal); I10 Essential (primary) hypertension; F31.9 Bipolar disorder, unspecified; F41.9 Anxiety disorder, unspecified; K21.9 Gastro-esophageal reflux disease without esophagitis; E03.9 Hypothyroidism, unspecified; Z85.41 Personal history of malignant neoplasm of cervix uteri; Z87.891 Personal history of nicotine dependence; Z83.3 Family history of diabetes mellitus; Z82.49 Family history of ischemic heart disease and other diseases of the circulatory system; Z79.890 Hormone replacement therapy
CPT/HCPCS: 36415; 71045; 80053; 82805; 83690; 83735; 83874; 83880; 84484; 85025; 85379; 85610; 85730; 93005

== ENCOUNTER 2021-07-31 06:22 | Emergency (ER) | payer BC, MEDICARE ==
[~2021-07-31] VITALS: Ht 158 cm; Wt 87.0 kg
[~2021-07-31 06:22] MED LIST changes: +CALC600T91 PO; -CLC600T PO; -OMEP40CA27 PO; +OMEP40CA6 PO
[2021-07-31] MEDS ORDERED: LORazepam INJ 2 MG/ML (ATIVAN) VIAL IVP STA (06:46)
[2021-07-31] MEDS ORDERED: NS IV 1000 ML 1,000 ML IV SCH ×2 (07:00→07:45)
[2021-07-31] MEDS ORDERED: ONDANSETRON 4 MG/2 ML (SDV) Z0FRAN IVP ONE (07:00)
--- NOTE | 2021-07-31 07:02 | ED General ---
General Chief Complaint: Substance Abuse Stated Complaint: PT STS HAS TAKEN MUSHROOMS Nursing Triage Note: BROUGHT IN BY S.O. FOR NAUSEA/VOMITTING AFTER INGESTING MUSHROOMS. UNKNOWN INGESTION TIME Source of Information: Patient Exam Limitations: No Limitations History of Present Illness Date Seen by Provider: Jul 31, 2021 Time Seen by Provider: 06:38 Initial Comments Patient is a 46you female who states that sometime last evening - possibly around midnight ate some hallucinogenic mushrooms on a peanut butter and jelly sandwich. She cannot recall exactly what time. Also cannot recall exactly what time her symptoms started.. n/V, anxiety, hallucinating, abdominal cramping, need to have a BM, hypersalivation, rhinorrhea. She denies CP, SOB. No fevers. has not taken anything for the symptoms. Does not think she took any other drugs, but cannot recall. Denies etoh. Was not trying to hurt herself. All other ROS reviewed and negative except as stated. Timing/Duration: 4-6 Hours Severity: Severe Associated Systoms: Nausea/Vomiting, Weakness, Other (salivating, runny nose) Allergies and Home Medications Allergies Coded Allergies: No Known Drug Allergies (Unverified , 09/10/18) Patient Home Medication List Home Medication List Reviewed: Yes Levothyroxine Sodium (Levothyroxine Sodium) 100 Mcg Tablet, 100 MCG PO HS, (Reported) Entered as Reported by: TIANA ROE on 09/10/18 09 Omeprazole (Omeprazole) 40 Mg Capsule.dr, 40 MG PO DAILY, (Reported) Entered as Reported by: GRACIELA SERVIN on 01/02/20 09 Quetiapine Fumarate (Quetiapine Fumarate) 300 Mg Tablet, 300 MG PO HS, (Reported) Entered as Reported by: ANA WILLIAM on 01/01/202101 Trazodone HCl (Trazodone HCl) 150 Mg Tablet, 150 MG PO HS PRN for SLEEP, (Reported) Entered as Reported by: ANA WILLIAM on 01/01/202101 Discontinued Medications Amoxicillin/Potassium Clav (Augmentin 875-125 Tablet) 1 Each Tablet, 1 EACH PO BID Discontinued Reason: No Longer Taking Prescribed by: MATT CADET on 01/02/201802 Last Action: Discontinued Calcium Carbonate (Calcium) 600 Mg Tablet, 600 MG PO DAILY, (Reported) Discontinued Reason: No Longer Taking Entered as Reported by: GRACIELA SERVIN on 01/02/20951 Last Action: Discontinued Gabapentin (Gabapentin) 600 Mg Tablet, 600 MG PO HS, (Reported) Discontinued Reason: No Longer Taking Entered as Reported by: ANA WILLIAM on 01/01/202101 Last Action: Discontinued Ibuprofen (Ibuprofen) 200 Mg Tablet, 400-600 MG PO Q8H PRN for PAIN-MILD (1-4), (Reported) Discontinued Reason: No Longer Taking Entered as Reported by: GRACIELA SERVIN on 01/02/20951 Last Action: Discontinued Lurasidone HCl (Latuda) 40 Mg Tablet, 40 MG PO HS, (Reported) Discontinued Reason: No Longer Taking Entered as Reported by: ANA WILLIAM on 01/01/202101 Last Action: Discontinued Multivitamin (Multivitamin) 1 Each Tablet, 1 EACH PO DAILY, (Reported) Discontinued Reason: No Longer Taking Entered as Reported by: GRACIELA SERVIN on 01/02/20951 Last Action: Discontinued Ondansetron (Ondansetron Odt) 4 Mg Tab.rapdis, 4 MG PO Q6H PRN for NAUSEA/VOMITING Discontinued Reason: No Longer Taking Prescribed by: KLEBER GAMBOA on 10/14/20 0040 Last Action: Discontinued Tramadol HCl (Ultram) 50 Mg Tablet, 50 MG PO Q6H PRN for PAIN-SEVERE (8-10) Discontinued Reason: No Longer Taking Prescribed by: ANITA HOSKINS on 08/20/20 1850 Last Action: Discontinued Review of Systems Review of Systems Constitutional: see HPI EENTM: other (rhinorrhea) Respiratory: no symptoms reported Cardiovascular: no symptoms reported Gastrointestinal: nausea, vomiting Genitourinary: no symptoms reported : No Musculoskeletal: muscle cramps Skin: no symptoms reported Psychiatric/Neurological: Anxiety All Other Systems Reviewed Negative Unless Noted: Yes Past Abxoyah-Ckshhe-Vgdscw Hx Patient Social History Tobacco Use?: No Smoking Status: Former Smoker Substance use?: Yes Substance type: Methamphetamine, Hallucinogens Alcohol Use?: Yes Pt feels they are or have been: No Immunizations Up To Date Tetanus Booster (TDap): Unknown First/Initial COVID19 Vaccinat: 10/08/20 Second COVID19 Vaccination Jorge: 10/08/20 Seasonal Allergies Seasonal Allergies: No Past Medical History Surgery/Hospitalization HX: EGD, GASTRIC SLEEVE, HYSTERECTOMY, ANXIETY, GASTRITIS, GERD, HYPOTHRYOIDISM Surgeries: Yes (C SECTION X2, GASTRIC SLEEVE) Gallbladder, Hysterectomy, Orthopedic Respiratory: No Sleep Apnea Currently Using CPAP: Yes Cardiac: No Neurological: No Reproductive Disorders: Yes Female Reproductive Disorders: Endometriosis [employer] History: Hysterectomy Sexually Transmitted Disease: No HIV/AIDS: No Genitourinary: No Gastrointestinal: Yes (S/P GASTRIC SLEEVE SURGERY) Gastroesophageal Reflux, Gall Bladder Disease Musculoskeletal: No Endocrine: Yes Hypothyroidsim HEENT: No Loss of Vision: Bilateral Hearing Impairment: Denies Cancer: Yes Cervical What Type of Treatment Did You: Surgical Intervention Psychosocial: Yes Anxiety, Bipolar, Depression Integumentary: No Blood Disorders: No Adverse Reaction/Blood Tranf: No Family Medical History CAD Over 55 Years Old, Diabetes Physical Exam Vital Signs Vital Signs - First Documented 07/31/21 06:30 Temp 36.5 Pulse 98 Resp 20 B/P (MAP) 171/108 (129) Pulse Ox 100 O2 Delivery Room Air Capillary Refill : Less Than 3 Seconds Height, Weight, BMI Height: 5'2.00" Weight: 213lbs. 7.0oz. 96.522282dl; 34.00 BMI Method:Stated General Appearance: Anxious, Moderate Distress Eyes: Bilateral Eye Normal Inspection, Bilateral Eye PERRL, Bilateral Eye EOMI HEENT: PERRL/EOMI, Other (clear rhinorrhea) Neck: Normal Inspection Respiratory: Lungs Clear, Normal Breath Sounds, No Accessory Muscle Use, No Respiratory Distress Cardiovascular: Regular Rate, Rhythm, Normal Peripheral Pulses, Tachycardia (103) Gastrointestinal: Soft, Tenderness (diffuse tenderness (more RUQ), non distended; hyperactive BS) Extremity: Normal Inspection, Normal Range of Motion, No Calf Tenderness Neurologic/Psychiatric: Alert, Oriented x3, Other (anxious, agitated) Skin: Warm/Dry, Pallor Progress/Results/Core Measures Suspected Sepsis SIRS Temperature: Pulse: 98 Respiratory Rate: 20 Laboratory Tests 07/31/21 06:56: White Blood Count 8.3 Blood Pressure 171 /108 Mean: 129 Laboratory Tests 07/31/21 06:56: Creatinine 0.78, Platelet Count 295, Total Bilirubin 0.5 Results/Orders Lab Results Laboratory Tests Test 07/31/21 06:56 Range/Units White Blood Count 8.3 4.3-11.0 10^3/uL Red Blood Count 5.33 H 3.80-5.11 10^6/uL Hemoglobin 16.3 H 11.5-16.0 g/dL Hematocrit 48 35-52 % Mean Corpuscular Volume 90 80-99 fL Mean Corpuscular Hemoglobin 31 25-34 pg Mean Corpuscular Hemoglobin Concent 34 32-36 g/dL Red Cell Distribution Width 12.4 10.0-14.5 % Platelet Count 295 130-400 10^3/uL Mean Platelet Volume 10.3 9.0-12.2 fL Immature Granulocyte % (Auto) 0 % Neutrophils (%) (Auto) 68 42-75 % Lymphocytes (%) (Auto) 25 12-44 % Monocytes (%) (Auto) 6 0-12 % Eosinophils (%) (Auto) 1 0-10 % Basophils (%) (Auto) 1 0-10 % Neutrophils # (Auto) 5.6 1.8-7.8 10^3/uL Lymphocytes # (Auto) 2.1 1.0-4.0 10^3/uL Monocytes # (Auto) 0.5 0.0-1.0 10^3/uL Eosinophils # (Auto) 0.1 0.0-0.3 10^3/uL Basophils # (Auto) 0.1 0.0-0.1 10^3/uL Immature Granulocyte # (Auto) 0.0 0.0-0.1 10^3/uL Sodium Level 138 135-145 MMOL/L Potassium Level 3.6 3.6-5.0 MMOL/L Chloride Level 105 98-107 MMOL/L Carbon Dioxide Level 21 21-32 MMOL/L Anion Gap 12 5-14 MMOL/L Blood Urea Nitrogen 9 7-18 MG/DL Creatinine 0.78 0.60-1.30 MG/DL Estimat Glomerular Filtration Rate 96 BUN/Creatinine Ratio 12 Glucose Level 108 H 70-105 MG/DL Calcium Level 9.6 8.5-10.1 MG/DL Corrected Calcium 9.2 8.5-10.1 MG/DL Total Bilirubin 0.5 0.1-1.0 MG/DL Aspartate Amino Transf (AST/SGOT) 25 5-34 U/L Alanine Aminotransferase (ALT/SGPT) 21 0-55 U/L Alkaline Phosphatase 48 40-136 U/L Total Creatine Kinase 180 H 29-168 U/L Total Protein 7.4 6.4-8.2 GM/DL Albumin 4.5 3.2-4.5 GM/DL Salicylates Level < 5.0 L 5.0-20.0 MG/DL Acetaminophen Level < 10 L 10-30 UG/ML Serum Alcohol < 10 <10 MG/DL My Orders Orders - HUSSAIN TONY MD Ed Iv/Invasive Line Start (07/31/21 06:46) Cbc With Automated Diff (07/31/21 06:46) Comprehensive Metabolic Panel (07/31/21 06:46) Creatine Kinase (07/31/21 06:46) Ua Culture If Indicated (07/31/21 06:46) Drug Screen Stat (Urine) (07/31/21 06:46) Alcohol (07/31/21 06:46) Acetaminophen (07/31/21 06:46) Salicylate (07/31/21 06:46) Ns Iv 1000 Ml (Sodium Chloride 0.9%) (07/31/21 07:00) Ondansetron Injection (Zofran Injectio (07/31/21 07:00) Lorazepam Injection (Ativan Injection) (07/31/21 06:46) Normal Saline Bolus 1,000ml (07/31/21 07:45) Medications Given in ED Current Medications Medications Dose Ordered Sig/Janusz Route Start Time Stop Time Status Last Admin Dose Admin Ondansetron HCl 4 mg ONCE ONCE IVP 07/31/21 07:00 07/31/21 07:01 DC 07/31/21 07:00 4 MG Vital Signs/I&O 07/31/21 06:30 Temp 36.5 Pulse 98 Resp 20 B/P (MAP) 171/108 (129) Pulse Ox 100 O2 Delivery Room Air Capillary Refill : Less Than 3 Seconds Blood Pressure Mean: 129 Progress Note : Time: 07:40 Progress Note Patient re-evaluated, resting/sleeping comfortably, no longer vomiting/anxious. Will give second liter of fluids and d/c home. She has not produced a urine yet - Im ok if this isn't obtainable, as the patient's renal function and LFT's are all normal. She will need 48hour follow up for labs and re-eval by her PCP as several species of mushrooms can cause delayed renal and hepatic effects. Departure Impression Primary Impression: Mushroom poisoning Qualified Codes: T62.0X1A - Toxic effect of ingested mushrooms, accidental (unintentional), initial encounter Disposition: 01 HOME, SELF-CARE Condition: Stable Departure-Patient Inst. Decision time for Depature: 07:42 Referrals: [facility] (PCP/Family) Primary Care Physician Patient Instructions: Nausea and Vomiting, Adult Add. Discharge Instructions: Drink plenty of fluids to stay well hydrated. Ii have sent a prescription to your pharmacy for nausea medications to help with this - you can take the nausea meds every 8 hours. You will need to follow up on Monday with [facility] because several kinds of mushrooms can cause delayed kidney and liver issues. Come back to the ER if you have a return of symptoms, persistent vomiting in spite of medications, or other emergent concerning symptoms. Scripts Ondansetron (Ondansetron Odt) 4 Mg Tab.rapdis 4 MG PO Q8H PRN for nausea and vomiting, #20 TAB Prov: HUSSAIN TONY MD 07/31/21 Copy Copies To 1: MELISSA QUEVEDO KATHRYN M MD Jul 31, 2021 07:02
[2021-07-31 07:08] LABS: BASOPHILS # (AUTO) 0.1 10^3/uL (0.0-0.1); BASOPHILS % (AUTO) 1 % (0-10); EOSINOPHILS # (AUTO) 0.1 10^3/uL (0.0-0.3); EOSINOPHILS % (AUTO) 1 % (0-10); HEMATOCRIT 48 % (35-52); HEMOGLOBIN 16.3 g/dL (11.5-16.0); LYMPHOCYTES # (AUTO) 2.1 10^3/uL (1.0-4.0); LYMPHOCYTES % (AUTO) 25 % (12-44); MEAN CORPUSCULAR HEMOGLOBIN 31 pg (25-34); MEAN CORPUSCULAR HGB CONC 34 g/dL (32-36); MEAN CORPUSCULAR VOLUME 90 fL (80-99); MEAN PLATELET VOLUME 10.3 fL (9.0-12.2); MONOCYTES # (AUTO) 0.5 10^3/uL (0.0-1.0); MONOCYTES % (AUTO) 6 % (0-12); NEUTROPHILS # (AUTO) 5.6 10^3/uL (1.8-7.8); NEUTROPHILS % (AUTO) 68 % (42-75); PLATELET COUNT 295 10^3/uL (130-400); WHITE BLOOD COUNT 8.3 10^3/uL (4.3-11.0)
[2021-07-31 07:17] LABS: ALBUMIN 4.5 GM/DL (3.2-4.5); CHLORIDE 105 MMOL/L (98-107); POTASSIUM 3.6 MMOL/L (3.6-5.0); SODIUM 138 MMOL/L (135-145)
[2021-07-31 07:19] LABS: CALCIUM 9.6 MG/DL (8.5-10.1)
[2021-07-31 07:20] LABS: GLUCOSE 108 MG/DL (70-105); TOTAL PROTEIN 7.4 GM/DL (6.4-8.2)
[2021-07-31 07:21] LABS: CARBON DIOXIDE 21 MMOL/L (21-32)
[2021-07-31 07:22] LABS: BILIRUBIN,TOTAL 0.5 MG/DL (0.1-1.0)
[2021-07-31 07:24] LABS: ALKALINE PHOSPHATASE 48 U/L (40-136); CREATININE SERUM 0.78 MG/DL (0.60-1.30); GFR ESTIMATED 96
[2021-07-31 07:25] LABS: BUN/CREATININE RATIO 12
[2021-07-31 07:26] LABS: ACETAMINOPHEN < 10 UG/ML (10-30); SALICYLATE < 5.0 MG/DL (5.0-20.0)
[2021-07-31 07:27] LABS: ALANINE AMINOTRANSFERASE 21 U/L (0-55); CREATINE KINASE 180 U/L (29-168)
[2021-07-31] MEDS ORDERED: ONDA4TAB11 PO (07:45)
[2021-07-31 09:28] LABS: BILIRUBIN,URINE NEGATIVE (NEGATIVE); CLARITY,URINE CLEAR; COLOR,URINE DARK YELLOW; GLUCOSE, URINE (UA) NEGATIVE (NEGATIVE); KETONES,URINE TRACE (NEGATIVE); LEUKOCYTE ESTERASE ,URINE NEGATIVE (NEGATIVE); NITRITE,URINE NEGATIVE (NEGATIVE); PROTEIN,URINE NEGATIVE (NEGATIVE)
[2021-07-31 09:38] LABS: BACTERIA,URINE TRACE /HPF
[2021-07-31 09:43] LABS: AMPHETAMINE SCREEN, URINE POSITIVE (NEGATIVE); BARBITURATE SCREEN URINE NEGATIVE (NEGATIVE); BENZODIAZEPINES SCREEN URINE NEGATIVE (NEGATIVE); CANNABINOID SCREEN, URINE POSITIVE (NEGATIVE); COCAINE SCREEN URINE NEGATIVE (NEGATIVE); METHADONE STAT NEGATIVE (NEGATIVE); METHAMPHETAMINE SCREEN URINE S POSITIVE (NEGATIVE); OPIATE SCREEN URINE NEGATIVE (NEGATIVE); OXYCODONE STAT NEGATIVE (NEGATIVE); PROPOXYPHENE STAT NEGATIVE (NEGATIVE); TRICYCLIC ANTIDEPRESSANTS SCRE NEGATIVE (NEGATIVE)
[2021-07-31 09:58] VITALS: BP 132/92
== END 2021-07-31 09:58 | disposition home or self-care (01) ==
LOC: EDUNIT# 06:22 → ER 06:24
DX: T62.0X1A Toxic effect of ingested mushrooms, accidental (unintentional), initial encounter (principal); G47.30 Sleep apnea, unspecified; K21.9 Gastro-esophageal reflux disease without esophagitis; E03.9 Hypothyroidism, unspecified; F41.9 Anxiety disorder, unspecified; F31.9 Bipolar disorder, unspecified; Z87.891 Personal history of nicotine dependence; Z79.890 Hormone replacement therapy; Z79.899 Other long term (current) drug therapy
CPT/HCPCS: 80053; 80306; 81000; 82550; 85025; 87077; 87088; 87186; 99284; G0480 ×3; 36415; 80320; 80329